=== PATIENT | male | born 2000 | race Caucasian/White ===

== ENCOUNTER 2020-11-15 17:24 | Emergency (ER) | payer MEDICAID, SELFPAY ==
[2020-11-15 17:55] VITALS: BP 135/70; PULSE 86; RESP 19; TEMP 37.3; O2SAT 97; BMI 34.2
--- NOTE | 2020-11-15 18:00 | ED.ALLEREA ---
HPI - Allergic Reaction General Chief complaint: Allergic Reaction Stated complaint: ?Allergic reaction to new RX Time Seen by Provider: 11/15/20 17:54 Source: patient and family Mode of arrival: ambulatory Limitations: other History of Present Illness HPI narrative: Mother presents with her son, 20-year-old male with past medical history of autism, Tourette's, GERD, and fundal plication presents with 1 day of sore throat, swelling, and difficulty swallowing. Patient feels that he may be having an allergic reaction to the medication that he recently started. Does not report any other symptoms, is able to manage his secretions, denies fevers, chills, nausea, vomiting, diarrhea, constipation, abdominal pain, abdominal distention, dysuria, hematuria, chest pain and pressure, and palpitations. MD complaint: allergic reaction Onset (ago): day(s) (1) Exposure: medication Symptoms: difficulty swallowing Severity: moderate Treatment prior to arrival: none Previous Allergic Reaction History: other (Rash) Related Data Previous Rx's Medication Instructions Recorded azithromycin 500 mg PO DAILY 4 Days #4 tab 11/15/20 Allergies Allergy/AdvReac Type Severity Reaction Status Date / Time Sulfa (Sulfonamide Allergy Intermediate RASH Unverified 07/02/20 17:16 Antibiotics) [SULFA(SULFONAMIDE ANTIBIOTICS)] amoxicillin [From AUGMENTIN] AdvReac Mild YEAST Unverified 07/02/20 17:16 INFECTION clavulanic acid AdvReac Mild YEAST Unverified 07/02/20 17:16 [From AUGMENTIN] INFECTION Sulfa Meds Allergy Unknown Uncoded 11/12/18 00:00 Review of Systems Review of Systems: Constitutional: No Weight loss, No Fever, No Chills, No Night Sweats, No Fatigue, No Malaise ENT/Mouth: No Hearing loss, No Ear Pain, No Nasal Congestion, No Sinus Pain, No Hoarseness, positive sore throat, No Rhinorrhea, positive Swallowing Difficulty Eyes: No Eye Pain, No Swelling, No Redness, No Foreign Body, No Discharge, No Vision Changes Cardiovascular: No Chest Pain, No SOB, No Dyspnea on Exertion, No Orthopnea, No Edema, No Palpitations Respiratory: No Cough, No Sputum, No Wheezing, No Smoke Exposure, No Dyspnea Gastrointestinal: No Nausea, No Vomiting, No Diarrhea, No Constipation, No abdominal Pain, No Hematochezia, No Melena Genitourinary: no irregular bleeding, No Dysuria, No Urinary Frequency, No Hematuria, No Urinary Incontinence, No Urgency, No Flank Pain, No Urinary Flow Changes, No Hesitancy Musculoskeletal: No joint pain, No Myalgias, No Joint Swelling Skin: No Skin Lesions, No rash Neuro: No Weakness, No Numbness, No Paresthesias, No Loss of Consciousness, No Dizziness, No Headache Psych: No Anxiety/Panic, No Depression, No SI/HI/AH/VH, No Social Issues Heme/Lymph: No Bruising, No Bleeding,No Lymphadenopathy Endocrine: No Polyuria, No Polydipsia, No Temperature Intolerance Yes all other systems are reviewed and are negative [facility] Past Medical History Attestation statement: The following information was validated with the patient. Source: old records reviewed Medical History (Updated 11/15/20 @ 18:30 by Judy Wilson NP) Autism GERD (gastroesophageal reflux disease) Tourette's Surgical History (Updated 11/15/20 @ 18:30 by Judy Wilson NP) History of fundoplication Social History Social History Alcohol intake: never Smoked in Last 30 Days: No Use of substances other than those prescribed or required for medical reasons: No Advance Directives: No Advance Directives Information Provided: Yes Physical Exam Vital Signs: Vital Signs: Last Vital Signs Temp 99.1 F 11/15/20 18:04 Pulse 86 11/15/20 18:04 Resp 19 11/15/20 18:04 BP 135/70 11/15/20 18:04 Pulse Ox 97 11/15/20 18:04 Body Mass Index 34.2 Appearance: Alert. Oriented X3. No acute distress. Eyes: Pupils equal, round and reactive to light. ENT: Pharyngeal erythema, left-sided tonsillar exudate without swelling Neck: Normal inspection. Neck supple. No lymphadenopathy noted nontender to palpation CVS: Normal heart rate and rhythm. Pulses normal. Respiratory: No respiratory distress. Breath sounds normal. Abdomen: Soft and nontender. Skin: Skin warm and dry. Normal skin color. Normal skin turgor. Extremities: No lower extremity edema. Neuro: No motor deficit. No sensory deficit. Course Course Course Narrative: 20-year-old male with autism, Tourette's, GERD, history of fundoplication presents with his mother for evaluation for suspected allergic reaction. While patient believes that this may be allergic reaction, physical exam shows pharyngitis, lung sounds are clear in all lobes, able to manage secretions, no tracheal stridor noted. Highly unlikely this is an allergic reaction, most likely to be strep, pharyngitis, URI. Will order rapid strep and treat empirically with azithromycin. Patient and patient's mother verbalized understanding of and agrees to plan of care discharge home. MDM - Allergic Reaction MDM Narrative Medical decision making narrative: URI, pharyngitis, strep Differential Diagnosis Differential diagnosis: Likely allergic reaction Medical Records Attestation: I reviewed the patient's medical records. Lab Data Attestation: I reviewed the patient's lab results. Discharge Plan Discharge Clinical Impression: Pharyngitis Qualifiers: Pharyngitis/tonsillitis etiology: unspecified etiology Qualified Code(s): J02.9 - Acute pharyngitis, unspecified Patient Disposition: Home, Self-Care Instructions: Pharyngitis (ED) Additional Instructions: You were evaluated for throat pain. This is not an allergic reaction to a medication, this is pharyngitis. Pharyngitis is an inflammation in the throat. Please take azithromycin as directed. This medication is an antibiotic. Thank you for choosing this emergency department for evaluation. Please follow-up with primary care physician as needed. Return to the emergency department for any new, concerning, or worsening symptoms. Prescriptions: New azithromycin 500 mg tablet 500 mg PO DAILY 4 Days Qty: 4 RF: 0 Interventions: ED Discharge Assessment Last Done: 11/15/20 18:41 Discharge Date/Time: 11/15/20 18:42
[2020-11-15 18:04] VITALS: BP 135/70; PULSE 86; RESP 19; TEMP 37.3; O2SAT 97
[2020-11-15] MEDS: Azithromycin 500 MG TABLET PO (18:26)
== END 2020-11-15 18:42 | disposition home or self-care (01) ==
PROVIDERS: Emergency Provider Internal Medicine; PCP Pediatrics Adolescent Medicine
DX: J02.9 Acute pharyngitis, unspecified (principal); F84.0 Autistic disorder; F95.2 Tourette's disorder; Z79.899 Other long term (current) drug therapy
CPT/HCPCS: 87071; 87880; 99283; 99284

== ENCOUNTER 2020-11-24 07:59 | Emergency (ER) | payer MEDICAID, SELFPAY ==
[2020-11-24 08:57] VITALS: BP 137/61; PULSE 72; RESP 14; TEMP 36.5; O2SAT 97; BMI 35.2
--- NOTE | 2020-11-24 09:05 | ED.EYEPROB ---
HPI - Eye Problem General Chief complaint: Eye Problems Stated complaint: eye problem Time Seen by Provider: 11/24/20 09:04 Source: patient Mode of arrival: ambulatory Limitations: no limitations History of Present Illness HPI Narrative: 20 yo male presenting with left eye pain after he was grinding metal last night and thinks a piece of metal got stuck in his eye. He was grinding metal for his snowblower without eye protection when he felt metal shoot into his eye. He reports pain, redness, watering, and foreign body sensation. He took Tylenol last night with slight improvement and was able to get some sleep. Pain persisted this morning prompting ER evaluation. MD chief complaint: eye pain, eye redness, eye injury and foreign body Onset (ago): day(s) Onset description: sudden Duration: constant Location: left eye Eye Symptoms: burning, redness, pain, foreign body sensation and photophobia Place: home Mechanism: direct trauma and occurred while hammering/grinding Severity: severe Severity scale (1-10): 10 If Pain, Quality: sharp Associated symptoms: none Treatments Prior to Arrival: none Related Data Patient tetanus UTD: Yes Previous Rx's Medication Instructions Recorded azithromycin 500 mg PO DAILY 4 Days #4 tab 11/15/20 Allergies Allergy/AdvReac Type Severity Reaction Status Date / Time Sulfa (Sulfonamide Allergy Intermediate RASH Unverified 07/02/20 17:16 Antibiotics) [SULFA(SULFONAMIDE ANTIBIOTICS)] amoxicillin [From AUGMENTIN] AdvReac Mild YEAST Unverified 07/02/20 17:16 INFECTION clavulanic acid AdvReac Mild YEAST Unverified 07/02/20 17:16 [From AUGMENTIN] INFECTION Sulfa Meds Allergy Unknown Uncoded 11/12/18 00:00 Review of Systems Review of Systems: Constitutional: No Fever, No Chills ENT/Mouth: No sore throat Eyes: + Eye Pain, No Swelling, + Redness Cardiovascular: No Chest Pain, No SOB Respiratory: No Cough, No Sputum Gastrointestinal: No Nausea, No Vomiting Skin: No Skin Lesions Neuro: No Headache Psych: + Anxiety/Panic PMFSH Past Medical History Medical History Autism GERD (gastroesophageal reflux disease) Tourette's Surgical History History of fundoplication Social History Social History Alcohol intake: never Smoked in Last 30 Days: No Use of substances other than those prescribed or required for medical reasons: No Advance Directives: No Advance Directives Information Provided: No Physical Exam Vital Signs: Vital Signs: Last Vital Signs Temp 97.7 F 11/24/20 08:57 Pulse 72 11/24/20 08:57 Resp 14 11/24/20 08:57 BP 137/61 11/24/20 08:57 Pulse Ox 97 11/24/20 08:57 Body Mass Index 35.2 Appearance: Alert. Oriented X3. Appears uncomfortable. Eyes: Pupils equal, round and reactive to light. EOMI, VA noted. With fluroscene staining a punctate metal object seen at 12 o'clock in the left eye. Patient uncooperative with examination due to pain/discomfort. ENT: Normal inspection Neck: Normal inspection. Neck supple. Respiratory: No respiratory distress. Skin: Skin warm and dry. Normal skin color. Normal skin turgor. No rashes. Neuro: Oriented X 3. No motor deficit. No sensory deficit. Course Course Course Narrative: 20 y/o male presenting with metal in left eye since yesterday. Slit lamp in the ED is not functioning. Kumar lamp examination reveals punctate lesion at 12 o'clock, a small piece was able to be removed with sterile Q-tip but concern that residual metal remains. Dr. No's office has been contacted and they will see him now. Given ibuprofen now and stable for d/c to optho. Procedures FB Removal Eye Time Out performed: No Location: eye (L) Topical anesthetic used: tetracaine Foreign body: metal Evidence of corneal penetration: No Technique: irrigation and cotton tip swab Procedure performed under: direct visualization with magnification Patient tolerated procedure: other (difficult cooperation and examination due to discomfort. ) Complications: incomplete foreign body removal and residual rust ring Discharge Plan Discharge Clinical Impression: Foreign body in eye Qualifiers: Encounter type: initial encounter Laterality: left Qualified Code(s): T15.92XA - Foreign body on external eye, part unspecified, left eye, initial encounter Patient Disposition: Home, Self-Care Instructions: Eye Foreign Body (ED) Additional Instructions: Present to Dr. No's Office upon discharge for further evaluation and removal of the metal in your eye. Prescriptions: No Action azithromycin 500 mg tablet 500 mg PO DAILY 4 Days Qty: 4 RF: 0 Referrals: Ian No [Physician] - 1 day (metal in eye)
[2020-11-24] MEDS: Fluorescein Sodium STRIP 1 STRIP EYE-LEFT (09:11)
[2020-11-24] MEDS: Tetracaine HCl/PF 0.5% Oph Sol 4 ML DROPS 3 DROP EYE-LEFT (09:11)
--- NOTE | 2020-11-24 09:12 | PC.NURSE ---
mayco aviles at bedside for exam, lights lowered
[2020-11-24] MEDS: Ibuprofen 800 MG TABLET PO (09:55)
--- NOTE | 2020-11-24 09:57 | PC.NURSE ---
mayco aviles/dr linder unable to remove fb, call placed to dr salvador, pt medicated with ibuprofen and discharged,
== END 2020-11-24 09:58 | disposition home or self-care (01) ==
PROVIDERS: Emergency Provider Emergency Medicine Emergency Medical Services; PCP Pediatrics Adolescent Medicine
DX: H57.12 Ocular pain, left eye (principal); T15.02XA Foreign body in cornea, left eye, initial encounter; Y28.9XXA Contact with unspecified sharp object, undetermined intent, initial encounter; Y93.29 Activity, other involving ice and snow; Y92.009 Unspecified place in unspecified non-institutional (private) residence as the place of occurrence of the external cause; Y99.9 Unspecified external cause status; Z79.899 Other long term (current) drug therapy
CPT/HCPCS: 65222; 99283

== ENCOUNTER 2021-05-16 19:32 | Emergency (ER) | payer MEDICAID, SELFPAY ==
--- NOTE | ~2021-05-16 | XR_ITS ---
EXAMINATION: XR HAND, LEFT CLINICAL INFORMATION: Left hand pain. Limited range of motion. COMPARISON: None TECHNIQUE: PA, lateral, and oblique views of the left hand. FINDINGS: The bones and soft tissues are normal. No fracture. Alignment is anatomic. Joint spaces are maintained. No erosions or soft tissue calcifications. XR/XR hand LT min 3V IMPRESSION: Normal left hand radiographs
[2021-05-16 19:36] VITALS: BP 153/83; PULSE 99; RESP 18; TEMP 36.6; O2SAT 97; BMI 34.4
--- NOTE | 2021-05-16 21:01 | ED_ITS ---
HPI - Extremity Problem General Chief complaint: Extremity Injury, Upper Stated complaint: lac Source: patient and family Mode of arrival: ambulatory Limitations: other (Autism) History of Present Illness HPI Narrative: 20-year-old autistic male presents with several lacerations to his 4th and 5th fingers to his left hand. He presents with his mother who is a good support system. He was repairing a lawnmower when the blade slipped and cut his fingers. His last Tdap was approximately a year ago. Patient has full range of motion and bleeding is controlled at this time. He does not report any other concerns at this time. MD Complaint: extremity pain Onset (ago): hour(s) (Within the hour of arrival) Pain Consistency: constant Location: left Severity scale (1-10): 4 Quality: burning Radiation: none Relieving factors: nothing Exacerbating factors: range of motion and palpation Associated symptoms: denies other symptoms Related Data Previous Rx's Medication Instructions Recorded azithromycin 500 mg tablet 500 mg PO DAILY 4 Days #4 tab 11/15/20 amoxicillin 875 mg-potassium 1 tab PO Q12H 10 Days #20 tab 05/16/21 clavulanate 125 mg tablet (Augmentin) Allergies Allergy/AdvReac Type Severity Reaction Status Date / Time Sulfa (Sulfonamide Allergy Intermediate RASH Unverified 07/02/20 17:16 Antibiotics) [SULFA(SULFONAMIDE ANTIBIOTICS)] amoxicillin [From AUGMENTIN] AdvReac Mild YEAST Unverified 07/02/20 17:16 INFECTION clavulanic acid AdvReac Mild YEAST Unverified 07/02/20 17:16 [From AUGMENTIN] INFECTION Sulfa Meds Allergy Unknown Uncoded 11/12/18 00:00 Review of Systems Review of Systems: Constitutional: No Fever, No Chills ENT/Mouth: No Ear Pain, No Hoarseness, No sore throat Eyes: No Eye Pain, No Swelling, No Redness, No Foreign Body Cardiovascular: No Chest Pain, No SOB Respiratory: No Cough, No Dyspnea Gastrointestinal: No Nausea, No Vomiting, No Diarrhea, No abdominal Pain Genitourinary: No Dysuria, No Hematuria Musculoskeletal: positive left 4th and 5th finger pain, No Myalgias, No Joint Swelling Skin: 2 lacerations to 5th finger, 1 laceration to 4th finger on left side, No rash Neuro: No Weakness, No Numbness, No Paresthesias, No Loss of Consciousness, No Dizziness, No Headache Psych: No Anxiety/Panic, No Depression Heme/Lymph: no easy bruising, no Lymphadenopathy Endocrine: No Polyuria, No Polydipsia Yes all other systems are reviewed and are negative [facility] Past Medical History Attestation statement: The following information was validated with the patient. Source: old records reviewed Medical History Autism GERD (gastroesophageal reflux disease) Tourette's Surgical History History of fundoplication Social History Social History Alcohol intake: never Advance Directives: No Advance Directives Information Provided: No Physical Exam Vital Signs: Vital Signs: Last Vital Signs Temp 98 F 05/16/21 19:36 Pulse 99 05/16/21 19:36 Resp 18 05/16/21 19:36 BP 153/83 H 05/16/21 19:36 Pulse Ox 97 05/16/21 19:36 Body Mass Index 34.4 Appearance: Alert. Oriented X3. No acute distress. Eyes: Pupils equal, round and reactive to light. ENT: Pharynx normal. Neck: Normal inspection. Neck supple. CVS: Normal heart rate and rhythm. Pulses normal. Respiratory: No respiratory distress. Breath sounds normal. Abdomen: Soft and nontender. Skin: 2 cm laceration to the dorsal aspect of the 4th finger, 2 cm laceration to the dorsal aspect of the 5th finger, 1 cm laceration to the dorsal aspect of the 5th finger tip which does not involve the nail. Skin warm and dry. Normal skin color. Normal skin turgor. Extremities: Full range of motion to all digits, strength 5/5, no indication of tendon injury. Neuro: No motor deficit. No sensory deficit. Course Course Course Narrative: 20-year-old autistic male presents for several lacerations to his 4th and 5th fingers of the left hand after a lawnmower blade accident. There is no bone involvement on x-ray, and bleeding is well controlled. The patient is up-to-date on Tdap vaccine. Detailed description about digital blocking with mother and patient, and both agree to the plan. Patient has full range of motion, no indication of tendon injury. Brisk capillary refill and equal pulses. Neurovascularly intact. Prepped and draped in sterile fashion. Irrigated with copious amounts of normal saline and cleaned with Betadine cleanse. Please refer to procedure note for full details. Patient tolerated procedure well. No blood loss. Approximately 30 minutes after laceration repairs, patient continues with full range of motion, no indication of tendon injury. Brisk capillary refill and equal pulses. Patient discharged home, mother verbalized understanding of and agrees to plan. MDM - Extremity (Nontraumatic) MDM Narrative Medical decision making narrative: Laceration, fracture, tendon injury Medical Records Attestation: I reviewed the patient's medical records. Imaging Data Hand x-ray: Attestation: I personally reviewed and interpreted this imaging study as follows: Radiologist's impression: EXAMINATION: XR HAND, LEFT CLINICAL INFORMATION: Left hand pain. Limited range of motion.? COMPARISON: None? TECHNIQUE: PA, lateral, and oblique views of the left hand. FINDINGS: The bones and soft tissues are normal. No fracture. Alignment is anatomic. Joint spaces are maintained. No erosions or soft tissue calcifications.? XR/XR hand LT min 3V IMPRESSION: Normal left hand radiographs Procedures Laceration Laceration 1: Site: hand Side (If applicable): left (Fourth finger) Size (cm): 2 Description: linear Depth: simple, single layer Local Anesthetic: lidocaine 2% Amount of anesthesia used (mL): 4 Pre-repair: wound explored, irrigated extensively, deep structures intact and extensive debridement Skin layer closed with: nylon Size (cm): 4-0 Number of sutures: 3 Technique: simple, interrupted Laceration 2: Site: hand Side (If applicable): left (Fifth finger) Size (cm): 2 Description: linear Depth: simple, single layer Local Anesthetic: lidocaine 2% Amount of anesthesia used (mL): 4 Pre-repair: wound explored, irrigated extensively, deep structures intact and extensive debridement Skin layer closed with: nylon Size (cm): 4-0 Number of sutures: 3 Technique: simple, interrupted Laceration 3: Site: hand Side (If applicable): left (Fifth finger) Size (cm): 1 Description: linear Depth: simple, single layer Local Anesthetic: lidocaine 2% Amount of anesthesia used (mL): 4 Pre-repair: wound explored, irrigated extensively, deep structures intact and extensive debridement Skin layer closed with: nylon Size (cm): 4-0 Number of sutures: 2 Technique: simple, interrupted Discharge Plan Discharge Clinical Impression: Laceration of finger, Laceration of finger of left hand Patient Disposition: Home, Self-Care Instructions: Care For Your Stitches (ED), Finger Laceration (ED) Additional Instructions: You were evaluated for laceration sustained from a lawnmower injury. We sutured 3 lacerations. Please take Augmentin twice a day as directed. Take Tylenol and Motrin as needed for pain management. Please return in 10 days to have sutures removed. If you notice signs and symptoms of infection please seek medical attention sooner. Thank you for choosing this emergency department for evaluation. Please follow-up with primary care physician as needed. Return to the emergency department for any new, concerning, or worsening symptoms. Prescriptions: New amoxicillin-pot clavulanate [Augmentin] 875-125 mg tablet 1 tab PO Q12H 10 Days Qty: 20 RF: 0 No Action azithromycin 500 mg tablet 500 mg PO DAILY 4 Days Qty: 4 RF: 0 Interventions: ED Discharge Assessment Last Done: 05/16/21 22:56 Discharge Date/Time: 05/16/21 23:05
[2021-05-16] MEDS: Amoxicillin/Potassium Clav 875 MG TABLET PO (22:46)
[2021-05-16] MEDS: Acetaminophen 325 MG TABLET 650 MG PO (22:46)
[2021-05-16] MEDS: Lidocaine HCl 2 % MPF 5 ML VIAL 15 ML SUBCUT (22:47)
--- NOTE | 2021-05-16 22:55 | PC.NURSE ---
PT LAC TO LEFT HAND CLEANED AND SCRUBBED OUT AND THEN SUTURED BY BILL ARANA. DSD APPLIED TO LEFT FINGERS.
== END 2021-05-16 23:05 | disposition home or self-care (01) ==
PROVIDERS: Emergency Provider Internal Medicine
DX: S61.215A Laceration without foreign body of left ring finger without damage to nail, initial encounter (principal); S61.217A Laceration without foreign body of left little finger without damage to nail, initial encounter; M79.642 Pain in left hand; W26.9XXA Contact with unspecified sharp object(s), initial encounter; Y93.9 Activity, unspecified; Y92.009 Unspecified place in unspecified non-institutional (private) residence as the place of occurrence of the external cause; Y99.9 Unspecified external cause status; Z79.899 Other long term (current) drug therapy
CPT/HCPCS: 12042; 73130; 99284

== ENCOUNTER 2021-05-27 14:53 | Emergency (ER) | payer MEDICAID, SELFPAY ==
[2021-05-27 15:11] VITALS: BP 139/97; PULSE 100; RESP 16; TEMP 36.2; O2SAT 98; BMI 34.4
--- NOTE | 2021-05-27 17:36 | ED_ITS ---
HPI - Wound/Laceration General Chief Complaint: Wound/Laceration Stated Complaint: suture removal Time Seen by Provider: 05/27/21 17:00 Source: patient Mode of arrival: ambulatory History of Present Illness HPI narrative: 20-year-old male with a past medical history of autism presenting to the ED for suture removal to left hand from lacerations s/p hand being caught in utility worker roller shop on 05/16/2021. Reports minimal drainage to distal pinky w ound/nail bed, however injuries overall improved. Denies fever, chills, numbness, tingling, weakness. Has been compliant with Augmentin Onset (ago): day(s) Related Data Previous Rx's Medication Instructions Recorded azithromycin 500 mg tablet 500 mg PO DAILY 4 Days #4 tab 11/15/20 amoxicillin 875 mg-potassium 1 tab PO Q12H 10 Days #20 tab 05/16/21 clavulanate 125 mg tablet (Augmentin) Allergies Allergy/AdvReac Type Severity Reaction Status Date / Time Sulfa (Sulfonamide Allergy Intermediate RASH Unverified 07/02/20 17:16 Antibiotics) [SULFA(SULFONAMIDE ANTIBIOTICS)] amoxicillin [From AUGMENTIN] AdvReac Mild YEAST Unverified 07/02/20 17:16 INFECTION clavulanic acid AdvReac Mild YEAST Unverified 07/02/20 17:16 [From AUGMENTIN] INFECTION Sulfa Meds Allergy Unknown Uncoded 11/12/18 00:00 Review of Systems Review of Systems: Constitutional: No Fever, No Chills Musculoskeletal: No joint pain, No Myalgias, No Joint Swelling Skin: + Skin Lesions, No rash Neuro: No Weakness, No Numbness, No Paresthesias Yes all other systems are reviewed and are negative Neurologic: Denies Sensory deficit (Neuro) [facility] Past Medical History Attestation statement: The following information was validated with the patient. Medical History Autism GERD (gastroesophageal reflux disease) Tourette's Surgical History History of fundoplication Social History Social History Alcohol intake: never Advance Directives: No Advance Directives Information Provided: No Physical Exam Vital Signs: Vital Signs: Last Vital Signs Temp 97.1 F 05/27/21 15:11 Pulse 100 05/27/21 15:11 Resp 16 05/27/21 15:11 BP 139/97 H 05/27/21 15:11 Pulse Ox 98 05/27/21 15:11 Body Mass Index 34.4 Const: General: cooperative, healthy appearing and no acute distress Orientation/consciousness: patient oriented x3 Limitations: no limitations HENMT: Head: Yes normal to inspection Ears: hearing grossly normal bilaterally General nose exam: Normal external nose present Face and sin us: Yes normal facial exam Eyes: General: appearance normal, both eyes and all related structures EOM: EOMs intact bilaterally Neck: Neck: Yes normal visual inspection Resp: Effort & Inspection: normal respiratory effort and no respiratory distress Cardio: Rate: regular rate Peripheral pulses: radial pulses present Skin: Other: Healing lacerations noted to dorsal aspect left 4th & 5th digits with 3 sutures intact, and distal 5th digit/nail with 2 sutures intact. Distal 5th wound open with slight drainage, appropriate healing, no pus, no surrounding cellulitis Rashes: no rashes Neuro: General: patient oriented x3 Gait exam (Neuro): Normal gait present Sensory Exam: No Sensory deficit (Neuro) Extrem: General: Yes normal to inspection Course Course Course Narrative: 3 sutures removed from left 4th digit 3 sutures removed proximal from left 5th digit, in 2 sutures removed from distal 5th digit/nail MDM - Wound/Laceration MDM Narrative Medical decision making narrative: 20-year-old male with a past medical history of autism presenting to the ED for suture removal to left hand from lacerations s/p hand being caught in utility worker roller shop on 05/16/2021. On exam vital signs stable, NAD/well-appearing, physical exam as above. 8 sutures removed in total. Wounds appear appropriately healing. Discussed with patient he will likely lose nail on left 5th digit, to keep a close eye on that area, apply bacitracin or Neosporin and follow-up for wound check in 3-5 days Discharge Plan Discharge Clinical Impression: Visit for suture removal Patient Disposition: Home, Self-Care Instructions: Stitches Removal (ED) Additional Instructions: Your sutures removed were today in the emergency department Apply bacitracin and Neosporin at home to your wound Keep area dry and clean Avoid the nail, off her finger, keep intact as long as possible, your nail may, of your pinky finger Continue your previously prescribed antibiotics if you have not completed them Please be re-evaluated in 3-5 days to ensure your pinky finger does not look infected Prescriptions: No Action azithromycin 500 mg tablet 500 mg PO DAILY 4 Days Qty: 4 RF: 0 amoxicillin-pot clavulanate [Augmentin] 875-125 mg tablet 1 tab PO Q12H 10 Days Qty: 20 RF: 0 Referrals: Bhavna Guillen MD [Primary Care Provider] - 5 days (For wound check) Interventions: ED Discharge Assessment Last Done: 05/27/21 17:53
--- NOTE | 2021-05-27 17:52 | PC.NURSE ---
wound to left pinky finger cleaned and bacitracin applied w/ bandaid
== END 2021-05-27 17:53 | disposition home or self-care (01) ==
PROVIDERS: Emergency Provider Emergency Medicine Emergency Medical Services; PCP Pediatrics Adolescent Medicine
DX: Z48.02 Encounter for removal of sutures (principal); S61.412D Laceration without foreign body of left hand, subsequent encounter; W28.XXXD Contact with powered lawn mower, subsequent encounter
CPT/HCPCS: 99283

== ENCOUNTER 2021-08-16 21:20 | Emergency (ER) | payer MEDICAID, SELFPAY ==
[2021-08-16 21:29] VITALS: BP 133/61; PULSE 82; RESP 18; TEMP 37; O2SAT 98; BMI 33.5
--- NOTE | 2021-08-16 22:32 | ED.WOUNDLAC ---
HPI - Wound/Laceration General Chief Complaint: Wound/Laceration Stated Complaint: finger lac Time Seen by Provider: 08/16/21 22:02 Source: patient Mode of arrival: ambulatory Limitations: no limitations History of Present Illness HPI narrative: Patient with superficial laceration to right thumb while working on his lawn more fully tendons are intact no deeper injuries moving his hand normally Related Data Previous Rx's Medication Instructions Recorded azithromycin 500 mg tablet 500 mg PO DAILY 4 Days #4 tab 11/15/20 amoxicillin 875 mg-potassium 1 tab PO Q12H 10 Days #20 tab 05/16/21 clavulanate 125 mg tablet (Augmentin) Allergies Allergy/AdvReac Type Severity Reaction Status Date / Time Sulfa (Sulfonamide Allergy Intermediate RASH Verified 08/16/21 22:19 Antibiotics) [SULFA(SULFONAMIDE ANTIBIOTICS)] amoxicillin [From AUGMENTIN] AdvReac Mild YEAST Verified 08/16/21 22:19 INFECTION clavulanic acid AdvReac Mild YEAST Verified 08/16/21 22:19 [From AUGMENTIN] INFECTION Review of Systems Review of Systems: Yes all other systems are reviewed and are negative [facility] Past Medical History Medical History Autism GERD (gastroesophageal reflux disease) Tourette's Surgical History History of fundoplication Social History Social History Alcohol intake: never Advance Directives: No Physical Exam Vital Signs: Vital Signs: Last Vital Signs Temp 98.6 F 08/16/21 21:29 Pulse 82 08/16/21 21:29 Resp 18 08/16/21 21:29 BP 133/61 08/16/21 21:29 Pulse Ox 98 08/16/21 21:29 Body Mass Index 33.5 Const: General: cooperative and comfortable Extrem: Hand/finger images: 1. 3 cm long superficial laceration tenderness intact neurovascular intact Procedures Laceration Laceration 1: Site: upper extremity Side (If applicable): right Size (cm): 2 Description: linear Depth: simple, single layer Local Anesthetic: lidocaine 2% Amount of anesthesia used (mL): 2 Skin layer closed with: nylon Size (cm): 5-0 Number of sutures: 5 Technique: simple, interrupted Discharge Plan Discharge Clinical Impression: Laceration Patient Disposition: Home, Self-Care Instructions: Laceration (ED) Additional Instructions: Local care as advised Suture removal in 10 days Prescriptions: No Action azithromycin 500 mg tablet 500 mg PO DAILY 4 Days Qty: 4 RF: 0 amoxicillin-pot clavulanate [Augmentin] 875-125 mg tablet 1 tab PO Q12H 10 Days Qty: 20 RF: 0
[2021-08-16] MEDS: Lidocaine HCl 2 % MPF 5 ML VIAL INFILTRATI (23:13)
== END 2021-08-16 23:16 | disposition home or self-care (01) ==
PROVIDERS: Emergency Provider Internal Medicine; PCP Pediatrics Adolescent Medicine
DX: S61.011A Laceration without foreign body of right thumb without damage to nail, initial encounter (principal); X58.XXXA Exposure to other specified factors, initial encounter; Y93.H9 Activity, other involving exterior property and land maintenance, building and construction; Y92.007 Garden or yard of unspecified non-institutional (private) residence as the place of occurrence of the external cause; Y99.9 Unspecified external cause status
CPT/HCPCS: 12001; 99283; 99284

== ENCOUNTER 2021-09-22 07:57 | Emergency (ER) | payer MEDICAID, SELFPAY ==
--- NOTE | ~2021-09-22 | XR_ITS ---
EXAMINATION: XR RIBS, RIGHT CLINICAL INFORMATION: Fall COMPARISON: Previous chest x-ray July 2019 TECHNIQUE: 3 views of the right ribs and one view of the chest were obtained. FINDINGS: Lungs are clear. No consolidation, pneumothorax, or pleural effusion. The cardiomediastinal silhouette and pulmonary vasculature are normal. Osseous structures are unremarkable. Ribs are intact. No fractures are identified. XR/XR ribs RT min 3V w CXR1V IMPRESSION: Unremarkable examination.
[2021-09-22 08:27] VITALS: BP 145/76; PULSE 96; RESP 18; TEMP 36.6; O2SAT 97; BMI 35.9
--- NOTE | 2021-09-22 08:40 | ED.GENADULT ---
HPI - General Adult General Chief complaint: General Medical Stated complaint: Fall/rib pain Time Seen by Provider: 09/22/21 08:35 Related Data Previous Rx's Medication Instructions Recorded azithromycin 500 mg tablet 500 mg PO DAILY 4 Days #4 tab 11/15/20 amoxicillin 875 mg-potassium 1 tab PO Q12H 10 Days #20 tab 05/16/21 clavulanate 125 mg tablet (Augmentin) Allergies Allergy/AdvReac Type Severity Reaction Status Date / Time Sulfa (Sulfonamide Allergy Intermediate RASH Verified 08/16/21 22:19 Antibiotics) [SULFA(SULFONAMIDE ANTIBIOTICS)] amoxicillin [From AUGMENTIN] AdvReac Mild YEAST Verified 08/16/21 22:19 INFECTION clavulanic acid AdvReac Mild YEAST Verified 08/16/21 22:19 [From AUGMENTIN] INFECTION PMFSH Past Medical History Medical History Autism GERD (gastroesophageal reflux disease) Tourette's Surgical History History of fundoplication Social History Social History Alcohol intake: never Advance Directives: No Advance Directives Information Provided: No Physical Exam Vital Signs: Vital Signs: Last Vital Signs Temp 97.9 F 09/22/21 08:27 Pulse 96 09/22/21 08:27 Resp 18 09/22/21 08:27 BP 145/76 H 09/22/21 08:27 Pulse Ox 97 09/22/21 08:27 BMI result Body Mass Index 35.9 Discharge Plan Discharge Prescriptions: No Action azithromycin 500 mg tablet 500 mg PO DAILY 4 Days Qty: 4 RF: 0 amoxicillin-pot clavulanate [Augmentin] 875-125 mg tablet 1 tab PO Q12H 10 Days Qty: 20 RF: 0
--- NOTE | 2021-09-22 09:37 | ED.GENADULT ---
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 Denies symptoms prior to fall. Denies head injury, LOC, lightheadedness/dizziness prior to fall. Reports pain with movement/breathing Onset (ago): day(s) Severity: moderate Related Data Previous Rx's Medication Instructions Recorded azithromycin 500 mg tablet 500 mg PO DAILY 4 Days #4 tab 11/15/20 amoxicillin 875 mg-potassium 1 tab PO Q12H 10 Days #20 tab 05/16/21 clavulanate 125 mg tablet (Augmentin) Allergies Allergy/AdvReac Type Severity Reaction Status Date / Time Sulfa (Sulfonamide Allergy Intermediate RASH Verified 08/16/21 22:19 Antibiotics) [SULFA(SULFONAMIDE ANTIBIOTICS)] amoxicillin [From AUGMENTIN] AdvReac Mild YEAST Verified 08/16/21 22:19 INFECTION clavulanic acid AdvReac Mild YEAST Verified 08/16/21 22:19 [From AUGMENTIN] INFECTION Review of Systems Review of Systems: Constitutional: No Fever, No Chills ENT/Mouth: No Ear Pain, No Nasal Congestion, No sore throat, No Rhinorrhea Cardiovascular: + Chest wall Pain, No SOB Respiratory: No Cough, No Sputum, No Wheezing Gastrointestinal: No Nausea, No Vomiting, No Abdominal pain Genitourinary:, No Dysuria, No Urinary Incontinence, No Urgency, No Flank Pain Musculoskeletal: No joint pain, No Myalgias, No Joint Swelling Skin: No Skin Lesions, No rash Neuro: No Weakness, No Numbness, No Paresthesias, no head injury, no LOC Yes all other systems are reviewed and are negative PMFSH Past Medical History Attestation statement: The following information was validated with the patient. Medical History Autism GERD (gastroesophageal reflux disease) Tourette's Surgical History History of fundoplication Social History Social History Alcohol intake: never Advance Directives: No Advance Directives Information Provided: No Physical Exam Vital Signs: Vital Signs: Last Vital Signs Temp 97.9 F 09/22/21 08:27 Pulse 96 09/22/21 08:27 Resp 18 09/22/21 08:27 BP 145/76 H 09/22/21 08:27 Pulse Ox 97 09/22/21 08:27 BMI result Body Mass Index 35.9 Const: General: cooperative, healthy appearing and no acute distress Orientation/consciousness: patient oriented x3 Limitations: no limitations HENMT: Head: Yes normal to inspection Ears: hearing grossly normal bilaterally General nose exam: Normal external nose present Face and sinus: Yes normal facial exam Eyes: General: appearance normal, both eyes and all related structures EOM: EOMs intact bilaterally Neck: Neck: Yes normal visual inspection and Yes no meningeal signs Chest: Other: + small ecchymosis noted to right anterior ribs with tenderness to palpation. No crepitus, no erythema. Chest palpation & inspection: no crepitus Resp: Effort & Inspection: normal respiratory effort and not tachypneic Auscultation: clear to auscultation bilaterally, no rales, no rhonchi and no wheezes Cardio: Rate: regular rate Heart sounds: S1 normal heart sound present and S2 normal heart sound present GI: Inspection: Yes normal to inspection Palpation (GI): Soft to palpation, nontender, no guarding and not rigid Skin: Rashes: no rashes Wounds: no wounds Neuro: General: patient oriented x3 and no meningeal signs Gait exam (Neuro): Normal gait present Extrem: General: Yes normal to inspection Course Course Course Narrative: XR ribs RT min 3V w CXR1V IMPRESSION: Unremarkable examination. Medical Decision Making MDM Narrative Medical decision making narrative: On exam vital signs stable, NAD/well-appearing, physical exam as above. Concern for rib fracture versus contusion. Low concern for pneumothorax. Will obtain x-rays Medical Records Medical records reviewed: Yes I reviewed the patient's medical records. Lab Data Lab results reviewed: Yes I reviewed the patient's lab results. Discharge Plan Discharge Clinical Impression: Contusion of rib on right side Qualifiers: Encounter type: initial encounter Qualified Code(s): S20.211A - Contusion of right front wall of thorax, initial encounter Patient Disposition: Home, Self-Care Instructions: Rib Contusion (ED) Additional Instructions: Your x-ray is unremarkable. You bruised her ribs Take Tylenol and Motrin at home as needed for pain Ice area Rest Please follow-up with your doctor If you develop fever, chills, unbearable pain please return to the ED Prescriptions: No Action azithromycin 500 mg tablet 500 mg PO DAILY 4 Days Qty: 4 RF: 0 amoxicillin-pot clavulanate [Augmentin] 875-125 mg tablet 1 tab PO Q12H 10 Days Qty: 20 RF: 0 Referrals: Bhavna Guillen MD [Primary Care Provider] - 3 days
== END 2021-09-22 09:51 | disposition home or self-care (01) ==
PROVIDERS: Emergency Provider Emergency Medicine; PCP Pediatrics Adolescent Medicine
DX: S20.211A Contusion of right front wall of thorax, initial encounter (principal); W01.198A Fall on same level from slipping, tripping and stumbling with subsequent striking against other object, initial encounter; Y93.9 Activity, unspecified; Y92.9 Unspecified place or not applicable; Y99.9 Unspecified external cause status
CPT/HCPCS: 71101; 99283

== ENCOUNTER 2021-10-18 18:53 | Emergency (ER) | payer MEDICAID, SELFPAY ==
--- NOTE | ~2021-10-18 | XR_ITS ---
EXAMINATION: XR CHEST CLINICAL INFORMATION: Chest pain. COMPARISON: Chest radiograph dated from 09/22/2021. TECHNIQUE: 2 views of the chest were obtained. FINDINGS: Normal appearance of the cardiomediastinal silhouette. Low lung volumes with mild bibasilar subsegmental atelectasis. No focal airspace opacities, pleural effusions or pneumothorax. No acute osseous abnormalities. Visualized upper abdomen is within normal limits. XR/XR chest 2V IMPRESSION: No acute cardiopulmonary findings. Of note, radiographic examinations have decreased sensitivity for the detection of groundglass opacities.
[2021-10-18 19:54] VITALS: BP 138/71; PULSE 93; RESP 20; TEMP 36.7; O2SAT 97; BMI 33.5
[2021-10-18 20:25] LABS: COVID-19 Test Negative (Negative)
[2021-10-18 23:27] VITALS: BP 103/52; PULSE 73; RESP 16; TEMP 36.7; O2SAT 96
--- NOTE | 2021-10-18 23:36 | ED.CHESTPAIN ---
HPI - Chest Pain General Chief Complaint: Chest Pain Stated Complaint: ? pneumonia Time Seen by Provider: 10/18/21 22:46 Source: patient Mode of arrival: ambulatory Limitations: no limitations History of Present Illness HPI narrative: Patient 21 years old with no significant past medical history been complaining of pain in the right 2nd inter costal space for last 2 weeks increases on palpation taking a deep breath also patient been wheezing in the nighttime had a history of exertional asthma but not using any inhaler lately patient already been vaccinated against COVID already received a booster dose also Related Data Previous Rx's Medication Instructions Recorded azithromycin 500 mg tablet 500 mg PO DAILY 4 Days #4 tab 11/15/20 amoxicillin 875 mg-potassium 1 tab PO Q12H 10 Days #20 tab 05/16/21 clavulanate 125 mg tablet (Augmentin) albuterol sulfate 90 mcg/actuation 2 puff INHALATION Q4-6H PRN #8.5 g 10/19/21 aerosol inhaler (ProAir HFA) ibuprofen 600 mg tablet 600 mg PO Q6H PRN #20 tab 10/19/21 Allergies Allergy/AdvReac Type Severity Reaction Status Date / Time Sulfa (Sulfonamide Allergy Intermediate RASH Verified 08/16/21 22:19 Antibiotics) [SULFA(SULFONAMIDE ANTIBIOTICS)] amoxicillin [From AUGMENTIN] AdvReac Mild YEAST Verified 08/16/21 22:19 INFECTION clavulanic acid AdvReac Mild YEAST Verified 08/16/21 22:19 [From AUGMENTIN] INFECTION Review of Systems Review of Systems: Yes all other systems are reviewed and are negative PMFSH Past Medical History Medical History Autism GERD (gastroesophageal reflux disease) Tourette's Surgical History History of fundoplication Social History Social History Alcohol intake: never Advance Directives: No Physical Exam Vital Signs: Vital Signs: Last Vital Signs Temp 98.1 F 10/18/21 23:27 Pulse 73 10/18/21 23:27 Resp 16 10/18/21 23:27 BP 103/52 L 10/18/21 23:27 Pulse Ox 96 10/18/21 23:27 BMI result Body Mass Index 33.5 Appearance: Alert. Oriented X3. No acute distress. ENT: Pharynx normal. Oral Mucosa moist Neck: Normal inspection. Neck supple. CVS: Normal heart rate and rhythm. Pulses normal. Respiratory: No respiratory distress. Equal air entry bilateral, no wheezing/rales/rhonchi right 2nd intercostal tenderness+ Abdomen: Soft and nontender. Skin: Skin warm and dry. Normal skin color. Normal skin turgor. Extremities: No lower extremity edema. No calf tenderness Neuro: Oriented X 3. MDM - Chest Pain MDM Narrative Medical decision making narrative: Patient's atypical chest pain clinically costochondritis will discharge patient home on ibuprofen EKG normal COVID negative chest x-ray negative Lab Data Labs: Lab Results 10/18/21 Range/Units 20:01 COVID-19 ([place]) Negative (Negative) COVID-19 Clin Com See Note ECG Data ECG #1: Attestation: I personally reviewed and interpreted this ECG as follows: Interpretation: Normal sinus rhythm heart rate 63 beats per minute normal intervals normal axis no acute changes Discharge Plan Discharge Clinical Impression: Acute costochondritis Asthma Qualifiers: Asthma severity: mild Asthma persistence: intermittent Asthma complication type: uncomplicated Qualified Code(s): J45.20 - Mild intermittent asthma, uncomplicated Patient Disposition: Home, Self-Care Instructions: Asthma (ED), Costochondritis (ED) Additional Instructions: Take ibuprofen as advised Inhaler as advised in the nighttime/when wheezing Follow with PCP if not better Prescriptions: New ibuprofen 600 mg tablet 600 mg PO Q6H PRN (Reason: pain) Qty: 20 RF: 0 albuterol sulfate [ProAir HFA] 90 mcg/actuation HFA aerosol inhaler 2 puff inhalation Q4-6H PRN (Reason: Wheezing) Qty: 8.5 RF: 0 No Action azithromycin 500 mg tablet 500 mg PO DAILY 4 Days Qty: 4 RF: 0 amoxicillin-pot clavulanate [Augmentin] 875-125 mg tablet 1 tab PO Q12H 10 Days Qty: 20 RF: 0 Interventions: ED Discharge Assessment Last Done: 10/19/21 01:27 Discharge Date/Time: 10/19/21 01:28
--- NOTE | 2021-10-18 23:42 | ECG_ITS ---
Test Reason : CHEST PAIN Blood Pressure : / mmHG Vent. Rate : 063 BPM Atrial Rate : 063 BPM P-R Int : 138 ms QRS Dur : 102 ms QT Int : 400 ms P-R-T Axes : 036 034 020 degrees QTc Int : 409 ms Normal sinus rhythm Normal ECG When compared with ECG of 02-AUG-2019 10:38, No significant change was found Referred By: William Wilks Electronically Signed By:GEORGE MYERS MD
[2021-10-19] MEDS: Ibuprofen 800 MG TABLET PO (01:26)
== END 2021-10-19 01:28 | disposition home or self-care (01) ==
PROVIDERS: Emergency Provider Internal Medicine; PCP Pediatrics Adolescent Medicine
DX: M94.0 Chondrocostal junction syndrome [Tietze] (principal); J45.20 Mild intermittent asthma, uncomplicated; Z20.822 Contact with and (suspected) exposure to COVID-19; F95.2 Tourette's disorder
CPT/HCPCS: 36415; 71046; 87635; 93005; 99283; 99284

== ENCOUNTER 2022-02-05 18:56 | Emergency (ER) | payer MEDICAID, SELFPAY ==
--- NOTE | ~2022-02-05 | CT_ITS ---
EXAMINATION: CT ABDOMEN AND PELVIS WITH CONTRAST CLINICAL INFORMATION: Right-sided abdominal pain. COMPARISON: None. TECHNIQUE: Multidetector volumetric images were obtained from the superior aspect of the liver through the pubic symphysis following administration 85 mL of Omnipaque 350 intravenous contrast. Sagittal and coronal reformatted images were obtained on the technologist's workstation. Oral contrast: No This CT examination was performed using dose optimization techniques as appropriate, variously including the following: *Automated exposure control *Adjustment of mA and/or kV according to patient size (this includes techniques or standardized protocols for targeted exams where dose is matched to indication/reason for exam; i.e. extremities or head) *Use of iterative reconstruction technique DLP: 886 mGy-cm FINDINGS: LUNG BASES: The visualized lung bases are unremarkable. LIVER, GALLBLADDER, AND BILIARY TREE: The liver is normal in size, shape, and attenuation. No focal hepatic lesion or biliary ductal dilatation is present. The gallbladder is unremarkable with no evidence of radiopaque gallstones, gallbladder wall thickening, or obvious pericholecystic inflammatory changes. PANCREAS: Unremarkable. SPLEEN: Unremarkable. ADRENAL GLANDS: Unremarkable. KIDNEYS AND URETERS: The kidneys are normal in size, shape, and attenuation. No hydronephrosis, hydroureter, or calculi seen. No perinephric stranding. BLADDER: Unremarkable. GASTROINTESTINAL TRACT: The small and large bowel are unremarkable. The appendix is unremarkable. ABDOMINAL WALL: No significant hernia is appreciated. LYMPH NODES: Normal. VASCULAR: Unremarkable. PELVIC VISCERA: Unremarkable. OSSEOUS STRUCTURES: Unremarkable. CT/CT abdomen pelvis w con IMPRESSION: No significant abnormality.
[2022-02-05 19:02] VITALS: BP 139/60; PULSE 78; RESP 18; TEMP 36.4; O2SAT 100; BMI 35.9
[2022-02-05 19:17] LABS: MANUAL DIFF FLAG NO
[2022-02-05 19:25] LABS: Basophils Percent Auto 0.4 % (0-2); Eosinophils Absolute Auto 0.2 X10*3/uL (0.0-0.4); Eosinophils Percent Auto 2.6 % (0-4); Hematocrit 45.1 % (42.0-52.0); Hemoglobin 15.4 g/dl (14.0-18.0); Imm Gran Abs Auto 0.03 X10*3/uL (0.00-0.03); Imm Gran Pct Auto 0.4 % (0.0-0.4); Lymphocytes Absolute Auto 2.5 X10*3/uL (1.2-4.9); Lymphocytes Percent Auto 30.8 % (20-40); Mean Corpuscular HGB Conc 34.1 g/dl (31.0-36.0); Mean Corpuscular Hemoglobin 27.4 pg (27.0-33.0); Mean Corpuscular Volume 80.1 fL (80.0-98.0); Mean Platelet Volume 10.6 fL (9.4-12.4); Monocytes Absolute Auto 0.6 X10*3/uL (0.1-1.2); Neutrophils Absolute Auto 4.8 x10*3/uL (2.0-8.3); Neutrophils Percent Auto 58.8 % (45-73); Platelet Count 211 X10*3/uL (160-400); Red Blood Count 5.63 X10*6/uL (4.60-5.80); Red Cell Distribution Width 12.4 % (11.0-16.0); White Blood Count 8.2 X10*3/uL (4.8-10.8)
[2022-02-05 19:36] LABS: Alanine Aminotransferase 34 U/L (0-40); Albumin Level 4.3 g/dL (3.5-5.0); Alkaline Phosphatase 75 U/L (39-117); Anion Gap 10 (12-20); Aspartate Amino Transferase 23 U/L (5-37); Bilirubin Total 0.7 mg/dL (0.0-1.0); Blood Urea Nitrogen 21 mg/dL (9-16); Carbon Dioxide 31 mmol/L (22-29); Chloride 103 mmol/L (96-108); Creatinine Clr Calc Pharmacy 162.3; Estimated Glomerular Filt Rate > 60; Glucose Random 93 mg/dL (60-115); Lipase 17 U/L (8-78); Potassium 4.1 mmol/L (3.3-5.1); Sodium 140 mmol/L (135-145); Total Protein 6.7 g/dL (6.5-8.0)
[2022-02-05 20:45] VITALS: BP 117/55; PULSE 77; RESP 16; TEMP 36.6; O2SAT 98
--- NOTE | 2022-02-05 22:01 | ED.ABDPAIN ---
HPI - Abdominal Pain General Chief Complaint: Abdominal Pain Stated Complaint: Abdominal pain Time Seen by Provider: 02/05/22 20:56 History of Present Illness HPI narrative: Patient is a 21 year male presents today with abdominal pain on the right side it has been ongoing for about a week. No fever no chills. No vomiting. Patient is hungry. Has a chronic history of back pain. It radiates to the periumbilical area on the right side. No diaphoresis. No change in bowel movements. No diarrhea. No travel history. No history of appendicitis. No history of gallbladder problem. History of fundoplication done at the age of 4 or reflux. History of autism. Related Data Previous Rx's Medication Instructions Recorded azithromycin 500 mg tablet 500 mg PO DAILY 4 Days #4 tab 11/15/20 amoxicillin 875 mg-potassium 1 tab PO Q12H 10 Days #20 tab 05/16/21 clavulanate 125 mg tablet (Augmentin) albuterol sulfate 90 mcg/actuation 2 puff INHALATION Q4-6H PRN #8.5 g 10/19/21 aerosol inhaler (ProAir HFA) ibuprofen 600 mg tablet 600 mg PO Q6H PRN #20 tab 10/19/21 Allergies Allergy/AdvReac Type Severity Reaction Status Date / Time Sulfa (Sulfonamide Allergy Intermediate RASH Verified 08/16/21 22:19 Antibiotics) [SULFA(SULFONAMIDE ANTIBIOTICS)] amoxicillin [From AUGMENTIN] AdvReac Mild YEAST Verified 08/16/21 22:19 INFECTION clavulanic acid AdvReac Mild YEAST Verified 08/16/21 22:19 [From AUGMENTIN] INFECTION Review of Systems Review of Systems No fever no chills no nausea no vomiting no coughing positive abdominal pain on the right side Yes all other systems are reviewed and are negative [facility] Past Medical History Attestation statement: The following information was validated with the patient. Medical History Autism GERD (gastroesophageal reflux disease) Tourette's Surgical History History of fundoplication Social History Social History Alcohol intake: never Advance Directives: No Advance Directives Information Provided: No Physical Exam ED Vital Signs: Vital Signs - 24 hr 02/05/22 19:02 02/05/22 20:45 Temperature 97.5 F 97.9 F Pulse Rate 78 77 Respiratory Rate 18 16 Blood Pressure 139/60 117/55 L Pulse Oximetry 100 98 BMI result Body Mass Index 35.9 Appearance: Alert. Oriented X3. No acute distress. Eyes: Pupils equal, round and reactive to light. ENT: Pharynx normal. Neck: Normal inspection. Neck supple. No lymph nodes noted. No crepitus CVS: Normal heart rate and rhythm. Pulses normal. Normal S1 and S2 Respiratory: No respiratory distress. Breath sounds normal. No Wheezing. No rales Abdomen: Soft and nontender. No rigidity. No distention. good BS x4 Skin: Skin warm and dry. Normal skin color. Normal skin turgor. Extremities: No lower extremity edema. Neurovascular intact to all extremities. No Lacerations. No Rash Neuro: Oriented X 3. No motor deficit. No sensory deficit. Moving all extermities. No slurred speech MDM - Abdominal Pain MDM Narrative Medical decision making narrative: CT of the abdomen pelvis with grossly negative. No acute evidence of kidney stone no acute evidence of appendicitis electrolytes unremarkable white count is normal. No obstruction. Will discharge patient home. In stable condition. Medical Records Attestation: I reviewed the patient's medical records. Lab Data Attestation: I reviewed the patient's lab results. Result diagrams: 02/05/22 19:13 02/05/22 19:13 Labs: Lab Results 02/05/22 02/05/22 02/05/22 Range/Units 19:13 19:13 22:20 WBC 8.2 (4.8-10.8) X10*3/uL RBC 5.63 (4.60-5.80) X10*6/uL Hgb 15.4 (14.0-18.0) g/dl Hct 45.1 (42.0-52.0) % MCV 80.1 (80.0-98.0) fL MCH 27.4 (27.0-33.0) pg MCHC 34.1 (31.0-36.0) g/dl RDW 12.4 (11.0-16.0) % Plt Count 211 (160-400) X10*3/uL MPV 10.6 (9.4-12.4) fL Immature Gran % (Auto) 0.4 (0.0-0.4) % Neut % (Auto) 58.8 (45-73) % Lymph % (Auto) 30.8 (20-40) % [place] % (Auto) 7.0 (2-11) % Eos % (Auto) 2.6 (0-4) % Baso % (Auto) 0.4 (0-2) % Lymph # (Auto) 2.5 (1.2-4.9) X10*3/uL [place] # (Auto) 0.6 (0.1-1.2) X10*3/uL Eos # (Auto) 0.2 (0.0-0.4) X10*3/uL Baso # (Auto) 0.0 (0.0-0.2) X10*3/uL Abs Immat Gran (auto) 0.03 (0.00-0.03) X10*3/uL Absolute Neuts (auto) 4.8 (2.0-8.3) x10*3/uL Absolute Nucleated RBC 0.000 (0.0-0.012) X10*3/uL Nucleated RBC % (auto) 0.0 (0.0-0.2) /100WBC Sodium 140 (135-145) mmol/L Potassium 4.1 (3.3-5.1) mmol/L Chloride 103 (96-108) mmol/L Carbon Dioxide 31 H (22-29) mmol/L Anion Gap 10 L (12-20) BUN 21 H (9-16) mg/dL Creatinine 0.90 (0.5-1.4) mg/dL Estim Creat Clear Calc 162.3 Estimated GFR > 60 Random Glucose 93 (60-115) mg/dL Calcium 10.0 (8.4-10.2) mg/dL Total Bilirubin 0.7 (0.0-1.0) mg/dL AST 23 (5-37) U/L ALT 34 (0-40) U/L Alkaline Phosphatase 75 (39-117) U/L Total Protein 6.7 (6.5-8.0) g/dL Albumin 4.3 (3.5-5.0) g/dL Lipase 17 (8-78) U/L Urine Color YELLOW Urine Appearance CLEAR Urine pH 6.0 (5.0-8.0) Ur Specific [place] 1.025 (1.005-1.025) Urine Protein NEG (NEG-TRACE) MG/DL Urine Glucose (UA) NEG (NEG) MG/DL Urine Ketones NEG (NEG) MG/DL Urine Blood NEG (NEG) Urine Nitrite NEG (NEG) Ur Leukocyte Esterase NEG (NEG) Urine RBC 0-2 (0) /HPF Urine WBC 0 (0-4) /HPF Ur Squamous Epith Cells TRACE /LPF Urine Bacteria NONE /LPF Discharge Plan Discharge Clinical Impression: Abdominal pain Patient Disposition: Home, Self-Care Instructions: Abdominal Pain (ED) Prescriptions: No Action azithromycin 500 mg tablet 500 mg PO DAILY 4 Days Qty: 4 0RF amoxicillin-pot clavulanate [Augmentin] 875-125 mg tablet 1 tab PO Q12H 10 Days Qty: 20 0RF Rx Instructions: Patient tolerated medication previously. ibuprofen 600 mg tablet 600 mg PO Q6H PRN (Reason: pain) Qty: 20 0RF albuterol sulfate [ProAir HFA] 90 mcg/actuation HFA aerosol inhaler 2 puff inhalation Q4-6H PRN (Reason: Wheezing) Qty: 8.5 0RF Referrals: Bhavna Guillen MD [Primary Care Provider] -
[2022-02-05 22:33] LABS: Appearance Urine CLEAR; Color Urine YELLOW; Glucose Urine UA NEG (NEG); Leukocyte Esterase Urine NEG (NEG); Nitrite Urine NEG (NEG); Specific Gravity - Urine 1.025 (1.005-1.025); Urine Blood NEG (NEG); Urine Ketones NEG (NEG); Urine Protein NEG (NEG-TRACE)
[2022-02-05 23:06] LABS: RBC Urine 0-2 /HPF (0); Squamous Epithelial Cell Urine TRACE /LPF; WBC Urine 0 /HPF (0-4)
[2022-02-05] MEDS: iohexoL 350 MG/ML 100 ML INFUS..BTL 85 ML IV (23:29)
== END 2022-02-06 00:07 | disposition home or self-care (01) ==
PROVIDERS: Emergency Provider Emergency Medicine Emergency Medical Services; PCP Pediatrics Adolescent Medicine
DX: R10.31 Right lower quadrant pain (principal); Z79.899 Other long term (current) drug therapy
CPT/HCPCS: 36415; 74177; 80053; 81001; 83690; 85025; 99284; Q9967

== ENCOUNTER 2022-06-18 20:30 | Emergency (ER) | payer MEDICAID, SELFPAY | END 2022-06-18 22:25 | disposition left against medical advice (07) | PROVIDERS: Emergency Provider Emergency Medicine | DX: S81.811A Laceration without foreign body, right lower leg, initial encounter (principal); W29.3XXA Contact with powered garden and outdoor hand tools and machinery, initial encounter; Y93.9 Activity, unspecified; Y92.9 Unspecified place or not applicable; Y99.9 Unspecified external cause status ==

== ENCOUNTER 2022-06-18 23:31 | Emergency (ER) | payer MEDICAID, SELFPAY ==
[2022-06-18 23:38] VITALS: BP 127/59; PULSE 79; RESP 18; TEMP 37; O2SAT 97; BMI 35.9
--- NOTE | 2022-06-19 02:31 | PC.NURSE ---
Pt states he was cutting branches at his mother's house with a chainsaw . While cutting a branch the chainsaw cut through it and cut his leg.
--- NOTE | 2022-06-19 03:57 | PC.NURSE ---
pt has h/o autism
[2022-06-19 04:00] VITALS: BP 126/71; PULSE 62; RESP 16; TEMP 37.2; O2SAT 98
--- NOTE | 2022-06-19 07:30 | ED.WOUNDLAC ---
HPI - Wound/Laceration General Chief Complaint: Wound/Laceration Stated Complaint: pt lwt'd, left leg inj Time Seen by Provider: 06/19/22 07:30 Source: patient and family Mode of arrival: ambulatory Limitations: no limitations History of Present Illness HPI narrative: laceration to left lower leg with chainsaw Onset (ago): hour(s) (12+) Extremity Location: left: lower leg Place: home Patient tetanus UTD: No Context: accidental Associated symptoms: none Treatments prior to arrival: bandage Related Data Previous Rx's Medication Instructions Recorded azithromycin 500 mg tablet 500 mg PO DAILY 4 days #4 tabs 11/15/20 amoxicillin 875 mg-potassium 1 tab PO Q12H 10 days #20 tabs 05/16/21 clavulanate 125 mg tablet (Augmentin) albuterol sulfate 90 mcg/actuation 2 puff inhalation Q4-6H PRN 10/19/21 aerosol inhaler (ProAir HFA) Wheezing #8.5 grams ibuprofen 600 mg tablet 600 mg PO Q6H PRN pain #20 tabs 10/19/21 cephalexin 500 mg capsule 500 mg PO TID 7 days #21 caps 06/19/22 Allergies Allergy/AdvReac Type Severity Reaction Status Date / Time Sulfa (Sulfonamide Allergy Intermediate RASH Verified 06/18/22 23:41 Antibiotics) [SULFA(SULFONAMIDE ANTIBIOTICS)] amoxicillin [From AUGMENTIN] AdvReac Mild YEAST Verified 06/18/22 23:41 INFECTION clavulanic acid AdvReac Mild YEAST Verified 06/18/22 23:41 [From AUGMENTIN] INFECTION Review of Systems Review of Systems: Constitutional : No Fever, No Chills, Cardiovascular : No Chest Pain, No SOB Respiratory : No Dyspnea Gastrointestinal : No abdominal pain Musculoskeletal : No Joint Swelling Skin : No rash, positive skin laceration Neuro : No Weakness, No Numbness Psych : No SI/HI PMFSH Past Medical History Medical History Autism GERD (gastroesophageal reflux disease) Tourette's Surgical History History of fundoplication Social History Social History Alcohol intake: never Patient Tobacco Use Status: Never used Tobacco Use of substances other than those prescribed or required for medical reasons: No Advance Directives: No Advance Directives Information Provided: No Physical Exam Vital Signs: Vital Signs: Last Vital Signs Temp 98.9 F 06/19/22 04:00 Pulse 62 06/19/22 04:00 Resp 16 06/19/22 04:00 BP 126/71 06/19/22 04:00 Pulse Ox 98 06/19/22 04:00 O2 Del Method 06/19/22 04:00 BMI result Body Mass Index 35.9 Appearance: Alert. Oriented X3. No acute distress. Eyes: Pupils equal, round and reactive to light. ENT: Pharynx normal. Neck: Normal inspection. Neck supple. CVS: Normal heart rate and rhythm. Pulses normal. Respiratory: No respiratory distress. Breath sounds normal. Abdomen: Soft and nontender. Skin: Skin warm and dry. Normal skin color. Normal skin turgor. Extremities: No lower extremity edema. L left lower anterior / lateral lopez approx 5 cm gauge/laceration superficial old appearing retracted skin approx by 2.5cm no bleeding noted cannot approximate wound edges together without creating tense areas on the leg it will likely rip. Area of gouge is shallow 0.5cm fully plantar and dorsiflex the foot without issue good ROM Neuro: Oriented X 3. No motor deficit. No sensory deficit. MDM - Wound/Laceration MDM Narrative Medical decision making narrative: 21 yo male with hx of autism here with L lower leg gouge/laceration s/p chainsaw - this is over 12 hours old - I cannot approximate wound edges without significantly pulling the skin or causing it to become tense. At this time it is not bleeding it will need to heal by secondary intention. sterile dressing applied and cephalexin/tdap with wound care precautions on discharge Discharge Plan Discharge Clinical Impression: Laceration Patient Disposition: Home, Self-Care Instructions: Laceration (ED) Additional Instructions: return to ED for any worsening symptoms or concerns monitor for redness, fevers, yellow drainage okay to shower in 24 hours, change dressing daily this will take about 2 weeks to heal do not soak or get wet other than to shower keep clean covered and dry Prescriptions: New cephalexin 500 mg capsule 500 mg PO TID 7 Days Qty: 21 0RF No Action azithromycin 500 mg tablet 500 mg PO DAILY 4 Days Qty: 4 0RF amoxicillin-pot clavulanate [Augmentin] 875-125 mg tablet 1 tab PO Q12H 10 Days Qty: 20 0RF Rx Instructions: Patient tolerated medication previously. ibuprofen 600 mg tablet 600 mg PO Q6H PRN (Reason: pain) Qty: 20 0RF albuterol sulfate [ProAir HFA] 90 mcg/actuation HFA aerosol inhaler 2 puff inhalation Q4-6H PRN (Reason: Wheezing) Qty: 8.5 0RF Stand Alone Forms: Work/School Release
[2022-06-19] MEDS: Diphth,Pertus(ACell),Tet Adult 0.5 ML SYRINGE IM (07:45)
[2022-06-19] MEDS: cephALEXin 500 MG CAPSULE PO (07:45)
== END 2022-06-19 08:51 | disposition home or self-care (01) ==
PROVIDERS: Emergency Provider Emergency Medicine
DX: S81.812A Laceration without foreign body, left lower leg, initial encounter (principal); W29.3XXA Contact with powered garden and outdoor hand tools and machinery, initial encounter; Y93.9 Activity, unspecified; Y92.9 Unspecified place or not applicable; Y99.9 Unspecified external cause status; Z79.899 Other long term (current) drug therapy
CPT/HCPCS: 90471; 90715; 99284

== ENCOUNTER 2022-09-14 09:47 | Emergency (ER) | payer MEDICAID, SELFPAY ==
--- NOTE | ~2022-09-14 | XR_ITS ---
EXAMINATION: XR CHEST CLINICAL INFORMATION: Chest pain COMPARISON: None TECHNIQUE: Frontal view of the chest was obtained. FINDINGS: No significant abnormality is noted involving the heart, lungs, mediastinum, bony thorax or soft tissues. XR/XR chest 1V IMPRESSION: Unremarkable chest examination.
--- NOTE | ~2022-09-14 | CT_ITS ---
EXAMINATION: CT ANGIOGRAM OF THE CHEST WITH AND WITHOUT CONTRAST (CT PULMONARY ANGIOGRAM FOR PE) CLINICAL INFORMATION: Reason for Exam right chest pain, elevated dimer COMPARISON: None TECHNIQUE: Prior to contrast administration, noncontrast localization images were obtained. Subsequently, multidetector volumetric imaging was performed from the thoracic inlet to below the diaphragms following the administration of 65 mL Omnipaque 350 intravenous contrast. No contrast reaction reported Sagittal, coronal, and MIP oblique sagittal reformatted images were obtained on the CT workstation, uploaded to PACS, and reviewed. This CT examination was performed using dose optimization techniques as appropriate, variously including the following: *Automated exposure control *Adjustment of mA and/or kV according to patient size (this includes techniques or standardized protocols for targeted exams where dose is matched to indication/reason for exam; i.e. extremities or head) *Use of iterative reconstruction technique Total exam dose-length product 448 mGy-cm FINDINGS: QUALITY OF STUDY/CONTRAST BOLUS: Satisfactory. PULMONARY ARTERIES: No central or segmental pulmonary emboli. THORACIC AORTA: No aneurysm or dissection. LUNG: Small triangular shaped perifissural nodule in the right middle lobe consistent with intrapulmonary lymph node measuring 2-3 mm in size. Small triangular shaped pleural-based right lower lobe pulmonary nodule laterally consistent with small pulmonary lymph node. Small linear/sessile subpleural nodule in the left lower lobe measuring 4-5 mm in mean diameter on image 26/569, also likely intrapulmonary lymph node. No other pulmonary nodules. No airspace consolidation. Central airways are clear PLEURA: No pleural effusion. No pneumothorax. MEDIASTINUM: Normal heart size. No pericardial effusion. No hilar or mediastinal lymphadenopathy. Soft tissue density in the anterior mediastinum consistent with normal thymic tissue. No evidence of septal bowing or right heart strain. CHEST WALL/AXILLA: No axillary or internal mammary lymphadenopathy. OSSEOUS STRUCTURES: No acute or suspicious osseous abnormality. UPPER ABDOMEN: Diffuse hepatic hypoattenuation consistent with steatosis. Visualized upper abdominal viscera otherwise unremarkable. No reflux of contrast into the hepatic veins to suggest elevated right heart pressures. CT/CT angio chest PE protocol IMPRESSION: 1. No evidence of pulmonary embolus. 2. No airspace consolidation or effusions. 3. Hepatic steatosis VTE: negative
--- NOTE | 2022-09-14 09:56 | ECG_ITS ---
Test Reason : Chest Pain Blood Pressure : / mmHG Vent. Rate : 092 BPM Atrial Rate : 092 BPM P-R Int : 128 ms QRS Dur : 094 ms QT Int : 346 ms P-R-T Axes : 044 041 018 degrees QTc Int : 427 ms Normal sinus rhythm RSR' or QR pattern in V1 suggests right ventricular conduction delay Otherwise normal ECG When compared with ECG of 19-OCT-2021 00:37, Heart rate has increased Referred By: Generic ED Physician Electronically Signed By:ELENITA FIGUEROA MD
[2022-09-14 09:58] VITALS: BP 138/70; PULSE 99; RESP 18; TEMP 36.3; O2SAT 96; BMI 35.9
[2022-09-14 10:23] LABS: MANUAL DIFF FLAG NO
[2022-09-14 10:24] LABS: Basophils Percent Auto 0.5 % (0-2); Eosinophils Absolute Auto 0.2 X10*3/uL (0.0-0.4); Eosinophils Percent Auto 2.7 % (0-4); Hematocrit 46.6 % (42.0-52.0); Hemoglobin 15.9 g/dl (14.0-18.0); Imm Gran Abs Auto 0.02 X10*3/uL (0.00-0.03); Imm Gran Pct Auto 0.3 % (0.0-0.4); Lymphocytes Absolute Auto 1.5 X10*3/uL (1.2-4.9); Lymphocytes Percent Auto 25.3 % (20-40); Mean Corpuscular HGB Conc 34.1 g/dl (31.0-36.0); Mean Corpuscular Hemoglobin 27.2 pg (27.0-33.0); Mean Corpuscular Volume 79.8 fL (80.0-98.0); Mean Platelet Volume 10.6 fL (9.4-12.4); Monocytes Absolute Auto 0.5 X10*3/uL (0.1-1.2); Monocytes Percent Auto 7.5 % (2-11); Neutrophils Absolute Auto 3.8 x10*3/uL (2.0-8.3); Neutrophils Percent Auto 63.7 % (45-73); Platelet Count 201 X10*3/uL (160-400); Red Blood Count 5.84 X10*6/uL (4.60-5.80); Red Cell Distribution Width 12.5 % (11.0-16.0)
[2022-09-14 10:43] LABS: Anion Gap 13 (12-20); Blood Urea Nitrogen 14 mg/dL (9-16); Calcium 9.6 mg/dL (8.4-10.2); Carbon Dioxide 24 mmol/L (22-29); Chloride 106 mmol/L (96-108); Creatinine Clr Calc Pharmacy 181.1; Estimated Glomerular Filt Rate > 60; Glucose Random 112 mg/dL (60-115); Potassium 4.4 mmol/L (3.3-5.1); Sodium 139 mmol/L (135-145)
[2022-09-14 10:51] LABS: Troponin-I High Sensitivity < 3.5 ng/L (<3.5-35.0)
[2022-09-14 12:46] LABS: D Dimer High Sensitivity 859 NG/ML
--- NOTE | 2022-09-14 13:17 | ED_ITS ---
HPI - Chest Pain General Chief Complaint: Chest Pain Stated Complaint: CP pt has autism. Time Seen by Provider: 09/14/22 11:54 Source: patient and family Mode of arrival: ambulatory Limitations: other (autistic. HPI given by grandmother) History of Present Illness HPI narrative: 22-year-old male patient with past medical history of autism, threats asthma, and GERD status post fundoplication presents to the emergency department, with his grandmother, for complaints of right sided chest pain and pain on inspirati on. He states pain began early this morning while he was resting, unable to quantify pain scale, however states it hurts a lot when he breathes. He denies any known trauma, or injury to the chest wall. 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 Grandmother denies any known illness, sick contacts, fever, chills, diarrhea, constipation, or abdominal pain. MD complaint: chest pain Onset (ago): hour(s) (6+) Prior episodes: No Onset: during rest Pain location: right chest Pain radiation: none Severity: moderate Quality: other (Unable to describe the quality of pain, states it hurts) Relieving factors: nothing Exacerbating factors: nothing Treatment prior to arrival: none Related Data Previous Rx's Medication Instructions Recorded azithromycin 500 mg tablet 500 mg PO DAILY 4 days #4 tabs 11/15/20 amoxicillin 875 mg-potassium 1 tab PO Q12H 10 days #20 tabs 05/16/21 clavulanate 125 mg tablet (Augmentin) albuterol sulfate 90 mcg/actuation 2 puff inhalation Q4-6H PRN 10/19/21 aerosol inhaler (ProAir HFA) Wheezing #8.5 grams ibuprofen 600 mg tablet 600 mg PO Q6H PRN pain #20 tabs 10/19/21 cephalexin 500 mg capsule 500 mg PO TID 7 days #21 caps 06/19/22 Allergies Allergy/AdvReac Type Severity Reaction Status Date / Time Sulfa (Sulfonamide Allergy Intermediate RASH Verified 06/18/22 23:41 Antibiotics) [SULFA(SULFONAMIDE ANTIBIOTICS)] amoxicillin [From AUGMENTIN] AdvReac Mild YEAST Verified 06/18/22 23:41 INFECTION clavulanic acid AdvReac Mild YEAST Verified 06/18/22 23:41 [From AUGMENTIN] INFECTION Review of Systems Review of Systems: Yes all other systems are reviewed and are negative Constitutional: Constitutional: Reports no additional constitutional complaints, Denies chills, Denies fever(s) and Denies headache(s) Eyes: Eyes: Reports no additional eye complaints and Denies change in vision ENT: Reports system reviewed and no additional complaints, except as documented, Reports Normal hearing present, Denies headache(s), Denies nasal congestion and Denies nasal discharge Cardiovascular: Cardiovascular: Reports no additional cardiovascular complaints, Reports chest pain and Reports dyspnea Respiratory: Respiratory: Reports no additional respiratory complaints, Denies cough, Reports pain on inspiration, Reports dyspnea and Denies wheezing Gastrointestinal: Gastrointestinal: Reports no additional gastrointestinal complaints, Denies abdominal pain, Denies change in bowel habits, Denies constipation, Denies diarrhea, Denies nausea and Denies vomiting Genitourinary: Genitourinary: Reports no additional male genitourinary complaints Musculoskeletal: Musculoskeletal: Reports no additional musculoskeletal complaints, Denies abnormal gait, Denies numbness and Denies tingling Integumentary/Breasts: Skin/Breast: Reports system reviewed and no additional complaints, except as docu, Denies lesions, Denies rash and Denies sores Neurologic: Reports system reviewed and no additional complaints, except as documented, Reports Normal hearing present, Denies abnormal gait, Denies headache(s), Denies numbness and Denies tingling Psychiatric: Psychiatric: Reports no additional psychiatric complaints Allergic/Immunologic: Allergic/Immunologic: Denies wheezing PMFSH Past Medical History Attestation statement: The following information was validated with the patient. Source: old records reviewed and obtained from family Medical History Autism GERD (gastroesophageal reflux disease) Tourette's Surgical History History of fundoplication Social History Social History Alcohol intake: never Patient Tobacco Use Status: Never used Tobacco Advance Directives: No Advance Directives Information Provided: No Physical Exam Vital Signs: Vital Signs: Last Vital Signs Temp 97.3 F 09/14/22 09:58 Pulse 99 09/14/22 09:58 Resp 18 09/14/22 09:58 BP 138/70 09/14/22 09:58 Pulse Ox 96 09/14/22 09:58 O2 Del Method 09/14/22 09:58 BMI result Body Mass Index 35.9 Const: General: cooperative, comfortable, alert and awake Nutritional Appearance: well nourished Orientation/consciousness: patient oriented x3 Limitations: other limitations (autism) HEENT: Head: Yes normal to inspection and Yes atraumatic Ears: hearing grossly normal bilaterally and external ears normal General nose exam: Normal external nose present and Normal nares present Face and sinus: Yes normal facial exam Mouth: Normal oral and palatal mucosa present Eyes: General: appearance normal, both eyes and all related structures Visual Tsai: normal visual tsai by confrontation Alignment and Position: alignment normal Periorbital: periorbital findings normal Eyelids: Yes eyelids normal Conjunctivae: conjunctivae normal Sclerae: sclerae normal Corneas: corneas normal Pupils: Equal, round and reactive pupils present EOM: EOMs intact bilaterally Neck: Neck: Yes normal visual inspection, Yes full ROM and Yes no lymphadeno nereyda Chest: Chest palpation & inspection: normal inspection of the chest, normal palpation of entire chest wall and tenderness other (right chest) Resp: Effort & Inspection: normal respiratory effort, able to speak in complete sentences, no cough and not labored Auscultation: clear to auscultation bilaterally (difficulty auscultating due to pt talking/moving), no crackles, no rhonchi and no wheezes Cardio: Rate: regular rate Rhythm: regular rhythm GI: Inspection: Yes normal to inspection Auscultation: normal bowel sounds Back/Spine/Pelvis: Cervical Spine: cervical ROM normal Thoracic/Lumbar Spine: thoraco-lumbar ROM normal Skin: General skin exam: no rashes or lesions noted Neuro: General: patient oriented x3 and moves all extremities Cranial nerves: Yes Equal, round and reactive pupils present and Yes Normal hearing present Gait exam (Neuro): Normal gait present Motor exam (neuro): 5/5 motor strength present throughout Extrem: General: Yes normal to inspection, Yes full ROM and Yes capillary refill normal Psych: Appearance: grossly normal Speech and movement: Normal speech and mo vement present Affect: normal affect Attitude: cooperative Course Course Course Narrative: 1300: d-dimer elevated at > 800. CTA chest ordered to rule out PE Medications Administered Discontinued Medications Generic Name Dose Route Start Last Admin Trade Name Hasmukh PRN Reason Stop Dose Admin Iohexol 65 ml 09/14/22 14:12 09/14/22 14:14 Iohexol 350 Mg/Ml 100 Ml Infus..Btl IV 09/14/22 14:13 65 ml ONCE ONE Administration MDM - Chest Pain MDM Narrative Medical decision making narrative: 22-year-old male patient with past medical history of autism, threats asthma, and GERD status post fundoplication presents to the emergency department, with his grandmother, for complaints of right sided chest pain and pain on inspiration. Hematology and chemistry unremarkable. Troponin negative. D- dimer 859, CT angio chest ordered to rule out PE and no acute pathology noted on scan. On re-evaluation, patient appears comfortable. Chest pain reproducible on palpation and consistent with muscle strain. Low suspicion for cardiac pathology or PE based on exam and diagnostics. History, physical, diagnostic results discussed with patient and grandmother with no unanswered questions. Plan to manage pain with [id number] Tylenol and Motrin. Educated to return to the emergency department if pain does not less than or subside in 3-5 days or if pain intensifies. Recommended follow-up with the primary care provider for further recommendations and management. Lab Data Attestation: I reviewed the patient's lab results. Result diagrams: 09/14/22 10:18 09/14/22 10:18 Labs: Lab Results 09/14/22 09/14/22 09/14/22 Range/Units 10:18 10:18 10:18 WBC 6.0 (4.8-10.8) X10*3/uL RBC 5.84 H (4.60-5.80) X10*6/uL Hgb 15.9 (14.0-18.0) g/dl Hct 46.6 (42.0-52.0) % MCV 79.8 L (80.0-98.0) fL MCH 27.2 (27.0-33.0) pg MCHC 34.1 (31.0-36.0) g/dl RDW 12.5 (11.0-16.0) % Plt Count 201 (160-400) X10*3/uL MPV 10.6 (9.4-12.4) fL Immature Gran % (Auto) 0.3 (0.0-0.4) % Neut % (Auto) 63.7 (45-73) % Lymph % (Auto) 25.3 (20-40) % Perry % (Auto) 7.5 (2-11) % Eos % (Auto) 2.7 (0-4) % Baso % (Auto) 0.5 (0-2) % Lymph # (Auto) 1.5 (1.2-4.9) X10*3/uL Perry # (Auto) 0.5 (0.1-1.2) X10*3/uL Eos # (Auto) 0.2 (0.0-0.4) X10*3/uL Baso # (Auto) 0.0 (0.0-0.2) X10*3/uL Abs Immat Gran (auto) 0.02 (0.00-0.03) X10*3/uL Absolute Neuts (auto) 3.8 (2.0-8.3) x10*3/uL Absolute Nucleated RBC 0.000 (0.0-0.012) X10*3/uL Nucleated RBC % (auto) 0.0 (0.0-0.2) /100WBC D-Dimer High Sensitivty NG/ML Sodium 139 (135-145) mmol/L Potassium 4.4 (3.3-5.1) mmol/L Chloride 106 (96-108) mmol/L Carbon Dioxide 24 (22-29) mmol/L Anion Gap 13 (12-20) BUN 14 (9-16) mg/dL Creatinine 0.80 (0.5-1.4) mg/dL Estim Creat Clear Calc 181.1 Estimated GFR > 60 Random Glucose 112 (60-115) mg/dL Calcium 9.6 (8.4-10.2) mg/dL Troponin I High Sens < 3.5 (<3.5-35.0) ng/L 09/14/22 Range/Units 12:25 WBC (4.8-10.8) X10*3/uL RBC (4.60-5.80) X10*6/uL Hgb (14.0-18.0) g/dl Hct (42.0-52.0) % MCV (80.0-98.0) fL MCH (27.0-33.0) pg MCHC (31.0-36.0) g/dl RDW (11.0-16.0) % Plt Count (160-400) X10*3/uL MPV (9.4-12.4) fL Immature Gran % (Auto) (0.0-0.4) % Neut % (Auto) (45-73) % Lymph % (Auto) (20-40) % Perry % (Auto) (2-11) % Eos % (Auto) (0-4) % Baso % (Auto) (0-2) % Lymph # (Auto) (1.2-4.9) X10*3/uL Perry # (Auto) (0.1-1.2) X10*3/uL Eos # (Auto) (0.0-0.4) X10*3/uL Baso # (Auto) (0.0-0.2) X10*3/uL Abs Immat Gran (auto) (0.00-0.03) X10*3/uL Absolute Neuts (auto) (2.0-8.3) x10*3/uL Absolute Nucleated RBC (0.0-0.012) X10*3/uL Nucleated RBC % (auto) (0.0-0.2) /100WBC D-Dimer High Sensitivty 859 NG/ML Sodium (135-145) mmol/L Potassium (3.3-5.1) mmol/L Chloride (96-108) mmol/L Carbon Dioxide (22-29) mmol/L Anion Gap (12-20) BUN (9-16) mg/dL Creatinine (0.5-1.4) mg/dL Estim Creat Clear Calc Estimated GFR Random Glucose (60-115) mg/dL Calcium (8.4-10.2) mg/dL Troponin I High Sens (<3.5-35.0) ng/L Imaging Data CT scan - chest: Attestation: I personally reviewed and interpreted this imaging study as follows: My impression: CTA negative for pulmonary embolism or other acute pathology. Radiologist's impression: EXAMINATION: CT ANGIOGRAM OF THE CHEST WITH AND WITHOUT CONTRAST (CT PULMONARY ANGIOGRAM FOR PE) CLINICAL INFORMATION: Reason for Exam right chest pain, elevated dimer COMPARISON: None? TECHNIQUE: Prior to contrast administration, noncontrast localization images were obtained. ? Subsequently, multidetector volumetric imaging was performed from the thoracic inlet to below the diaphragms following the administration of 65 mL Omnipaque 350 intravenous contrast. No contrast reaction reported Sagittal, coronal, and MIP oblique sagittal reformatted images were obtained on the CT workstation, uploaded to PACS, and reviewed. This CT examination was performed using dose optimization techniques as appropriate, variously including the following: *Automated exposure control *Adjustment of mA and/or kV according to patient size (this includes techniques or standardized protocols for targeted exams where dose is matched to indication/reason for exam; i.e. extremities or head) *Use of iterative reconstruction technique Total exam dose-length product 448 mGy-cm FINDINGS: QUALITY OF STUDY/CONTRAST BOLUS: Satisfactory. PULMONARY ARTERIES: No central or segmental pulmonary emboli.? THORACIC AORTA: No aneurysm or dissection. LUNG: Small triangular shaped perifissural nodule in the right middle lobe consistent with intrapulmonary lymph node measuring 2-3 mm in size. Small triangular shaped pleural-based right lower lobe pulmonary nodule laterally consistent with small pulmonary lymph node. Small linear/sessile subpleural nodule in the left lower lobe measuring 4-5 mm in mean diameter on image 26/569, also likely intrapulmonary lymph node. No other pulmonary nodules. No airspace consolidation. Central airways are clear PLEURA: No pleural effusion. No pneumothorax. MEDIASTINUM: Normal heart size.? No pericardial effusion.? No hilar or mediastinal lymphadenopathy. Soft tissue density in the anterior mediastinum consistent with normal thymic tissue. No evidence of septal bowing or right heart strain. CHEST WALL/AXILLA: No axillary or internal mammary lymphadenopathy. OSSEOUS STRUCTURES: No acute or suspicious osseous abnormality.? UPPER ABDOMEN: Diffuse hepatic hypoattenuation consistent with steatosis. Visualized upper abdominal viscera otherwise unremarkable. No reflux of contrast into the hepatic veins to suggest elevated right heart pressures. CT/CT angio chest PE protocol IMPRESSION: 1.? No evidence of pulmonary embolus. 2.? No airspace consolidation or effusions. 3.? Hepatic steatosis VTE: negative Dictated By: Wing Pacheco Signed By: <Electronically signed by Olya Pacheco in [place] 09/14/22 1540 DD/ 1438 TD/TT:? Firmware Software Verification Engineer: Chest x-ray: Radiologist's impression: EXAMINATION: XR CHEST CLINICAL INFORMATION: Chest pain COMPARISON: None TECHNIQUE: Frontal view of the chest was obtained. FINDINGS: No significant abnormality is noted involving the heart, lungs, mediastinum, bony thorax or soft tissues. XR/XR chest 1V IMPRESSION: Unremarkable chest examination. ?Dictated By: Cesar Gant MD Signed By: <Electronically signed by Cesar Gant MD in [place]> 09/14/22 1042 DD/ 1025 TD/TT:? Firmware Software Verification Engineer: [facility] [place] Plan Discharge Clinical Impression: Muscle strain of chest wall Patient Disposition: Home, Self-Care Instructions: Muscle Strain (ED), Chest Wall Pain (ED) Additional Instructions: May use [id number] Tylenol and Motrin for muscle pain as directed on packaging. May use hot compress on right chest for 20 minutes on the chest, and 20 minutes off the chest. This helps avoid a skin burn. Please return to the emergency department with shortness of breath, chest pain, fever despite taking Tylenol or Motrin, vomiting that does not go way, diarrhea lasting more than 2 days, or any other emergent concerns you may have. Recommended to follow-up with your primary care provider. Prescriptions: No Action azithromycin 500 mg tablet 500 mg PO DAILY 4 Days Qty: 4 0RF amoxicillin-pot clavulanate [Augmentin] 875-125 mg tablet 1 tab PO Q12H 10 Days Qty: 20 0RF Rx Instructions: Patient tolerated medication previously. ibuprofen 600 mg tablet 600 mg PO Q6H PRN (Reason: pain) Qty: 20 0RF albuterol sulfate [ProAir HFA] 90 mcg/actuation HFA aerosol inhaler 2 puff inhalation Q4-6H PRN (Reason: Wheezing) Qty: 8.5 0RF cephalexin 500 mg capsule 500 mg PO TID 7 Days Qty: 21 0RF Referrals: [facility] [place] Family Medicine [Provider Group] [facility] [place] [facility] [Provider Group] [facility] [place] [facility] [Provider Group] Stand Alone Forms: Work/School Release Interventions: ED Discharge Assessment Last Done: 09/14/22 15:56 Discharge Date/Time: 09/14/22 15:56 Print Language: [place]ican
[2022-09-14] MEDS: iohexoL 350 MG/ML 100 ML INFUS..BTL 65 ML IV (14:14)
== END 2022-09-14 15:56 | disposition home or self-care (01) ==
PROVIDERS: Nurse Practitioner Family; Emergency Provider Student in an Organized Health Care Education/Training Program
DX: S29.011A Strain of muscle and tendon of front wall of thorax, initial encounter (principal); X58.XXXA Exposure to other specified factors, initial encounter; Y93.9 Activity, unspecified; Y92.9 Unspecified place or not applicable; Y99.9 Unspecified external cause status
CPT/HCPCS: 36415; 71045; 71275; 80048; 84484; 85025; 85379; 93005; 99283; 99284; Q9967

== ENCOUNTER 2023-02-22 10:30 | Outpatient (REF) | payer OTHER, SELFPAY | END 2023-02-22 10:31 | disposition home or self-care (01) | LOC: HO.LAB 10:30 | PROVIDERS: Visit Provider Family Medicine | DX: Z13.89 Encounter for screening for other disorder (principal) ==

== ENCOUNTER 2023-02-25 13:24 | Outpatient (REF) | payer OTHER, SELFPAY ==
--- NOTE | ~2023-02-25 | XR_ITS ---
EXAMINATION: XR CHEST CLINICAL INFORMATION: Cough COMPARISON: Previous chest x-ray most recent August 2022 TECHNIQUE: 2 views of the chest were obtained. FINDINGS: No significant abnormality is noted involving the heart, lungs, mediastinum, bony thorax or soft tissues. XR/XR chest 2V IMPRESSION: Unremarkable examination.
[2023-02-25 14:08] LABS: Binax Internal Control QC Valid; Binax Now Covid-19 Ag Negative (Negative); Binax Performed by: PAULP
== END 2023-02-25 13:25 | disposition home or self-care (01) ==
LOC: HO.HMGCX 13:24
PROVIDERS: PCP Family Medicine; Visit Provider Physician Assistant Medical
DX: Z20.822 Contact with and (suspected) exposure to COVID-19 (principal); R05.9 Cough, unspecified
CPT/HCPCS: 71046; 87811; C9803

== ENCOUNTER 2023-02-25 13:40 | Outpatient (REF) | payer OTHER, SELFPAY ==
[2023-02-25 16:52] LABS: Influenza A PCR NEGATIVE (Negative); Influenza B PCR NEGATIVE (Negative); Resp Syncy Virus RNA Qual PCR NEGATIVE (Negative); SARS COV2 PCR INHOUSE NEGATIVE (Negative)
== END 2023-02-25 13:41 | disposition home or self-care (01) ==
LOC: HO.LAB 13:40
PROVIDERS: Visit Provider Physician Assistant Medical
DX: Z20.822 Contact with and (suspected) exposure to COVID-19 (principal); R05.9 Cough, unspecified
CPT/HCPCS: 0241U

== ENCOUNTER 2023-03-02 22:31 | Emergency (ER) | payer OTHER, SELFPAY ==
--- NOTE | 2023-03-02 | ECG_ITS ---
Test Reason : chest pain Blood Pressure : / mmHG Vent. Rate : 079 BPM Atrial Rate : 079 BPM P-R Int : 138 ms QRS Dur : 100 ms QT Int : 382 ms P-R-T Axes : 032 044 005 degrees QTc Int : 438 ms Normal sinus rhythm Normal ECG When compared with ECG of 14-SEP-2022 10:07, No significant change was found Referred By: Generic ED Physician Electronically Signed By:Andi Acuna
--- NOTE | ~2023-03-02 | XR_ITS ---
EXAMINATION: XR CHEST CLINICAL INFORMATION: Chest pain COMPARISON: None available. TECHNIQUE: 2 views of the chest were obtained. FINDINGS: No significant abnormality is noted involving the heart, lungs, mediastinum, bony thorax or soft tissues. XR/XR chest 2V IMPRESSION: Unremarkable examination.
[2023-03-02 22:37] VITALS: BP 149/72; PULSE 81; RESP 20; TEMP 36.4; O2SAT 98; BMI 37.3
[2023-03-02 23:11] LABS: MANUAL DIFF FLAG NO
[2023-03-02 23:12] LABS: Basophils Percent Auto 0.3 % (0-2); Eosinophils Absolute Auto 0.1 X10*3/uL (0.0-0.4); Eosinophils Percent Auto 1.6 % (0-4); Hematocrit 42.7 % (42.0-52.0); Hemoglobin 14.8 g/dl (14.0-18.0); Imm Gran Abs Auto 0.02 X10*3/uL (0.00-0.03); Imm Gran Pct Auto 0.3 % (0.0-0.4); Lymphocytes Absolute Auto 2.4 X10*3/uL (1.2-4.9); Lymphocytes Percent Auto 32.2 % (20-40); Mean Corpuscular HGB Conc 34.7 g/dl (31.0-36.0); Mean Corpuscular Hemoglobin 27.3 pg (27.0-33.0); Mean Corpuscular Volume 78.8 fL (80.0-98.0); Monocytes Absolute Auto 0.6 X10*3/uL (0.1-1.2); Monocytes Percent Auto 8.7 % (2-11); Neutrophils Absolute Auto 4.2 x10*3/uL (2.0-8.3); Neutrophils Percent Auto 56.9 % (45-73); Platelet Count 207 X10*3/uL (160-400); Red Blood Count 5.42 X10*6/uL (4.60-5.80); Red Cell Distribution Width 12.3 % (11.0-16.0); White Blood Count 7.4 X10*3/uL (4.8-10.8)
--- NOTE | 2023-03-02 23:15 | ED_ITS ---
HPI - Chest Pain General Chief Complaint: Chest Pain Stated Complaint: Chest Pain/body aches/bodysweats Time Seen by Provider: 03/02/23 23:08 Source: patient, family (Mother), RN notes reviewed and old records reviewed Mode of arrival: ambulatory Limitations: no limitations History of Present Illness HPI narrative: 22-year-old male past medical history significant for asthma, autism, Tourette's presents for evaluation of chest pain. Patient reports that he has a constant, left-sided chest pain that is sharp in nature. He 1st noticed the pain yesterday. The patient does state that he is seen at [place] last Monday and was diagnosed with ?pneumonia. ? He is currently taking doxycycline He endorses a dry cough as well as body aches Related Data Home Medications Medication Instructions Recorded Confirmed atomoxetine 60 mg capsule 60 mg PO QAM 02/25/23 (Strattera) cariprazine 3 mg capsule (Vraylar) 3 mg PO DAILY 02/25/23 cetirizine 10 mg disintegrating 10 mg PO DAILY 02/25/23 tablet tetrabenazine 12.5 mg tablet 12.5 mg PO DAILY 02/25/23 (Xenazine) Previous Rx's Medication Instructions Recorded ibuprofen 600 mg tablet 600 mg PO Q6H PRN pain #20 tabs 10/19/21 albuterol sulfate 90 mcg/actuation 2 puff inhalation Q4-6H PRN 02/02/23 aerosol inhaler (ProAir HFA) Wheezing #8.5 grams doxycycline hyclate 100 mg capsule 100 mg PO BID 10 days #20 caps 02/25/23 Allergies Allergy/AdvReac Type Severity Reaction Status Date / Time Sulfa (Sulfonamide Allergy Intermediate RASH Verified 03/02/23 22:37 Antibiotics) [SULFA(SULFONAMIDE ANTIBIOTICS)] amoxicillin [From AUGMENTIN] AdvReac Mild YEAST Verified 03/02/23 22:37 INFECTION clavulanic acid AdvReac Mild YEAST Verified 03/02/23 22:37 [From AUGMENTIN] INFECTION Review of Systems Constitutional: Constitutional: Reports as per HPI, Reports body ache(s), Denies fatigue, Denies fever(s) and Denies headache(s) ENT: Denies headache(s) Cardiovascular: Cardiovascular: Reports chest pain and Denies dyspnea Respiratory: Respiratory: Reports cough, Reports pain on inspiration and Denies dyspnea Gastrointestinal: Gastrointestinal: Denies abdominal pain, Denies constipation and Denies vomiting Genitourinary: Genitourinary: Denies difficulty urinating and Denies dysuria Neurologic: Denies headache(s) and Denies focal weakness Endocrine: Endocrine: Denies fatigue PMFSH Past Medical History Medical History (Updated 03/03/23 @ 00:57 by Rosalino Parks) Autism GERD (gastroesophageal reflux disease) Tourette's Surgical History History of fundoplication Family History Family History Sister Brain cancer Social History Social History Housing: House Alcohol intake: never Patient Tobacco Use Status: Never used Tobacco e-Cigarette/Vaping Use: Never Used Advance Directives: No Advance Directives Information Provided: Yes Current occupational status: unemployed Physical Exam Vital Signs: Vital Signs: Last Vital Signs Temp 97.5 F 03/02/23 22:37 Pulse 65 03/03/23 00:38 Resp 16 03/03/23 00:38 BP 104/47 L 03/03/23 00:38 Pulse Ox 99 03/03/23 00:38 O2 Del Method Room Air 03/03/23 00:38 BMI result Body Mass Index 37.3 Const: General: healthy appearing, comfortable, no acute distress, alert and awake Nutritional Appearance: well nourished Orientation/consciousness: patient oriented x3 HEENT: Head: Yes normocephalic and Yes atraumatic Eyes: Eyelids: Yes eyelids normal Conjunctivae: conjunctivae normal Sclerae: sclerae normal Corneas: corneas normal Pupils: Equal, round and reactive pupils present EOM: EOMs intact bilaterally Neck: Neck: Yes full ROM Chest: Other: Tenderness to left anterior chest wall without crepitus or deformity. Resp: Effort & Inspection: normal respiratory effort, able to speak in complete sentences, no audible wheezes and not labored Auscultation: clear to auscultation bilaterally Cardio: Rate: regular rate Rhythm: regular rhythm GI: Inspection: No distended Palpation (GI): Soft to palpation, not firm, nontender, no guarding and not rigid Auscultation: normoactive bowel sounds Skin: General skin exam: no rashes or lesions noted and elasticity normal Neuro: General: patient oriented x3 Cranial nerves: Yes Equal, round and reactive pupils present and Yes Bilaterally intact EOM present Cognition (Neuro): normal cognition Course Reevaluation(s) Reevaluation #1: Patient's workup negative, chest x-ray is clear, EKG is nonischemic, labs including troponin unremarkable. Patient is stable for discharge at this time. Time: 00:56 Medical Decision Making Medical Decision Making [facility] Narrative: [age] of male presents for evaluation of chest pain. EKG was done, nonischemic. Plan for labs, chest x-ray. The patient chest pain is reproducible on exam which is reassuring. He was diagnosed with pneumonia 6 days ago which could be contributing to his chest pain. Vitals are currently stable. Disposition as per lab results and x-ray Differential Diagnosis Chest pain Chest wall pain Upper respiratory infection Pneumonia Bronchitis ACS less likely Chest wall strain Costochondritis GERD Anxiety Lab Data [facility] Lab Attestation statement: I reviewed the patient's lab results. 03/02/23 23:00 03/02/23 23:00 Labs: Lab Results 03/02/23 03/02/23 03/02/23 Range/Units 23:00 23:00 23:25 WBC 7.4 (4.8-10.8) X10*3/uL RBC 5.42 (4.60-5.80) X10*6/uL Hgb 14.8 (14.0-18.0) g/dl Hct 42.7 (42.0-52.0) % MCV 78.8 L (80.0-98.0) fL MCH 27.3 (27.0-33.0) pg MCHC 34.7 (31.0-36.0) g/dl RDW 12.3 (11.0-16.0) % Plt Count 207 (160-400) X10*3/uL MPV 10.0 (9.4-12.4) fL Immature Gran % (Auto) 0.3 (0.0-0.4) % Neut % (Auto) 56.9 (45-73) % Lymph % (Auto) 32.2 (20-40) % Blount % (Auto) 8.7 (2-11) % Eos % (Auto) 1.6 (0-4) % Baso % (Auto) 0.3 (0-2) % Lymph # (Auto) 2.4 (1.2-4.9) X10*3/uL Blount # (Auto) 0.6 (0.1-1.2) X10*3/uL Eos # (Auto) 0.1 (0.0-0.4) X10*3/uL Baso # (Auto) 0.0 (0.0-0.2) X10*3/uL Abs Immat Gran (auto) 0.02 (0.00-0.03) X10*3/uL Absolute Neuts (auto) 4.2 (2.0-8.3) x10*3/uL Absolute Nucleated RBC 0.000 (0.0-0.012) X10*3/uL Nucleated RBC % (auto) 0.0 (0.0-0.2) /100WBC Sodium 139 (135-145) mmol/L Potassium 3.9 (3.3-5.1) mmol/L Chloride 106 (96-108) mmol/L Carbon Dioxide 25 (22-29) mmol/L Anion Gap 12 (12-20) BUN 19 H (9-16) mg/dL Creatinine 0.93 (0.5-1.4) mg/dL Estim Creat Clear Calc 158.9 Estimated GFR > 60 Random Glucose 121 H (60-115) mg/dL Calcium 9.5 (8.4-10.2) mg/dL Troponin I High Sens < 2.7 (<3.5-35.0) ng/L COVID-19 ([place]) (Negative) COVID-19 Clin Com Influenza Type A ([place]) (Negative) Influenza Type B ([place]) (Negative) Influenza A & B Note 03/02/23 03/02/23 Range/Units 23:25 23:25 WBC (4.8-10.8) X10*3/uL RBC (4.60-5.80) X10*6/uL Hgb (14.0-18.0) g/dl Hct (42.0-52.0) % MCV (80.0-98.0) fL MCH (27.0-33.0) pg MCHC (31.0-36.0) g/dl RDW (11.0-16.0) % Plt Count (160-400) X10*3/uL MPV (9.4-12.4) fL Immature Gran % (Auto) (0.0-0.4) % Neut % (Auto) (45-73) % Lymph % (Auto) (20-40) % Blount % (Auto) (2-11) % Eos % (Auto) (0-4) % Baso % (Auto) (0-2) % Lymph # (Auto) (1.2-4.9) X10*3/uL Blount # (Auto) (0.1-1.2) X10*3/uL Eos # (Auto) (0.0-0.4) X10*3/uL Baso # (Auto) (0.0-0.2) X10*3/uL Abs Immat Gran (auto) (0.00-0.03) X10*3/uL Absolute Neuts (auto) (2.0-8.3) x10*3/uL Absolute Nucleated RBC (0.0-0.012) X10*3/uL Nucleated RBC % (auto) (0.0-0.2) /100WBC Sodium (135-145) mmol/L Potassium (3.3-5.1) mmol/L Chloride (96-108) mmol/L Carbon Dioxide (22-29) mmol/L Anion Gap (12-20) BUN (9-16) mg/dL Creatinine (0.5-1.4) mg/dL Estim Creat Clear Calc Estimated GFR Random Glucose (60-115) mg/dL Calcium (8.4-10.2) mg/dL Troponin I High Sens (<3.5-35.0) ng/L COVID-19 ([place]) Negative (Negative) COVID-19 Clin Com See Note Influenza Type A ([place]) Negative (Negative) Influenza Type B ([place]) Negative (Negative) Influenza A & B Note See Note Independent Interpretation I performed an independent interpretation of an: EKG (Sinus rhythm with a rate of 79 beats per minute. No ST segment elevations or depressions, no ectopy.) Discharge Plan Discharge Clinical Impression: Chest pain, non-cardiac Patient Disposition: Home, Self-Care Instructions: Chest Pain (ED) Additional Instructions: Your workup today in the emergency department was reassuring. This includes your blood work, chest x-ray, EKG and viral swabs You may still finish your doxycycline Rest for the next couple of days Follow-up with your primary doctor Prescriptions: No Action ibuprofen 600 mg tablet 600 mg PO Q6H PRN (Reason: pain) Qty: 20 0RF atomoxetine [Strattera] 60 mg capsule 60 mg PO QAM Vraylar 3 mg capsule 3 mg PO DAILY cetirizine 10 mg tablet,disintegrating 10 mg PO DAILY tetrabenazine [Xenazine] 12.5 mg tablet 12.5 mg PO DAILY doxycycline hyclate 100 mg capsule 100 mg PO BID 10 Days Qty: 20 0RF albuterol sulfate [ProAir HFA] 90 mcg/actuation HFA aerosol inhaler 2 puff inhalation Q4-6H PRN (Reason: Wheezing) Qty: 8.5 0RF Stand Alone Forms: Work/School Release
[2023-03-02 23:29] LABS: Anion Gap 12 (12-20); Blood Urea Nitrogen 19 mg/dL (9-16); Calcium 9.5 mg/dL (8.4-10.2); Carbon Dioxide 25 mmol/L (22-29); Chloride 106 mmol/L (96-108); Creatinine Clr Calc Pharmacy 158.9; Estimated Glomerular Filt Rate > 60; Glucose Random 121 mg/dL (60-115); Potassium 3.9 mmol/L (3.3-5.1); Sodium 139 mmol/L (135-145)
[2023-03-02 23:54] LABS: COVID-19 Test Negative (Negative); IDNOW Serial# 08D9AD1C; IDNOW Serial# BCCEAD1C; Influenza A Negative (Negative); Influenza B2 Negative (Negative)
[2023-03-03] VITALS: PULSE 70
[2023-03-03 00:07] LABS: Troponin-I High Sensitivity < 2.7 ng/L (<3.5-35.0)
[2023-03-03 00:38] VITALS: BP 104/47; PULSE 65; RESP 16; O2SAT 99
== END 2023-03-03 01:12 | disposition home or self-care (01) ==
PROVIDERS: Physician Assistant; Emergency Provider Internal Medicine
DX: R07.9 Chest pain, unspecified (principal); Z20.822 Contact with and (suspected) exposure to COVID-19; Z79.899 Other long term (current) drug therapy
CPT/HCPCS: 36415; 71046; 80048; 84484; 85025; 87502; 87635; 93005; 99283; 99284

== ENCOUNTER 2023-05-01 08:29 | Outpatient (AMB) | payer OTHER, SELFPAY ==
--- NOTE | 2023-05-01 09:14 | MHC.OFFWIV ---
Intake Vital Signs 05/01/23 09:19 BP 130/80 Blood Pressure Location Rt brachial Position Sitting Pulse 84 Pulse Source Pulse Oximeter Pulse Oximetry (%) 98 Oxygen Delivery Method Room Air Intake Visit Reasons: EP feet pain, lt leg pain (lobby) Intake Note: Patient here for pain in the back of left leg for about a couple days. Dr. Barron has ordered labs which were done this morning. Patient Tobacco Use Status: Never used Tobacco Allergies Sulfa (Sulfonamide Antibiotics) [SULFA(SULFONAMIDE ANTIBIOTICS)] Allergy (Intermediate, Verified 05/01/23 09:45) RASH amoxicillin [From AUGMENTIN] Adverse Reaction (Mild, Verified 05/01/23 09:45) YEAST INFECTION clavulanic acid [From AUGMENTIN] Adverse Reaction (Mild, Verified 05/01/23 09:45) YEAST INFECTION Medication List - Last Reconciled 05/01/23 by Sanchez Young MD albuterol sulfate 90 mcg/actuation (ProAir HFA) 2 puffs inhalation Q4-6H PRN atomoxetine (Strattera) 60 mg PO QAM cariprazine (Vraylar) 3 mg PO DAILY cetirizine 10 mg PO DAILY doxycycline hyclate 100 mg PO BID 10 days ibuprofen 600 mg PO Q6H PRN tetrabenazine (Xenazine) 12.5 mg PO DAILY Do you need a note to return to daycare/school/sports/work: No HPI EP feet pain, lt leg pain (lobby) HPI Details 22-year-old male presents to the office for a sick visit. Patient has history of autism. He is verbal. He is accompanied by his mother. Patient is experiencing pain in the left cough for the past few days. 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 Symptoms started after. [facility] Medical History (Updated 05/01/23 @ 09:47 by Sanchez Young MD) Autism GERD (gastroesophageal reflux disease) Tourette's Surgical History History of fundoplication Family History Sister Brain cancer Social History Housing: House Alcohol intake: never Patient Tobacco Use Status: Never used Tobacco e-Cigarette/Vaping Use: Never Used Current occupational status: unemployed Physical Exam Vital Signs: Last Vital Signs Pulse 84 05/01/23 09:19 BP 130/80 05/01/23 09:19 Pulse Ox 98 05/01/23 09:19 Oxygen Delivery Method Room Air 05/01/23 09:19 Extrem Other: Left cough: No visible bruising or swelling. Pain on palpation. Able to dorsiflex, extend invert and allan the foot. Assessment & Plan Assessment & Plan (1) Sprain of lower leg: Code(s): S83.90XA - Sprain of unspecified site of unspecified knee, initial encounter Plan: Keep the foot elevated. Anti-inflammatories called in. If symptoms do not improve to follow-up here. Coding Level of Care Code Est Pt Level 3 (86941) Diagnoses Sprain of lower leg S83.90XA
[2023-05-01 09:19] VITALS: BP 130/80; PULSE 84; O2SAT 98
== END 2023-05-01 09:46 | disposition home or self-care (01) ==
PROVIDERS: Visit Provider Internal Medicine
DX: S83.90XA Sprain of unspecified site of unspecified knee, initial encounter (principal)
CPT/HCPCS: 99213

== ENCOUNTER 2023-05-01 08:30 | Outpatient (REF) | payer OTHER, SELFPAY ==
[2023-05-01 11:26] LABS: MANUAL DIFF FLAG NO
[2023-05-01 12:11] LABS: Basophils Percent Auto 0.5 % (0-2); Eosinophils Absolute Auto 0.2 X10*3/uL (0.0-0.4); Hematocrit 49.2 % (42.0-52.0); Hemoglobin 16.6 g/dl (14.0-18.0); Imm Gran Abs Auto 0.04 X10*3/uL (0.00-0.03); Imm Gran Pct Auto 0.6 % (0.0-0.4); Lymphocytes Absolute Auto 1.9 X10*3/uL (1.2-4.9); Lymphocytes Percent Auto 29.2 % (20-40); Mean Corpuscular HGB Conc 33.7 g/dl (31.0-36.0); Mean Corpuscular Hemoglobin 27.3 pg (27.0-33.0); Mean Corpuscular Volume 80.9 fL (80.0-98.0); Mean Platelet Volume 11.2 fL (9.4-12.4); Monocytes Absolute Auto 0.4 X10*3/uL (0.1-1.2); Monocytes Percent Auto 5.5 % (2-11); Neutrophils Absolute Auto 3.9 x10*3/uL (2.0-8.3); Neutrophils Percent Auto 61.2 % (45-73); Platelet Count 237 X10*3/uL (160-400); Red Blood Count 6.08 X10*6/uL (4.60-5.80); Red Cell Distribution Width 12.3 % (11.0-16.0); White Blood Count 6.4 X10*3/uL (4.8-10.8)
[2023-05-01 12:22] LABS: D Dimer High Sensitivity 670 NG/ML
[2023-05-01 12:29] LABS: Appearance Urine Clear; Color Urine Yellow; Glucose Urine UA Negative (Negative); Leukocyte Esterase Urine Negative (Negative); Nitrite Urine Negative (Negative); UMIC TRIGGER UA YES; Urine Blood Negative (Negative); Urine Ketones Negative (Negative); Urine Protein 30 (1+) mg/dL (Neg-Trace)
[2023-05-01 12:33] LABS: Bacteria Urine None Seen (None Seen); RBC Urine 0-2 /HPF (0-2); Squamous Epithelial Cell Urine 0-2 /HPF (0-2); WBC Urine 0-5 /HPF (0-5)
[2023-05-01 12:42] LABS: Alanine Aminotransferase 109 U/L (0-40); Albumin Level 4.2 g/dL (3.5-5.0); Alkaline Phosphatase 78 U/L (39-117); Anion Gap 13 (12-20); Aspartate Amino Transferase 41 U/L (5-37); Bilirubin Total 0.7 mg/dL (0.0-1.0); Blood Urea Nitrogen 14 mg/dL (9-16); Calcium 9.9 mg/dL (8.4-10.2); Carbon Dioxide 24 mmol/L (22-29); Chloride 108 mmol/L (96-108); Cholesterol 186 mg/dL; Estimated Glomerular Filt Rate > 60; Glucose Fasting 97 mg/dL (60-99); HDL Cholesterol 39 mg/dL; LDL Cholesterol Calculated 118 mg/dl; Potassium 4.5 mmol/L (3.3-5.1); Sodium 140 mmol/L (135-145); Total Protein 6.6 g/dL (6.5-8.0); Triglycerides 145 mg/dL
[2023-05-01 12:43] LABS: Syphilis Screen Nonreactive (Nonreactive)
[2023-05-01 13:03] LABS: TSH reflex Free T4 0.82 uIU/mL (0.32-4.0); Vitamin D 25-OH Total 36.5 ng/mL (>30)
[2023-05-01 13:07] LABS: HBc Num1 0.99 S/CO (0.00-0.79); HBsAGNum1 0.42 S/CO (0.00-0.99); Hepatitis B Surface Antigen Negative (Negative); ~HepC Num1 0.11 S/CO (0.00-0.79); ~Hepatitis B Surface Antibody NONREACTIVE (Nonreactive); ~Hepatitis C Antibody Nonreactive (Nonreactive)
[2023-05-01 13:20] LABS: Folate 11.2 ng/mL (> or = 4.0); Vitamin B12 588 pg/mL (200-900)
[2023-05-01 13:38] LABS: Microalbum/Creatinine Ratio Ur 8.7 ug/mg cr
[2023-05-01 13:57] LABS: CT PCR NOT DETECTED (Not Detect.); NG PCR NOT DETECTED (Not Detect.)
[2023-05-01 14:51] LABS: HBc Num2 0.12 S/CO; HBc Num3 0.12 S/CO; Hepatitis B Core Antibody Nonreactive (Nonreactive)
== END 2023-05-01 08:31 | disposition home or self-care (01) ==
LOC: HO.HMGCLDS 08:30
PROVIDERS: PCP Family Medicine; Visit Provider Family Medicine
DX: Z00.00 Encounter for general adult medical examination without abnormal findings (principal); Z11.3 Encounter for screening for infections with a predominantly sexual mode of transmission; E53.8 Deficiency of other specified B group vitamins; I10 Essential (primary) hypertension; E55.9 Vitamin D deficiency, unspecified; R79.89 Other specified abnormal findings of blood chemistry
CPT/HCPCS: 0353U; 80053; 80061; 81001; 82043; 82306; 82607; 82746; 84443; 85025; 85379; 86704; 86706; 86780; 86803; 87340

== ENCOUNTER 2023-05-01 13:04 | Outpatient (REF) | payer OTHER, SELFPAY ==
--- NOTE | ~2023-05-01 | US_ITS ---
EXAMINATION: US VENOUS ULTRASOUND WITH DOPPLER LOWER EXTREMITY, LEFT CLINICAL INFORMATION: Left lower leg pain. COMPARISON: None available. TECHNIQUE: Ultrasound of the deep veins is performed from the hip to the calf with compression sonography and color and pulse Doppler assessment. Spectral analysis with color-flow imaging is performed. FINDINGS: There is normal venous compression and respiratory variation and augmented flow. The visualized common femoral vein, superficial femoral vein, profunda femoral vein, popliteal vein, and the trifurcation region shows no evidence of deep venous thrombosis. If the patient's symptoms persist, followup ultrasound in 5 days 7 days might be of value to exclude proximal propagation from a non-visualized calf vein. US/US venous duplex LE IMPRESSION: No DVT demonstrated in the left lower extremity.
== END 2023-05-01 13:05 | disposition home or self-care (01) ==
LOC: HO.US 13:04
PROVIDERS: PCP Family Medicine; Visit Provider Family Medicine
DX: M79.662 Pain in left lower leg (principal); R60.0 Localized edema
CPT/HCPCS: 93971

== ENCOUNTER 2023-06-21 00:51 | Emergency (ER) | payer OTHER, SELFPAY ==
--- NOTE | ~2023-06-21 | CT_ITS ---
EXAMINATION: CT ABDOMEN AND PELVIS WITH CONTRAST CLINICAL INFORMATION: Leukocytosis perineal pain evaluate for necrotizing COMPARISON: CT angiography chest from 08/18/2022, CT abdomen from 02/05/2022 TECHNIQUE: Multidetector volumetric images were obtained from the superior aspect of the liver through the pubic symphysis following administration 85 mL of Omnipaque 350 intravenous contrast. Sagittal and coronal reformatted images were obtained on the technologist's workstation. Oral contrast: No This CT examination was performed using dose optimization techniques as appropriate, variously including the following: *Automated exposure control *Adjustment of mA and/or kV according to patient size (this includes techniques or standardized protocols for targeted exams where dose is matched to indication/reason for exam; i.e. extremities or head) *Use of iterative reconstruction technique DLP: 966 mGy-cm FINDINGS: LUNG BASES: The visualized lung bases are unremarkable. LIVER, GALLBLADDER, AND BILIARY TREE: The liver is normal in size and shape. Decreased hepatic attenuation regions of focal sparing adjacent to gallbladder fossa. No focal hepatic lesion or biliary ductal dilatation is present. The gallbladder is unremarkable with no evidence of radiopaque gallstones, gallbladder wall thickening, or obvious pericholecystic inflammatory changes. PANCREAS: Unremarkable. SPLEEN: Spleen is enlarged measuring 13.9 cm. ADRENAL GLANDS: Unremarkable. KIDNEYS AND URETERS: The kidneys are normal in size, shape, and attenuation. No hydronephrosis, hydroureter, or calculi seen. No perinephric stranding. BLADDER: Unremarkable. GASTROINTESTINAL TRACT: The small and large bowel are unremarkable. The appendix is unremarkable. ABDOMINAL WALL: Small fat filled umbilical hernia. LYMPH NODES: A few mildly prominent bilateral inguinal nodes are noted the largest on the right side measuring approximately 0.2 cm in short axis. VASCULAR: Unremarkable. PELVIC VISCERA: Unremarkable. OSSEOUS STRUCTURES: Bilateral L5 pars defects. CT/CT abdomen pelvis w IV con IMPRESSION: 1. No acute process of the abdomen or pelvis visualized. 2. Hepatic steatosis with regions of focal sparing adjacent to the gallbladder fossa. 3. Splenomegaly measuring up to 13.9 cm. 4. A few mildly prominent bilateral inguinal nodes are noted the largest on the right side measuring approximately 0.2 cm in short axis.
--- NOTE | ~2023-06-21 | XR_ITS ---
EXAMINATION: XR FOOT, LEFT CLINICAL INFORMATION: Evaluate for osteomyelitis of great toe COMPARISON: None available. TECHNIQUE: 3 views of the left foot. XR/XR foot LT 2V FINDINGS AND IMPRESSION: The bones of the left foot have normal density and alignment. Joint spaces are maintained. No fracture, erosion or periostitis. No radiopaque foreign body or soft tissue gas. No evidence of osteomyelitis within the great toe.
[2023-06-21 01:01] VITALS: BP 118/43; PULSE 97; RESP 20; TEMP 37.2; O2SAT 100; BMI 35.9
[2023-06-21 01:23] LABS: Hematocrit 44.5 % (42.0-52.0); Hemoglobin 15.6 g/dl (14.0-18.0); Mean Corpuscular HGB Conc 35.1 g/dl (31.0-36.0); Mean Corpuscular Hemoglobin 27.5 pg (27.0-33.0); Mean Corpuscular Volume 78.3 fL (80.0-98.0); Platelet Count 225 X10*3/uL (160-400); Red Blood Count 5.68 X10*6/uL (4.60-5.80); Red Cell Distribution Width 12.6 % (11.0-16.0)
[2023-06-21 01:38] LABS: Alanine Aminotransferase 142 U/L (0-40); Albumin Level 4.4 g/dL (3.5-5.0); Alkaline Phosphatase 72 U/L (39-117); Anion Gap 11 (12-20); Aspartate Amino Transferase 51 U/L (5-37); Bilirubin Total 0.7 mg/dL (0.0-1.0); Blood Urea Nitrogen 16 mg/dL (9-16); Calcium 9.8 mg/dL (8.4-10.2); Carbon Dioxide 23 mmol/L (22-29); Chloride 107 mmol/L (96-108); Creatinine Clr Calc Pharmacy 152.5; Estimated Glomerular Filt Rate > 60; Glucose Random 96 mg/dL (60-115); Potassium 4.1 mmol/L (3.3-5.1); Sodium 137 mmol/L (135-145); Total Protein 6.7 g/dL (6.5-8.0)
[2023-06-21 04:11] VITALS: BP 102/51; PULSE 85; RESP 17; TEMP 36.8; O2SAT 97
[2023-06-21 05:25] LABS: Influenza A PCR NEGATIVE (Negative); Influenza B PCR NEGATIVE (Negative); Resp Syncy Virus RNA Qual PCR NEGATIVE (Negative); SARS COV2 PCR INHOUSE NEGATIVE (Negative)
[2023-06-21 05:58] VITALS: BP 100/63; PULSE 75; RESP 16; TEMP 36.8; O2SAT 100
--- NOTE | 2023-06-21 06:22 | ED_ITS ---
HPI - General Adult General Chief complaint: General Medical Stated complaint: foot inj, multiple complaints Time Seen by Provider: 06/21/23 04:09 Source: patient and family Mode of arrival: ambulatory Limitations: no limitations History of Present Illness HPI narrative: 22-year-old male came in with multiple complaints. Generalized body ache, sore throat, runny nose, congestion, groin pain, patient had 1st toenail removed for infection patient finished 2 courses of antibiotic patient still have to pain. No discharge, no fever, no chills. No nausea, vomiting, diarrhea, normal appetite. Related Data Home Medications Medication Instructions Recorded Confirmed atomoxetine 60 mg capsule 60 mg PO QAM 02/25/23 (Strattera) cariprazine 3 mg capsule (Vraylar) 3 mg PO DAILY 02/25/23 cetirizine 10 mg disintegrating 10 mg PO DAILY 02/25/23 tablet tetrabenazine 12.5 mg tablet 12.5 mg PO DAILY 02/25/23 (Xenazine) Previous Rx's Medication Instructions Recorded ibuprofen 600 mg tablet 600 mg PO Q6H PRN pain #20 tabs 10/19/21 albuterol sulfate 90 mcg/actuation 2 puff inhalation Q4-6H PRN 02/02/23 aerosol inhaler (ProAir HFA) Wheezing #8.5 grams doxycycline hyclate 100 mg capsule 100 mg PO BID 10 days #20 caps 02/25/23 meloxicam 15 mg tablet 15 mg PO DAILY #14 tabs 05/01/23 mupirocin 2 % topical ointment 1 appl topical TID #22 grams 06/21/23 Allergies Allergy/AdvReac Type Severity Reaction Status Date / Time Sulfa (Sulfonamide Allergy Intermediate RASH Verified 05/01/23 09:45 Antibiotics) [SULFA(SULFONAMIDE ANTIBIOTICS)] amoxicillin [From AUGMENTIN] AdvReac Mild YEAST Verified 05/01/23 09:45 INFECTION clavulanic acid AdvReac Mild YEAST Verified 05/01/23 09:45 [From AUGMENTIN] INFECTION Review of Systems Review of Systems: Yes all other systems are reviewed and are negative [facility] Past Medical History Medical History Autism GERD (gastroesophageal reflux disease) Tourette's Surgical History History of fundoplication Family History Family History Sister Brain cancer Social History Social History Housing: House Alcohol intake: never Patient Tobacco Use Status: Never used Tobacco e-Cigarette/Vaping Use: Never Used Advance Directives: No Advance Directives Information Provided: No Current occupational status: unemployed Physical Exam ED Vital Signs: Vital Signs - 24 hr 06/21/23 01:01 06/21/23 04:11 06/21/23 05:58 Temperature 98.9 F 98.3 F 98.2 F Pulse Rate 97 85 75 Respiratory Rate 20 17 16 Blood Pressure 118/43 L 102/51 L 100/63 Pulse Oximetry 100 97 100 Oxygen Delivery Method Room Air Room Air Room Air BMI result Body Mass Index 35.9 Vital signs have been reviewed as appeared to be correct. Blood pressure norm al. Heart rate normal. Respiration rate normal. Temperature normal. Oxygen saturation normal. Appearance: Alert. Oriented X3. No acute distress. Head: Normal external exam. Normocephalic. Atraumatic. No Berger signs noted. No raccoon eyes noted Eyes: PERRLA. EOMI. Conjunctiva and sclera normal. Eyelids normal. ENT: TM's Normal. Pharynx normal. Uvula midline. Moist mucous membranes. No trismus noted. No drooling noted. No muffled voice noted. Neck: Normal inspection. Neck supple. FROM. No adenopathy. Thyroid Normal. No meningeal signs. No neck mass noted. CVS: Normal heart rate and rhythm. Heart sound normal. No murmurs noted. Pulses normal throughout. Respiratory: No respiratory distress. Painless inspiration. Breath sounds normal. No wheezes/rales/rhonchi noted. Chest nontender. No accessory muscle usage noted or decreased air movement noted. Abdomen: Soft and nontender. Bowel sounds normal in all 4 quadrants. No distention noted. No organomegaly noted. No visible injury noted. Back: No CVA tenderness. Full range of motion noted. Skin: Skin warm and dry. Normal skin color. Normal skin turgor. No rashes/lesions/lacerations noted. Extremities: Left great toe, slightly red, no swelling, slightly tender, no discharge or fluctuation. Neuro: Oriented X 3. Cranial nerve exam: II-XII are grossly intact No motor deficit. No sensory deficit. Reflexes normal. Course Course Course Narrative: 22-year-old pleasant male with history of autism, s/p nail removal of the left great toe. Leukocytosis due to left great toe paronychia. Patient is complaining of generalized weakness and flu-like symptoms patient is negative for COVID/flu/RSV. Left great toe pain will start on mupirocin ointment Medical Decision Making Differential Diagnosis Differential Diagnoses: The differential diagnosis associated with the presentation includes (Viral infection, left great toe cellulitis, osteomyelitis, resolved abdominal pain) Lab Data MDM Lab Attestation statement: I reviewed the patient's lab results. 06/21/23 01:12 06/21/23 01:12 Labs: Lab Results 06/21/23 06/21/23 06/21/23 Range/Units 01:12 01:12 04:43 WBC 13.0 H (4.8-10.8) X10*3/uL RBC 5.68 (4.60-5.80) X10*6/uL Hgb 15.6 (14.0-18.0) g/dl Hct 44.5 (42.0-52.0) % MCV 78.3 L (80.0-98.0) fL MCH 27.5 (27.0-33.0) pg MCHC 35.1 (31.0-36.0) g/dl RDW 12.6 (11.0-16.0) % Plt Count 225 (160-400) X10*3/uL MPV 10.0 (9.4-12.4) fL Absolute Nucleated RBC 0.000 (0.0-0.012) X10*3/uL Nucleated RBC % (auto) 0.0 (0.0-0.2) /100WBC Sodium 137 (135-145) mmol/L Potassium 4.1 (3.3-5.1) mmol/L Chloride 107 (96-108) mmol/L Carbon Dioxide 23 (22-29) mmol/L Anion Gap 11 L (12-20) BUN 16 (9-16) mg/dL Creatinine 0.95 (0.5-1.4) mg/dL Estim Creat Clear Calc 152.5 Estimated GFR > 60 Random Glucose 96 (60-115) mg/dL Calcium 9.8 (8.4-10.2) mg/dL Total Bilirubin 0.7 (0.0-1.0) mg/dL AST 51 H (5-37) U/L ALT 142 H (0-40) U/L Alkaline Phosphatase 72 (39-117) U/L Total Protein 6.7 (6.5-8.0) g/dL Albumin 4.4 (3.5-5.0) g/dL Influenza Type A (PCR) NEGATIVE (Negative) Influenza Type B (PCR) NEGATIVE (Negative) RSV RNA Qual (PCR) NEGATIVE (Negative) SARS-CoV-2 RNA (RT-PCR) NEGATIVE (Negative) Independent Interpretation I performed an independent interpretation of an: Plain X-Ray (Left great toe: No osteomyelitis) Radiology Impression Discussion of test interpretation with radiology: I have reviewed the radiologist's reading. Discharge Plan Discharge Clinical Impression: Paronychia of great toe, left Patient Disposition: Home, Self-Care Instructions: Paronychia (ED) Prescriptions: New mupirocin 2 % ointment 1 appl topical TID Qty: 22 0RF No Action ibuprofen 600 mg tablet 600 mg PO Q6H PRN (Reason: pain) Qty: 20 0RF atomoxetine [Strattera] 60 mg capsule 60 mg PO QAM Vraylar 3 mg capsule 3 mg PO DAILY cetirizine 10 mg tablet,disintegrating 10 mg PO DAILY tetrabenazine [Xenazine] 12.5 mg tablet 12.5 mg PO DAILY doxycycline hyclate 100 mg capsule 100 mg PO BID 10 Days Qty: 20 0RF meloxicam 15 mg tablet 15 mg PO DAILY Qty: 14 0RF albuterol sulfate [ProAir HFA] 90 mcg/actuation HFA aerosol inhaler 2 puff inhalation Q4-6H PRN (Reason: Wheezing) Qty: 8.5 0RF
--- NOTE | 2023-06-21 08:50 | PC.NURSE ---
per request of triage nurse, this nurse placed IV in pts left ac for a CT scan to be performed, CT was notified that patient now has access.
[2023-06-21] MEDS: iohexoL 350 MG/ML 100 ML INFUS..BTL 85 ML IV (09:11)
[2023-06-21 09:14] VITALS: BP 123/45; PULSE 75; RESP 16; O2SAT 97
[2023-06-21] MEDS: 0.9 % Sodium Chloride 1,000 ML 999 ML IV (09:21)
[2023-06-21 09:28] VITALS: TEMP 36.9
[2023-06-23 02:38] LABS: Lyme Abs Screen <0.90 index
== END 2023-06-21 10:28 | disposition home or self-care (01) ==
PROVIDERS: Emergency Medicine; Emergency Provider Emergency Medicine
DX: B35.6 Tinea cruris (principal); L03.032 Cellulitis of left toe; R10.2 Pelvic and perineal pain; Z20.822 Contact with and (suspected) exposure to COVID-19; Z20.828 Contact with and (suspected) exposure to other viral communicable diseases
CPT/HCPCS: 0241U; 36415; 73620; 74177; 80053; 85027; 86617; 86618; 96360; 99284; Q9967

== ENCOUNTER 2024-02-12 08:44 | Outpatient (REF) | payer OTHER, SELFPAY ==
[2024-02-12 10:20] LABS: MANUAL DIFF FLAG NO
[2024-02-12 10:36] LABS: Basophils Percent Auto 0.5 % (0-2); Eosinophils Absolute Auto 0.3 X10*3/uL (0.0-0.4); Eosinophils Percent Auto 4.7 % (0-4); Hematocrit 45.8 % (42.0-52.0); Hemoglobin 15.4 g/dl (14.0-18.0); Imm Gran Abs Auto 0.02 X10*3/uL (0.00-0.03); Imm Gran Pct Auto 0.3 % (0.0-0.4); Lymphocytes Absolute Auto 2.3 X10*3/uL (1.2-4.9); Lymphocytes Percent Auto 35.8 % (20-40); Mean Corpuscular HGB Conc 33.6 g/dl (31.0-36.0); Mean Corpuscular Hemoglobin 27.1 pg (27.0-33.0); Mean Corpuscular Volume 80.6 fL (80.0-98.0); Mean Platelet Volume 10.8 fL (9.4-12.4); Monocytes Absolute Auto 0.5 X10*3/uL (0.1-1.2); Monocytes Percent Auto 7.2 % (2-11); Neutrophils Absolute Auto 3.3 x10*3/uL (2.0-8.3); Neutrophils Percent Auto 51.5 % (45-73); Platelet Count 213 X10*3/uL (160-400); Red Blood Count 5.68 X10*6/uL (4.60-5.80); Red Cell Distribution Width 12.8 % (11.0-16.0); White Blood Count 6.4 X10*3/uL (4.8-10.8)
[2024-02-12 10:48] LABS: Appearance Urine Clear; Color Urine Yellow; Glucose Urine UA Negative (Negative); Leukocyte Esterase Urine Negative (Negative); Nitrite Urine Negative (Negative); PH 5.5 (5.0-9.0); Specific Gravity - Urine >= 1.030 (1.005-1.025); Urine Blood Negative (Negative); Urine Ketones Negative (Negative); Urine Protein Negative (Neg-Trace)
[2024-02-12 11:14] LABS: Microalbum/Creatinine Ratio Ur 3.6 ug/mg cr (<30)
[2024-02-12 11:49] LABS: Alanine Aminotransferase 105 U/L (0-40); Albumin Level 4.1 g/dL (3.5-5.0); Alkaline Phosphatase 72 U/L (39-117); Anion Gap 10 (12-20); Aspartate Amino Transferase 44 U/L (5-37); Bilirubin Total 0.8 mg/dL (0.0-1.0); Blood Urea Nitrogen 25 mg/dL (9-16); Calcium 9.5 mg/dL (8.4-10.2); Carbon Dioxide 25 mmol/L (22-29); Chloride 108 mmol/L (96-108); Cholesterol 176 mg/dL (<200); Estimated Glomerular Filt Rate > 60; Glucose Fasting 93 mg/dL (60-99); HDL Cholesterol 36 mg/dL (>40); LDL Cholesterol Calculated 114 mg/dL (<100); Potassium 3.9 mmol/L (3.3-5.1); Sodium 139 mmol/L (135-145); Total Protein 6.6 g/dL (6.5-8.0); Triglycerides 132 mg/dL (<150)
[2024-02-12 17:11] LABS: Anion Gap 13 (12-20); Blood Urea Nitrogen 23 mg/dL (9-16); Calcium 9.4 mg/dL (8.4-10.2); Carbon Dioxide 23 mmol/L (22-29); Chloride 109 mmol/L (96-108); Estimated Glomerular Filt Rate > 60; Glucose Random 101 mg/dL (60-115); Potassium 3.9 mmol/L (3.3-5.1); Sodium 141 mmol/L (135-145)
[2024-02-12 17:17] LABS: Troponin-I High Sensitivity < 2.7 ng/L (<3.5-35.0)
== END 2024-02-12 08:45 | disposition home or self-care (01) ==
LOC: HO.HMGCLDS 08:44
PROVIDERS: PCP Family Medicine; Referring Provider Internal Medicine; Visit Provider Family Medicine
DX: Z00.00 Encounter for general adult medical examination without abnormal findings (principal); I10 Essential (primary) hypertension; R00.2 Palpitations
CPT/HCPCS: 36415; 80048; 80053; 80061; 81003; 82043; 82570; 84443; 84484; 85025

== ENCOUNTER 2024-02-12 11:42 | Outpatient (AMB) | payer OTHER, SELFPAY ==
[2024-02-12 12:59] VITALS: BP 140/80; PULSE 90; TEMP 37; O2SAT 97; BMI 40.0
--- NOTE | 2024-02-12 12:59 | AM.OFFWIN_ITS ---
Intake Vital Signs 02/12/24 12:59 Height 5 ft 10 in Weight 278 lb 8 oz BMI 40.0 BP 140/80 H Blood Pressure Location Lt brachial Position Sitting Pulse 90 Pulse Source Pulse Oximeter Temp 98.6 F Temp Source Temporal Artery Scan Pulse Oximetry (%) 97 Oxygen Delivery Method Room Air Intake Visit Reasons: EP Elevated heart rate Intake Note: Pt presents to the office today for c/o elevated heart rate that started last night. Pts mom states his HR was 104. Pt states he does feel like he has a li ttle anxiety.He also states he has been having sinus pressure and yellow phlegm. He states he has been having this sinus pressure for a few weeks. Patient Tobacco Use Status: Never used Tobacco Allergies Sulfa (Sulfonamide Antibiotics) [SULFA(SULFONAMIDE ANTIBIOTICS)] Allergy (Intermediate, Verified 02/12/24 13:20) RASH amoxicillin [From AUGMENTIN] Adverse Reaction (Mild, Verified 02/12/24 13:20) YEAST INFECTION clavulanic acid [From AUGMENTIN] Adverse Reaction (Mild, Verified 02/12/24 13:20) YEAST INFECTION Medication List - Last Reconciled 02/12/24 by Sanchez Young MD albuterol sulfate 90 mcg/actuation (ProAir HFA) 2 puffs inhalation Q4-6H PRN atomoxetine (Strattera) 60 mg PO QAM cariprazine (Vraylar) 3 mg PO DAILY cetirizine (All Day Allergy (cetirizine)) 10 mg PO DAILY PRN 90 days clotrimazole 1% 1 appl topical BID 2 weeks ibuprofen 600 mg PO Q6H PRN mupirocin 2% 1 appl topical TID tetrabenazine (Xenazine) 12.5 mg PO DAILY HPI EP Elevated heart rate HPI Details 23 yr old male presents to the office fo r a sick visit. Patient has autism. He comes with his mother. He reports his smart phone has been indicating an elevated heart rate and possible Afib. He does not recall feeling the elevated heart rate. Patient speaks less and therefore history is limited. Mother reports no diaphoresis, shortness of breath, nausea or vomiting. He denies using any drugs or energy drinks. [facility] Medical History GERD (gastroesophageal reflux disease) Autism Tourette's Surgical History History of fundoplication Family History Sister Brain cancer Social History Housing: House Alcohol intake: never Patient Tobacco Use Status: Never used Tobacco e-Cigarette/Vaping Use: Never Used Current occupational status: unemployed Physical Exam Vital Signs: Last Vital Signs Temp 98.6 F 02/12/24 12:59 Pulse 90 02/12/24 12:59 BP 140/80 H 02/12/24 12:59 Pulse Ox 97 02/12/24 12:59 Oxygen Delivery Method Room Air 02/12/24 12:59 BMI result Body Mass Index 40.0 Const General: cooperative and healthy appearing Nutritional Appearance: well nourished Orientation/consciousness: patient oriented x3 Limitations: no limitations HEENT Head: Yes normal to inspection Eyes General: appearance normal, both eyes and all related structures Neck Neck: Yes normal visual inspection Chest Chest palpation & inspection: normal palpation of entire chest wall Resp Effort & Inspection: normal respiratory effort Neuro General: patient oriented x3 Office Procedures EKG Details: T-wave inversions in lead 3 and AVF. New changes compared to the previous. [id number], Complete Assessment & Plan Assessment & Plan (1) Palpitations: Code(s): R00.2 - Palpitations Plan: Patient and mother were reassured, he was not in Afib. Pt not having any sx of chest pain or diaphoresis. EKG shows T wave inversion in lead 3 and avf. Cardiology appt made. Care discussed with Dr Acuna. He suggested out patient workup and to get a set of troponins. Orders: Orders AMB EKG-In Office Today R00.2 - Palpitations Basic Metabolic Panel Today R00.2 - Palpitations Troponin-I High Sensitivity Today R00.2 - Palpitations Referrals Cardiology Referral R00.2 - Palpitations Coding Level of Care Code Est Pt Level 4 (74762) Diagnoses Palpitations R00.2 CPT Codes EKG - CPT: 12300-[id number], Complete ([id number])
== END 2024-02-12 13:50 | disposition home or self-care (01) ==
PROVIDERS: PCP Family Medicine; Visit Provider Internal Medicine
DX: R00.2 Palpitations (principal)
CPT/HCPCS: 93000; 99214

== ENCOUNTER 2024-02-13 17:57 | Emergency (ER) | payer OTHER, SELFPAY ==
--- NOTE | 2024-02-13 18:07 | ECG_ITS ---
Test Reason : cp Blood Pressure : / mmHG Vent. Rate : 077 BPM Atrial Rate : 077 BPM P-R Int : 138 ms QRS Dur : 098 ms QT Int : 388 ms P-R-T Axes : 042 016 016 degrees QTc Int : 439 ms Normal sinus rhythm Normal ECG When compared with ECG of 02-MAR-2023 22:50, No significant change was found Referred By: Generic ED Physician Electronically Signed By:JARAD ROSAS
--- NOTE | 2024-02-13 18:22 | ED_ITS ---
HPI - Chest Pain General Chief Complaint: Chest Pain Stated Complaint: chest pain/ekg done yesterday @[facility] Time Seen by Provider: 02/13/24 18:41 Source: patient and family Mode of arrival: ambulatory Limitations: no limitations History of Present Illness HPI narrative: 23-year-old male with a medical history of autism presents to the emergency department his mother, for concerns for reproducible chest wall pain. Patient reports he was evaluated yesterday in urgent care setting and patient was recommended to follow-up with cardiology as it was a ?change to his previous EKG ?. Patient reports chest pain is worse with palpation mother states that he completed roughly 3+ hours of rototilling and heavy yard work on Monday. He denies any shortness of breath, headache, vision changes, nausea, vomiting, abdominal pain, paresthesias, weakness Pertinent positives and negatives discussed in HPI Related Data Home Medications ?Medication ?Instructions ?Recorded ?Confirmed atomoxetine 60 mg capsule 60 mg PO QAM 02/25/23 02/12/24 (Strattera) cariprazine 3 mg capsule (Vraylar) 3 mg PO DAILY 02/25/23 02/12/24 tetrabenazine 12.5 mg tablet 12.5 mg PO DAILY 02/25/23 02/12/24 (Xenazine) Previous Rx's ?Medication ?Instructions ?Recorded ibuprofen 600 mg tablet 600 mg PO Q6H PRN pain #20 tabs 10/19/21 albuterol sulfate 90 mcg/actuation 2 puff inhalation Q4-6H PRN 02/02/23 aerosol inhaler (ProAir HFA) Wheezing #8.5 grams clotrimazole 1 % topical cream 1 appl topical BID 2 weeks #30 06/21/23 grams mupirocin 2 % topical ointment 1 appl topical TID #22 grams 06/21/23 cetirizine 10 mg tablet (All Day 10 mg PO DAILY PRN allergy 11/29/23 Allergy (cetirizine)) symptoms 90 days #90 tabs Allergies Allergy/AdvReac Type Severity Reaction Status Date / Time Sulfa (Sulfonamide Allergy Intermediate RASH Verified 02/13/24 18:29 Antibiotics) [SULFA(SULFONAMIDE ANTIBIOTICS)] amoxicillin [From AUGMENTIN] AdvReac Mild YEAST Verified 02/13/24 18:29 INFECTION clavulanic acid AdvReac Mild YEAST Verified 02/13/24 18:29 [From AUGMENTIN] INFECTION Review of Systems Review of Systems: Yes all other systems are reviewed and are negative [facility] Past Medical History Medical History GERD (gastroesophageal reflux disease) Autism Tourette's Surgical History History of fundoplication Family History Family History Sister Brain cancer Social History Social History Housing: House Alcohol intake: never Patient Tobacco Use Status: Never used Tobacco e-Cigarette/Vaping Use: Never Used Advance Directives: No Advance Directives Information Provided: No Do you have a plan to hurt others: No Plan Current occupational status: unemployed Physical Exam Vital Signs: Vital Signs: Last Vital Signs Temp 97.4 F 02/13/24 18:23 Pulse 77 02/13/24 18:23 Resp 18 02/13/24 18:23 BP 117/62 02/13/24 18:23 Pulse Ox 97 02/13/24 18:23 O2 Del Method Room Air 02/13/24 18:23 BMI result Body Mass Index 43.5 Nursing notes and vital signs reviewed. GENERAL APPEARANCE: A&0 x 4, generally well appearing, no acute distress HENMT: Normal to inspection, atraumatic, face symmetrical. Normal external ears, nose, and oropharynx clear. EYE: PERRLA, EOM intact, structures appear normal NECK: Supple. No stiffness or restricted ROM. CHEST: Normal to inspection, tenderness to palpation bilateral chest HEART: Normal rate and regular rhythm, normal S1/S2, no M/R/G LUNGS: LS CTA, moving air well. Able to speak in complete sentences. No crackles, wheezes, or rhonchi auscultated ABDOMEN: Soft, nontender BACK: No CVAT, no obvious deformity EXTREMITIES: Moving all extremities without difficulty. No cyanosis, clubbing, or edema. Normal capillary refill. NEUROLOGICAL: Alert and oriented, moving all 4 extremities with equal strength. CN not formally tested but appearing grossly intact. Observed to ambulate with normal gait. Cognition normal SKIN: Warm and dry without any lesions, rash, or visible sores PSYCH: Cooperative, normal affect, normal thought process Course Course Course Narrative: This is a rapid medical exam completed by Toyin HEBERT: Additional HPI, ROS, PE not included below will be deferred to primary provider. Concerns of chest pain and high heart rate. Seen at urgent care yesterday. Ordered a holter monitor but MD wants him to follow with cardiology. Medical Decision Making Medical Decision Making MDM Narrative: Old records reviewed for previous imaging, lab studies, ECGs, and notes. Patient was assessed the emergency department with no acute distress or toxicity noted and additional HPI obtained from pt's mother. Blood work reviewed from yesterday showing no evidence infection, anemia, or cardiac muscle breakdown. Patient's EKG today was normal sinus rhythm no signs of acute ischemia or ectopy when compared to previous EKG done roughly 1 year ago, there were no significant changes, per my interpretation. Urinalysis showing no evidence of acute urinary tract infection. Heart score 0, indicating low risk for ACS. Based on the fact that patient's chest pain is reproducible and a recently completed several hours worth of strenuous activity, symptoms are consistent with acute chest wall pain. Patient and patient's mother educated follow-up with his primary care provider in addition to Cardiology. Patient educated to avoid strenuous activity and to rest and use [id number] pain medications for management of discomfort. Patient is safe for discharge at this time with plan for [id number] Tylenol and/or NSAID such as ibuprofen or naproxen for fever/discomfort with dosing as per packaging. HPI, PE, diagnostics, and plan discussed with patient and family with no unanswered questions at this time. Strict return precautions given to return to the emergency department with new, worsening, or concerning emergent symptoms. Recommended to follow-up with there primary care provider in 24-48 hours for further treatment and management. Differential Diagnosis Differential Diagnoses: The differential diagnosis associated with the presentation includes But not limited to ACS, PE, pneumonia, costochondritis, musculoskeletal pain, sepsis, malignancy Lab Data [facility] Lab Attestation statement: I reviewed the patient's lab results. Labs from 02/12/2024 reviewed Independent Interpretation I performed an independent interpretation of an: EKG Interpretation: Normal sinus rhythm with no signs of acute ischemia or ectopy Independent Historian Clinical information obtained from an independent historian. History obtained from or confirmed by: Parent External Record Review External record reviewed: Outpatient record, Prior outpatient labs and Prior outpatient radiology Discharge Plan Discharge Clinical Impression: Acute chest wall pain Patient Disposition: Home, Self-Care Instructions: Chest Wall Pain (ED) Prescriptions: No Action ibuprofen 600 mg tablet 600 mg PO Q6H PRN (Reason: pain) Qty: 20 0RF mupirocin 2 % ointment 1 appl topical TID Qty: 22 0RF clotrimazole 1 % cream 1 appl topical BID 14 Days Qty: 30 0RF atomoxetine [Strattera] 60 mg capsule 60 mg PO QAM Vraylar 3 mg capsule 3 mg PO DAILY tetrabenazine [Xenazine] 12.5 mg tablet 12.5 mg PO DAILY albuterol sulfate [ProAir HFA] 90 mcg/actuation HFA aerosol inhaler 2 puff inhalation Q4-6H PRN (Reason: Wheezing) Qty: 8.5 0RF cetirizine [All Day Allergy (cetirizine)] 10 mg tablet 10 mg PO DAILY PRN (Reason: allergy symptoms) 90 Days Qty: 90 3RF Referrals: Juan Barron MD [Primary Care Provider] - Stand Alone Forms: Work/School Release Discharge Date/Time: 02/13/24 18:55 Print Language: Turkish
[2024-02-13 18:23] VITALS: BP 117/62; PULSE 77; RESP 18; TEMP 36.3; O2SAT 97; BMI 43.5
== END 2024-02-13 18:55 | disposition home or self-care (01) ==
LOC: HO.ED 18:42
PROVIDERS: Emergency Provider Student in an Organized Health Care Education/Training Program; PCP Family Medicine
DX: R07.89 Other chest pain (principal)
CPT/HCPCS: 93005; 99283

== ENCOUNTER → 2024-02-13 18:07 | Outpatient (BNV) | payer OTHER, SELFPAY | PROVIDERS: Emergency Provider Student in an Organized Health Care Education/Training Program; PCP Family Medicine; Visit Provider Internal Medicine | DX: R07.9 Chest pain, unspecified (principal) | CPT/HCPCS: 93010 ==

== ENCOUNTER 2024-02-21 14:06 | Outpatient (AMB) | payer OTHER, SELFPAY ==
[2024-02-21 14:35] VITALS: BP 120/68; PULSE 94; O2SAT 97; BMI 27.9
--- NOTE | 2024-02-21 14:35 | A.OFFVIS_ITS ---
Vital Signs 02/21/24 14:35 Height 5 ft 7 in Weight 178 lb BMI 27.9 BP 120/68 Blood Pressure Location Lt brachial Position Sitting Pulse 94 Pulse Source Monitor Pulse Oximetry (%) 97 Oxygen Delivery Method Room Air Intake Visit Reasons: [facility] [place] ED fu/ CP/ Dr Lozoya refer abn ekg-(HS) Allergies Sulfa (Sulfonamide Antibiotics) [SULFA(SULFONAMIDE ANTIBIOTICS)] Allergy (Intermediate, Verified 02/13/24 18:29) RASH amoxicillin [From AUGMENTIN] Adverse Reaction (Mild, Verified 02/13/24 18:29) YEAST INFECTION clavulanic acid [From AUGMENTIN] Adverse Reaction (Mild, Verified 02/13/24 18:29) YEAST INFECTION HPI Comments Details: 23-year-old male presents today with his mother for a new patient visit. He has a history of autism, anxiety, and tourettes and recently he has been having an increase in chest pain on exertion and tachycardia. His mother reports his chest pains having been happening on lower impact activities like bike riding. Hes heart rates 90s-150s. He has recently had his Vraylor and gained about 35 lbs since they. Reports there is a family history of strokes, [place], and atrial fibrillation. He does not drink, smoke, or do illicit drugs. [facility] Medical History Abnormal EKG Chest pain Palpitations GERD (gastroesophageal reflux disease) Autism Tourette's Surgical History History of fundoplication Family History Sister Brain cancer Social History Housing: House Alcohol intake: never Patient Tobacco Use Status: Never used Tobacco e-Cigarette/Vaping Use: Never Used Current occupational status: unemployed Review of Systems Const Denies weakness ENT Denies dizziness Card Denies chest pain, Denies chest pain with activity, Denies syncope, Denies rapid heart rate, Denies pedal edema, Denies edema, Denies leg edema, Denies lightheadedness, Denies palpitations, Denies dyspnea, Denies dyspnea on exertion and Denies orthopnea Resp Denies cough, Denies dyspnea and Denies dyspnea on exertion GI Denies hematochezia and Denies change in stool character Musc Denies abnormal gait, Denies muscle cramps, Denies muscle weakness, Denies numbness, Denies radiating pain into limb and Denies tingling Neuro Denies abnormal gait, Denies dizziness, Denies syncope, Denies numbness, Denies tingling and Denies weakness Endo Denies palpitations Physical Exam Vital Signs: Last Vital Signs Pulse 94 02/21/24 14:35 BP 120/68 02/21/24 14:35 Pulse Ox 97 02/21/24 14:35 Oxygen Delivery Method Room Air 02/21/24 14:35 BMI result Body Mass Index 27.9 Const General: healthy appearing and no acute distress Orientation/consciousness: patient oriented x3 HEENT Head: Yes normal to inspection Eyes General: appearance normal, both eyes and all related structures Neck Neck: Yes normal visual inspection Chest Chest palpation & inspection: normal inspection of the chest Resp Effort & Inspection: normal respiratory effort Auscultation: clear to auscultation bilaterally Cardio Jugular venous distension: no JVD Palpation: normal PMI Rate: regular rate Rhythm: regular rhythm Heart sounds: S1 normal heart sound present, S2 normal heart sound present, no click, no gallops, no murmurs and no rubs GI Inspection: Yes normal to inspection Palpation (GI): Soft to palpation Skin General skin exam: no rashes or lesions noted Neuro General: patient oriented x3 Extrem General: Yes normal to inspection Psych Appearance: grossly normal Office Procedures EKG Details: EKG today. Normal Sinus Rhythm. Rightward axis. Inferior infarct, age undetermined. Rate 94 bpm. IA 134ms. QRS 92ms. QTc 442ms,. [id number], Complete Assessment & Plan Assessment & Plan (1) Palpitations: Code(s): R00.2 - Palpitations Category: Medical (2) Chest pain: Code(s): R07.9 - Chest pain, unspecified Category: Medical (3) Abnormal EKG: Code(s): R94.31 - Abnormal electrocardiogram [ECG] [EKG] Category: Medical Plan Downsloping in V5-V6 new since 02/13/24 EKG. Will get Stress test to assess for ischemia. Will get echocardiogram to assess structure of heart for changes related to chest pains or fast heart rates. Holter to assess rate and rhythm. Patient and mom agree to plan of care. Orders: Orders ECG holter monitor 48 hour 02/21/24 R00.2 - Palpitations CA echo transthoracic complete 02/21/24 R07.9 - Chest pain, unspecified, R94.31 - Abnormal electrocardiogram [ECG] [EKG] CA stress test 02/21/24 R07.9 - Chest pain, unspecified, R94.31 - Abnormal electrocardiogram [ECG] [EKG] Coding Level of Care Code Est Pt Level 3 (85180) Diagnoses Palpitations R00.2 Chest pain R07.9 Abnormal EKG R94.31 CPT Codes EKG - CPT: 88245-[id number], Complete ([id number])
== END 2024-02-21 15:50 | disposition home or self-care (01) ==
PROVIDERS: PCP Family Medicine; Visit Provider Nurse Practitioner
DX: I45.19 Other right bundle-branch block (principal)
CPT/HCPCS: 93010; 99213

== ENCOUNTER → 2024-02-21 14:06 | Outpatient (BNVA) | payer OTHER, SELFPAY | PROVIDERS: PCP Family Medicine; Visit Provider Nurse Practitioner | DX: R07.9 Chest pain, unspecified (principal); R94.31 Abnormal electrocardiogram [ECG] [EKG]; R00.2 Palpitations | CPT/HCPCS: 93005; 99212 ==

== ENCOUNTER 2024-02-28 17:03 | Emergency (ER) | payer OTHER, SELFPAY ==
--- NOTE | ~2024-02-28 | XR_ITS ---
EXAMINATION: XR CHEST CLINICAL INFORMATION: Chest pain COMPARISON: 03/02/2023 TECHNIQUE: 2 views of the chest were obtained. FINDINGS: No significant abnormality is noted involving the heart, lungs, mediastinum, bony thorax or soft tissues. XR/XR chest 2V IMPRESSION: Unremarkable examination.
--- NOTE | 2024-02-28 17:07 | ECG_ITS ---
Test Reason : chest pain Blood Pressure : / mmHG Vent. Rate : 087 BPM Atrial Rate : 087 BPM P-R Int : 136 ms QRS Dur : 098 ms QT Int : 364 ms P-R-T Axes : 037 046 024 degrees QTc Int : 438 ms Normal sinus rhythm Normal ECG When compared with ECG of 13-FEB-2024 18:10, No significant change was found Referred By: Generic ED Physician Electronically Signed By:GEORGE MYERS MD
[2024-02-28 18:19] VITALS: BP 140/74; PULSE 92; RESP 18; TEMP 36.8; O2SAT 97; BMI 40.6
--- NOTE | 2024-02-28 18:21 | ED_ITS ---
HPI - General Adult General Chief complaint: Chest Pain Stated complaint: Chest pain Time Seen by Provider: 02/28/24 20:31 Source: patient Mode of arrival: ambulatory Limitations: no limitations History of Present Illness HPI narrative: Patient is a 23-year-old male with history of autism, Tourette's, GERD, costochondritis, abnormal EKG presenting to the ED with complaint of left anterior chest pain and palpitations. Mother reports patient has been seen here for same, followed up with cardiology and is scheduled to have Holter monitor at the end of the month. 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 She states he won't take OTC meds at home. Patient denies any shortness of breath. MD complaint: Chest pain Onset (ago): hour(s) Location: chest Radiation: non-radiation Quality: aching Exacerbating factors: movement Associated symptoms: denies other symptoms Treatments prior to arrival: none Related Data Home Medications ?Medication ?Instructions ?Recorded ?Confirmed atomoxetine 60 mg capsule 60 mg PO QAM 02/25/23 02/12/24 (Strattera) tetrabenazine 12.5 mg tablet 12.5 mg PO DAILY 02/25/23 02/12/24 (Xenazine) cariprazine 3 mg capsule (Vraylar) 4.5 mg PO DAILY 02/21/24 Previous Rx's ?Medication ?Instructions ?Recorded albuterol sulfate 90 mcg/actuation 2 puff inhalation Q4-6H PRN 02/02/23 aerosol inhaler (ProAir HFA) Wheezing #8.5 grams cetirizine 10 mg tablet (All Day 10 mg PO DAILY PRN allergy 11/29/23 Allergy (cetirizine)) symptoms 90 days #90 tabs Allergies Allergy/AdvReac Type Severity Reaction Status Date / Time Sulfa (Sulfonamide Allergy Intermediate RASH Verified 02/28/24 18:20 Antibiotics) [SULFA(SULFONAMIDE ANTIBIOTICS)] amoxicillin [From AUGMENTIN] AdvReac Mild YEAST Verified 02/28/24 18:20 INFECTION clavulanic acid AdvReac Mild YEAST Verified 02/28/24 18:20 [From AUGMENTIN] INFECTION Review of Systems 2 Review of Systems: As per HPI. Yes all other systems are reviewed and are negative Constitutional: Constitutional: Reports as per [facility] Past Medical History Medical History Abnormal EKG Chest pain Palpitations GERD (gastroesophageal reflux disease) Autism Tourette's Surgical History History of fundoplication Family History Family History Sister Brain cancer Social History Social History Housing: House Alcohol intake: never Patient Tobacco Use Status: Never used Tobacco e-Cigarette/Vaping Use: Never Used Advance Directives: No Advance Directives Information Provided: No Current occupational status: unemployed Physical Exam ED Vital Signs: Vital Signs - 24 hr 02/28/24 18:19 Temperature 98.2 F Pulse Rate 92 Respiratory Rate 18 Blood Pressure 140/74 H Pulse Oximetry 97 Oxygen Delivery Method Room Air BMI result Body Mass Index 40.6 Vital signs have been reviewed and appear to be correct. Blood pressure normal. Heart rate normal. Respiratory rate normal. Temperature normal. Oxygen saturation normal. Const General: cooperative, healthy appearing and no acute distress Orientation/consciousness: oriented to person, oriented to place, oriented to time and patient oriented x3 Limitations: no limitations HENAR Head: Yes normocephalic and Yes atraumatic Ears: external ears normal General nose exam: Normal external nose present Face and sinus: Yes face symmetric Mouth: oropharynx normal and moist mucous membranes Throat: Yes uvula midline Eyes Pupils: Equal, round and reactive pupils present Neck Neck: Yes normal visual inspection and Yes supple Resp Effort & Inspection: normal respiratory effort and able to speak in complete sentences Auscultation: clear to auscultation bilaterally Cardio Rate: regular rate Rhythm: regular rhythm Heart sounds: S1 normal heart sound present and S2 normal heart sound present GI Palpation (GI): Soft to palpation and nontender Auscultation: normoactive bowel sounds General: Yes no CVA tenderness Back/Spine/Pelvis Back: no CVA tenderness Skin General skin exam: elasticity normal and turgor normal Neuro General: oriented to person, oriented to place, oriented to time, patient oriented x3, moves all extremities, no focal motor deficits and CN's II-XI intact bilaterally Cranial nerves: Yes Equal, round and reactive pupils present Cognition (Neuro): normal cognition Extrem General: Yes full ROM, Yes no pedal edema and Yes no calf tenderness Psych Mental Status: mental status grossly normal Affect: normal affect Thought process: Normal thought process present Medical Decision Making Medical Decision Making [facility] Narrative: Patient is a 23-year-old male with history of autism, Tourette's, GERD, costochondritis, abnormal EKG presenting to the ED with complaint of left anterior chest pain and palpitations. On exam patient is awake, A+Ox3, BP mildly elevated, VS otherwise WNL, afebrile, normal neurological exam without focal deficits, physical exam findings as above. Given reported symptoms and physical exam findings, initial differential includes musculoskeletal pain, costochondritis. Unlikely ACS, pneumothorax, pneumonia. EKG shows normal sinus rhythm. Labs notable for no leukocytosis, no anemia, negative troponin, chronically elevated ALT. Chest x-ray notable for no evidence of cardiomegaly, pneumothorax, pneumonia. My interpretation is in agreement with the radiologist's interpretation. HEART score 0. Considering the context of strenuous activity today, feels symptoms are likely due to costochondritis. 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 Return precautions discussed with patient and mother. Patient verbalized understanding of and agreement with plan. Differential Diagnosis Differential Diagnoses: The differential diagnosis associated with the presentation includes As per [facility]. Admission/Observation Consideration of admission/observation: Escalation of care including admission/observation considered Patient would have been admitted to the hospital had their work up had any findings where hospital admission was appropriate and their clinical presentation warranted hospital admission. Lab Data [facility] Lab Attestation statement: I reviewed the patient's lab results. As per MDM. 02/28/24 19:54 02/28/24 19:54 Labs: Lab Results 02/28/24 Range/Units 19:54 WBC 8.3 (4.8-10.8) X10*3/uL RBC 5.67 (4.60-5.80) X10*6/uL Hgb 15.6 (14.0-18.0) g/dl Hct 44.2 (42.0-52.0) % MCV 78.0 L (80.0-98.0) fL MCH 27.5 (27.0-33.0) pg MCHC 35.3 (31.0-36.0) g/dl RDW 12.5 (11.0-16.0) % Plt Count 212 (160-400) X10*3/uL MPV 10.3 (9.4-12.4) fL Immature Gran % (Auto) 0.5 H (0.0-0.4) % Neut % (Auto) 50.4 (45-73) % Lymph % (Auto) 36.6 (20-40) % [place] % (Auto) 7.3 (2-11) % Eos % (Auto) 4.7 H (0-4) % Baso % (Auto) 0.5 (0-2) % Lymph # (Auto) 3.0 (1.2-4.9) X10*3/uL [place] # (Auto) 0.6 (0.1-1.2) X10*3/uL Eos # (Auto) 0.4 (0.0-0.4) X10*3/uL Baso # (Auto) 0.0 (0.0-0.2) X10*3/uL Abs Immat Gran (auto) 0.04 H (0.00-0.03) X10*3/uL Absolute Neuts (auto) 4.2 (2.0-8.3) x10*3/uL Absolute Nucleated RBC 0.000 (0.0-0.012) X10*3/uL Nucleated RBC % (auto) 0.0 (0.0-0.2) /100WBC Sodium 141 (135-145) mmol/L Potassium 4.0 (3.3-5.1) mmol/L Chloride 109 H (96-108) mmol/L Carbon Dioxide 23 (22-29) mmol/L Anion Gap 13 (12-20) BUN 17 H (9-16) mg/dL Creatinine 0.95 (0.5-1.4) mg/dL Estim Creat Clear Calc 161.4 Estimated GFR > 60 Random Glucose 96 (60-115) mg/dL Calcium 9.5 (8.4-10.2) mg/dL Total Bilirubin 0.4 (0.0-1.0) mg/dL AST 37 (5-37) U/L ALT 104 H (0-40) U/L Alkaline Phosphatase 80 (39-117) U/L Troponin I High Sens < 2.7 (<3.5-35.0) ng/L Total Protein 6.5 (6.5-8.0) g/dL Albumin 4.2 (3.5-5.0) g/dL Independent Interpretation I performed an independent interpretation of an: Plain X-Ray Interpretation: Chest x-ray notable for no evidence of cardiomegaly, pneumothorax, pneumonia. Radiology Impression Discussion of test interpretation with radiology: I have reviewed the radiologist's reading. Radiologist Impression: XR/XR chest 2V IMPRESSION: Unremarkable examination. External Record Review External record reviewed: Inpatient record, Office record and Outpatient record Scores Heart Score History: -0- slightly suspicious ECG: -0- normal Age: -0- < or = 45 Risk factory: -0- no risk factors known Troponin: -0- < or = normal limit Score: 0 Risk: 1.7% Discharge Plan Discharge Clinical Impression: Costochondritis Patient Disposition: Home, Self-Care Instructions: Costochondritis (ED) Additional Instructions: You were evaluated in the emergency department today for chest pain. Your evaluation has shown no signs of medical conditions requiring emergent intervention at this time, however we recommend that you follow-up with your primary care physician or your brand executive as soon as possible for further testing as an outpatient. Your symptoms are likely due to over exertion. We recommend that you take 650 mg Tylenol or 600 mg ibuprofen every 6 hours as needed for discomfort. Return to the emergency department if you experience worsening or uncontrolled chest pain, shortness of breath, lightheadedness, feeling faint, loss of consciousness, nausea, vomiting, or any other concerning symptoms. Prescriptions: No Action atomoxetine [Strattera] 60 mg capsule 60 mg PO QAM tetrabenazine [Xenazine] 12.5 mg tablet 12.5 mg PO DAILY Vraylar 3 mg capsule 4.5 mg PO DAILY albuterol sulfate [ProAir HFA] 90 mcg/actuation HFA aerosol inhaler 2 puff inhalation Q4-6H PRN (Reason: Wheezing) Qty: 8.5 0RF cetirizine [All Day Allergy (cetirizine)] 10 mg tablet 10 mg PO DAILY PRN (Reason: allergy symptoms) 90 Days Qty: 90 3RF Print Language: Bermudian
[2024-02-28 19:59] LABS: MANUAL DIFF FLAG NO
[2024-02-28 20:00] LABS: Basophils Percent Auto 0.5 % (0-2); Eosinophils Absolute Auto 0.4 X10*3/uL (0.0-0.4); Eosinophils Percent Auto 4.7 % (0-4); Hematocrit 44.2 % (42.0-52.0); Hemoglobin 15.6 g/dl (14.0-18.0); Imm Gran Abs Auto 0.04 X10*3/uL (0.00-0.03); Imm Gran Pct Auto 0.5 % (0.0-0.4); Lymphocytes Percent Auto 36.6 % (20-40); Mean Corpuscular HGB Conc 35.3 g/dl (31.0-36.0); Mean Corpuscular Hemoglobin 27.5 pg (27.0-33.0); Mean Platelet Volume 10.3 fL (9.4-12.4); Monocytes Absolute Auto 0.6 X10*3/uL (0.1-1.2); Monocytes Percent Auto 7.3 % (2-11); Neutrophils Absolute Auto 4.2 x10*3/uL (2.0-8.3); Neutrophils Percent Auto 50.4 % (45-73); Platelet Count 212 X10*3/uL (160-400); Red Blood Count 5.67 X10*6/uL (4.60-5.80); Red Cell Distribution Width 12.5 % (11.0-16.0); White Blood Count 8.3 X10*3/uL (4.8-10.8)
[2024-02-28 20:14] LABS: Alanine Aminotransferase 104 U/L (0-40); Albumin Level 4.2 g/dL (3.5-5.0); Alkaline Phosphatase 80 U/L (39-117); Anion Gap 13 (12-20); Aspartate Amino Transferase 37 U/L (5-37); Bilirubin Total 0.4 mg/dL (0.0-1.0); Blood Urea Nitrogen 17 mg/dL (9-16); Calcium 9.5 mg/dL (8.4-10.2); Carbon Dioxide 23 mmol/L (22-29); Chloride 109 mmol/L (96-108); Creatinine Clr Calc Pharmacy 161.4; Estimated Glomerular Filt Rate > 60; Glucose Random 96 mg/dL (60-115); Sodium 141 mmol/L (135-145); Total Protein 6.5 g/dL (6.5-8.0)
[2024-02-28 20:23] LABS: Troponin-I High Sensitivity < 2.7 ng/L (<3.5-35.0)
[2024-02-28 20:52] VITALS: BP 140/74; PULSE 92; RESP 18; TEMP 36.8; O2SAT 97
== END 2024-02-28 20:52 | disposition home or self-care (01) ==
PROVIDERS: Registered Nurse Emergency; Emergency Provider Internal Medicine; PCP Family Medicine
DX: M94.0 Chondrocostal junction syndrome [Tietze] (principal); R07.9 Chest pain, unspecified; R00.2 Palpitations; K21.9 Gastro-esophageal reflux disease without esophagitis; R94.31 Abnormal electrocardiogram [ECG] [EKG]
CPT/HCPCS: 36415; 71046; 80053; 84484; 85025; 93005; 99282; 99283

== ENCOUNTER → 2024-02-28 17:07 | Outpatient (BNV) | payer OTHER, SELFPAY | PROVIDERS: Emergency Provider Internal Medicine; PCP Family Medicine; Visit Provider Internal Medicine Cardiovascular Disease | DX: R07.9 Chest pain, unspecified (principal) | CPT/HCPCS: 93010 ==

== ENCOUNTER → 2024-03-07 08:16 | Outpatient (REF) | payer OTHER, SELFPAY ==
--- NOTE | 2024-03-07 08:20 | CA_ITS ---
Transthoracic Echocardiogram Patient (Last, First, Middle): Caleb Warren, Gender: Male Date of : 2000 Age: 23 Procedure Date: 03/07/2024 Procedure Type: Transthoracic Echocardiogram Location: OP Height: 177.8 cm Weight: 127.01 kg BSA: 2.41 m2 Heart Rate: 75 bpm BP: 142 / 80 mmHg Diesel Technician: DIANDRA Referring MD: Terrie Mondragon ALUMINUM POURER Mushroom Farmer: Elder Lucero MD Symptoms: R94.31 - Abnormal electrocardiogram [ECG] [EKG] Study Quality: Fair ECG Rhythm: Sinus Conclusions: - Normal study Findings Left Ventricle Normal left ventricular size, thickness, and systolic function. The visually estimated ejection fraction is between 55-60%. Regional wall motion abnormalities can not be excluded due to suboptimal endocardial definition. Spectral Doppler is indicative of a normal filling pattern. Right Ventricle Normal right ventricular cavity size. Atria The left atrium is normal in size. Interatrial shunt cannot be excluded. The right atrium was not well visualized. Aortic Valve Normal aortic valve structure and function. There is no aortic valve stenosis. There is no aortic valve regurgitation. Mitral Valve Likely normal mitral valve structure and function. There is trace mitral valve regurgitation. There is no mitral valve stenosis. Pulmonic Valve The pulmonic valve was not well visualized. Tricuspid Valve Likely normal tricuspid valve structure and function. Tricuspid regurgitation envelope is inadequate for calculation of right ventricular systolic pressure. Great Vessels The pulmonary artery was not well visualized. There is no evidence of plaque in the aorta. Venous The inferior vena cava is normal in size and collapses greater than 50% with inspiration. Pericardium/Pleural There is no evidence of pericardial effusion. Prior Study Comparison No prior study available for comparison. Measurements 2D Linear Measurements IVSd: 1.13 0.6-0.9/0.6-1.0 cm LVIDd: 4.74 3.9-5.3/4.2-5.9 cm LVIDd Index: 1.97 2.4-3.2/2.2-3.1 cm/m2 LVIDs: 2.92 2.0-3.6 cm LVPWd: 1.24 0.7-1.1 cm LA Diam: 3.70 2.7-3.8/3.0-4.0 cm LAIDs Index: 1.54 1.5-2.3 cm/m2 LV Mass: 263.05 67-162/88-224 g LV Mass Index: 109.15 43-95/49-115 g/m2 LVOT Diam: 2.30 3.0+(-)1.3 cm 2D Systolic Function EF 4C: 53.50 >55% EF 2C: 58.90 >55% EF BiP: 56.00 >55% Mitral Valve MV Pk E: 0.77 MV PK A: 0.47 MV Decel Time: 189.00 E/A: 1.60 E'Lateral: 14.30 E'Medial: 10.90 E/E' Med: 7.00 E/E' Lat: 5.40 PHT: 55.00 MVA PHT: 4.00 Decel Blaine: 4.06 Aortic Valve AoV Pk Slim: 1.40 AoV Mn Slim: 0.98 AoV VTI: 0.30 AoV Pk Grad: 8.00 Aov Mn Grad: 4.00 SIENA Cont.VTI: 2.86 LVOT LVOT Pk Slim: 1.05 LVOT Mn Slim: 0.72 LVOT VTI: 0.21 LVOT Pk Grad: 4.00 LVOT Mn Grad: 2.00 LVOT Diam: 2.30 LVOT Area: 4.15 Diastolic Function MV Pk E: 0.77 MV Pk A: 0.47 E/A: 1.60 E'Medial: 10.90 E/E' Med: 7.00 E' Laterial: 14.30 E/E' Lat: 5.40 Right Ventricle TAPSE (mm): 19.30 TVS' Slim: 10.60 Great Vessels Aorta Sinus of Valsalva: 3.10 2.0-3.5 cm Ao Asc: 2.60 2.1-3.4 cm Pulmonary Valve PV Pk Slim: 1.37 Peak PV Grad: 8.00 Updated in Other Vendor System with Status of Final Elder Lucero MD electronically signed on 03/07/2024 1:43:40 PM with status of Final
--- NOTE | 2024-03-07 08:20 | CA_ITS ---
Acquisition Time: 2024-03-07 08:46:30 Total Exercise Time: 00:08:01 Test Indications: CHEST PAIN Medications: SEE H Protocol: KOMAL Max HR: 171 BPM 87% of Pred: 196 BPM Max BP: 160/088 mmHG Max Work Load: 10.1 METS Exercise stress test exercise 8 min 1 sec of Komal protocol achieving 87% MPHR, with baseline 10/10 on right chest, mid chest pain 10/10 which all chest pain resolved with inhaler , with mild to moderate SOB, without arrhythmias, with normotensive response, without EKG changes. Test reviewed with Dr. Acuna. Referred By: Terrie Mondragon Overread By: Terrie Mondragon
--- NOTE | 2024-03-07 08:20 | HM_ITS ---
* Total monitoring time 2 days. * Underlying rhythm is sinus with an average rate of 91/Min. About 34% of the time, rate > 100/Min. * Very rare supraventricular and ventricular ectopy with minimal burden. * No significant pauses or AV blocks. * No patient markers or diary events. MTDD
== END ==
LOC: HO.CARD 08:16
PROVIDERS: PCP Family Medicine; Visit Provider Nurse Practitioner
DX: R07.9 Chest pain, unspecified (principal); R94.31 Abnormal electrocardiogram [ECG] [EKG]; R00.2 Palpitations
CPT/HCPCS: 93017; 93225; 93306

== ENCOUNTER → 2024-03-07 08:20 | Outpatient (BNV) | payer OTHER, SELFPAY | PROVIDERS: PCP Family Medicine; Visit Provider Internal Medicine Cardiovascular Disease | DX: I47.10 Supraventricular tachycardia, unspecified (principal) | CPT/HCPCS: 93016; 93018; 93227; 93320; 93325; 93350 ==

== ENCOUNTER 2024-04-09 15:56 | Outpatient (AMB) | payer OTHER, SELFPAY ==
--- NOTE | 2024-04-09 15:59 | MHC.OFFWIV ---
Intake Vital Signs 04/09/24 16:01 Height 5 ft 10 in BP 130/72 Blood Pressure Location Lt brachial Position Sitting Pulse 93 Pulse Source Pulse Oximeter Temp 97.9 F Temp Source Oral Pulse Oximetry (%) 97 Oxygen Delivery Method Room Air Intake Visit Reasons: EP poison [place] Intake Note: pt is here for poison [place] Patient Tobacco Use Status: Never used Tobacco Allergies Sulfa (Sulfonamide Antibiotics) [SULFA(SULFONAMIDE ANTIBIOTICS)] Allergy (Intermediate, Verified 04/09/24 16:00) RASH amoxicillin [From AUGMENTIN] Adverse Reaction (Mild, Verified 04/09/24 16:00) YEAST INFECTION clavulanic acid [From AUGMENTIN] Adverse Reaction (Mild, Verified 04/09/24 16:00) YEAST INFECTION Do you need a note to return to daycare/school/sports/work: Yes HPI HPI Comments History of Present Illness Details 23-year-old male presents today complaining of pruritic rash on his arms and legs. States he has been exposed to poison m[place] while at work. [facility] Medical History Abnormal EKG Chest pain Palpitations GERD (gastroesophageal reflux disease) Autism Tourette's Surgical History History of fundoplication Family History Sister Brain cancer Social History Housing: House Alcohol intake: never Patient Tobacco Use Status: Never used Tobacco e-Cigarette/Vaping Use: Never Used Current occupational status: unemployed Review of Systems Const All systems reviewed & are unremarkable except as noted in HPI and below Physical Exam Skin Rashes: rashes noted (Bilateral arms and legs maculopapular rash) Assessment & Plan Assessment & Plan (1) Contact dermatitis: Code(s): L25.9 - Unspecified contact dermatitis, unspecified cause Plan: The patient was put on a Medrol Dosepak and recommended he get some Benadryl gel to use topically. Follow up as needed Plan See plan Medications: New methylprednisolone (Medrol (Akil)) PO PER PKG DIR for 6 days 21 ea 0RF Coding Level of Care Code Est Pt Level 3 (28667) Diagnoses Contact dermatitis L25.9
[2024-04-09 16:01] VITALS: BP 130/72; PULSE 93; TEMP 36.6; O2SAT 97
--- OUTSIDE RECORDS SUMMARY | 2024-04-11 08:04 | XMS_ITS | Continuity of Care Document ---
Author Organization [facility] Address [address] [place] [address]- Care Team Providers Care Academy Director Name Role Phone Bhavna Guillen MD Primary Care Physician Encounter [facility] Date(s): 12/06/19 - 12/16/19 [facility] [address] [place] [address]- [facility] Attending Physician: David Medina Admitting Physician: Admtr, David Referring Physician: Admtr, [id number] Allergies, Adverse Reactions, Alerts Substance Reaction Severity Status sulfa drugs 1 Rash Active Augmentin Rash of groin rash Active 1petecheal rash with fever and malaise Immunizations Given and Recorded Vaccine Date Status Refusal Reason tetanus/diphtheria/pertussis, acel(Tdap) 09/30/19 Given tetanus/diphtheria/pertussis, acel(Tdap) 1 10/20/15 Given 1Admin Note: VIS given to Mom Medications lidocaine-prilocaine 2.5%-2.5% topical cream 1 application, Topically, Once, # 30 Gm, 0 Refills, Soft Stop, 10/29/18 15:56:34 EST, Cream, 1 application Topically Once Start Date: 10/29/18 Status: Ordered Buckner-3 oral capsule See Instructions, 2 capsules daily, # 60 each, 5 Refills, Maintenance, 08/08/18 14:19:47 EDT, 2 capsules daily Start Date: 08/08/18 Status: Ordered omeprazole 40 mg oral enteric coated capsule 1 capsule = 40 mg, By Mouth, Daily, # 30 capsule, 6 Refills, Maintenance, 12/04/19 12:00:00 EST, ECCapsule, [id number], 176.7, cm, 11/26/19 15:28:00 EST, Height, 106.4, kg, 12/04/19 10:01:00EST, Dry Weight Start Date: 12/04/19 Stop Date: 07/01/20 Status: Ordered Rexulti By Mouth, Daily, 0 Refills, Maintenance, 10/29/18 15:45:52 EST Start Date: 10/29/18 Status: Ordered Strattera 60 mg oral capsule 1 capsule = 60 mg, By Mouth, Daily in AM, # 30 capsule, 0 Refills, Maintenance, 10/08/15 8:21:44, Capsule, 1 capsule By Mouth Daily in AM Start Date: 10/08/15 Status: Ordered Xenazine By Mouth, 0 Refills, Maintenance, 10/29/18 15:44:54 EST Start Date: 10/29/18 Status: Ordered Problem List Condition Effective Dates Status Health Status Inform ant Abdominal pain(Confirmed) Active ADHD(Confirmed) Active Learning disorder(Confirmed) Active GERD - Gastro-esophageal ref lux disease(Confirmed) Active Tourettes syndrome(Confirmed) Active Mood disorder NOS(Confirmed) Active Morbid exogenous obesity(Confirmed) Active Autism spectrum disorder(Confirmed) Active Transient Alteration of Awareness(Confirmed) Active Social History Social History Type Response Smoking Status Never smoker entered on: 06/30/15 Sex
--- OUTSIDE RECORDS SUMMARY | 2024-04-11 08:04 | XMS_ITS | Continuity of Care Document ---
Author Organization [facility] ter Address [address] [place] [address]- Care Team Providers Care Bulk System Operator Name Role Phone Bhavna Guillen MD Primary Care Physician Encounter [facility] [place] Date(s): 10/23/19 - 10/30/[address] [address]- [facility] Attending Physician: Bhavna Guillne MD Allergies, Adverse Reactions, Alerts Substance Reaction Severity Status sulfa drugs 1 Rash Active Augmentin rash Resolved 1petecheal rash with fever and malaise Immunizations Given and Recorded Vaccine Date Status Refusal Reason tetanus/diphtheria/pertussis, acel(Tdap) 09/30/19 Given tetanus/diphtheria/pertussis, acel(Tdap) 1 10/20/15 Given 1Admin Note: VIS given to Mom Medications Augmentin 875 mg-125 mg oral tablet 1 tablet, By Mouth, Every 12 hours, for 10 days, # 20 tablet, 0 Refills, Acute 11/05/19 19:13:00 EST, 10/26/19 19:13:00 EST, Tablet Start Date: 10/26/19 Stop Date: 11/05/19 Status: Ordered lidocaine-prilocaine 2.5%-2.5% topical cream 1 application, Topically, Once, # 30 Gm, 0 Refills, Soft Stop, 10/29/18 15:56:34 EST, Cream, 1 application Topically Once Start Date: 10/29/18 Status: Ordered Bedford-3 oral capsule See Instructions, 2 capsules daily, # 60 each, 5 Refills, Maintenance, 08/08/18 14:19:47 EDT, 2 capsules daily Start Date: 08/08/18 Status: Ordered Rexulti By Mouth, Daily, 0 [...] disorder(Confirmed) Active Transient Alteration of Awareness(Confirmed) Active Results Microbiology Reports TEST:Group A Strep Culture STATUS:Auth (Verified) BODY SITE: SOURCE:THROAT COLLECTED DATE/TIME:10/23/19 4:54 PM Group A Strep Culture SPECIMEN DESCRIPTION : THROAT SWAB SPECIAL REQUESTS : NONE CULTURE : NO GROUP A BETA HEMOLYTIC STREPTOCOCCI ISOLATED REPORT STATUS : FINAL 10/25/2019 Social History Social History Type Response Smoking Status Never smoker entered on: 06/30/15 Sex
--- OUTSIDE RECORDS SUMMARY | 2024-04-11 08:04 | XMS_ITS | Continuity of Care Document ---
Author Organization [facility] Address [address] [place] [address]- Care Team Providers Care Tennis Camp Instructor Name Role Phone Bhavna Guillen MD Primary Care Physician [place] [facility] [place] 11/24/21 [facility] [address] [place], [place] [address] [[email or web address] Attending Physician: David Medina Admitting Physician: David Medina Referring Physician: AdmtrDavid Allergies, Adverse Reactions, Alerts Substance Reaction Severity Status sulfa drugs 1 Rash Active 1petecheal rash with fever and malaise Immunizations Given and Recorded Vaccine Date Status Refusal Reason tetanus/diphtheria/pertussis, acel(Tdap) 09/30/19 Given tetanus/diphtheria/pertussis, acel(Tdap) 1 10/20/15 Given 1Admin Note: VIS given to Mom Medications Strattera 60 mg oral capsule 1 capsule [...] Status Never smoker entered on: 06/30/15 Sex Male
--- OUTSIDE RECORDS SUMMARY | 2024-04-11 08:04 | XMS_ITS | Continuity of Care Document ---
Author Organization [facility] Address [address] [place] [address]- Care Team Providers Care Telephone Station Repairer Name Role Phone Malini SALEH, Braxton Berry Primary Care Physician [place] [facility] [place] - 11/26/[address] [address]- Discharge Disposition: A-D/C Walkout Attending Physician: Not on Staff, Attending MD Admitting Physician: Not on Staff, Admitting MD Referring Physician: Not on Staff, Referring MD Allergies, Adverse Reactions, Alerts Substance Reaction [...] in AM Start Date: 10/08/15 Status: Ordered Vraylar 3 mg oral capsule 1 capsule = 3 mg, By Mouth, Daily, 0 Refills, Maintenance, 01/24/22 18:05:00 EDT, Partial fill uponpatient request if the prescription is for a schedule II opioid drug. Start Date: 01/24/22 Status: Ordered Xenazine By Mouth, 0 Refills, Maintenance, 10/29/18 15:44:54 EST Start Date: 10/29/18 Status: Ordered ZyrTEC 10 mg oral tablet 1 tablet = 10 mg, By Mouth, Daily, 0 Refills, Maintenance, 01/24/22 18:05:00 EDT, Partial fill uponpatient request if the prescription is for a schedule II opioid drug. Start Date: 01/24/22 Status: Ordered Problem List Condition Confirmation Course Effective Dates Status Health St atus Informant Abdominal pain Confirmed Active ADHD Confirmed Active Learning disorder Confirmed Active GERD - Gastro-esophageal reflux disease Confirmed Active Tourettes syndrome Confirmed Active Mood disorder NOS Confirmed Active Morbid exogenous obesity Confirmed Active Obese class II Confirmed Active Autism spectrum disorder Confirmed Active Transient Alteration of Awareness Confirmed Active Vital Signs Most recent to oldest [Reference Range]: 1 2 Height 178 cm (11/26/22 8:48 AM) Weight 109.5 kg (11/26/22 8:48 AM) Oxygen Saturation [94-100 %] 100 % (11/26/22 10:29 AM) 100 % (11/26/22 8:26 AM) Pulse Rate [55-90 bpm] 68 bpm (11/26/22 10:29 AM) 76 bpm (11/26/22 8:26 AM) Blood Pressure [90-138/55-84 mm Hg] 136/ 67mm Hg (11/26/22 10:29 AM) 142/59mm Hg *H* (11/26/22 8:26 AM) Respiratory Rate [16-30 br/min] 16 br/mi n (11/26/22 10:29 AM) 20 br/min (11/26/22 8:26 AM) Temperature [96.8-100.4 DegF] 98.1 DegF (11/26/22 10:29 AM) 98.3 DegF (11/26/22 8:26 AM) Mode of Delivery (Oxygen) Room air (11/26/22 10:29 AM) 142 (11/26/22 8:26 AM) Blood pressure sites Arm, left (11/26/22 10:29 AM) Arm, left (11/26/22 8:26 AM) Temperature Route Oral (11/26/22 10:29 AM) Oral (11/26/22 8:26 AM) Dry Weight 109.5 kg (11/26/22 8:48 AM) Social History Social History Type Response Smoking Status Never smoker entered on: 06/30/15 Sex Male Patient Care team information Care Team Personnel Name: Silvia Pinto RN Position: [facility] RN Member Role: Primary Care Nurse Name: Braxton Nayak MD Position: [facility] General Pediatrics MD Member Role: PCP Address: Address: [address] [place] [address] Pediatric [facility]oles[facility] Medicine [place], [place] [address] Name: Ebony Tesfaye Position: [facility] Outreach Member Role: Lifetime Consulting Physician Name: Reyna Modi RN Position: [facility] RN Member Role: Primary Care Nurse Care Team Related Persons Name: CHELA TRAN Address: home [address] [place] [address] Name: CHELA TRAN Address: home [address] [place] [id number] Name: JL TRAN Address: home [address] [place] [address] Name: JEFRY SPENCER Address: home [address] [place] [address]
--- OUTSIDE RECORDS SUMMARY | 2024-04-11 08:04 | XMS_ITS | Continuity of Care Document ---
Author Organization [facility] ter Address [address] [place] [address]- Care Team Providers Care Nanny/Household Manager Name Role Phone Bhavna Guillen MD Primary Care Physician [phone] [place] [facility] [place](s[place] 09/29/19 - 09/30/[address] [address]- [facility] Encounter Diagnosis Finger laceration(Final) - 09/30/19 Discharge Disposition: A-D/C Home Attending Physician: Timbo Hidalgo MD Admitting Physician: Timbo Hidalgo MD Referring Physician: Not on Staff, Referring [...] Topically Once Start Date: 10/29/18 Status: Ordered [place] Borg[place]-3 oral capsule See Instructions, 2 capsules daily, [...] disorder(Confirmed) Active Transient Alteration of Awareness(Confirmed) Active Vital Signs Most recent to oldest [Reference Range]: 1 2 Weight 110.7 kg (09/29/19 9:35 PM) Oxygen Saturation [94-100 %] 99 % (09/30/19 12:37 AM) 100 % (09/29/19 9:35 PM) Pulse Rate [55-90 bpm] 72 bpm (09/30/19 12:37 AM) 78 bpm (09/29/19 9:35 PM) Blood Pressure [90-138/55-84 mm Hg] 136/ 72mm Hg (09/30/19 12:37 AM) 140/61mm Hg *H* (09/29/19 9:35 PM) Respiratory Rate [16-30 br/min] 16 br/mi n (09/30/19 12:37 AM) 18 br/min (09/29/19 9:35 PM) Temperature [96.8-100.4 DegF] 98.2 DegF (09/29/19 9:35 PM) Mode of Delivery (Oxygen) Room air (09/30/19 12:37 AM) Room air (09/29/19 9:35 PM) Blood pressure sites Arm, right (09/30/19 12:37 AM) Arm, right (09/29/19 9:35 PM) Temperature Route Oral (09/29/19 9:35 PM) Dry Weight 110.7 kg (09/29/19 9:35 PM) Weight Obtained Via Standing scale (09/29/19 9:35 PM) Social History Social History Type Response Smoking Status Never smoker entered on: 06/30/15 Sex
--- OUTSIDE RECORDS SUMMARY | 2024-04-11 08:04 | XMS_ITS | Continuity of Care Document ---
Author Organization [facility] Address [address] [place] [address]- Care Team Providers Care Freight Associate Name Role Phone Malini SALEH, Braxton Berry Primary Care Physician ( [phone] [place] [facility] [place] Date(s[place] 04/11/22 - 04/12/[address] [address]- Discharge Disposition: A-D/C Home Attending Physician: Gita Alvares MD Admitting Physician: Gita Alvares MD Referring Physician: Not on Staff, Referring [...] Date: 01/24/22 Status: Ordered Problem List Condition Effective Dates Status Health Status Inform ant Abdominal pain(Confirmed) Active ADHD(Confirmed) Active Learning disorder(Confirmed) Active GERD - Gastro-esophageal ref lux disease(Confirmed) Active Tourettes syndrome(Confirmed) Active Mood disorder NOS(Confirmed) Active Morbid exogenous obesity(Confirmed) Active Obese class II(Confirmed) Active Autism spectrum disorder(Confirmed) Active Transient Alteration of Awareness(Confirmed) Active Vital Signs Most recent to oldest [Reference Range]: 1 2 3 Oxygen Saturation [94-100 %] 100 % (04/11/22 9:18 PM) 100 % (04/11/22 7:08 PM) 99 % (04/11/22 4:40 PM) Pulse Rate [55-90 bpm] 88 bpm (04/11/22 9:18 PM) 90 bpm (04/11/22 7:08 PM) 88 bpm (04/11/22 4:40 PM) Blood Pressure [90-138/55-84 mm Hg] 140/58mm Hg *H* (04/11/22 9:18 PM) 136/54mm Hg (04/11/22 7:08 PM) 139/65mm Hg *H* (04/11/22 4:40 PM) Respiratory Rate [16-30 br/min] 18 br/min (04/11/22 9:18 PM) 18 br/min (04/11/22 7:08 PM) 16 br/min (04/11/22 4:40 PM) Temperature [96.8-100.4 DegF] 99.1 DegF (04/11/22 8:48 PM) 98.5 DegF (04/11/22 7:08 PM) 98.4 DegF (04/11/22 4:40 PM) Mode of Delivery (Oxygen) Room air (04/11/22 9:18 PM) Room air (04/11/22 7:08 PM) Room air (04/11/22 4:40 PM) Blood pressure sites Arm, right (04/11/22 9:18 PM) Arm, right (04/11/22 7:08 PM) Arm, left (04/11/22 4:40 PM) Temperature Route Oral (04/11/22 7:08 PM) Oral (04/11/22 4:40 PM) Social History Social History Type Response Smoking Status Never smoker entered on: 06/30/15 Sex Male
--- OUTSIDE RECORDS SUMMARY | 2024-04-11 08:04 | XMS_ITS | Continuity of Care Document ---
Author Organization [facility] Address [address] [place] [address]- Care Team Providers Care Review Rn Name Role Phone Malini SALEH, Braxton Berry Primary Care Physician [place] [facility] [place] 12/25/21 - 01/01/22 [facility] [address] [place], [place] [address] Attending Physician: Trell Noriega MD Referring Physician: Braxton Nayak MD Allergies, Adverse Reactions, Alerts Substance Reaction Severity Status sulfa drugs 1 Rash Active 1petecheal rash with fever and malaise Immunizations Given and Recorded Vaccine Date Status Refusal Reason tetanus/diphtheria/pertussis, acel(Tdap) 09/30/19 Given tetanus/diphtheria/pertussis, acel(Tdap) 1 10/20/15 Given 1Admin Note: VIS given to Mom Medications amoxicillin-clavulanate 875 mg-125 mg oral tablet 1 tablet, By Mouth, 2 times a day, for 10 days, with food or milk, # 20 tablet, 0 Refills, Acute 01/04/22 11:43:00 EDT, 12/25/21 11:43:00 EST, [facility]/pharmacy #[id number], Partial fill upon patient request ifthe prescription is for a schedule II opioid drug.,... Start Date: 12/25/21 Stop Date: 01/04/22 Status: Ordered Strattera 60 mg oral capsule 1 capsule = 60 mg, By Mouth, Daily in AM, # 30 capsule, 0 Refills, Maintenance, 10/08/15 8:21:44, Capsule, 1 capsule By Mouth Daily in AM Start Date: 10/08/15 Status: Ordered Xenazine By Mouth, 0 Refills, Maintenance, 10/29/18 15:44:54 EST Start Date: 1/14/19 Status: Ordered Problem List Condition Effective Dates [...]
--- OUTSIDE RECORDS SUMMARY | 2024-04-11 08:04 | XMS_ITS | Continuity of Care Document ---
Author Organization [facility] Address [address] [place] [address]- Care Team Providers Care Cement Patcher Name Role Phone Bhavna Guillen MD Primary Care Physician [phone] Encounter [facility] [place] Date(s): 12/06/19 - 12/13/19 [facility] [address] [place] [address]- [facility] Attending Physician: Jl Bey MD, V Referring Physician: Bhavna Guillen MD Allergies, Adverse Reactions, Alerts Substance Reaction [...] Topically Once Start Date: 10/29/18 Status: Ordered [place]-3 oral capsule See Instructions, 2 capsules daily, [...] Most recent to oldest [Reference Range]: 1 Weight 110.2 kg (12/06/19 9:47 AM) Dry Weight 110.2 kg (12/06/19 9:47 AM) Social History Social History Type Response Smoking Status Never smoker entered on: 06/30/15 Sex
--- OUTSIDE RECORDS SUMMARY | 2024-04-11 08:04 | XMS_ITS | Continuity of Care Document ---
Author Organization [facility] ter Address [address] [place] [address]- Care Team Providers Care Jewelry Repairer Name Role Phone Bhavna Guillen MD Primary Care Physician Encounter [facility] [place] Date(s): 07/29/21 - 07/30/[address] [address]- Discharge Disposition: A-D/C Home Attending Physician: Danny Mcdermott MD Admitting Physician: Danny Mcdermott MD Referring Physician: Not on Staff, Referring [...] Active Transient Alteration of Awareness(Confirmed) Active Results Radiology Reports * Exam Date Time Procedure Performing Provider Status 07/29/21 10:16 PM Shoulder Min 2 Views Left HussainKiera shah luci; Auth (Verified) Notes: (Shoulder Min 2 Views Left) Reason For Exam: with Pain;Trauma RESULT: Shoulder Min 2 Views Left Shoulder Left, 2 views Reason: Trauma; with Pain; Clinical Question(s): Fracture COMPARISON: None. FINDINGS: No fracture or dislocation. No arthritic change of the glenohumeral joint. Normal AC joint and portions of the clavicle included on the exam. No calcification of the rotator cuff. The visualized soft tissues are unremarkable. IMPRESSION: No fracture or dislocation. I have personally reviewed the images and I agree with this report. WSN: [id number] Ordering Physician: Stephanie Mccord Dictated By: Dewayne Anderson DO Dictated Date/Time: 07/29/21 10:23 p Reviewed By: Dann Galvan MD Signed By: Dann Galvan MD Signed Date/Time: 07/29/21 10:28 pm Transcribed By: CSJhony Transcribed Date/Time: 07/29/21 10:20 pm * Exam Date Time Procedure Performing Provider Status 07/29/21 10:16 PM Elbow Min 3 Views Left Susana Johnson; Auth (Verified) Notes: (Elbow Min 3 Views Left) Reason For Exam: with Pain;Trauma RESULT: Elbow Min 3 Views Left Elbow Min 3 Views Left, 3 views Reason: Trauma; with Pain; Clinical Question(s): Fracture COMPARISON: None. TECHNIQUE: 3 views of the left elbow. FINDINGS: No fracture or dislocation. No arthritic changes. No joint effusion. IMPRESSION: No fracture or dislocation. . I have personally reviewed the images and I agree with this report. WSN: [id number] Ordering Physician: Stephanie Mccord Dictated By: Dewayne Anderson DO Dictated Date/Time: 07/29/21 10:23 p Reviewed By: Dann Galvan MD Signed By: Dann Galvan MD Signed Date/Time: 07/29/21 10:28 pm Transcribed By: CShJony Transcribed Date/Time: 07/29/21 10:18 pm * Exam Date Time Procedure Performing Provider Status 07/29/21 10:01 PM Chest Portable Jacek Perdomo; Auth ( Verified) Notes: (Chest Portable) Reason For Exam: Pain;Other: RESULT: Chest Portable Chest Portable Reason: Other:; Pain; Clinical Question(s): Other:; Fracture, pneumothorax, pulmonary contusion COMPARISON: None. FINDINGS: LINES AND TUBES: None. LUNGS AND PLEURA: Clear and low lungs. Normal pulmonary vascularity. No pleural effusion. No pneumothorax. HEART, MEDIASTINUM AND HARRISON: Heart is normal in size. Normal upper mediastinal and hilar contour. BONES AND SOFT TISSUES: No acute abnormality. IMPRESSION: No acute abnormality. WSN: [id number] Ordering Physician: Stephanie Mccord Dictated By: Dann Galvan MD Dictated Date/Time: 07/29/21 10:03 p Reviewed By: Dann Gavlan MD Signed By: Dann Galvan MD Signed Date/Time: 07/29/21 10:03 pm Transcribed By: CELSO Transcribed Date/Time: 07/29/21 10:03 pm Vital Signs Most recent to oldest [Reference Range]: 1 Oxygen Saturation [94-100 %] 100 % (07/29/21 10:34 PM) Pulse Rate [55-90 bpm] 81 bpm (07/29/21 10:34 PM) Blood Pressure [90-138/55-84 mm Hg] 140/ 58mm Hg *H* (07/29/21 10:34 PM) Respiratory Rate [16-30 br/min] 20 br/mi n (07/29/21 10:34 PM) Temperature [96.8-100.4 DegF] 98.9 DegF (07/29/21 10:34 PM) Mode of Delivery (Oxygen) Room air (07/29/21 10:34 PM) Blood pressure sites Arm, right (07/29/21 10:34 PM) Temperature Route Oral (07/29/21 10:34 PM) Social History Social History Type Response Smoking Status Never smoker entered on: 06/30/15 Sex Male
--- OUTSIDE RECORDS SUMMARY | 2024-04-11 08:04 | XMS_ITS | Continuity of Care Document ---
Author Organization [facility] ter Address [address] [place] [address]- Care Team Providers Care Assembly Press Operator Name Role Phone Wilmer SALEH, Bhavna Choi Primary Care Physician Encounter [facility] Date(s): 01/09/20 - 02/26/[address] [address]- [facility] Attending Physician: Bj Rubin MD Admitting Physician: Bj Rubin MD Referring Physician: Bj Rubin MD Allergies, Adverse Reactions, Alerts Substance Reaction [...] Topically Once Start Date: 10/29/18 Status: Ordered [place]-3 oral capsule See Instructions, 2 capsules daily, # 60 each, 5 Refills, Maintenance, 08/08/18 14:19:47 EDT, 2 capsules daily Start Date: 08/08/18 Status: Ordered omeprazole 40 mg oral enteric coated capsule 1 capsule = 40 mg, By Mouth, Daily, # 30 capsule, 6 Refills, Maintenance, 12/04/19 12:00:00 EST, ECCapsule, [id number], 176.7, cm, 02/11/20 15:28:00 EST, Height, 106.4, kg, 12/04/19 10:01:00EST, [...]
--- OUTSIDE RECORDS SUMMARY | 2024-04-11 08:04 | XMS_ITS | Continuity of Care Document ---
Author Organization [facility] Address [address] [place] [address]- Care Team Providers Care Sensitizer Name Role Phone Bhavna Guillen MD Primary Care Physician En[place] [facility] [place] Date(s): 11/26/19 - 12/06/19 [facility] [address] [place] [address]- [facility] Attending Physician: Admtr, Ar8 Allergies, Adverse Reactions, Alerts [...] Topically Once Start Date: 10/29/18 Status: Ordered [place]-3 oral capsule See Instructions, 2 capsules daily, [...]
--- OUTSIDE RECORDS SUMMARY | 2024-04-11 08:04 | XMS_ITS | Continuity of Care Document ---
Author Organization [facility] ter Address [address] [place] [address]- Care Team Providers Care Electric Trucker Name Role Phone Bhavna Guillen MD Primary Care Physician Encounter [facility] [place] Date(s): 12/04/19 - 12/04/[address] [address]- [facility] Discharge Disposition: A-D/C Home Attending Physician: Bj Rubin MD Admitting Physician: [...] Topically Once Start Date: 10/29/18 Status: Ordered [place]-3 oral capsule See Instructions, 2 capsules daily, [...] to oldest [Reference Range]: 1 2 3 Weight 106.4 kg (12/04/19 10:01 AM) Oxygen Saturation [94-100 %] 100 % (12/04/19 11:47 AM) 99 % (12/04/19 11:43 AM) 97 % (12/04/19 11:25 AM) Pulse Rate [55-90 bpm] 79 bpm (12/04/19 10:01 AM) Blood Pressure [90-138/55-84 mm Hg] 133/70mm Hg (12/04/19 11:47 AM) 102/53mm Hg (12/04/19 11:43 AM) 95/46mm Hg (12/04/19 11:25 AM) Respiratory Rate [16-30 br/min] 20 br/min (12/04/19 10:01 AM) Temperature [96.8-100.4 DegF] 97.4 DegF (12/04/19 11:43 AM) 97.7 DegF (12/04/19 11:25 AM) 97.7 DegF (12/04/19 11:10 AM) Mode of Delivery (Oxygen) Room air (12/04/19 10:01 AM) Blood pressure sites Arm, left (12/04/19 10:01 AM) Temperature Route Oral (12/04/19 10:01 AM) Dry Weight 106.4 kg (12/04/19 10:01 AM) Weight Obtained Via Standing scale (12/04/19 10:01 AM) Social History Social History Type Response Smoking Status Never smoker entered on: 06/30/15 Sex
--- OUTSIDE RECORDS SUMMARY | 2024-04-11 08:04 | XMS_ITS | Continuity of Care Document ---
Author Organization [facility] Address [address] [place] [address]- Care Team Providers Care Green Building Design Specialist Name Role Phone Malini SALEH, Braxton Berry Primary Care Physician [place] [facility] [place] 10/18/23 - 11/17/23 [facility] [address] [place], [place] [address] Attending Physician: Daivd Medina Admitting Physician: AdmtrDavid Referring Physician: Admtr, David Allergies, Adverse Reactions, Alerts Substance Reaction Severity [...] Active Transient Alteration of Awareness Confirmed Active Social History Social History Type Response Smoking Status Never smoker entered on: 06/30/15 Sex Male Patient Care team information Care Team Personnel Name: Silvia Pinto RN Position: [facility] RN Member Role: Primary Care Nurse Name: Malini SALEH, Braxton Berry Position: [facility] Physician - Pediatrics Member Role: PCP Address: Address: [address] [place] [address] Pediatric & Adolescent Medicine [address] Name: Ebony Tesfaye Position: [facility] Outreach Member Role: Lifetime Consulting Physician Name: Reyna Modi RN Position: [facility] RN Member Role: Primary Care Nurse Care Team Related Persons Name: CHELA TRAN Address: home [address] [id number] Name: CHELA TRAN Address: [address] [place] [address] Name: JL TRAN Address: home [address] [place] [address] Name: JEFRY SPENCER Address: home [address] [place] [address]
--- OUTSIDE RECORDS SUMMARY | 2024-04-11 08:04 | XMS_ITS | Continuity of Care Document ---
Author Organization [facility] Address [address] [place] [address]- Care Team Providers Care District Resource Officer Name Role Phone Bhavna Guillen MD Primary Care Physician [place] [facility] [place] 11/25/20 - 12/02/20 [facility] Pediatric [facility] [address] [place] [address] Attending Physician: Jl Bey MD, V Referring [...] Topically Once Start Date: 10/29/18 Status: Ordered [place]-3 oral capsule See Instructions, 2 capsules daily, # 60 each, 5 Refills, Maintenance, 08/08/18 14:19:47 EDT, 2 capsules daily Start Date: 08/08/18 Status: Ordered Strattera 60 mg oral capsule [...] disorder(Confirmed) Active Transient Alteration of Awareness(Confirmed) Active Procedures Procedure Date Related Diagnosis Body Site Status Adenoidectomy Completed Circumcision Completed Vital Signs Most recent to oldest [Reference Range]: 1 Height 178 cm (11/25/20 2:10 PM) Weight 114 kg (11/25/20 2:10 PM) Body Mass Index [18.5-24.99] 35.98 *>HHI* (11/25/20 2:10 PM) Dry Weight 114 kg (11/25/20 2:10 PM) Weight Obtained Via Standing scale (11/25/20 2:10 PM) Dry Weight Obtained Via Standing scale (11/25/20 2:10 PM) Social History Social History Type Response Smoking Status Never smoker entered on: 06/30/15 Sex Male
--- OUTSIDE RECORDS SUMMARY | 2024-04-11 08:04 | XMS_ITS | Continuity of Care Document ---
Author Organization [facility] Address [address] [place] [address]- Care Team Providers Care Assistant Housekeeping Manager Name Role Phone Bhavna Guillen MD Primary Care Physician Encounter [facility] Date(s): 06/03/21 - 06/10/21 [facility] [address] [place], [place] [address] Attending Physician: Horace Jones DO Referring Physician: Bhavna Guillen MD Allergies, Adverse Reactions, Alerts Substance Reaction Severity Status sulfa drugs 1 Rash Active 1petecheal rash with fever and malaise Immunizations Given and Recorded Vaccine Date Status Refusal Reason tetanus/diphtheria/pertussis, acel(Tdap) 09/30/19 Given tetanus/diphtheria/pertussis, acel(Tdap) 1 10/20/15 Given 1Admin Note: VIS given to Mom Medications nystatin topical [id number] u/gm powder 1 application, Topically, 2 times a day, for 10 days, # 30 Gm, 1 Refills, Acute 06/23/21 11:53:00 EDT, 06/03/21 11:53:00 EDT, Powder, [facility]/pharmacy #[id number], Partial fill upon patient request if the prescription is for a schedule II opioid drug., 1 applic... Start Date: 06/03/21 Stop Date: 06/23/21 Status: Ordered Strattera 60 mg oral capsule [...] oldest [Reference Range]: 1 Height 178 cm (06/03/21 11:40 AM) Oxygen Saturation [94-100 %] 98 % (06/03/21 11:40 AM) Pulse Rate [55-90 bpm] 100 bpm *H* (06/03/21 11:40 AM) Blood Pressure [90-138/55-84 mm Hg] 137/ 67mm Hg (06/03/21 11:40 AM) Respiratory Rate [16-30 br/min] 20 br/mi n (06/03/21 11:40 AM) Temperature [96.8-100.4 DegF] 98.5 DegF (06/03/21 11:40 AM) Mode of Delivery (Oxygen) Room air (06/03/21 11:40 AM) Blood pressure sites Arm, left (06/03/21 11:40 AM) Temperature Route Temporal (06/03/21 11:40 AM) Social History Social History Type Response Smoking Status Never smoker entered on: 06/30/15 Sex Male
--- OUTSIDE RECORDS SUMMARY | 2024-04-11 08:04 | XMS_ITS | Continuity of Care Document ---
Author Organization [facility] Address [address] [place] [address]- Care Team Providers Care Electron Beam Welder Name Role Phone Malini SALEH, Braxton Berry Primary Care Physician ( [phone] [place] [facility] [place] Date(s): 10/18/23 - 11/17/23 [facility] [address] [place], [place] [address] Attending Physician: Mary Sparrow MD Referring Physician: Juan Barron MD Allergies, Adverse Reactions, Alerts Substance Reaction [...] Team Personnel Name: Silvia Pinto RN Position: [facility] RN Member Role: Primary Care Nurse Name: Malini SALEH, Braxton Berry Position: [facility] Physician - Pediatrics Member Role: PCP Address: Address: [address] [place] [address] Pediatric & Adolescent Medicine [address] Name: Ebony Tesfaye Position: [facility] Outreach Member Role: Lifetime Consulting Physician Name: Reyna Modi RN Position: [facility] RN Member Role: Primary Care Nurse Care Team Related Persons Name: CHELA TRAN Address: home [address] [id number] Name: CHELA TRAN Address: home [address] [place] [address] Name: JL TRAN Address: home [address] [place] [address] Name: JEFRY SPENCER Address: home [address] [place] [address]
--- OUTSIDE RECORDS SUMMARY | 2024-04-11 08:04 | XMS_ITS | Continuity of Care Document ---
Author Organization [facility] Address [address] [place] [address]- Care Team Providers Care Pasteurizer Helper Name Role Phone Wilmer SALEH, Bhavna Choi Primary Care Physician [phone] Encounter [facility] Date(s): 11/16/20 - 12/16/20 [facility] [address] [place] [address] Allergies, Adverse Reactions, Alerts Substance Reaction Severity [...]
--- OUTSIDE RECORDS SUMMARY | 2024-04-11 08:04 | XMS_ITS | Continuity of Care Document ---
Author Organization [facility] Address [address] [place] [address]- Care Team Providers Care Powder Monkey Name Role Phone Wilmer SALEH, Bhavna Choi Primary Care Physician [phone] Encounter [facility] Date(s): 11/25/20 - 12/25/20 [facility] [address] [place] [id number] Attending Physician: David Medina Admitting Physician: AdmDavid bullard Referring Physician: Admtr ArRosanne Allergies, Adverse Reactions, Alerts Substance Reaction Severity [...]
--- OUTSIDE RECORDS SUMMARY | 2024-04-11 08:04 | XMS_ITS | Continuity of Care Document ---
Author Organization [facility] Address [address] [place] [address]- Care Team Providers Care Steward/Stewardess Lounge Name Role Phone Bhavna Guillen MD Primary Care Physician En[place] [facility] Date(s): 04/22/21 - 04/29/21 [facility] [address] [place], [place] [address] Attending Physician: Trell Noriega MD Referring Physician: Bhavna Guillen MD Allergies, Adverse [...] oldest [Reference Range]: 1 Height 178 cm (04/22/21 6:29 PM) Weight 113.1 kg (04/22/21 6:29 PM) Oxygen Saturation [94-100 %] 100 % (04/22/21 6:29 PM) Pulse Rate [55-90 bpm] 87 bpm (04/22/21 6:29 PM) Body Mass Index [18.5-24.99] 35.7 *>HHI* (04/22/21 6:29 PM) Blood Pressure [90-138/55-84 mm Hg] 119/ 55mm Hg (04/22/21 6:29 PM) Temperature [96.8-100.4 DegF] 97.8 DegF (04/22/21 6:29 PM) Mode of Delivery (Oxygen) Room air (04/22/21 6:29 PM) Blood pressure sites Arm, right (04/22/21 6:29 PM) Temperature Route Temporal (04/22/21 6:29 PM) Dry Weight 113.1 kg (04/22/21 6:29 PM) Weight Obtained Via Standing scale (04/22/21 6:29 PM) Dry Weight Obtained Via Standing scale (04/22/21 6:29 PM) Social History Social History Type Response Smoking Status Never smoker entered on: 06/30/15 Sex Male
--- OUTSIDE RECORDS SUMMARY | 2024-04-11 08:04 | XMS_ITS | Continuity of Care Document ---
Author Organization [facility] Address [address] [place] [address]- Care Team Providers Care Cutter Wet Machine Name Role Phone Bhavna Guillen MD Primary Care Physician [place] [facility] Date(s): 04/22/21 - 05/22/21 [facility] [address], [place] [address] Attending Physician: David Medina Admitting Physician: David [...]
--- OUTSIDE RECORDS SUMMARY | 2024-04-11 08:04 | XMS_ITS | Continuity of Care Document ---
Author Organization [facility] ter Address [address] [place] [address]- Care Team Providers Care Net Web Application Developer Name Role Phone Wilmer SALEH, Bhavna Choi Primary Care Physician Encounter [facility] Date(s): 12/20/19 - 12/20/[address] [address] [facility] Discharge Disposition: A-D/C Home Attending Physician: Neelima Harrison MD Admitting Physician: Neelima Harrison MD Referring Physician: Bj Rubin MD Allergies, [...] Topically Once Start Date: 10/29/18 Status: Ordered Larkspur-3 oral capsule See Instructions, 2 capsules daily, [...]
--- OUTSIDE RECORDS SUMMARY | 2024-04-11 08:04 | XMS_ITS | Continuity of Care Document ---
Author Organization [facility] Address [address] [place] [address]- Care Team Providers Care Production Drilling Machine Operator Name Role Phone Bhavna Guillen MD Primary Care Physician [phone] Encounter [facility] Date(s): 07/16/20 - 08/15/20 [facility] [address] [place] [address]- [facility] Attending Physician: Admtr, Ar8 Allergies, Adverse [...] Topically Once Start Date: 10/29/18 Status: Ordered Wallagrass-3 oral capsule See Instructions, 2 capsules daily, [...]
--- OUTSIDE RECORDS SUMMARY | 2024-04-11 08:04 | XMS_ITS | Continuity of Care Document ---
Author Organization [facility] Address [address] [place] [address]- Care Team Providers Care Casting Operator Helper Name Role Phone Wilmer SALEH, Bhavna Choi Primary Care Physician Encounter [facility] Date(s): 11/16/20 - 12/16/20 [facility] [address] [place] [address] Allergies, Adverse Reactions, Alerts Substance Reaction Severity [...]
--- OUTSIDE RECORDS SUMMARY | 2024-04-11 08:04 | XMS_ITS | Continuity of Care Document ---
Author Organization [facility] Address [address] [place] [address]- Care Team Providers Care Tool Grinder Operator External Name Role Phone Braxton Nayak MD Primary Care Physician En[place] [facility] Date(s): 12/25/21 - 01/24/22 [facility] [address] [place], [place] [address] Attending Physician: David Medina Admitting Physician: David [...]
--- OUTSIDE RECORDS SUMMARY | 2024-04-11 08:04 | XMS_ITS | Continuity of Care Document ---
Author Organization [facility] Address [address] [place] [address]- Care Team Providers Care Maintenance Service Supervisor Name Role Phone Bhavna Guillen MD Primary Care Physician [phone] Encounter [facility] Date(s): 11/26/19 - 12/03/19 [facility] [address] [place] [address] [facility] Attending Physician: Michael Benitez MD Referring Physician: Bhavna Guillen MD Allergies, [...] Topically Once Start Date: 10/29/18 Status: Ordered Milford-3 oral capsule See Instructions, 2 capsules daily, [...] to oldest [Reference Range]: 1 2 Height 176.7 cm (11/26/19 3:28 PM) 176.7 cm (11/26/19 3:28 PM) Weight 108.5 kg (11/26/19 3:28 PM) 108.5 kg (11/26/19 3:28 PM) Pulse Rate [55-90 bpm] 68 bpm (11/26/19 3:28 PM) Body Mass Index [18.5-24.99] 34.75 *>HHI* (11/26/19 3:28 PM) 34.75 *>HHI* (11/26/19 3:28 PM) Blood Pressure [90-138/55-84 mm Hg] 137/ 55mm Hg (11/26/19 3:28 PM) Blood pressure sites Arm, right (11/26/19 3:28 PM) Dry Weight 108.5 kg (11/26/19 3:28 PM) Weight Obtained Via Standing scale (11/26/19 3:28 PM) Dry Weight Obtained Via Standing scale (11/26/19 3:28 PM) Social History Social History Type Response Smoking Status Never smoker entered on: 06/30/15 Sex
--- OUTSIDE RECORDS SUMMARY | 2024-04-11 08:04 | XMS_ITS | Continuity of Care Document ---
Author Organization [facility] ter Address [address] [place] [address]- Care Team Providers Care Cigarette Filter Inspector Name Role Phone Bhavna Guillen MD Primary Care Physician [phone] [place] [facility] [place] 10[place]26/19 - 10/26/[address] [address] Encounter Diagnosis Sinusitis(Final) - 10/26/19 Chest pain(Final) - 10/26/19 Discharge Disposition: A-D/C Home Attending Physician: Aniya Toney MD Admitting Physician: Aniya Toney MD Referring Physician: Not on Staff, Referring [...] Topically Once Start Date: 10/29/18 Status: Ordered Creighton-3 oral capsule See Instructions, 2 capsules daily, [...] Exam Date Time Procedure Performing Provider Status 10/26/19 1:54 PM Chest 2 Views Frontal and Lat Gaby Shane; Nunu (Verified) Notes: (Chest 2 Views Frontal and Lat) Reason For Exam: Cough RESULT: Chest 2 Views Frontal and Lat Chest 2 Views Frontal and Lat INDICATION / CLINICAL QUESTION: Pt to ED with c.o sinus pain and productive cough x 3-4 weeks; COMPARISON: Yesterday FINDINGS: LINES AND TUBES: None. LUNGS AND PLEURA: Clear lungs. Normal pulmonary vascularity. No pleural effusion. No pneumothorax. HEART, MEDIASTINUM AND HARRISON: Normal. BONES AND SOFT TISSUES: Normal. IMPRESSION: Normal. WSN: [id number] Dictated By: Rodolfo Ibarra MD Dictated Date/Time: 10/26/19 1:57 pm Reviewed By: Rodolfo Ibarra MD Signed By: Rodolfo Ibarra MD Signed Date/Time: 10/26/19 1:57 pm Transcribed By: CELSO Transcribed Date/Time: 10/26/19 1:56 pm Vital Signs Most recent to oldest [Reference Range]: 1 2 3 Weight 109 kg (10/26/19 6:30 PM) 109 kg (10/26/19 4:16 PM) 109 kg (10/26/19 1:35 PM) Oxygen Saturation [94-100 %] 99 % (10/26/19 6:30 PM) 98 % (10/26/19 4:16 PM) 100 % (10/26/19 1:28 PM) Pulse Rate [55-90 bpm] 62 bpm (10/26/19 6:30 PM) 82 bpm (10/26/19 4:16 PM) 100 bpm *H* (10/26/19 1:28 PM) Blood Pressure [90-138/55-84 mm Hg] 126/53mm Hg (10/26/19 6:30 PM) 124/91mm Hg (10/26/19 4:16 PM) 117/55mm Hg (10/26/19 1:25 PM) Respiratory Rate [16-30 br/min] 16 br/min (10/26/19 6:30 PM) 5 br/min *L* (10/26/19 4:16 PM) 16 br/min (10/26/19 1:25 PM) Temperature [96.8-100.4 DegF] 98.0 DegF (10/26/19 6:30 PM) 98.3 DegF (10/26/19 4:16 PM) 98.6 DegF (10/26/19 1:25 PM) Mode of Delivery (Oxygen) Room air (10/26/19 6:30 PM) Room air (10/26/19 4:16 PM) Room air (10/26/19 1:28 PM) Blood pressure sites Arm, left (10/26/19 6:30 PM) Arm, right (10/26/19 4:16 PM) Arm, right (10/26/19 1:25 PM) Temperature Route Oral (10/26/19 6:30 PM) Oral (10/26/19 4:16 PM) Oral (10/26/19 1:25 PM) Dry Weight 109 kg (10/26/19 6:30 PM) 109 kg (10/26/19 4:16 PM) 109 kg (10/26/19 1:35 PM) Weight Obtained Via Standing scale (10/26/19 1:25 PM) Dry Weight Obtained Via Standing scale (10/26/19 1:25 PM) Social History Social History Type Response Smoking Status Never smoker entered on: 06/30/15 Sex
--- OUTSIDE RECORDS SUMMARY | 2024-04-11 08:04 | XMS_ITS | Continuity of Care Document ---
Author Organization [facility] Address [address] [place] [address]- Care Team Providers Care Wind Turbine Design Engineer Name Role Phone Bhavna Guillen MD Primary Care Physician Encounter [facility] Date(s): 11/05/21 - 12/05/21 [facility] [address] [place], [place] [address] Attending Physician: Trell Noriega MD Allergies, Adverse Reactions, Alerts Substance Reaction [...]
== END 2024-04-09 16:34 | disposition home or self-care (01) ==
PROVIDERS: PCP Family Medicine; Visit Provider Physician Assistant Medical
DX: L25.9 Unspecified contact dermatitis, unspecified cause (principal)
CPT/HCPCS: 99213

== ENCOUNTER 2024-04-10 14:18 | Outpatient (AMB) | payer OTHER, SELFPAY ==
[2024-04-10 14:21] VITALS: BP 142/84; PULSE 87; BMI 40.5
--- NOTE | 2024-04-10 14:21 | MHC.OFFVIS ---
Vital Signs 04/10/24 14:21 Height 5 ft 10 in Weight 282 lb 3.067 oz BMI 40.5 BP 142/84 H Blood Pressure Location Lt brachial Position Sitting Pulse 87 Intake Visit Reasons: [id number] Intake Note: Follow-up after echo, holter and ett feeling better Control Systems Drafting Officer Required: No Fruit Loader: Fruit Loader Present Accompanied by: Mother Allergies Sulfa (Sulfonamide Antibiotics) [SULFA(SULFONAMIDE ANTIBIOTICS)] Allergy (Intermediate, Verified 04/09/24 16:00) RASH amoxicillin [From AUGMENTIN] Adverse Reaction (Mild, Verified 04/09/24 16:00) YEAST INFECTION clavulanic acid [From AUGMENTIN] Adverse Reaction (Mild, Verified 04/09/24 16:00) YEAST INFECTION HPI Comments Details: 23-year-old male presents today with his mother for a follow-up visit. He has a history of autism, anxiety, and tourettes. He was having an in chest pain on exertion and tachycardia. His mother reports his chest pains having been happening on lower impact activities like bike riding.The chest pains have improved and he has not been as busy at work but riding his bike and doing activities as normal. Reports there is a family history of strokes, [place], and atrial fibrillation. He does not drink, smoke, or do illicit drugs. [facility] Medical History Abnormal EKG Chest pain Palpitations GERD (gastroesophageal reflux disease) Autism Tourette's Surgical History History of fundoplication Family History Sister Brain cancer Social History Housing: House Alcohol intake: never Patient Tobacco Use Status: Never used Tobacco e-Cigarette/Vaping Use: Never Used Current occupational status: unemployed Review of Systems Const Denies chills, Denies fatigue, Denies fever(s), Denies frequent falls, Denies weakness, Denies weight gain and Denies weight loss ENT Denies dizziness Card Denies chest pain, Denies leg edema, Denies lightheadedness, Denies palpitations, Denies dyspnea, Denies dyspnea on exertion, Denies orthopnea and Denies other (loss of consciousness) Resp Denies cough, Denies dyspnea and Denies dyspnea on exertion GI Denies hematochezia and Denies change in stool character Musc Denies abnormal gait, Denies muscle weakness, Denies numbness, Denies radiating pain into limb and Denies tingling Neuro Denies abnormal gait, Denies dizziness, Denies frequent falls, Denies numbness, Denies tingling and Denies weakness Endo Denies fatigue and Denies palpitations Physical Exam Vital Signs: Last Vital Signs Pulse 87 04/10/24 14:21 BP 142/84 H 04/10/24 14:21 BMI result Body Mass Index 40.5 Results Reviewed Results Reviewed: Echo: Conclusions: - Normal study Exercise stress test exercise 8 min 1 sec of Rufino protocol achieving 87% MPHR, with baseline 10/10 on right chest, mid chest pain 10/10 which all chest pain resolved with inhaler , with mild to moderate SOB, without arrhythmias, with normotensive response, without EKG changes. Test reviewed with Dr. Acuna. Holter Total monitoring time 2 days. Underlying rhythm is sinus with an average rate of 91/Min. About 34% of the time, rate > 100/Min. Very rare supraventricular and ventricular ectopy with minimal burden. No significant pauses or AV blocks. No patient markers or diary events. Assessment & Plan Assessment & Plan (1) Chest pain: Code(s): R07.9 - Chest pain, unspecified Category: Medical Plan: Patient devloped 10/10 right chest pain at peak of stress test which was resolved with rest and inhaler use. Will do stress echocardiogram to ensure no ischemic changes. Patient wore holter when at work and heart rate max was 171 bpm. Echocardiogram overall normal. Did note: Regional wall motion abnormalities can not be excluded due to suboptimal endocardial definition. ED care if needed. Patient instructed to report any chest discomforts to mother. Orders: Orders CA echo stress exercise w con 04/10/24 R07.9 - Chest pain, unspecified Coding Level of Care Code Est Pt Level 3 (72668) Diagnoses Chest pain R07.9
== END 2024-04-10 14:49 | disposition home or self-care (01) ==
PROVIDERS: PCP Family Medicine; Visit Provider Nurse Practitioner
DX: R07.9 Chest pain, unspecified (principal)
CPT/HCPCS: 99213

== ENCOUNTER → 2024-04-10 14:18 | Outpatient (BNVA) | payer OTHER, SELFPAY | PROVIDERS: PCP Family Medicine; Visit Provider Nurse Practitioner | DX: R07.9 Chest pain, unspecified (principal) | CPT/HCPCS: 99212 ==

== ENCOUNTER 2024-04-15 11:21 | Outpatient (AMB) | payer OTHER, SELFPAY ==
[2024-04-15 13:11] VITALS: BP 132/80; PULSE 78; TEMP 36.7; O2SAT 98; BMI 40.5
--- NOTE | 2024-04-15 13:11 | AM.OFFWIN_ITS ---
Intake Vital Signs 04/15/24 13:11 Height 5 ft 10 in Weight 282 lb BMI 40.5 BP 132/80 Blood Pressure Location Rt brachial Position Sitting Pulse 78 Pulse Source Pulse Oximeter Temp 98.0 F Temp Source Oral Pulse Oximetry (%) 98 Oxygen Delivery Method Room Air Intake Visit Reasons: EP Unable to hear both ears/?clogged Intake Note: pt is here for ear pressure Patient Tobacco Use Status: Never used Tobacco Allergies Sulfa (Sulfonamide Antibiotics) [SULFA(SULFONAMIDE ANTIBIOTICS)] Allergy (Intermediate, Verified 04/15/24 13:13) RASH amoxicillin [From AUGMENTIN] Adverse Reaction (Mild, Verified 04/15/24 13:13) YEAST INFECTION clavulanic acid [From AUGMENTIN] Adverse Reaction (Mild, Verified 04/15/24 13:13) YEAST INFECTION Do you need a note to return to daycare/school/sports/work: No HPI HPI Comments History of Present Illness Details Patient is a 23-year-old male complaining of 3 days of feeling like his both of his ears are clogged, he states they are both painful on the ?inside? also states he had a subjective fever last night but today it is gone. He st ates he has a history of ear infections. He does not report any pain behind the ear or any change in hearing [facility] Medical History Abnormal EKG Chest pain Palpitations GERD (gastroesophageal reflux disease) Autism Tourette's Surgical History History of fundoplication Family History Sister Brain cancer Social History Housing: House Alcohol intake: never Patient Tobacco Use Status: Never used Tobacco e-Cigarette/Vaping Use: Never Used Current occupational status: unemployed Review of Systems Const All systems reviewed & are unremarkable except as noted in HPI and below Physical Exam Vital Signs: Last Vital Signs Temp 98.0 F 04/15/24 13:11 Pulse 78 04/15/24 13:11 BP 132/80 04/15/24 13:11 Pulse Ox 98 04/15/24 13:11 Oxygen Delivery Method Room Air 04/15/24 13:11 BMI result Body Mass Index 40.5 Const General: cooperative, healthy appearing, comfortable and no acute distress Orientation/consciousness: patient oriented x3 Limitations: no limitations HEENT Head: Yes normal to inspection Ears: external ears normal, TM normal on the left and TM abnormal wth effusion, erythematous and with loss of landmarks General nose exam: Normal external nose present, Normal nares present and No nasal discharge present Face and sinus: Yes normal facial exam and Yes sinuses nontender Mouth: Normal oral and palatal mucosa present and moist mucous membranes Throat: Yes posterior oropharynx abnormal (Erythematous) Eyes General: appearance normal, both eyes and all related structures Neck Neck: Yes normal visual inspection Skin General skin exam: no rashes or lesions noted Neuro General: patient oriented x3 Extrem General: Yes normal to inspection and Yes no clubbing, cyanosis or edema Assessment & Plan Assessment & Plan (1) Otitis media, right: Code(s): H66.91 - Otitis media, unspecified, right ear Qualifiers: Otitis media type: mucoid Chronicity: acute Qualified Code(s): H65.191 - Other acute nonsuppurative otitis media, right ear Plan: sent rx to pharmacy Plan see above Medications: New amoxicillin 875 mg PO Q12H 10 tabs 0RF Coding Level of Care Code Est Pt Level 3 (10194) Diagnoses Acute mucoid otitis media of right ear H65.191 Otitis media type: mucoid Chronicity: acute
== END 2024-04-15 13:26 | disposition home or self-care (01) ==
PROVIDERS: PCP Family Medicine; Visit Provider Physician Assistant
DX: H65.191 Other acute nonsuppurative otitis media, right ear (principal)
CPT/HCPCS: 99213

== ENCOUNTER 2024-04-19 09:43 | Outpatient (AMB) | payer OTHER, SELFPAY ==
--- NOTE | 2024-04-19 09:40 | MHC.PC.OV ---
Intake Visit Reasons: Work note to carry inhaler Allergies Sulfa (Sulfonamide Antibiotics) [SULFA(SULFONAMIDE ANTIBIOTICS)] Allergy (Intermediate, Verified 04/19/24 09:43) RASH amoxicillin [From AUGMENTIN] Adverse Reaction (Mild, Verified 04/19/24 09:43) YEAST INFECTION clavulanic acid [From AUGMENTIN] Adverse Reaction (Mild, Verified 04/19/24 09:43) YEAST INFECTION Medication List - Last Reconciled 04/19/[address] [facility] albuterol sulfate 90 mcg/actuation (ProAir HFA) 2 puffs inhalation Q4-6H PRN amoxicillin 875 mg PO Q12H atomoxetine (Strattera) 60 mg PO QAM cariprazine (Vraylar) 4.5 mg PO DAILY cetirizine (All Day Allergy (cetirizine)) 10 mg PO DAILY PRN 90 days tetrabenazine (Xenazine) 12.5 mg PO DAILY Tobacco use date assessed: 11/29/23 Dental Screening Dental Screen Date: 11/29/23 HPI HPI Comments History of Present Illness Details Telehealth visit today with Mom and patient Was supposed to come in to the office today, however rejection immigration officer car and therefore cannot drive Be that as it may, this appt is to request a letter for med [facility] to have PRN Albuterol @ work Reports his asthma is well controlled, it is triggered by exercise and physical activity Current job is physical & has required the use of the Albuterol which he takes w/ good effect. He needs a refill sent today - done. [address] [place] [address] 04/19/24 Caleb Warren 2000 To Whom It May Concern: Mr. Warren is a Primary Care Patient at [facility]. This letter is to medically certify the need to have his inhaler at work to use as directed. He can keep this on his person or in a medical office if available/needed. Albuterol 90 mcg per actuation, Take 2 puffs as needed for wheezing, shortness of breath or cough every 4 hours Any questions, please reach out to the office. Stephy Ibarra [facility] [phone] Letter has been printed and mailed to above address. [facility] Medical History Abnormal EKG Chest pain Palpitations GERD (gastroesophageal reflux disease) Autism Tourette's Surgical History History of fundoplication Family History Sister Brain cancer Social History Housing: House Alcohol intake: never Patient Tobacco Use Status: Never used Tobacco e-Cigarette/Vaping Use: Never Used Current occupational status: unemployed Questionnaire MIRA-7 AMB Questionnaire MIRA-7 Date MIRA - 7 assessed: 11/29/23 Source: Developed by Drs. Javier Humphreys, Aliza Branch, Mayco Herbert and colleagues, with an educational kimberly from [employer]. Physical exam (Primary Care) Tobacco/Smoking Status: Tobacco use Status Tobacco use date assessed 11/29/23 04/15/24 11:20 Patient Tobacco Use Status Never used Tobacco 04/15/24 13:13 e-Cigarette/Vaping Use Never Used 04/15/24 11:20 Telehealth Telehealth Telehealth Platform: Telephone Location of provider rendering services: practice address Location of patient: address on file Patient Identification confirmed using: Name, : Yes Telehealth method: voice only Patient verbally consented to treatment: Yes Patient verbally consented to billing insurance company: Yes Patient informed of any privacy concerns related to visit: Yes Minutes spent on Phone/Video with Pt.: 6 Assessment and Plan Assessment & Plan (1) Exercise-induced asthma: Code(s): J45.990 - Exercise induced bronchospasm Medications: Changed From albuterol sulfate 90 mcg/actuation (ProAir HFA) 2 puffs inhalation Q4-6H PRN 8.5 grams 0RF Wheezing To albuterol sulfate 90 mcg/actuation 2 puffs inhalation Q4-6H PRN 8.5 grams 0RF Wheezing Coding Level of Care Code Tele Est Pt Level 1 (63649) Diagnoses Exercise-induced asthma J45.990
== END 2024-04-19 11:05 | disposition home or self-care (01) ==
PROVIDERS: PCP Family Medicine; Visit Provider Nurse Practitioner Family
DX: J45.990 Exercise induced bronchospasm (principal)
CPT/HCPCS: 99212

== ENCOUNTER 2024-04-29 16:14 | Outpatient (AMB) | payer OTHER, SELFPAY ==
--- NOTE | 2024-04-29 16:15 | AM.OFFWIN_ITS ---
Intake Vital Signs 04/29/24 16:16 Height 5 ft 10 in Weight 281 lb BMI 40.3 BP 146/84 H Blood Pressure Location Lt brachial Position Sitting Pulse 96 Pulse Source Pulse Oximeter Temp 98.3 F Temp Source Oral Pulse Oximetry (%) 97 Oxygen Delivery Method Room Air Intake Visit Reasons: EP tongue infection Intake Note: Pt is here today for tongue infection, pt states noticed it 4 days ago Patient Tobacco Use Status: Never used Tobacco Allergies Sulfa (Sulfonamide Antibiotics) [SULFA(SULFONAMIDE ANTIBIOTICS)] Allergy (Intermediate, Verified 04/29/24 16:20) RASH amoxicillin [From AUGMENTIN] Adverse Reaction (Mild, Verified 04/29/24 16:20) YEAST INFECTION clavulanic acid [From AUGMENTIN] Adverse Reaction (Mild, Verified 04/29/24 16:20) YEAST INFECTION Do you need a note to return to daycare/school/sports/work: No HPI HPI Comments History of Present Illness Details patient is a 23-year-old male here with his mother complaining of an infection on his tongue, he states that he noticed 4 days ago his tongue was hurting him, he states since that time he can squeeze a little bit of pus out of his tongue. He states he thought he cut it while using his water pick. he denies any fevers but is complaining of a low-grade headache. [facility] Medical History Abnormal EKG Chest pain Palpitations GERD (gastroesophageal reflux disease) Autism Tourette's Surgical History History of fundoplication Family History Sister Brain cancer Social History Housing: House Alcohol intake: never Patient Tobacco Use Status: Never used Tobacco e-Cigarette/Vaping Use: Never Used Current occupational status: unemployed Physical Exam Vital Signs: Last Vital Signs Temp 98.3 F 04/29/24 16:16 Pulse 96 04/29/24 16:16 BP 146/84 H 04/29/24 16:16 Pulse Ox 97 04/29/24 16:16 Oxygen Delivery Method Room Air 04/29/24 16:16 BMI result Body Mass Index 40.3 Const General: cooperative, healthy appearing, comfortable, no acute distress and well developed Orientation/consciousness: patient oriented x3 Limitations: no limitations HEENT Head: Yes normal to inspection General nose exam: Normal external nose present Face and sinus: Yes normal facial exam Mouth: Normal oral and palatal mucosa present, lip normal, oropharynx normal, no audible dysphonia, no drooling, no muffled voice and tongue abnormal (0.5cm round area of purulence on left lateral posterior tongue; o/w WNL) Throat: Yes posterior oropharynx normal Eyes General: appearance normal, both eyes and all related structures Neck Neck: Yes normal visual inspection and Yes full ROM Resp Effort & Inspection: normal respiratory effort and able to speak in complete sentences Skin General skin exam: no rashes or lesions noted Neuro General: patient oriented x3 Extrem General: Yes normal to inspection Assessment & Plan Assessment & Plan (1) Tongue infection: Code(s): K14.0 - Glossitis Plan: Called in prescription for doxycycline with purulence visible on the tongue, vital signs are stable, recommended stopping using the Waterpik until it the tongue is completely healed, recommended warm salt water rinses a few times a day while taking the antibiotic. Educated patient and mom on when to go to the emergency department, i.e. if he experiences any swelling underneath the tongue or in the floor of the mouth, he should go to the emergency department right away or call 911. Plan See above Medications: New doxycycline hyclate 100 mg PO BID 10 tabs 0RF Coding Level of Care Code Est Pt Level 3 (82206) Diagnoses Tongue infection K14.0
[2024-04-29 16:16] VITALS: BP 146/84; PULSE 96; TEMP 36.8; O2SAT 97; BMI 40.3
== END 2024-04-29 16:49 | disposition home or self-care (01) ==
PROVIDERS: PCP Family Medicine; Visit Provider Physician Assistant
DX: K14.0 Glossitis (principal)
CPT/HCPCS: 99213

== ENCOUNTER → 2024-05-17 11:18 | Outpatient (REF) | payer OTHER, SELFPAY ==
--- NOTE | 2024-05-17 11:23 | CA_ITS ---
Acquisition Time: 2024-05-17 11:27:10 Total Exercise Time: 00:09:54 Test Indications: cp, tachycardia Medications: see h Protocol: KOMAL Max HR: 176 BPM 89% of Pred: 196 BPM Max BP: 190/046 mmHG Max Work Load: 11.4 METS Exercise stress test exercise 9 min 54 sec of Komal protocol achieving 89% MPHR, with mild to moderate SOB, no chest discomfort, with isolated PVCs, with HTN response to exercise, without EKG changes from baseline. Breathing returned to baseline with rest. Echo images obtained by tech at rest and immediately post peak exercise. Definity contrast used. Test reviewed with Dr. Acuna. End BP 130/78 Echo reviewed at rest and post stress. At rest: Normal LVEF, no RWMA. Post stress: LVEF appropriately augmented, LV cavity is smaller in size and no RWMA. Conclusion: No evidence of ischemia at achieved workload. Referred By: Terrie Mondragon Overread By: Andi Acuna
== END ==
LOC: HO.CARD 11:18
PROVIDERS: PCP Family Medicine; Visit Provider Nurse Practitioner
DX: R07.9 Chest pain, unspecified (principal)
CPT/HCPCS: 93350; Q9957

== ENCOUNTER → 2024-05-17 11:23 | Outpatient (BNV) | payer OTHER, SELFPAY | PROVIDERS: PCP Family Medicine; Visit Provider Internal Medicine Cardiovascular Disease | DX: R06.02 Shortness of breath (principal); I49.3 Ventricular premature depolarization; R00.0 Tachycardia, unspecified; R07.9 Chest pain, unspecified | CPT/HCPCS: 93351; 93352 ==

== ENCOUNTER 2024-05-18 11:29 | Outpatient (AMB) | payer OTHER, SELFPAY ==
[2024-05-18 13:24] VITALS: BP 114/70; PULSE 80; TEMP 36.8; O2SAT 96; BMI 39.5
--- NOTE | 2024-05-18 13:24 | MHC.OFFWIV ---
Intake Vital Signs 05/18/24 13:24 Height 5 ft 10 in Weight 275 lb BMI 39.5 BP 114/70 Blood Pressure Location Rt brachial Position Sitting Pulse 80 Pulse Source Pulse Oximeter Temp 98.3 F Temp Source Oral Pulse Oximetry (%) 96 Oxygen Delivery Method Room Air Intake Visit Reasons: EP LT leg ?infection Intake Note: Pt is here today c/o Lt leg ?infection Patient Tobacco Use Status: Never used Tobacco Allergies Sulfa (Sulfonamide Antibiotics) [SULFA(SULFONAMIDE ANTIBIOTICS)] Allergy (Intermediate, Verified 05/18/24 13:45) RASH amoxicillin [From AUGMENTIN] Adverse Reaction (Mild, Verified 05/18/24 13:45) YEAST INFECTION clavulanic acid [From AUGMENTIN] Adverse Reaction (Mild, Verified 05/18/24 13:45) YEAST INFECTION HPI EP LT leg ?infection HPI Details Patient is a 23-year-old male with autism who comes to the walk-in clinic along with his mother, who noted a red wound to his left lateral lopez area after taking off his pants today and finding a spider inside the pants. He works outside doing [email or web address] and apparently does not shower regularly or changes closed at the end of the day. He denies any systemic or associated symptoms. [facility] Medical History Abnormal EKG Chest pain Palpitations GERD (gastroesophageal reflux disease) Autism Tourette's Surgical History History of fundoplication Family History Sister Brain cancer Social History Housing: House Alcohol intake: never Patient Tobacco Use Status: Never used Tobacco e-Cigarette/Vaping Use: Never Used Current occupational status: unemployed Review of Systems Const All systems reviewed & are unremarkable except as noted in HPI and below Physical Exam Vital Signs: Last Vital Signs Temp 98.3 F 05/18/24 13:24 Pulse 80 05/18/24 13:24 BP 114/70 05/18/24 13:24 Pulse Ox 96 05/18/24 13:24 Oxygen Delivery Method Room Air 05/18/24 13:24 BMI result Body Mass Index 39.5 Skin Other: Erythematous approximately 0.5 cm lesion to the left lateral mid calf area, with edema warmth and tenderness. No discharge, induration or fluctuance noted. No surrounding EM rash or streaking Assessment & Plan Assessment & Plan (1) Spider bite wound: Code(s): T63.301A - Toxic effect of unspecified spider venom, accidental (unintentional), initial encounter Qualifiers: Encounter type: initial encounter Injury intent: accidental or unintentional Qualified Code(s): T63.301A - Toxic effect of unspecified spider venom, accidental (unintentional), initial encounter Plan Patient is a 23-year-old male with autism who comes to the walk-in clinic along with his mother, who noted a red wound to his left lateral lopez area after taking off his pants today in finding a spider inside the pants. 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 He denies any systemic or associated symptoms. The wound does look consistent with a possible spider bite, but already looks erythematous and is warm to the touch, so cellulitis versus venomous spider bite wound consider today. I wrote patient for doxycycline and advised that he get close monitoring of the wound. If it seems to be persistent or worsens in any way, he should follow up with PCP or go to the emergency department with worrisome symptoms. We also discussed proper hygiene in regards to working outside, including regularly doing body checks for spider tics and other insects, and thorough washing and changing of clothes. His mother is able to help him with this, along with follow-up as discussed. Medications: New doxycycline monohydrate 100 mg PO BID 20 caps 0RF cellulitis 10 days Coding Level of Care Code Est Pt Level 4 (64112) Diagnoses Spider bite wound, accidental or unintentional, initial encounter T63.301A Encounter type: initial encounter Injury intent: accidental or unintentional
== END 2024-05-18 14:46 | disposition home or self-care (01) ==
PROVIDERS: PCP Family Medicine; Visit Provider Physician Assistant Medical
DX: T63.301A Toxic effect of unspecified spider venom, accidental (unintentional), initial encounter (principal)
CPT/HCPCS: 99051; 99214

== ENCOUNTER 2024-06-22 17:03 | Emergency (ER) | payer OTHER, SELFPAY ==
--- NOTE | ~2024-06-22 | XR_ITS ---
EXAMINATION: PORTABLE CHEST 1 VIEW CLINICAL INFORMATION: lightheaded, phlegm. COMPARISON: 02/28/2024. TECHNIQUE: Portable frontal view of the chest was obtained. FINDINGS: The lungs are hypoexpanded. No focal infiltrate, effusion, edema, or pneumothorax. Cardiac and mediastinal silhouettes are within normal limits for technique. No acute bony abnormality seen. XR/XR chest 1V IMPRESSION: No evidence of acute disease. Electronically signed by: Jl Vann MD 06/22/2024 06:29 PM EDT
[2024-06-22 17:10] VITALS: BP 122/73; PULSE 88; RESP 18; TEMP 36.8; O2SAT 98; BMI 39.5
--- NOTE | 2024-06-22 17:30 | ECG_ITS ---
Test Reason : pre-syncopal Blood Pressure : / mmHG Vent. Rate : 083 BPM Atrial Rate : 083 BPM P-R Int : 136 ms QRS Dur : 100 ms QT Int : 366 ms P-R-T Axes : 026 008 018 degrees QTc Int : 430 ms Normal sinus rhythm Minimal voltage criteria for LVH, may be normal variant ( R in aVL ) Borderline ECG When compared with ECG of 28-FEB-2024 17:09, No significant change was found Referred By: Jennifer Kim Electronically Signed By:GERMANIA HICKS
--- NOTE | 2024-06-22 17:37 | ED_ITS ---
HPI - General Adult General Chief complaint: General Medical Stated complaint: congestion/weakness/seeing stars Time Seen by Provider: 06/22/24 17:23 Source: patient, RN notes reviewed and old records reviewed Mode of arrival: ambulatory History of Present Illness ED Provider: Jennifer Kim PA-C HPI narrative: 23-year-old male with a past medical history palpitations, GERD, Autism, Tourette's, presenting to the ED complaining of rhinorrhea, congestion, phlegm, dry cough x few days, and feeling lightheaded described as seeing stars this morning. Denies lightheadedness/dizziness or presyncope at present. Also reports tick bite to left forearm about 2 weeks ago, states tick was intact for about 20 minutes prior to removal. Denies fever, chills, headache, chest pain/shortness of breath, abdominal pain, nausea/vomiting Related Data Home Medications ?Medication ?Instructions ?Recorded ?Confirmed atomoxetine 60 mg capsule 60 mg PO QAM 02/25/23 04/19/24 (Strattera) tetrabenazine 12.5 mg tablet 12.5 mg PO DAILY 02/25/23 04/19/24 (Xenazine) cariprazine 3 mg capsule (Vraylar) 4.5 mg PO DAILY 02/21/24 04/19/24 Previous Rx's ?Medication ?Instructions ?Recorded cetirizine 10 mg tablet (All Day 10 mg PO DAILY PRN allergy 11/29/23 Allergy (cetirizine)) symptoms 90 days #90 tabs albuterol sulfate 90 mcg/actuation 2 puff inhalation Q4-6H PRN 04/19/24 aerosol inhaler Wheezing #8.5 grams doxycycline monohydrate 100 mg 100 mg PO BID cellulitis 10 days 05/18/24 capsule #20 caps Allergies Allergy/AdvReac Type Severity Reaction Status Date / Time Sulfa (Sulfonamide Allergy Intermediate RASH Verified 06/22/24 17:14 Antibiotics) [SULFA(SULFONAMIDE ANTIBIOTICS)] amoxicillin [From AUGMENTIN] AdvReac Mild YEAST Verified 06/22/24 17:14 INFECTION clavulanic acid AdvReac Mild YEAST Verified 06/22/24 17:14 [From AUGMENTIN] INFECTION Review of Systems 2 Review of Systems: Yes all other systems are reviewed and are negative Constitutional: Constitutional: Reports as per HPI Neurologic: Denies Abnormal speech present PMFSH Past Medical History Attestation statement: The following information was validated with the patient. Source: old records reviewed Medical History Abnormal EKG Chest pain Palpitations GERD (gastroesophageal reflux disease) Autism Tourette's Surgical History History of fundoplication Family History Family History Sister Brain cancer Social History Social History Housing: House Alcohol intake: never Patient Tobacco Use Status: Never used Tobacco e-Cigarette/Vaping Use: Never Used Advance Directives: No Advance Directives Information Provided: No Current occupational status: unemployed Physical Exam ED Vital Signs: Vital Signs - 24 hr 06/22/24 17:10 06/22/24 18:00 06/22/24 18:17 Temperature 98.2 F 97.6 F Pulse Rate 88 72 72 Respiratory Rate 18 16 Blood Pressure 122/73 116/56 L 116/56 L Pulse Oximetry 98 98 Oxygen Delivery Method Room Air Room Air 06/22/24 18:18 06/22/24 18:20 Temperature Pulse Rate 74 91 Respiratory Rate Blood Pressure 125/56 L 116/47 L Pulse Oximetry Oxygen Delivery Method BMI result Body Mass Index 39.5 Const General: cooperative, healthy appearing and no acute distress Orientation/consciousness: patient oriented x3 Limitations: no limitations HENMT Head: Yes normal to inspection and Yes atraumatic Ears: hearing grossly normal bilaterally, external ears normal, TM's normal bilaterally and mastoids normal General nose exam: Normal external nose present Face and sinus: Yes normal facial exam Mouth: Normal oral and palatal mucosa present and no drooling Throat: Yes posterior oropharynx normal, Yes tonsils normal, Yes uvula midline, No peritonsillar mass, No uvula laterally displaced and No uvular edema Eyes General: appearance normal, both eyes and all related structures EOM: EOMs intact bilaterally Neck Neck: Yes normal visual inspection and Yes no meningeal signs Resp Effort & Inspection: normal respiratory effort, no respiratory distress and no stridor Auscultation: clear to auscultation bilaterally, no crackles, no rhonchi and no wheezes Cardio Rate: regular rate Heart sounds: S1 normal heart sound present and S2 normal heart sound present GI Inspection: Yes normal to inspection Palpation (GI): Soft to palpation, nontender, no guarding and not rigid General: Yes no CVA tenderness Back/Spine/Pelvis Back: no CVA tenderness Skin Other: + small healed pinpoint scab to left forearm without surrounding erythema, no fluctuance or induration Rashes: no rashes Neuro General: patient oriented x3, gait normal, tone normal, moves all extremities, no meningeal signs, no focal motor deficits and CN's II-XI intact bilaterally Cranial nerves: Yes CN's II-XII intact bilaterally and Yes Bilaterally intact EOM present Cognition (Neuro): normal cognition Speech: No Abnormal speech present Gait exam (Neuro): Normal gait present Motor exam (neuro): 5/5 motor strength present throughout Extrem General: Yes normal to inspection Course Course Course Narrative: -labs reassuring. ALT chronically elevated. -UA negative. Rapid strep negative -1826--orthostatic vital signs negative. COVID-19 positive -troponin negative XR chest 1V IMPRESSION: No evidence of acute disease. Results discussed with patient including worrisome signs and symptoms and strict return precautions, and when to return to the emergency department. They verbalized understanding and feel safe for discharge at this time. Medical Decision Making Medical Decision Making MDM Narrative: 23-year-old male with a past medical history palpitations, GERD, Autism, Tourette's, presenting to the ED complaining of rhinorrhea, congestion, phlegm, dry cough x few days, and feeling lightheaded described as seeing stars this morning. On exam vital signs stable, NAD, nontoxic appearing, no focal neuro deficits, lungs CTA, oropharynx WNL, uvula midline, no focal neuro deficits. Concern for viral illness for strep pharyngitis vs dehydration/metabolic abnormalities vs presyncope. Low suspicion for ACS, PE, pneumonia. No evidence of INSPECTOR WELDED PARTS/retropharyngeal abscess. Concern for possible Lyme/tick-borne illness, although lower suspicion with short duration of tick attachment Plan: EKG, labs, UA, orthostatics, viral studies, re-evaluate Please refer to course for remaining clinical decision making, interpretation of labs/imaging results, and discussions with consultants and/or family members. Differential Diagnosis Differential Diagnoses: The differential diagnosis associated with the presentation includes As above Admission/Observation Consideration of admission/observation: Escalation of care including admission/observation considered Lab Data MDM Lab Attestation statement: I reviewed the patient's lab results. 06/22/24 17:43 06/22/24 17:43 Labs: Lab Results 06/22/24 Range/Units 17:43 WBC 7.5 (4.8-10.8) X10*3/uL RBC 5.42 (4.60-5.80) X10*6/uL Hgb 15.0 (14.0-18.0) g/dl Hct 43.4 (42.0-52.0) % MCV 80.1 (80.0-98.0) fL MCH 27.7 (27.0-33.0) pg MCHC 34.6 (31.0-36.0) g/dl RDW 12.8 (11.0-16.0) % Plt Count 211 (160-400) X10*3/uL MPV 10.2 (9.4-12.4) fL Immature Gran % (Auto) 0.3 (0.0-0.4) % Neut % (Auto) 55.3 (45-73) % Lymph % (Auto) 32.2 (20-40) % Amador % (Auto) 7.6 (2-11) % Eos % (Auto) 4.2 H (0-4) % Baso % (Auto) 0.4 (0-2) % Lymph # (Auto) 2.4 (1.2-4.9) X10*3/uL [place] # (Auto) 0.6 (0.1-1.2) X10*3/uL Eos # (Auto) 0.3 (0.0-0.4) X10*3/uL Baso # (Auto) 0.0 (0.0-0.2) X10*3/uL Abs Immat Gran (auto) 0.02 (0.00-0.03) X10*3/uL Absolute Neuts (auto) 4.1 (2.0-8.3) x10*3/uL Absolute Nucleated RBC 0.000 (0.0-0.012) X10*3/uL Nucleated RBC % (auto) 0.0 (0.0-0.2) /100WBC Sodium 141 (135-145) mmol/L Potassium 4.0 (3.3-5.1) mmol/L Chloride 107 (96-108) mmol/L Carbon Dioxide 24 (22-29) mmol/L Anion Gap 14 (12-20) BUN 18 H (9-16) mg/dL Creatinine 0.91 (0.5-1.4) mg/dL Estim Creat Clear Calc 171.0 Estimated GFR > 60 Random Glucose 99 (60-115) mg/dL Calcium 9.4 (8.4-10.2) mg/dL Magnesium 1.9 (1.6-2.6) mg/dL Total Bilirubin 0.6 (0.0-1.0) mg/dL Direct Bilirubin 0.2 (0.0-0.5) mg/dL AST 52 H (5-37) U/L ALT 135 H (0-40) U/L Alkaline Phosphatase 76 (39-117) U/L Troponin I High Sens < 2.7 (<3.5-35.0) ng/L Total Protein 6.5 (6.5-8.0) g/dL Albumin 4.1 (3.5-5.0) g/dL Urine Color Yellow Urine Appearance Turbid Urine pH 7.5 (5.0-9.0) Ur Specific [employer] Mdl 1.025 (1.005-1.025) Urine Protein Negative (Neg-Trace) mg/dL Urine Glucose (UA) Negative (Negative) mg/dL Urine Ketones Negative (Negative) mg/dL Urine Blood Negative (Negative) Urine Nitrite Negative (Negative) Ur Leukocyte Esterase Negative (Negative) Influenza Type A (PCR) NEGATIVE (Negative) Influenza Type B (PCR) NEGATIVE (Negative) RSV RNA Qual (PCR) NEGATIVE (Negative) SARS-CoV-2 RNA (RT-PCR) POSITIVE A (Negative) S. pyogenes GrpA NYDIA Negative (Negative) Independent Interpretation I performed an independent interpretation of an: EKG and Plain X-Ray Radiology Impression Discussion of test interpretation with radiology: I have reviewed the radiologist's reading. External Record Review External record reviewed: Inpatient record, Office record, Outpatient record, Prior outpatient labs, Prior outpatient radiology, Primary care record and Outside ED record Tests considered The following testing was considered but not selected: As above Prescription Management I considered prescription management with: Other Chronic Conditions Patient?s care impacted by: Other (Autism, GERD) Social Determinants Patient?s care significantly limited by Social Determinants of Health including: Problems related to primary support group and Unemployment Discharge Plan Discharge Clinical Impression: COVID-19 Patient Disposition: Home, Self-Care Instructions: COVID-19 (Coronavirus Disease 2019) (ED) Additional Instructions: YOU HAVE COVID-19 At this time you will be okay for discharge. Please self isolate for 5 days. Do not expose yourself to others. You may not go to work or school. Please continue to follow cold instructions and wash your hands frequently. You may take Tylenol / Motrin as directed on the bottle for pain or fever. If you have constant or persistent shortness of breath, fever unresolved with medications, chest pain, or your unable to eat or drink please return to the ED CDC Guidelines for home isolation: - Stay away from others - WEAR A MASK if you are sick AND STAY HOME - Cover your mouth and nose with a tissue when you cough or sneeze. Dispose of tissues in a lined trash can and wash your hands immediately with soap and water for at least 20 seconds. If soap and water are not available, clean hands with alcohol-based hand news production supervisor that contains at least 60% alcohol. - Clean your hands often with soap and water for at least 20 seconds - Avoid touching your eyes, nose and mouth with unwashed hands - Do not share dishes, drinking glasses, cups, eating utensils, towels, or bedding with other people in your home. After using these items, wash them thoroughly with soap and water or put in the care assistant. - Clean high-touch surfaces in your isolation area ( sick room and bathroom) every day; let a caregiver clean and disinfect high-touch surfaces in other areas of the home. Clean the area or item with soap and water or another detergent if it is dirty. Then, use a household disinfectant. - Limit contact with pets and animals: If you must care for a pet, wash your hands before and after interacting with them) Prescriptions: No Action atomoxetine [Strattera] 60 mg capsule 60 mg PO QAM tetrabenazine [Xenazine] 12.5 mg tablet 12.5 mg PO DAILY Vraylar 3 mg capsule 4.5 mg PO DAILY albuterol sulfate 90 mcg/actuation HFA aerosol inhaler 2 puff inhalation Q4-6H PRN (Reason: Wheezing) Qty: 8.5 0RF doxycycline monohydrate 100 mg capsule 100 mg PO BID 10 Days Qty: 20 0RF cetirizine [All Day Allergy (cetirizine)] 10 mg tablet 10 mg PO DAILY PRN (Reason: allergy symptoms) 90 Days Qty: 90 3RF Referrals: Juan Barron MD [Primary Care Provider] - 1 week Print Language: Malawian
[2024-06-22 17:46] LABS: MANUAL DIFF FLAG NO
[2024-06-22 17:48] LABS: Basophils Percent Auto 0.4 % (0-2); Eosinophils Absolute Auto 0.3 X10*3/uL (0.0-0.4); Eosinophils Percent Auto 4.2 % (0-4); Hematocrit 43.4 % (42.0-52.0); Imm Gran Abs Auto 0.02 X10*3/uL (0.00-0.03); Imm Gran Pct Auto 0.3 % (0.0-0.4); Lymphocytes Absolute Auto 2.4 X10*3/uL (1.2-4.9); Lymphocytes Percent Auto 32.2 % (20-40); Mean Corpuscular HGB Conc 34.6 g/dl (31.0-36.0); Mean Corpuscular Hemoglobin 27.7 pg (27.0-33.0); Mean Corpuscular Volume 80.1 fL (80.0-98.0); Mean Platelet Volume 10.2 fL (9.4-12.4); Monocytes Absolute Auto 0.6 X10*3/uL (0.1-1.2); Monocytes Percent Auto 7.6 % (2-11); Neutrophils Absolute Auto 4.1 x10*3/uL (2.0-8.3); Neutrophils Percent Auto 55.3 % (45-73); Platelet Count 211 X10*3/uL (160-400); Red Blood Count 5.42 X10*6/uL (4.60-5.80); Red Cell Distribution Width 12.8 % (11.0-16.0); White Blood Count 7.5 X10*3/uL (4.8-10.8)
[2024-06-22 17:56] LABS: IDNOW Serial# 08D9AD1C; Strep A Nucleic Acid Negative (Negative)
[2024-06-22 18:00] VITALS: BP 116/56; PULSE 72; RESP 16; TEMP 36.4; O2SAT 98
[2024-06-22 18:07] LABS: Alanine Aminotransferase 135 U/L (0-40); Albumin Level 4.1 g/dL (3.5-5.0); Alkaline Phosphatase 76 U/L (39-117); Anion Gap 14 (12-20); Aspartate Amino Transferase 52 U/L (5-37); Bilirubin Direct 0.2 mg/dL (0.0-0.5); Bilirubin Total 0.6 mg/dL (0.0-1.0); Blood Urea Nitrogen 18 mg/dL (9-16); Calcium 9.4 mg/dL (8.4-10.2); Carbon Dioxide 24 mmol/L (22-29); Chloride 107 mmol/L (96-108); Estimated Glomerular Filt Rate > 60; Glucose Random 99 mg/dL (60-115); Magnesium 1.9 mg/dL (1.6-2.6); Sodium 141 mmol/L (135-145); Total Protein 6.5 g/dL (6.5-8.0)
[2024-06-22 18:11] LABS: Appearance Urine Turbid; Color Urine Yellow; Glucose Urine UA Negative (Negative); Leukocyte Esterase Urine Negative (Negative); Nitrite Urine Negative (Negative); PH 7.5 (5.0-9.0); Specific Gravity - Urine 1.025 (1.005-1.025); Urine Blood Negative (Negative); Urine Ketones Negative (Negative); Urine Protein Negative (Neg-Trace)
[2024-06-22 18:17] VITALS: BP 116/56; PULSE 72
[2024-06-22 18:18] VITALS: BP 125/56; PULSE 74
[2024-06-22 18:20] VITALS: BP 116/47; PULSE 91
[2024-06-22 18:25] LABS: Influenza A PCR NEGATIVE (Negative); Influenza B PCR NEGATIVE (Negative); Resp Syncy Virus RNA Qual PCR NEGATIVE (Negative); SARS COV2 PCR INHOUSE POSITIVE (Negative)
[2024-06-22 18:31] LABS: Troponin-I High Sensitivity < 2.7 ng/L (<3.5-35.0)
[2024-06-22 18:59] VITALS: BP 116/47; PULSE 91; RESP 16; TEMP -17.7; TEMP 0
[2024-06-24 18:04] LABS: Lyme Abs Screen <0.90 index
[2024-06-24 18:19] LABS: A. Phagocytphilium DNA,RT-PCR NOT DETECTED (NOT DETECTED); Babesia Microti DNA, RT-PCR NOT DETECTED (NOT DETECTED); Borrelia Miyamotoi,DNA RT-PCR NOT DETECTED (NOT DETECTED); E.Chaffeensis DNA RT-PCR NOT DETECTED (NOT DETECTED); Lyme(Borrelia ssp)DNA RT-PCR NOT DETECTED (NOT DETECTED)
== END 2024-06-22 19:00 | disposition home or self-care (01) ==
PROVIDERS: Physician Assistant; Emergency Provider Emergency Medicine; PCP Family Medicine
DX: U07.1 COVID-19 (principal); R42 Dizziness and giddiness
CPT/HCPCS: 0241U; 71045; 80048; 80076; 81003; 83735; 84484; 85025; 86617; 86618; 87468; 87469; 87478; 87484; 87651; 87798; 93005; 99284

== ENCOUNTER 2024-07-26 15:18 | Outpatient (AMB) | payer OTHER, SELFPAY ==
[2024-07-26 15:24] VITALS: BP 132/60; PULSE 98; O2SAT 96; BMI 40.0
--- NOTE | 2024-07-26 15:24 | MHC.OFFVIS ---
Vital Signs 07/26/24 15:24 Height 5 ft 10 in Weight 278 lb 10.629 oz BMI 40.0 BP 132/60 Blood Pressure Location Lt brachial Position Sitting Pulse 98 Pulse Source Pulse Oximeter Pulse Oximetry (%) 96 Oxygen Delivery Method Room Air Intake Visit Reasons: GERD, Vomiting Intake Note: Caleb presents in office today for a scheduled initial assessment. CC: Pt referred by PCP for GERD sx and N/V. Pt mother states that fundoplication was last checked when he was ~18-20 years of age. Pt mother states that the provider was surprised that it appeared so well. Pt mother reports that there was the presence of a foreign body ~ x1 year ago. 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 Pt mother also reports that he often has difficulty with his airway and breathing, pt does have a hx of asthma. Pt mother reports that it is often noticeable while he has his head down or while he is sleeping. Pt mother also reports that he has gained approximately 50 lbs over the last month despite no change in his ADLs. Pt will often begin eating as normal and suddenly begin projectile vomiting according to his mother. Pt mother states that his sx began all around the same time as the initial incident. Pt mother does state that there was some presence of hematemesis in the beginning. However, they have not seen any presence of blood to this point. Pt reports he can feel what he describes as a foreign body. Pt reports that he can feel something moving. Pt has prior hx of EGD and colo. Pt mother states that this was approximately 4 years ago via [facility]. Online Tutor Required: No Accompanied by: Mother Allergies Sulfa (Sulfonamide Antibiotics) [SULFA(SULFONAMIDE ANTIBIOTICS)] Allergy (Intermediate, Verified 08/02/24 13:31) RASH amoxicillin [From AUGMENTIN] Adverse Reaction (Mild, Verified 08/02/24 13:31) YEAST INFECTION clavulanic acid [From AUGMENTIN] Adverse Reaction (Mild, Verified 08/02/24 13:31) YEAST INFECTION HPI HPI GERD, Vomiting: Details: 23-year-old male medical history of exercise induced asthma, tourett's, autism, history of fundoplication is here accompanied by his mom. Patient was sent to us by his PCP. Patient and his mom reports that he frequently will have postprandial nausea and vomiting. Reports pain. History of fundoplication as a child, last endoscopy was done when he was in his late teens and everything looked normal at that time according to patient's mom. Patient's mom report that frequently after he eats he will have food coming up and he will be vomiting. Patient and his mom both admit that he eats very quickly trying to finish. He does eat large amount of meals at 1 sitting. Patient denies any choking episodes, however patient's mom reports that year ago or so had glass stuck in during work. Patient's mom believes that it fell in trouble inside to his throat. Patient is pointing to his laryngeal prominence and states that it hurts when he pushed his on it. Patient reports occasional dyspepsia without dysphagia or odynophagia. Reports that he is having frequent abdominal bloating. Admits to be constipated. When going to the bathroom patient is in patient about sitting on the toilet to have a bowel movement. Patient denies melena, hematochezia, unintentional weight loss or ribbon like stools. [facility] Medical History Abnormal EKG Chest pain Palpitations GERD (gastroesophageal reflux disease) Autism Tourette's Surgical History [place] teeth extracted History of fundoplication Family History Sister Brain cancer Social History Housing: House Alcohol intake: never Patient Tobacco Use Status: Never used Tobacco e-Cigarette/Vaping Use: Never Used Current occupational status: unemployed Review of Systems Const Denies weight gain and Denies weight loss ENT Reports no additional complaints, Reports dysphagia and Denies odynophagia Card Reports no additional complaints Resp Reports no additional complaints GI Reports abdominal pain, Denies belching, Denies melena, Reports bloating, Denies change in bowel habits, Reports constipation, Reports dysphagia, Denies excessive flatus, Denies dyspepsia, Reports heartburn, Denies diarrhea, Denies loose stools, Reports nausea, Denies odynophagia and Reports vomiting Reports no additional complaints Musc Reports no additional complaints Neuro Reports no additional complaints Psych Reports no additional complaints Endo Reports no additional complaints Physical Exam Vital Signs: Last Vital Signs Pulse 98 07/26/24 15:24 BP 132/60 07/26/24 15:24 Pulse Ox 96 07/26/24 15:24 Oxygen Delivery Method Room Air 07/26/24 15:24 BMI result Body Mass Index 40.0 Const General: healthy appearing and no acute distress Orientation/consciousness: patient oriented x3 Limitations: behavioral limitations (Patient has autism) Resp Effort & Inspection: normal respiratory effort, able to speak in complete sentences, no tracheal deviation and symmetric chest movement Auscultation: clear to auscultation bilaterally Cardio Rate: regular rate GI Inspection: Yes normal to inspection, No distended and Yes obesity Palpation (GI): Soft to palpation, not firm, nontender and No hepatosplenomegaly present Auscultation: normal bowel sounds General: Yes no CVA tenderness Back/Spine/Pelvis Back: no CVA tenderness Skin General skin exam: elasticity normal, turgor normal and dry skin Neuro General: patient oriented x3 Psych Appearance: grossly normal Mental Status: mental status grossly normal Assessment & Plan Assessment & Plan (1) GERD (gastroesophageal reflux disease): Code(s): K21.9 - Gastro-esophageal reflux disease without esophagitis Qualifiers: Esophagitis presence: esophagitis presence not specified Qualified Code(s): K21.9 - Gastro-esophageal reflux disease without esophagitis (2) Postprandial epigastric pain: Code(s): R10.13 - Epigastric pain (3) Globus sensation: Code(s): R09.A2 - Foreign body sensation, throat (4) Constipation: Code(s): K59.00 - Constipation, unspecified Qualifiers: Constipation type: slow transit constipation Qualified Code(s): K59.01 - Slow transit constipation Plan Discussed with patient and mom the importance of eating smaller meals and more often. Eating slow and chew food well. Patient will start pantoprazole in the morning. Avoid dietary triggers and late night snacking. Staying upright for minimum 3 hours after meals discussed with patient. Will send patient for upper GI with barium swallow. Patient will start taking Dulcolax tablets in the evening. Increase fluid intake and activity to promote better bowel motility. Patient will follow-up in the office in 2 months, sooner on as needed basis. Both patient and his mom are agreeable to plan of care and verbalizes understanding of instructions. They were given the opportunity to ask questions and all questions answered. Thank you for allowing me to participate in his care Orders: Orders FL upper GI w Ba Swallow 07/26/24 R13.10 - Dysphagia, unspecified, K21.9 - Gastro-esophageal reflux disease without esophagitis Medications: New pantoprazole take one tablet half an hour before breakfast 40 mg PO DAILY 30 tabs 2RF K21.9 - Gastro-esophageal reflux disease without esophagitis bisacodyl (Dulcolax (bisacodyl)) 10 mg (2 x 5 mg) PO BEDTIME 180 tabs 4RF Coding Level of Care Code New Pt Level 4 (09273) Diagnoses Gastroesophageal reflux disease, unspecified whether esophagitis present K21.9 Esophagitis presence: esophagitis presence not specified Postprandial epigastric pain R10.13 Globus sensation R09.A2 Slow transit constipation K59.01 Constipation type: slow transit constipation Time Spent (min) 45 Comment 30 minutes spent with patient and additional 15 minutes spent reviewing his records
== END 2024-07-26 16:17 | disposition home or self-care (01) ==
PROVIDERS: PCP Family Medicine; Visit Provider Nurse Practitioner Family
DX: K21.9 Gastro-esophageal reflux disease without esophagitis (principal); R10.13 Epigastric pain; R09.A2 Foreign body sensation, throat; K59.01 Slow transit constipation
CPT/HCPCS: 99204

== ENCOUNTER → 2024-07-26 15:18 | Outpatient (BNVA) | payer OTHER, SELFPAY | PROVIDERS: PCP Family Medicine; Visit Provider Nurse Practitioner Family | DX: K21.9 Gastro-esophageal reflux disease without esophagitis (principal); R13.10 Dysphagia, unspecified; R11.10 Vomiting, unspecified; R10.13 Epigastric pain; R09.A2 Foreign body sensation, throat; K59.01 Slow transit constipation | CPT/HCPCS: 99202 ==

== ENCOUNTER 2024-08-02 13:17 | Outpatient (AMB) | payer OTHER, SELFPAY ==
--- NOTE | 2024-08-02 13:24 | AM.OFFWIN_ITS ---
Intake Vital Signs 08/02/24 13:31 Weight 276 lb BP 130/80 Blood Pressure Location Lt brachial Position Sitting Pulse 87 Pulse Source Pulse Oximeter Pulse Oximetry (%) 96 Oxygen Delivery Method Room Air Intake Visit Reasons: EP Sinus congestion Intake Note: Patient here for sinus congestion, phlegm which has been present for about 1 week. Patient Tobacco Use Status: Never used Tobacco Allergies Sulfa (Sulfonamide Antibiotics) [SULFA(SULFONAMIDE ANTIBIOTICS)] Allergy (Intermediate, Verified 08/02/24 13:31) RASH amoxicillin [From AUGMENTIN] Adverse Reaction (Mild, Verified 08/02/24 13:31) YEAST INFECTION clavulanic acid [From AUGMENTIN] Adverse Reaction (Mild, Verified 08/02/24 13:31) YEAST INFECTION Do you need a note to return to daycare/school/sports/work: No HPI HPI Comments History of Present Illness Details 24 y/o male patient who presents to the walk in clinic with c/o URI symptoms. Reports Sinus and chest congestion for 1 week. Symptoms on/off. Denies fevers, chills, nausea or vomiting. He does endorse generalized malaise. [facility] Medical History Abnormal EKG Chest pain Palpitations GERD (gastroesophageal reflux disease) Autism Tourette's Surgical History [place] teeth extracted History of fundoplication Family History Sister Brain cancer Social History Housing: House Alcohol intake: never Patient Tobacco Use Status: Never used Tobacco e-Cigarette/Vaping Use: Never Used Current occupational status: unemployed Review of Systems Const All systems reviewed & are unremarkable except as noted in HPI and below Physical Exam Vital Signs: Last Vital Signs Pulse 87 08/02/24 13:31 BP 130/80 08/02/24 13:31 Pulse Ox 96 08/02/24 13:31 Oxygen Delivery Method Room Air 08/02/24 13:31 Const General: cooperative, comfortable and no acute distress Nutritional Appearance: obese Orientation/consciousness: patient oriented x3 HEENT Head: Yes normocephalic Ears: external ears normal, TM normal on the right and TM abnormal erythematous on the left; not perforated and not scarred General nose exam: Normal external nose present Face and sinus: Yes sinuses nontender Mouth: moist mucous membranes Throat: Yes uvula midline Resp Effort & Inspection: normal respiratory effort and able to speak in complete sentences Auscultation: clear to auscultation bilaterally, no crackles, no rales, no rhonchi and no wheezes Cardio Heart sounds: S1 normal heart sound present and S2 normal heart sound present Neuro General: patient oriented x3 Psych Speech and movement: Normal speech and movement present Assessment & Plan Assessment & Plan (1) URI, acute: Code(s): J06.9 - Acute upper respiratory infection, unspecified Plan: Ordered SARs OTC cold remedies Rest and hydrate well Acetaminophen for pain relief. Orders: Orders SARS-CoV2/FLU/RSV Today J06.9 - Acute upper respiratory infection, unspecified Coding Level of Care Code Est Pt Level 3 (04578) Diagnoses URI, acute J06.9 Time Spent (min) 15
[2024-08-02 13:31] VITALS: BP 130/80; PULSE 87; O2SAT 96
== END 2024-08-02 13:52 | disposition home or self-care (01) ==
PROVIDERS: PCP Family Medicine; Visit Provider Nurse Practitioner Family
DX: J06.9 Acute upper respiratory infection, unspecified (principal)

== ENCOUNTER 2024-08-22 14:46 | Outpatient (AMB) | payer OTHER, SELFPAY ==
--- NOTE | 2024-08-22 15:10 | A.OFFPC_ITS ---
Vital Signs 08/22/24 15:11 Height 5 ft 10 in Weight 276 lb 4 oz BMI 39.6 BP 114/64 Blood Pressure Location Lt brachial Position Sitting Respiration 16 Pulse 78 Pulse Source Pulse Oximeter Pulse Oximetry (%) 97 Oxygen Delivery Method Room Air Intake Visit Reasons: FollowUp Allergies Sulfa (Sulfonamide Antibiotics) [SULFA(SULFONAMIDE ANTIBIOTICS)] Allergy (Intermediate, Verified 08/02/24 13:31) RASH amoxicillin [From AUGMENTIN] Adverse Reaction (Mild, Verified 08/02/24 13:31) YEAST INFECTION clavulanic acid [From AUGMENTIN] Adverse Reaction (Mild, Verified 08/02/24 13:31) YEAST INFECTION Tobacco use date assessed: 11/29/23 Dental Screening Dental Screen Date: 11/29/23 HPI FollowUp HPI Details 24 y/o male presents to f[facility]u [facility]. Has complaints of ankle pain today. Notes he has hurt it before in the past when someone had fallen on him. Hx of elevated liver enzymes and fatty liver disease. FORMERLY [facility] Medical History Abnormal EKG Chest pain Palpitations GERD (gastroesophageal reflux disease) Autism Tourette's Surgical History [place] teeth extracted History of fundoplication Family History Sister Brain cancer Social History Housing: House Alcohol intake: never Patient Tobacco Use Status: Never used Tobacco e-Cigarette/Vaping Use: Never Used Current occupational status: unemployed Questionnaire PHQ-9 Over the last 2 weeks, how often have you been bothered by any of the following problems? 1. Little interest or pleasure in doing things: nearly every day 2. Feeling down, depressed, or hopeless: nearly every day 3. Trouble falling or staying asleep, or sleeping too much: nearly every day 4. Feeling tired or having little energy: nearly every day 5. Poor appetite or overeating: nearly every day 6. Feeling bad about yourself - or that you are a failure or have let yourself or your family down: nearly every day 7. Trouble concentrating on things, such as reading the newspaper or watching television: nearly every day 8. Moving or speaking so slowly that other people could have noticed. Or the opposite - being so fidgety or restless that you have been moving around a lot more than usual: nearly every day 9. Thoughts that you would be better off or of hurting yourself in some way: more than half the days Total score: 26 Source: Developed by Drs. Javier Humphreys, Aliza Branch, Mayco Herbert and colleagues, with an educational kimberly from [employer]. Thrive Questionnaire I am a: Parent/Caregiver What is your living situation today?: I have a steady place to live Within the past 12 months, did the food you bought not last and you didn't have the money to get more?: Never true Within the past 12 months, did you worry whether your food would run out before you got money to buy more?: Never true Do you have trouble paying for medicines?: No Do you have trouble getting transportation to medical appointments?: No Do you have trouble paying your heating and electricity bill?: No Do you have trouble taking care of your child, family member or friend?: No Do you have trouble with day-to-day activities such as bathing, preparing meals, shopping, managing finances, etc.?: Yes Are you currently unemployed and looking for a job?: No Are you interested in more education?: Yes Please select the resources that you would like help with: Education Currently or been in a relationship where the following occur: No concerns reported THRIVE Score: 0 AUDIT C Alcohol Use Questionnaire (AUDIT-C) 1. How often do you have a drink containing alcohol?: Never Total Score: 0 MIRA-7 AMB Questionnaire MIRA-7 Date MIRA - 7 assessed: 11/29/23 Feeling nervous, anxious, or on edge: 3 = Nearly every day Not being able to stop or control worryin = Nearly every day Worrying too much about different things: 3 = Nearly every day Trouble relaxin = Nearly every day Being so restless that it is hard to sit still: 3 = Nearly every day Becoming easily annoyed or irritable: 3 = Nearly every day Feeling afraid as if something awful might happen: 3 = Nearly every day Total MIRA-7 score (0-4 normal; 5-9 mild; 10-14 moderate; 15-21 severe): 21 Source: Developed by Drs. Javier Humphreys, Aliza Branch, Mayco Herbert and colleagues, with an educational kimberly from [employer]. Review of Systems Const Denies chills, Denies fatigue, Denies fever(s), Denies headache(s) and Denies weakness ENT Denies dizziness and Denies headache(s) Card Denies chest pain, Denies lightheadedness, Denies dyspnea and Denies other (Palpitations) Resp Denies cough, Denies dyspnea, Denies wheezing and Denies other ( shortness of breath) Musc Reports back pain, Denies numbness and Denies tingling Neuro Denies dizziness, Denies headache(s), Denies numbness, Denies tingling, Denies paresthesias and Denies weakness Psych Denies anxiety and Denies depression Endo Denies fatigue Aller/Immun Denies wheezing Physical exam (Primary Care) Vital Signs: Last Vital Signs Pulse 78 08/22/24 15:11 Resp 16 08/22/24 15:11 BP 114/64 08/22/24 15:11 Pulse Ox 97 08/22/24 15:11 Oxygen Delivery Method Room Air 08/22/24 15:11 BMI result Body Mass Index 39.6 Tobacco/Smoking Status: Tobacco use Status Tobacco use date assessed 11/29/23 08/22/24 15:16 Patient Tobacco Use Status Never used Tobacco 08/22/24 15:16 e-Cigarette/Vaping Use Never Used 08/22/24 15:16 PHQ-9: PHQ-9 Score PHQ-9: Total score 26 08/22/24 15:16 Currently or been in a relationship where the following occur: No concerns reported Const General: no acute distress and well developed Nutritional Appearance: well nourished Orientation/consciousness: patient oriented x3 HENMT Head: Yes normocephalic and Yes atraumatic Eyes General: appearance normal, both eyes and all related structures Pupils: Equal, round and reactive pupils present EOM: EOMs intact bilaterally Resp Effort & Inspection: normal respiratory effort Auscultation: clear to auscultation bilaterally Cardio Rate: regular rate Rhythm: regular rhythm Heart sounds: S1 normal heart sound present, S2 normal heart sound present, no gallops, no murmurs and no rubs Neuro General: patient oriented x3 and gait normal Cranial nerves: Yes Equal, round and reactive pupils present Psych Affect: normal affect Coding Level of Care Code Est Pt Level 3 (13788) Diagnoses Ankle pain M25.579 Asthma J45.20 Asthma complication type: uncomplicated Asthma persistence: intermittent Asthma severity: mild Fatty liver disease, nonalcoholic K76.0 Autism F84.0 Assessment & Plan Assessment & Plan (1) Ankle pain: Code(s): M25.579 - Pain in unspecified ankle and joints of unspecified foot Category: Medical Plan: Right?ankle?pain. Patient?sometimes?walks?many?miles Will?check?an?x-ray?to?rule?out?stress?fracture Start?physical?therapy Can?use?topical?Voltaren?gel Ice/heat May?need?ankle?brace?for?work?but?will?discuss?at?next?visit (2) Asthma: Code(s): J45.909 - Unspecified asthma, uncomplicated Category: Medical Qualifiers: Asthma complication type: uncomplicated Asthma persistence: intermittent Asthma severity: mild Qualified Code(s): J45.20 - Mild intermittent asthma, uncomplicated Plan: Lungs?are?clear?today Check?pulmonary?function?testing Continue?albuterol?inhaler (3) Fatty liver disease, nonalcoholic: Code(s): K76.0 - Fatty (change of) liver, not elsewhere classified Category: Medical Plan: Elevated?liver?enzyme Encouraged?weight?loss Will?recheck?liver?enzymes?at?a?subsequent?visit (4) Autism: Code(s): F84.0 - Autistic disorder Category: Medical Plan: Stable Orders: Orders RT pft w methacholine Today J45.990 - Exercise induced bronchospasm XR ankle RT min 3V Today M25.579 - Pain in unspecified ankle and joints of unspecified foot PT Evaluation and Treatment Today M25.579 - Pain in unspecified ankle and joints of unspecified foot Medications: New diclofenac sodium 1% (Voltaren Arthritis Pain) apply to single elbow, wrist or hand; for hand includes palm/fingers/back of hand 2 grams topical QID 30 days 100 grams 3RF Changed From tetrabenazine (Xenazine) 12.5 mg PO DAILY 30 tabs 0RF To tetrabenazine (Xenazine) 12.5 mg PO TID 30 days 90 tabs 1RF
[2024-08-22 15:11] VITALS: BP 114/64; PULSE 78; RESP 16; O2SAT 97; BMI 39.6
== END 2024-08-22 15:46 | disposition home or self-care (01) ==
LOC: HO.HMCFM 14:47
PROVIDERS: PCP Family Medicine; Visit Provider Family Medicine
DX: M25.579 Pain in unspecified ankle and joints of unspecified foot (principal); J45.20 Mild intermittent asthma, uncomplicated; K76.0 Fatty (change of) liver, not elsewhere classified; F84.0 Autistic disorder

== ENCOUNTER → 2024-08-22 14:46 | Outpatient (BNVA) | payer OTHER, SELFPAY | PROVIDERS: PCP Family Medicine; Visit Provider Family Medicine | DX: M25.571 Pain in right ankle and joints of right foot (principal); J45.20 Mild intermittent asthma, uncomplicated; K76.0 Fatty (change of) liver, not elsewhere classified; F84.0 Autistic disorder | CPT/HCPCS: 99212 ==

== ENCOUNTER 2024-09-07 11:42 | Outpatient (AMB) | payer OTHER, SELFPAY ==
[2024-09-07 11:48] VITALS: BP 130/76; PULSE 91; TEMP 36.6; O2SAT 96; BMI 39.9
--- NOTE | 2024-09-07 11:48 | MHC.OFFWIV ---
Intake Vital Signs 09/07/24 11:48 Height 5 ft 10 in Weight 278 lb BMI 39.9 BP 130/76 Blood Pressure Location Lt brachial Position Sitting Pulse 91 Pulse Source Pulse Oximeter Temp 97.8 F Temp Source Oral Pulse Oximetry (%) 96 Oxygen Delivery Method Room Air Intake Visit Reasons: EP rash Intake Note: Pt is here today c/o rash all over body Patient Tobacco Use Status: Never used Tobacco Allergies Sulfa (Sulfonamide Antibiotics) [SULFA(SULFONAMIDE ANTIBIOTICS)] Allergy (Intermediate, Verified 09/20/24 16:06) RASH amoxicillin [From AUGMENTIN] Adverse Reaction (Mild, Verified 09/20/24 16:06) YEAST INFECTION clavulanic acid [From AUGMENTIN] Adverse Reaction (Mild, Verified 09/20/24 16:06) YEAST INFECTION HPI EP rash HPI Details Caleb is a 24-year-old male with cognitive delays, who comes to the walk-in clinic with his mother presenting for skin issues. Mother reports that patient has multiple lesions on his arms torso legs and feet, that are extremely itchy and concerning. 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 He is not reliable for washing thoroughly, and tends to re where dirty clothing. Mother started noticing that he was picking his feet, and scratching at them. He then started to complain of itching to the legs as well as the arms and torso. There is no fever or chills, myalgias or malaise, dizziness or vertigo, weakness, nausea vomiting or diarrhea, headache, runny nose cough or other respiratory symptoms, abdominal pain or pelvic pain, urinary symptoms, chest pain or shortness of breath, or other significant associated symptoms. They deny recent travel, but there have been some sleep overs, with friends staying at the house on the couch. [facility] Medical History (Updated 09/20/24 @ 16:39 by Stephy Ibarra, [facility]) GERD (gastroesophageal reflux disease) Abnormal EKG Chest pain Palpitations Autism Tourette's Surgical History [place] teeth extracted History of fundoplication Family History Sister Brain cancer Social History (Reviewed 07/26/24 @ 15:36 by TOMASA Mckenzie Housing: House Alcohol intake: never Patient Tobacco Use Status: Never used Tobacco e-Cigarette/Vaping Use: Never Used Current occupational status: unemployed Cognitive needs: No Hearing needs: No Vision needs: No Physical Exam Vital Signs: Last Vital Signs Temp 97.8 F 09/07/24 11:48 Pulse 91 09/07/24 11:48 BP 130/76 09/07/24 11:48 Pulse Ox 96 09/07/24 11:48 Oxygen Delivery Method Room Air 09/07/24 11:48 BMI result Body Mass Index 39.9 Skin Other: Patient has multiple lesions throughout his body, with multiple papules and vesicles in the web spaces of his hands and on his arms and legs that are consistent with possible scabies infestation. He also has scattered maculopapular lesions on his arms and his feet, which are suspicious for contact dermatitis. Assessment & Plan Assessment & Plan (1) Contact dermatitis: Code(s): L25.9 - Unspecified contact dermatitis, unspecified cause Qualifiers: Contact dermatitis trigger: unspecified trigger Contact dermatitis type: unspecified Qualified Code(s): L25.9 - Unspecified contact dermatitis, unspecified cause Plan: Patient has a history of contact dermatitis, and I think this might be starting on his hands and arms. 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 (2) Fungal infection: Code(s): B49 - Unspecified mycosis Plan: I am not entirely convinced that his infection is not scabies infestation however. Therefore I advised to patient's mother that they trial a treatment of permethrin cream overnight to see if this helps to alleviate symptoms quickly, as he is very anxious about the itching. He also can put the antifungal cream on his feet, like he has done in the past (3) Cellulitis: Code(s): L03.90 - Cellulitis, unspecified Plan: There are a few lesions with significant edema, erythema and warmth surrounding them. I think he is picking at them and as he does not wash thoroughly, the he is starting to get infections from the initial pruritic rash. Medications: New doxycycline hyclate 100 mg PO BID 20 tabs 0RF 10 days prednisone then take 3 tabs for 3 days, then 2 tabs for 3 days, then 1 tab for 3 days. 40 mg (4 x 10 mg) PO DAILY 30 tabs 0RF 3 days naftifine 2% Apply to athlete's foot areas 1 appl topical DAILY 60 grams 0RF 2 weeks permethrin 5% apply second treatment 14 days after first treatment if live scabies remain 1 appl topical Q14D 60 grams 0RF 2 doses Coding Level of Care Code Est Pt Level 4 (88575) Diagnoses Contact dermatitis, unspecified contact dermatitis type, unspecified trigger L25.9 Contact dermatitis trigger: unspecified trigger Contact dermatitis type: unspecified Fungal infection B49 Cellulitis L03.90
== END 2024-09-07 13:54 | disposition home or self-care (01) ==
PROVIDERS: PCP Family Medicine; Visit Provider Physician Assistant Medical
DX: L25.9 Unspecified contact dermatitis, unspecified cause (principal); B49 Unspecified mycosis; L03.90 Cellulitis, unspecified

== ENCOUNTER → 2024-09-07 11:42 | Outpatient (BNVA) | payer OTHER, SELFPAY | PROVIDERS: PCP Family Medicine | DX: L25.9 Unspecified contact dermatitis, unspecified cause (principal); B49 Unspecified mycosis; L03.90 Cellulitis, unspecified | CPT/HCPCS: 99212 ==

== ENCOUNTER 2024-09-07 21:08 | Emergency (ER) | payer OTHER, SELFPAY ==
[2024-09-07 21:14] VITALS: BP 137/68; PULSE 79; RESP 16; TEMP 36.7; O2SAT 100; BMI 39.9
--- NOTE | 2024-09-07 22:31 | ED_ITS ---
HPI - General Adult General Chief complaint: Skin/Abscess/Foreign Body Stated complaint: body rash, itchy Time Seen by Provider: 09/07/24 21:56 Source: patient, family, RN notes reviewed and old records reviewed Mode of arrival: ambulatory Limitations: no limitations History of Present Illness ED Provider: Charly HPI narrative: 24-year-old male past medical history significant for developmental delay presents for evaluation of a rash. Patient developed a rash on Monday, 5 days ago. The patient has been using a new soap, mostly in his under arms but he has no rash in that area. His rash is worse on his feet, arms and groin. He does have some rash on his abdomen and back but it is less severe here. There is no significant rash on his face. The rash is extremely itching the patient has been scratching for the last 5 days You went to urgent care today and was prescribed ?permethrin, doxycycline, an antifungal, and a topical steroid. ? The patient and mother present seeking a 2nd opinion, as they do not know which treatment to pursue Related Data Home Medications ?Medication ?Instructions ?Recorded ?Confirmed atomoxetine 60 mg capsule 60 mg PO QAM 02/25/23 04/19/24 (Strattera) cariprazine 4.5 mg capsule 4.5 mg PO DAILY 07/26/24 (Vraylar) sertraline 25 mg tablet 25 mg PO DAILY 09/07/24 Previous Rx's ?Medication ?Instructions ?Recorded cetirizine 10 mg tablet (All Day 10 mg PO DAILY PRN allergy 11/29/23 Allergy (cetirizine)) symptoms 90 days #90 tabs albuterol sulfate 90 mcg/actuation 2 puff inhalation Q4-6H PRN 04/19/24 aerosol inhaler Wheezing #8.5 grams pantoprazole 40 mg tablet,delayed 40 mg PO DAILY #30 tabs 07/26/24 release tetrabenazine 12.5 mg tablet 12.5 mg PO TID 30 days #90 tabs 08/22/24 (Xenazine) doxycycline hyclate 100 mg tablet 100 mg PO BID 10 days #20 tabs 09/07/24 naftifine 2 % topical cream 1 appl topical DAILY 2 weeks #60 09/07/24 grams permethrin 5 % topical cream 1 appl topical Q14D 2 doses #60 09/07/24 grams prednisone 10 mg tablet 40 mg (4 x 10 mg) PO DAILY 3 days 09/07/24 #30 tabs Allergies Allergy/AdvReac Type Severity Reaction Status Date / Time Sulfa (Sulfonamide Allergy Intermediate RASH Verified 09/07/24 21:17 Antibiotics) [SULFA(SULFONAMIDE ANTIBIOTICS)] amoxicillin [From [facility]UGMENTIN] AdvReac Mild YEAST Verified 09/07/24 21:17 INFECTION clavulanic acid AdvReac Mild YEAST Verified 09/07/24 21:17 [From [facility]UGMENT[facility]] INFECTION Review of Systems Constitutional: Constitutional: Denies body ache(s), Denies chills, Denies frequent falls and Denies snoring Eyes: Eyes: Denies exophthalmos ENT: Denies vertigo and Denies dizziness Cardiovascular: Cardiovascular: Denies chest pain and Denies dyspnea Respiratory: Respiratory: Denies cough, Denies dyspnea and Denies snoring Gastrointestinal: Gastrointestinal: Denies abdominal pain, Denies nausea and Denies vomiting Musculoskeletal: Musculoskeletal: Denies back pain Integumentary/Breasts: Skin/Breast: Reports pruritus, Reports erythema, Reports rash and Denies wounds Neurologic: Denies vertigo, Denies dizziness and Denies frequent falls Psychiatric: Psychiatric: Denies depression [facility] Past Medical History Medical History Abnormal EKG Chest pain Palpitations GERD (gastroesophageal reflux disease) Autism Tourette's Surgical History [place] teeth extracted History of fundoplication Family History Family History Sister Brain cancer Social History Social History Housing: House Alcohol intake: never Patient Tobacco Use Status: Never used Tobacco e-Cigarette/Vaping Use: Never Used Advance Directives: No Advance Directives Information Provided: Yes Do you have a plan to hurt others: No Plan Current occupational status: unemployed Physical Exam ED Vital Signs: Vital Signs - 24 hr 09/07/24 21:14 Temperature 98.0 F Pulse Rate 79 Respiratory Rate 16 Blood Pressure 137/68 Pulse Oximetry 100 Oxygen Delivery Method Room Air BMI result Body Mass Index 39.9 Const General: healthy appearing, comfortable, no acute distress, alert and awake Nutritional Appearance: well nourished Orientation/consciousness: patient oriented x3 HENMT Head: Yes normocephalic and Yes atraumatic Eyes Eyelids: Yes eyelids normal Conjunctivae: conjunctivae normal Sclerae: sclerae normal Corneas: corneas normal Pupils: Equal, round and reactive pupils present EOM: EOMs intact bilaterally Neck Neck: Yes full ROM Resp Effort & Inspection: normal respiratory effort, able to speak in complete sentences and not labored Cardio Rate: regular rate Rhythm: regular rhythm GI Inspection: No distended Palpation (GI): Soft to palpation, not firm, nontender, no guarding and not rigid Skin Other: Patient has a diffuse erythematous macular rash with 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 This does appear to be spreading proximally towards the torso. There are 2 small lesions on the right side of the scrotum. There are no significant lesions to the face. No oral, perioral or retropharyngeal edema. No involvement on buccal mucosa. This does involve the web spacing of the fingers until his but does not involve the palms or soles General skin exam: elasticity normal Neuro General: patient oriented x3 Cranial nerves: Yes Equal, round and reactive pupils present and Yes Bilaterally intact EOM present Cognition (Neuro): normal cognition Extrem Other: Moving all extremities well without any obvious deformities Medical Decision Making Medical Decision Making MDM Narrative: 24-year-old male presents for evaluation of a rash. The rash is most consistent with scabies. There are no significant vesicles that would be consistent with poison jammie, however the patient reports he did have these initially and scratch them off. 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 It is difficult to determine with 100% certainty if the rash is contact dermatitis versus scabies. I do not see any evidence of cellulitis or bacterial infection. It does not appear to be a fungal rash. I encouraged the patient to hold off on the doxycycline and fungal treatment. I recommend he use permethrin tonight and then start the topical steroid tomorrow Differential Diagnosis Differential Diagnoses: The differential diagnosis associated with the presentation includes Contact dermatitis Scabies Allergic dermatitis Urticaria Anaphylaxis Discharge Plan Discharge Clinical Impression: Dermatitis Patient Disposition: Home, Self-Care Instructions: Poison Jammie (ED), Scabies (ED) Additional Instructions: Your rash is most likely either scabies or poison jammie. I recommend that you use the permethrin cream tonight and start the steroids tomorrow I do not think that you need to use the antibiotic or the antifungal medication [facility] Address ?[address] [facility] [address], [place] [id number] Prescriptions: No Action atomoxetine [Strattera] 60 mg capsule 60 mg PO QAM albuterol sulfate 90 mcg/actuation HFA aerosol inhaler 2 puff inhalation Q4-6H PRN (Reason: Wheezing) Qty: 8.5 0RF cetirizine [All Day Allergy (cetirizine)] 10 mg tablet 10 mg PO DAILY PRN (Reason: allergy symptoms) 90 Days Qty: 90 3RF Vraylar 4.5 mg capsule 4.5 mg PO DAILY pantoprazole 40 mg tablet,delayed release (DR/EC) 40 mg PO DAILY Qty: 30 2RF Rx Instructions: take one tablet half an hour before breakfast sertraline 25 mg tablet 25 mg PO DAILY doxycycline hyclate 100 mg tablet 100 mg PO BID 10 Days Qty: 20 0RF permethrin 5 % cream 1 appl topical Q14D Qty: 60 0RF Rx Instructions: apply second treatment 14 days after first treatment if live scabies remain prednisone 10 mg tablet 40 mg PO DAILY 3 Days Qty: 30 0RF Rx Instructions: then take 3 tabs for 3 days, then 2 tabs for 3 days, then 1 tab for 3 days. naftifine 2 % cream 1 appl topical DAILY 14 Days Qty: 60 0RF Rx Instructions: Apply to athlete's foot areas tetrabenazine [Xenazine] 12.5 mg tablet 12.5 mg PO TID 30 Days Qty: 90 1RF Print Language: [place]
[2024-09-07 23:32] VITALS: BP 124/69; PULSE 66; RESP 17; TEMP 37.2; O2SAT 100
== END 2024-09-07 23:33 | disposition home or self-care (01) ==
PROVIDERS: Emergency Provider Internal Medicine; PCP Family Medicine
DX: L30.9 Dermatitis, unspecified (principal); R21 Rash and other nonspecific skin eruption
CPT/HCPCS: 99282

== ENCOUNTER 2024-09-20 15:36 | Outpatient (AMB) | payer OTHER, SELFPAY ==
--- NOTE | 2024-09-20 15:39 | MHC.PC.OV ---
Vital Signs 09/20/24 15:50 Height 5 ft 10 in Weight 280 lb BMI 40.2 BP 134/62 Blood Pressure Location Rt brachial Position Sitting Respiration 14 Pulse 78 Pulse Source Pulse Oximeter Temp 98.6 F Temp Source Skin Pulse Oximetry (%) 97 Oxygen Delivery Method Room Air Intake Visit Reasons: cpe Intake Note: cpe and patient was wondering if they send the medications Manager Regional Sales Required: No Allergies Sulfa (Sulfonamide Antibiotics) [SULFA(SULFONAMIDE ANTIBIOTICS)] Allergy (Intermediate, Verified 09/20/24 16:06) RASH amoxicillin [From AUGMENTIN] Adverse Reaction (Mild, Verified 09/20/24 16:06) YEAST INFECTION clavulanic acid [From AUGMENTIN] Adverse Reaction (Mild, Verified 09/20/24 16:06) YEAST INFECTION Medication List - Last Reconciled 09/20/24 by Stephy Ibarra, [facility]- albuterol sulfate 90 mcg/actuation 2 puffs inhalation Q4-6H PRN atomoxetine (Strattera) 60 mg PO QAM cariprazine (Vraylar) 4.5 mg PO DAILY cetirizine (All Day Allergy (cetirizine)) 10 mg PO DAILY PRN 90 days naftifine 2% 1 appl topical DAILY 2 weeks pantoprazole 40 mg PO DAILY permethrin 5% 1 appl topical Q14D 2 doses sertraline (Zoloft) 25 mg PO DAILY tetrabenazine (Xenazine) 12.5 mg PO TID 30 days Tobacco use date assessed: 11/29/23 Dental Screening Dental Screen Date: 09/20/24 Did you have a dental visit in the last 12 months?: Yes Did you have a dental problem in the last 6 months where you did not have access to dental care?: No Was dental information given to patient?: Patient has dentist HPI HPI Comments History of Present Illness Details Here today for CPE & for a few complaints. 24-year-old male autism spectrum disorder, Tourette's, major depressive disorder, generalized anxiety disorder, ADHD, GERD Hepatic steatosis (CT abd 06/2023), Splenomegaly measuring up to 13.9 cm (CT abd 06/2023), family history of brain cancer, seasonal allergies SurgHx: Fundoplication, FHx: Sister: Brain Cancer, Glioblastoma. mGF: AFib, Schizoaffective d.o. 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 Results reviewed Labs 06/22/24 AST 54, ALT 135 otherwise WNL History of Present Illness The patient is a 24-year-old male presenting with Mom for ongoing management needs for multiple chronic conditions during a wellness visit. Notably, the patient has a history of nonalcoholic fatty liver disease, which was detected incidentally via imaging that showed elevated liver enzymes up to three times the normal limit. The patient has reported previous evaluations by a radiology receptionist with recommendations for further imaging and potential referral to other specialists for further evaluation and management; however, follow-up has not been completed. Consult 07/2024 [facility] reviewed. Mom reports hx of Lasha fundoplication in childhood and mentions a need for a repeat, reports a referral was made to a specialist however I am not able to find this information readily available. She reports that he was issues with vomiting. The patient is also dealing with asthma, currently managed with an as-needed inhaler. He is only using when his symptoms are so severe that he feels like he was going to pass out. He is not currently on it daily maintenance inhaler. Additionally, the patient has a long-standing history of chronic ear infections, with ongoing symptoms noted as potential eustachian tube dysfunction, and has been experiencing episodes of seasonal allergies. The patient is also receiving therapy and medication (Zoloft) for recent exacerbations of depression related to personal trauma, including familial loss. 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 The mom reports that the rash improved with doxycycline use. The rash is almost gone but continues on his trunk and right thigh. - Gastrointestinal: Denies current symptoms of constipation Plan - Nonalcoholic Fatty Liver Disease: Continue monitoring liver function tests; follow up with gastroenterology for further assessment and potential intervention. - Asthma: Prescribe daily inhaler Arnuity) for asthma management and continue current as-needed inhaler albuterol) for exacerbations. - Depression: Continue therapy and medication as planned; monitor for any worsening symptoms or new side effects. - Dermatological Concerns: Prescribe Nystatin powder for prophylactic use for rash prevention post-work exposure. Patient was informed and verbally consented to the use of an ambient scribe for clinic note documentation during this visit. Discussion Notes During the visit, the necessity of addressing the patient's fatty liver disease through gastroenterological evaluation was emphasized. A shift in asthma management was proposed to include a daily preventive inhaler to mitigate symptom recurrence, with the patient informed about the benefits and usage specifics. A review of dermatological issues led to an agreement to utilize Nystatin powder to treat tinea pedis as he does not prefer using a cream. I have given him a 7 day prescription for doxycycline to help improve the rash. The importance of adherence to mental health treatment regimes, given the patient?s history of depression and recent therapeutic engagement, was highlighted and positively received. I have also sent a message to the [facility]'s Gastroenterology team to request follow up with the mom about referral and scheduling a follow up appointment for elevated LFTs. An additional 30 minutes was spent addressing the problem(s) noted at todays visit. This includes time spent before the visit reviewing the chart, time spent during the visit, and time spent after the visit on documentation [facility] Medical History (Updated 09/20/24 @ 16:39 by Stephy Ibarra, [facility]) GERD (gastroesophageal reflux disease) Abnormal EKG Chest pain Palpitations Autism Tourette's Surgical History [place] teeth extracted History of fundoplication Family History Sister Brain cancer Social History Housing: House Alcohol intake: never Patient Tobacco Use Status: Never used Tobacco e-Cigarette/Vaping Use: Never Used Current occupational status: unemployed Cognitive needs: No Hearing needs: No Vision needs: No Questionnaire PHQ-9 Over the last 2 weeks, how often have you been bothered by any of the following problems? 43181 - PHQ-9 Billing: Patient declined-do not bill Source: Developed by Drs. Javier Hmuphreys, Aliza Branch, Mayco Herbert and colleagues, with an educational [email or web address] from [email or web address]. Thrive Questionnaire Date Thrive assessed: 09/20/24 I am a: Parent/Caregiver What is your living situation today?: I have a steady place to live Within the past 12 months, did the food you bought not last and you didn't have the money to get more?: Never true Within the past 12 months, did you worry whether your food would run out before you got money to buy more?: Never true Do you have trouble paying for medicines?: No Do you have trouble getting transportation to medical appointments?: No Do you have trouble paying your heating and electricity bill?: No Do you have trouble taking care of your child, family member or friend?: No Do you have trouble with day-to-day activities such as bathing, preparing meals, shopping, managing finances, etc.?: Yes Are you currently unemployed and looking for a job?: No Are you interested in more education?: Yes Please select the resources that you would like help with: Education Currently or been in a relationship where the following occur: No concerns reported THRIVE Score: 0 MIRA-7 AMB Questionnaire MIRA-7 Date MIRA - 7 assessed: 11/29/23 Source: Developed by Drs. Javier Humphreys, Aliza Branch, Mayco Herbert and colleagues, with an educational [email or web address] from [email or web address]. ACT Questionnaire In the past 4 weeks, how much of the time did your asthma keep you from getting as much done at work, school or at home?: None of the time During the past 4 weeks, how often have you had shortness of breath?: Once a day During the past 4 weeks, how often did your asthma symptoms wake you up at night or earlier than usual in the morning?: Not at all During the past 4 weeks, how often have you had to use your rescue inhaler or nebulizer medication?: 1-2 times a week How would you rate your asthma control during the past 4 weeks?: Somewhat controlled ACT Interpretation: Positive ACT Branch: New medication Score: 17 Physical exam (Primary Care) Vital Signs: Last Vital Signs Temp 98.6 F 09/20/24 15:50 Pulse 78 09/20/24 15:50 Resp 14 09/20/24 15:50 BP 134/62 09/20/24 15:50 Pulse Ox 97 09/20/24 15:50 Oxygen Delivery Method Room Air 09/20/24 15:50 BMI result Body Mass Index 40.2 BMI Assessment/Plan discussion: High BMI High, discussed plan: lifestyle Tobacco/Smoking Status: Tobacco use Status Tobacco use date assessed 11/29/23 09/20/24 15:41 Patient Tobacco Use Status Never used Tobacco 09/20/24 15:41 e-Cigarette/Vaping Use Never Used 09/20/24 15:41 Thrive Assessment: Date of Thrive Assessment Date Thrive assessed 09/20/24 09/20/24 15:41 Currently or been in a relationship where the following occur: No concerns reported Const Other: General: Well developed, well nourished, in no acute distress. Appears stated age. Head: Normocephalic, atraumatic. Eyes: Pupils are equal, round and reactive to light and accommodation. Conjunctivae are clear. Vision grossly normal. Ears: TMs clear AU, EACS WNL Nose: Patent, without discharge. Mouth: There are no ulcers or lesions noted. No inflammation, no post nasal drip, no plaques nor exudates. Neck: Supple, no adenopathy or thyromegaly. Lungs: Clear to auscultation bilaterally. No rales, rhonchi or wheeze noted. Good air flow in all olivera. Heart: Regular rate and rhythm. No murmurs, click, rubs or gallops are noted. Abdomen: Bowel sounds present in all quadrants. The abdomen is soft, nontender, with no masses or organomegaly noted. No hernias are noted. Musculoskeletal: Joints are nontender, without swelling, redness, or effusions. Range of motion is observed to be normal. Pulses: Peripheral pulses are equal and palpable bilaterally. Extremities: No clubbing, cyanosis nor edema is noted. Neurologic: Gait and station normal. Cranial Nerves 2-12 intact. Motor strength grossly symmetrical and intact. No sensory loss. Balance normal. Skin: Tinea pedis, papular rash with secondary excoriations noted to abdomen and right anterior thigh; No ulcers, or lesions noted. Turgor is good. Skin color is good. Hair and nails are without abnormalities. Psych: Mom provides most of the information however the patient is cooperative. Office Procedures Flu Questionnaire Does the patient have a severe egg allergy?: No Does the patient have severe life threatening allergies?: No Does the patient have a fever or illness today?: No Has the patient ever had Guillain-[place] Syndrome?: No Has the patient ever had any past reaction to a flu shot?: No Immunizations Fluarix Triv 3631-8401 (PF) 45 mcg (15 mcg x 3)/0.5 mL IM syringe Performing Provider: PAT Martinez Performing Location: [facility] Medicine Administered by: Mary Celis RN on 09/20/24 16:44 Dose Route Admin Location Dispensed Lot Number Expiration Date [facility] Face Hardener 0.5 mL IM Left Deltoid 0.5 mL [id number] 04/14/25 [id number] [place] VIS Given Date VIS Provided VIS Publication Date 09/20/24 Single Vaccine 21 Eligibility Eligibility Date Funding Source Not [facility] Eligible 09/20/24 Private Coding Level of Care Code Est Pt Level 4 (79146) Est Pt Prev Care 18-39y(29468) Diagnoses Encounter for general adult medical examination with abnormal findings Z00.01 Fatty liver disease, nonalcoholic K76.0 Exercise-induced asthma J45.990 Tourette's F95.2 Autism F84.0 Seasonal allergies J30.2 Attention deficit hyperactivity disorder (ADHD), predominantly inattentive type F90.0 Attention deficit-hyperactivity disorder type: predominantly inattentive MIRA (generalized anxiety disorder) F41.1 Moderate episode of recurrent major depressive disorder F33.1 Major depression episode severity: moderate Gastroesophageal reflux disease without esophagitis K21.9 Esophagitis presence: without esophagitis Family history of brain cancer Z80.8 Influenza vaccination administered at current visit Z23 Obesity, Class III, BMI 40-49.9 (morbid obesity) E66.01 Additional Codes Asthma Control Questionnaire - ACT Interpretation: Positive ([id number]) Assessment & Plan Assessment & Plan (1) Encounter for general adult medical examination with abnormal findings: Code(s): Z00.01 - Encounter for general adult medical examination with abnormal findings Category: Medical (2) Fatty liver disease, nonalcoholic: Code(s): K76.0 - Fatty (change of) liver, not elsewhere classified Category: Medical (3) Exercise-induced asthma: Code(s): J45.990 - Exercise induced bronchospasm Category: Medical (4) Tourette's: Code(s): F95.2 - Tourette's disorder Category: Medical (5) Autism: Code(s): F84.0 - Autistic disorder Category: Medical (6) Seasonal allergies: Code(s): J30.2 - Other seasonal allergic rhinitis Category: Medical (7) ADHD: Code(s): F90.9 - Attention-deficit hyperactivity disorder, unspecified type Category: Medical Qualifiers: Attention deficit-hyperactivity disorder type: predominantly inattentive Qualified Code(s): F90.0 - Attention-deficit hyperactivity disorder, predominantly inattentive type (8) MIRA (generalized anxiety disorder): Code(s): F41.1 - Generalized anxiety disorder Category: Medical (9) MDD (major depressive disorder), recurrent episode: Code(s): F33.9 - Major depressive disorder, recurrent, unspecified Category: Medical Qualifiers: Major depression episode severity: moderate Qualified Code(s): F33.1 - Major depressive disorder, recurrent, moderate (10) GERD (gastroesophageal reflux disease): Code(s): K21.9 - Gastro-esophageal reflux disease without esophagitis Category: Medical Qualifiers: Esophagitis presence: without esophagitis Qualified Code(s): K21.9 - Gastro-esophageal reflux disease without esophagitis (11) Family history of brain cancer: Code(s): Z80.8 - Family history of malignant neoplasm of other organs or systems Category: Medical (12) Influenza vaccination administered at current visit: Code(s): Z23 - Encounter for immunization (13) Obesity, Class III, BMI 40-49.9 (morbid obesity): Code(s): E66.01 - Morbid (severe) obesity due to excess calories Category: Medical Plan . Orders: Orders Influenza [id number] Immunization Today Z23 - Encounter for immunization Medications: New fluticasone furoate 50 mcg/actuation (Arnuity Ellipta) 1 inh inhalation DAILY 30 ea 11RF nystatin 1 appl topical BID PRN 60 grams 2RF rash doxycycline hyclate 100 mg PO BID 14 caps 0RF 7 days Discontinued permethrin 5% apply second treatment 14 days after first treatment if live scabies remain Discontinued Reason: Patient Completed Course 1 appl topical Q14D 60 grams 0RF Patient Instructions: Patient Instructions - Receive influenza vaccination before leaving today. - Begin using prescribed daily inhaler (Arnuity) each morning as part of your routine. - Continue to use albuterol inhaler as needed for acute asthma symptoms. - Apply Nystatin powder to feet and groin areas after work, as needed, to prevent dermatological issues. - Continue mental health therapy and medication (Zoloft) for mood management. - Schedule follow-up with gastroenterology regarding liver enzyme elevation and fundoplication revision. 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 - Return for follow-up if symptoms worsen or new issues arise. What is metabolic dysfunction-associated steatotic liver disease? Metabolic dysfunction-associated steatotic liver disease, or MASLD, is a condition in which fat builds up in the liver. The liver is a big organ in the upper right side of the belly (figure 1). MASLD used to be called nonalcoholic fatty liver disease. When the liver has fat buildup and is inflamed, the condition is called metabolic dysfunction-associated steatohepatitis, or MASH. MASH used to be called nonalcoholic steatohepatitis. This article is mostly about MASH, because this condition can lead to the most problems. What causes MASLD and MASH? Doctors do not know exactly. They do know that it happens more often in some people, such as those who have: ?Excess body weight ?Diabetes, which causes blood sugar levels to get too high ?High cholesterol ?High blood pressure What are the symptoms of MASH? Most people with MASH (when there is liver inflammation) have no symptoms. Some people feel tired or unwell, or have discomfort in the upper belly. Your doctor or nurse might suspect that you have MASH based on the results of your routine blood tests. Will I need more tests? Yes. If your doctor or nurse suspects that you have MASH, you will likely have: ?More blood tests ?An imaging test of the liver ? This might be an ultrasound or MRI scan. Imaging tests create pictures of the inside of the body. Some people need a liver biopsy. During this test, a doctor removes a small sample of tissue from the liver. Then, another doctor looks at the sample under a microscope to check for MASH. A liver biopsy is the only test that can tell for sure if you have MASH. Your doctor might do this test if they are not sure if you have MASH or to see how inflamed your liver is. If your blood tests and imaging tests are normal, you will not need a liver biopsy. How is MASH treated? It is not typically treated directly. But it can improve when related medical conditions get treated. For example, losing weight and controlling high blood sugar and cholesterol can help improve MASH. Your doctor can: ?Help you lose weight, if you have excess body weight ? If your doctor recommends losing weight, they can help you make a plan to do this safely. It's important not to lose weight too quickly. Do not lose more than 2 pounds (approximately 1 kilogram) a week. ?Treat your high blood sugar, if you have diabetes ?Treat your high cholesterol, if you have it Making these changes has benefits besides helping with MASH. These changes can also lower your chances of having a heart attack or stroke. That's important because people with MASH are often also at risk for heart disease and stroke. Your doctor might recommend other things, too. For example: ?You might get vaccines to protect against hepatitis A and B. These are infections that can harm your liver. ?If you have MASH but do not also have diabetes, your doctor might suggest that you take vitamin E. A few studies suggest that vitamin E can reduce some of the liver damage and inflammation that happens with MASH. But there are also studies that suggest that high doses of vitamin E increase the risk of . So do not take vitamin E unless your doctor or nurse recommends it. What can I do on my own? You can: ?Take all of your medicines as instructed. ?Avoid alcohol. Alcohol can make liver problems worse. ?Eat a healthy diet with plenty of vegetables, fruits, and whole grains. ?Get regular physical activity. Even gentle activity, like walking, is good for your health. ?Go to all of your doctor's appointments. Does MASH get worse over time? It might. Sometimes, people with MASH get something called cirrhosis. This means serious scarring of the liver. Cirrhosis can cause different symptoms, such as swelling in the legs, trouble breathing, or feeling tired. People who have MASH need to see their doctor for regular check-ups. Your doctor will do follow-up tests regularly. These usually include blood tests. When should I call the doctor? Call your doctor or nurse if you have symptoms of cirrhosis. These can include: ?Blood in your bowel movements or vomit ?Symptoms of infection, such as fever over 100.4?F (38?C) or chills ?Belly pain ?Swollen legs or ankles ?Trouble breathing ?Extreme tiredness ?Confusion ?Yellowing of the skin or whites of your eyes, called jaundice Health screenings for men You should visit your health care provider regularly, even if you feel healthy. The purpose of these visits is to: Screen for medical issues Assess your risk for future medical problems Encourage a healthy lifestyle Update vaccinations and other preventive care services Help you get to know your provider in case of an illness Information Even if you feel fine, you should still see your provider for regular checkups. These visits can help you avoid problems in the future. For example, the only way to find out if you have high blood pressure is to have it checked regularly. High blood sugar and high cholesterol level also may not have any symptoms in the early stages. Simple blood tests can check for these conditions. There are specific times when you should see your provider or receive specific health screenings. The [place] Preventive Services Task Force publishes a list of recommended screenings. Below are screening guidelines for men ages 40 to 64. BLOOD PRESSURE SCREENING Have your blood pressure checked at least once every year. Watch for blood pressure screenings in your area. Ask your provider if you can stop in to have your blood pressure checked. Ask your provider if you need your blood pressure checked more often if: You have diabetes, heart disease, kidney problems, or are overweight or have certain other health conditions You have a first-degree relative with high blood pressure You are Black Your blood pressure top number is from 120 to 129 mm Hg, or the bottom number is from 70 to 79 mm Hg If the top number is 130 mm Hg or greater or the bottom number is 80 mm Hg or greater, this is considered stage 1 hypertension. Schedule an appointment with your provider to learn how you can lower your blood pressure. Effects of age on blood pressure CHOLESTEROL SCREENING Cholesterol screening should begin at age 35 for men with no known risk factors for coronary heart disease. Repeat cholesterol screening should take place: Every 5 years for men with normal cholesterol levels More often if changes occur in lifestyle (including weight gain and diet) More often if you have diabetes, heart disease, kidney problems, or certain other conditions COLORECTAL CANCER SCREENING If you are under age 45, talk to your provider about getting screened. You may need to be screened if you have a strong family history of colon cancer or polyps. Screening may also be considered if you have risk factors such as a history of inflammatory bowel disease or polyps. If you are age 45 to 75, you should be screened for colorectal cancer. There are several screening tests available: A stool-based fecal occult blood (gFOBT) or fecal immunochemical test (FIT) every year A stool sDNA test every 1 to 3 years Flexible sigmoidoscopy every 5 years or every 10 years with stool testing FIT done every year CT colonography (virtual colonoscopy) every 5 years Colonoscopy every 10 years You may need a colonoscopy more often if you have risk factors for colorectal cancer, such as: Ulcerative colitis A personal or family history of colorectal cancer A history of growths in your colon called adenomatous polyps DENTAL EXAM Go to the dentist once or twice every year for an exam and cleaning. Your dentist will evaluate if you have a need for more frequent visits. DIABETES SCREENING All adults who do not have risk factors for diabetes should be screened starting at age 35 and repeated every 3 years. If you have other risk factors for diabetes, such as a first degree relative with diabetes, overweight or obesity, high blood pressure, prediabetes, or a history of heart disease, you may be tested more often. If you are overweight and have other risk factors, such as high blood pressure and are planning to become , screening is recommended. EYE EXAM Have an eye exam every 2 to 4 years ages 40 to 54 and every 1 to 3 years ages 55 to 64. Your provider may recommend more frequent eye exams if you have vision problems or glaucoma risk. Have an eye exam that includes an examination of your retina (back of your eye) at least every year if you have diabetes. IMMUNIZATIONS Commonly needed vaccines include: Flu shot: get one every year COVID-19 vaccine: ask your provider what is best for you Tetanus-diphtheria and acellular pertussis (Tdap) vaccine: have as one of your tetanus-diphtheria vaccines if you did not receive it as an adolescent Tetanus-diphtheria: have a booster (or Tdap) every 10 years Varicella vaccine: receive 2 doses if you never had chickenpox or the varicella vaccine and were born in 1980 or after Hepatitis B vaccine: receive 2, 3, or 4 doses, depending on your exact circumstances, if you did not receive these as a child or adolescent, until age 59 Shingles (herpes zoster) vaccine: at or after age 50 Ask your provider if you should receive other immunizations, especially if you have certain medical conditions, such as diabetes or are at increased risk for some diseases such as pneumonia. INFECTIOUS DISEASE SCREENING Screening for hepatitis C: all adults ages 18 to 79 should get a one-time test for hepatitis C. Screening for human immunodeficiency virus (HIV): all people ages 15 to 65 should get a one-time test for HIV. Depending on your lifestyle and medical history, you may need to be screened for infections such as syphilis, chlamydia, and other infections. LUNG CANCER SCREENING You should have an annual screening for lung cancer with low-dose computed tomography (LDCT) if: You are age 50 to 80 years AND You have a 20 pack-year smoking history AND You currently smoke or have quit within the past 15 years OSTEOPOROSIS SCREENING If you are age 50 to 64 and have risk factors for osteoporosis, you should discuss screening with your provider. Risk factors can include long-term steroid use, low body weight, smoking, heavy alcohol use, having a fracture after age 50, or a family history of hip fracture or osteoporosis. Osteoporosis PHYSICAL EXAM All adults should visit their provider from time to time, even if they are healthy. The purpose of these visits is to: Screen for diseases Assess risk of future medical problems Encourage a healthy lifestyle Update vaccinations and other preventive care services Maintain a relationship with a provider in case of an illness Your height, weight, and body mass index (BMI) should be checked at every exam. During your exam, your provider may ask you about: Depression and anxiety Diet and exercise Alcohol and tobacco use Safety, such as use of seat belts and smoke detectors Your medicines and risk for interactions PROSTATE CANCER SCREENING If you're 55 through 69 years old, before having the test, talk to your provider about the pros and cons of having a PSA test. Ask about: Whether screening decreases your chance of dying from prostate cancer. Whether there is any harm from prostate cancer screening, such as side effects from testing or overtreatment of cancer when discovered. Whether you have a higher risk of prostate cancer than others. If you are age 55 or younger, screening is not generally recommended. You should talk with your provider about if you have a higher risk for prostate cancer. Risk factors include: Having a family history of prostate cancer (especially a brother or father) Being If you choose to be tested, the PSA blood test is repeated over time (yearly or less often), though the best frequency is not known. Prostate examinations are no longer routinely done on men with no symptoms. Prostate cancer SKIN EXAM Your provider may check your skin for signs of skin cancer, especially if you're at high risk. People at high risk include those who have had skin cancer before, have close relatives with skin cancer, or have a weakened immune system. TESTICULAR EXAM The [place] Preventive Services Task Force (USPSTF) now recommends against performing testicular self-exams. Doing testicular self-exams has been shown to have little to no benefit.
[2024-09-20 15:50] VITALS: BP 134/62; PULSE 78; RESP 14; TEMP 37; O2SAT 97; BMI 40.2
--- OUTSIDE RECORDS SUMMARY | 2024-09-25 10:51 | XMS_ITS | Data Portability ---
Author Organization [place] - [facility], Allergy Address [address] [place] [address] Care Team Providers Care Radiation Safety Officer Name Role Phone HUMBERTO NAJERA Primary Care Provider Assessment Encounter Date Assessment Date Assessment LastModified by Organization Details LastModified Time 04/10/2024 04/10/2024 Impacted cerumen was debrided bilaterally today. Ear exam is otherwise normal. He will follow up in two months or so. [email or web address] Not available 04/10/2024 15:42:32 05/23/2024 05/23/2024 Impacted cerumen was debrided bilaterally. I performed a flexible laryngoscopy today given his persistent globus. Exam was normal. I suspect reflux as underlying cause. Recommend referral to GI and a barium swallow study. Follow up in six weeks for his ears. [email or web address] Not available 05/23/2024 16:03:17 Plan of Treatment Reminders Order Date Submit Date Provider Last Modified By Organization Details Last Modified Time Details Appointments None record ed. Lab None record ed. 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 Barium swallo w seble he Thank you. 2023 [facility] [address] [place] [address] Dr, 3rd [address], [place], [address], 11:42:46 Procedures None record ed. Surgeries None record ed. Imaging barium swallo w study - dyspha dianelys, histor y of cortney proced ure [email or web address] [place] [address] (Imaging), [address] [place], [address], 4 16:07:38 Medication Orders None record ed. Patient TargetsNo targets recorded. Patient InstructionsNo instructions recorded. 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 Barium swallow date pending. Thank you. Referring Physician: Mag Brandt, Otolaryngology, Encounter Date: 05/23/2024 Results Created Date Observation Date Name Description Value Unit Range Abnormal Flag Note LastModifiedBy Organization Detail LastModifiedTime 06/05/20 24 01/04/2019 imagi ng/di agnos tic resul t No observ ation record ed. [email or web address] Not Available 02:35:49 06/05/20 24 02/09/2022 imagi ng/di agnos tic resul t No observ ation record ed. [email or web address] Not Available 02:35:56 06/05/20 24 02/19/2019 audio gram No observ ation record ed. [email or web address] Not Available 02:36:05 06/05/20 24 02/19/2019 audio gram No observ ation record ed. [email or web address] Not Available 02:38:52 Result Notes None recorded. Problems Name Problem SNOMED Code Status Onset Date Resolution Date Notes Provider Name and Address Organization Details Recorded Time Respirato ry finding 865550706 Active 2022 Feeling of foreign body in throat; Note: Date Diagnosed : 12/01/2022 2:53 PM (R09.89) Not Available [facility] 4 02:37:23 Cardiovas cular finding 989551890 Active 2022 Feeling of foreign body in throat; Note: Date Diagnosed : 12/01/2022 2:53 PM (R09.89) Not Available [facility] 4 02:37:23 Posterior rhinorrhe a 72319507 Active 2016 Postnasal drip; Note: Date Diagnosed : 07/05/2017 11:11 AM (R09.82) Not Available [facility] 4 02:37:32 Abnormal auditory perceptio n 32512977 Active 2018 Other abnormal auditory perceptio ns, bilateral ; Note: Date Diagnosed : 12/19/2018 3:39 PM (H93.293) Not Available [facility] 4 02:37:35 Hypertrop hy of nasal turbinate s 62720478 Active 2016 Hypertrop hy of nasal turbinate s; Note: Date Diagnosed : 06/09/2017 12:30 PM (J34.3) Not Available [facility] 4 02:37:33 Attention deficit hyperacti vity disorder 858929318 Active 2016 Attention -deficit hyperacti vity disorder NOS; Note: Date Diagnosed : 06/09/2017 12:50 PM (F90.9) Not Available [facility] 4 02:37:34 Impacted cerumen of bilateral ears 54118006280 98176 Active 2018 Impacted cerumen, bilateral ; Note: Date Diagnosed : 02/19/2019 6:04 PM (H61.23) Not Available [facility] 4 02:37:22 Bilateral earache 524182408 Active 2018 Otalgia, bilateral ; Note: Date Diagnosed : 11/15/2018 4:19 PM (H92.03) Not Available [facility] 4 02:37:21 Headache 24703447 Active 2018 Facial pain NOS; Note: Date Diagnosed : 01/21/2019 4:58 PM (R51) Headach e; Note: Date Diagnosed : 06/09/2017 12:50 PM (R51) ; Start Date : 7 Not Available [facility] 4 02:37:31 Autism spectrum disorder 58795505 Active 2023 MAG BRANDT PA-C [address] [place] [address], [place], [address] , [facility] - [facility] 4 15:42:42 Acute sinusitis 63652218 Active 2023 Other acute sinusitis ; Note: Date Diagnosed : 11/15/2023 3:27 PM (J01.80) Not Available [facility] 4 02:37:24 Problem Notes None recorded. Procedures Surgical History Date Name Laterality Status Provider Name and Address Organization Details Recorded Time 05/23/20 24 Fiberoptic Laryngoscopy (Comprehensive) completed MAG BRANDT PA-C [address] [place] [address],[address], [address], [facility] - [facility] 05/23/2024 16:01:53 Imaging Results Imaging Date Name Status LastModified by Organiz ation Details LastModified Time 01/04/2019 imaging/diagno stic result completed [email or web address] Information not available 06/05/2024 02:35:49 02/09/2022 imaging/diagno stic result completed [email or web address] Information not available 06/05/2024 02:35:56 02/19/2019 audiogram completed [email or web address] Information not available 06/05/2024 02:36:05 02/19/2019 audiogram completed [email or web address] Information not available 06/05/2024 02:38:52 Procedure Notes None recorded. Medical Equipment None Reported. Allergies Allergen ID Allergen Name Allergen Category Reaction Reaction Severity Criticality Documentation Date Start Date Code Code System Note Provider Name and Address Organization Details Recorded Time 14718 Substance with sulfonami de structure and antibacte rial mechanism of action (substanc e) medicatio n other Not available Not available 02/27/2024 93693 8003 SNOMED React ion: unkno wn, unspe cifie d;; Not Available [facility] 4 00:56:23 Medications Name Sig Start Date Stop Date Status Note LastModified by Organization Details LastModified Time amoxicill in 500 mg capsule Take 1 capsule by mouth three times a day 2023 active Not Available Not Available Not Avai lable metformin 500 mg tablet 11/12 completed Medicati on ID: [id number] D uration Value: 30 Brand Name: metformi n Send Method: E-Prescr ibed Sub s Allowed: subs OK Speci al Instruct ion: TAKE 1 TABLET BY MOUTH DAILY WITH MEALS Me dication GenericN rohan: metformi n Not Available Not Available Not Available prednison e 10 mg tablet PLEASE SEE ATTACHED FOR DETAILED DIRECTIO NS active Not Available Not Available No t Available loratadin e 10 mg disintegr ating tablet 1 tablet by mouth 2017 active Medicati on ID: [id number] D uration Value: 30 Prescri bed By Name: Ami Berrios nd Name: erika beauchamp Send Method: E-Prescr ibed Sub s Allowed: subs OK Medic ationGen ericName : erika ne Not Available Not Available Not Available doxycycli ne hyclate 100 mg capsule active Not Available Not Available Not Available cetirizin e 10 mg tablet TAKE 1 TABLET BY MOUTH EVERY DAY NEEDED FOR ALLERGIE S active Not Available Not Available No t Available Lotrisone 1 %-0.05 % topical cream 01/12 completed Medicati on ID: [id number] B rand Name: Lotrison e Send Method: E-Prescr ibed Sub s Allowed: subs OK Speci al Instruct ion: apply to external ear tid X 2 weeks Me dication GenericN rohan: Lotrison e Medica tion ID: [id number] B rand Name: Lotrison e Send Method: E-Prescr ibed Sub s Allowed: subs OK Speci al Instruct ion: apply to external ear tid X 2 weeks Me dication GenericN rohan: Lotrison e Not Available Not Available Not Available clotrimaz ole-betam ethasone 1 %-0.05 % lotion 01/12 completed Medicati on ID: [id number] P rescribe d By Name: PINKY Isabel nd Name: Lotrison e Send Method: E-Prescr ibed Sub s Allowed: subs OK Speci al Instruct ion: apply to external ear tid X 2 weeks Me dication GenericN rohan: Lotrison e Not Available Not Available Not Available permethri n 5 % topical cream PLEASE SEE ATTACHED FOR DETAILED DIRECTIO NS active Not Available Not Available No t Available melatonin 3 mg tablet 11/12 completed Medicati on ID: [id number] D uration Value: 30 Brand Name: melatoni n Send Method: E-Prescr ibed Sub s Allowed: subs OK Speci al Instruct ion: TAKE 1 TABLET BY MOUTH DAILY AT BEDTIME Medicati onGeneri cName: melatoni n Not Available Not Available Not Available omeprazol e 40 mg capsule,d elayed release 07/13 completed Medicati on ID: [id number] B rand Name: omeprazo le Send Method: E-Prescr ibed Sub s Allowed: subs OK Speci al Instruct ion: TAKE 1 CAPSULE BY MOUTH EVERY DAY Medi cationGe nericNam e: omeprazo le Not Available Not Available Not Available amoxicill in 500 mg tablet TAKE 1 TABLET 3 TIMES A DAY 04/10 completed Not Available Not Available Not Available lidocaine -prilocai ne 2.5 %-2.5 % topical cream 11/12 completed Medicati on ID: [id number] D uration Value: 2 Brand Name: lidocain e-priloc blanka Sen d Method: E-Prescr ibed Sub s Allowed: subs OK Speci al Instruct ion: APPLY DIRECTED TOPICALL Y ONCE Med [facility] me: lidocain e-priloc blanka Not Available Not Available Not Available amoxicill in 875 mg tablet TAKE 1 TABLET BY MOUTH EVERY 12 HOURS active Not Available Not Available No t Available ciproflox acin 0.3 % eye drops 01/12 completed Medicati on ID: [id number] B rand Name: ciproflo xacin HCl Send Method: E-Prescr ibed Sub s Allowed: subs OK Speci al Instruct ion: PLACE 1 DROP INTO THE LEFT EYE 4 TIMES A DAY FOR 5 DAYS THEN DISCONTI NUE Medi cationGe nericNam e: ciproflo xacin HCl Not Available Not Available Not Available benzonata te 100 mg capsule TAKE 1 CAPSULE BY MOUTH THREE TIMES A DAY NEEDED FOR COUGH *NOT COVERED* 04/10 completed Not Available Not Available Not Available doxycycli ne monohydra te 100 mg capsule TAKE 1 CAPSULE BY MOUTH 2 TIMES A DAY FOR CELLULIT IS FOR 10 DAYS active Not Available Not Available No t Available cephalexi n 500 mg capsule TAKE ONE CAPSULE BY MOUTH TWICE A DAY 04/10 completed Not Available Not Available Not Available pantopraz ole 40 mg tablet,de layed release TAKE 1 TABLET ORALLY DAILY TAKE ONE TABLET HALF AN HOUR BEFORE BREAKFAS T active Not Available Not Available No t Available sertralin e 25 mg tablet active Not Available Not Available Not Available omeprazol e 20 mg capsule,d elayed release 11/12 completed Medicati on ID: [id number] D uration Value: 30 Brand Name: omeprazo le Send Method: E-Prescr ibed Sub s Allowed: subs OK Speci al Instruct ion: TAKE ONE CAPSULE BY MOUTH EVERY DAY Medi cationGe nericNam e: omeprazo le Not Available Not Available Not Available mupirocin 2 % topical ointment APPLY TO AFFECTED AREA TOPICALL Y 3 TIMES A DAY 04/10 completed Not Available Not Available Not Available nystatin 100,000 unit/gram topical powder active Not Available Not Available Not Available ibuprofen 600 mg tablet 04/12 completed Medicati on ID: [id number] B rand Name: ibuprofe n Send Method: E-Prescr ibed Sub s Allowed: subs OK Speci al Instruct ion: TAKE 1 TAB BY MOUTH EVERY 6 HOURS NEEDED FOR PAIN Med icationG enericNa me: ibuprofe n Not Available Not Available Not Available methylpre dnisolone 4 mg tablets in a dose pack 04/10 completed Not Available Not Available Not Available fluticaso ne propionat e 50 mcg/actua tion nasal spray,jessica pension USE 1 SPRAY BY NASAL ROUTE 2 (TWO) TIMES A DAY (ONCE IN THE MORNING AND ONCE IN THE AFTERNOO N). 04/10 completed Not Available Not Available Not Available clotrimaz ole 1 % topical cream APPLY TO AFFECTED AREA TWICE A DAY 04/10 completed Not Available Not Available Not Available doxycycli ne hyclate 100 mg tablet TAKE 1 TABLET BY MOUTH TWICE A DAY X10 DAYS active Not Available Not Available No t Available loratadin e 10 mg tablet 1 tablet by mouth 2016 active Medicati on ID: [id number] D uration Value: 30 Prescri bed By Name: Ami Berrios nd Name: erika beauchamp Send Method: E-Prescr ibed Sub s Allowed: subs OK Medic ationGen ericName : loratapriyanka ne Not Available Not Available Not Available amoxicill in 875 mg-potass ium clavulana te 125 mg tablet 07/01 completed Medicati on ID: [id number] D uration Value: 10 Reason: () Brand Name: amoxicil layne-pot clavulan ate Send Method: E-Prescr ibed Sub s Allowed: roma grullon Instruct ion: TAKE 1 TABLET BY MOUTH TWICE A DAY FOR 10 DAYS Med icationG enericNa me: amoxicil layne-pot clavulan ate Not Available Not Available Not Available Ventolin HFA 90 mcg/actua tion aerosol inhaler INHALE 2 PUFFS BY MOUTH EVERY 4 TO 6 HOURS NEEDED FOR WHEEZING active Not Available Not Available No t Available Laxative (bisacody l) 5 mg tablet,de layed release TAKE 2 TABLETS BY MOUTH DAILY AT BEDTIME active Not Available Not Available No t Available aripipraz ole 20 mg tablet 11/12 completed Medicati on ID: [id number] D uration Value: 30 Brand Name: aripipra zole Sen d Method: E-Prescr ibed Sub s Allowed: roma grullon Instruct ion: TAKE 1 TABLET BY MOUTH EVERY DAY Medi cationGe nericNam e: aripipra zole Not Available Not Available Not Available Strattera 60 mg capsule active Not Available Not Available Not Available aripipraz ole 5 mg tablet 11/12 completed Medicati on ID: [id number] D uration Value: 30 Brand Name: aripipra zole Sen d Method: E-Prescr ibed Sub s Allowed: roma grullon Instruct ion: TAKE 1 TABLET BY MOUTH EVERY DAY Medi cationGe nericNam e: aripipra zole Not Available Not Available Not Available chlorhexi dine gluconate 0.12 % mouthwash 11/12 completed Medicati on ID: [id number] D uration Value: 16 Brand Name: chlorhex idine gluconat e Send Method: E-Prescr ibed Sub s Allowed: roma grullon Instruct ion: IRRIGATE MOUTH AND SPIT OUT 15ML TWICE A DAY Medi cationGe nericNam e: chlorhex idine gluconat e Not Available Not Available Not Available omega-3 fatty acids-fis h oil 300 mg-1,000 mg capsule 11/12 completed Medicati on ID: [id number] D uration Value: 30 Brand Name: omega-3 fatty acids-fi oil Send Method: E-Prescr ibed Sub s Allowed: subs OK Speci al Instruct ion: TAKE 2 CAPSULES BY MOUTH EVERY DAY Medi cationGe nericNam e: omega-3 fatty acids-fi sh oil Not Available Not Available Not Available tetrabena zine 12.5 mg tablet active Not Available Not Available No t Available Nasacort 55 mcg nasal spray aerosol 11/12 completed Medicati on ID: [id number] P rescribe d By Name: PINKY Luevano nd Name: Nasacort Send Method: E-Prescr ibed Sub s Allowed: subs OK Speci al Instruct ion: 2 sprays each nostril once daily Me dication GenericN rohan: Nasacort Not Available Not Available Not Available Rexulti 3 mg tablet 02/16 completed Medicati on ID: [id number] D uration Value: 30 Brand Name: Rexulti Send Method: E-Prescr ibed Sub s Allowed: subs OK Speci al Instruct ion: TAKE 1 TABLET BY MOUTH EVERY MORNING MOOD STABILIZ ER Medic ationGen ericName : Rexulti Not Available Not Available Not Available Rexulti 2 mg tablet 07/13 completed Medicati on ID: [id number] B rand Name: Rexulti Send Method: E-Prescr ibed Sub s Allowed: subs OK Speci al Instruct ion: TAKE 1 TABLET BY MOUTH EVERY DAY IN THE MORNING Medicati onGeneri cName: Rexulti Not Available Not Available Not Available Vraylar 1.5 mg capsule 04/12 completed Medicati on ID: [id number] B rand Name: Vraylar Send Method: E-Prescr ibed Sub s Allowed: subs OK Speci al Instruct ion: TAKE 1 CAPSULE BY MOUTH EVERY DAY Medi cationGe nericNam e: Vraylar Not Available Not Available Not Available Vraylar 4.5 mg capsule active Not Available Not Available Not Available Vraylar 3 mg capsule 04/10 completed Not Available Not Available Not Available Arnuity Ellipta 50 mcg/actua tion powder for inhalatio n active Not Available Not Available Not Available Vitals Date Recorded Body height Body mass index (BMI) Body weight Provider Name and Address Organization Details Last Updated DateTime 04/10/2024 180.34 cm 39.6 kg/m2 962390.23 g Keely [place] - [facility] 04/10/2024 15:32:02 Date Recorded Body height Body mass index (BMI) Body weight Provider Name and Address Organization Details Last Updated DateTime 05/23/2024 180.34 cm 39.6 kg/m2 342322.23 g Luisa Verdugo [facility] 05/23/2024 15:36:05 Date Recorded Body height Body mass index (BMI) Body weight Provider Name and Address Organization Details Last Updated DateTime 09/23/2024 180.34 cm 39.6 kg/m2 309983.23 g Luisa Verdugo [facility] 09/23/2024 15:06:06 Social History None recorded. Functional Status None recorded. Mental Status None recorded. Family History Nothing Reported. Medical History No medical history recorded. Past Encounters Encounter ID Performer Location Encounter Start Date Encounter Closed Date Diagnosis/Indication Diagnosis SNOMED-CT Code Diagnosis ICD10 Code [id number] MAG BRANDT PA-C [facility] [address] [address] 04/10/2024 15:19:12 04/10/2024 16:22:57 Impacted cerumen of bilateral ears 5812707127 001230 H61.23 Autism spe ctrum disorder 45519622 F84.0 [id number] IZA MOON MD [facility] on [address] [place] [id number] 05/23/2024 15:34:40 05/23/2024 16:07:38 Autism spectrum disorder 60773632 F84.0 Respiratory finding 1060 78086 R09.89 Impacted c erumen of bilateral ears 1266759044 363478 H61.23 [id number] DAVE GARCIA PA-C [facility] on [address] [place] [phone] 09/23/2024 15:04:44 09/23/2024 15:24:42 Acute sinusitis 89794957 J01.80 Health Concerns Section Related Observation LastModified by Organization Detai ls LastModified Time None Recorded Concern Status LastModified by Organization Details LastModified Time None Recorded Advance Directives Directive None Recorded Payers Encounter Date Sequence Insurance Name Policy Number Policy Alva Covered Member ID Alva Member ID Guarantor Name 04/10/2024 1 [facility] [employer] (MEDICAID HMO) FRANCESCA Hendricks Kelvin [id number] Caleb Eladio Kelvin 05/23/2024 1 [facility] [employer] (MEDICAID HMO) FRANCESCA Hendricks Kelvin [id number] Caleb Hendricks Kelvin Notes Date Note Type Note Provider Name and Address Organization Details Recorded Time 04/10/2024 text/html 23 year old male with a history of autism, presents today for follow up for an ear cleaning. Ears have been feeling plugged. Not using headphones anymore regularly. MAG BRANDT PA-C [address], [address], [place] - [facility] 04/10/2024 15:43:01 05/23/2024 text/html 23 year old male with a history of autism presents today for an ear cleaning. He also has concerns about globus sensation. In November of 2022 he thought he inhaled some glass when working on a window. FOL in our office was normal and CT scan showed no foreign body. Of late he has been having worsening globus and having projectile vomiting after eating or taking pills. History of Cortney fundoplication as a child. He has not seen GI in some years. IZA MOON MD [address],[place] [address], [place], [address], [facility] 05/24/2024 08:06:04
== END 2024-09-20 16:44 | disposition home or self-care (01) ==
PROVIDERS: PCP Family Medicine; Visit Provider Nurse Practitioner Family
DX: Z00.00 Encounter for general adult medical examination without abnormal findings (principal); F33.1 Major depressive disorder, recurrent, moderate; E66.01 Morbid (severe) obesity due to excess calories; Z68.41 Body mass index [BMI] 40.0-44.9, adult; K76.0 Fatty (change of) liver, not elsewhere classified; J45.990 Exercise induced bronchospasm; F95.2 Tourette's disorder; F84.0 Autistic disorder; J30.2 Other seasonal allergic rhinitis; F90.0 Attention-deficit hyperactivity disorder, predominantly inattentive type; F41.1 Generalized anxiety disorder; K21.9 Gastro-esophageal reflux disease without esophagitis

== ENCOUNTER → 2024-09-20 15:36 | Outpatient (BNVA) | payer OTHER, SELFPAY | PROVIDERS: PCP Family Medicine; Visit Provider Nurse Practitioner Family | DX: Z00.01 Encounter for general adult medical examination with abnormal findings (principal); Z23 Encounter for immunization; K76.0 Fatty (change of) liver, not elsewhere classified; J45.990 Exercise induced bronchospasm; F95.2 Tourette's disorder; F84.0 Autistic disorder; J30.2 Other seasonal allergic rhinitis; F90.0 Attention-deficit hyperactivity disorder, predominantly inattentive type; F41.1 Generalized anxiety disorder; F33.1 Major depressive disorder, recurrent, moderate; K21.9 Gastro-esophageal reflux disease without esophagitis; E66.01 Morbid (severe) obesity due to excess calories; Z68.41 Body mass index [BMI] 40.0-44.9, adult; Z80.8 Family history of malignant neoplasm of other organs or systems; Z71.3 Dietary counseling and surveillance | CPT/HCPCS: 90471; 90656; 96160; 99212; 99395 ==

== ENCOUNTER 2024-11-07 08:04 | Outpatient (REF) | payer OTHER, SELFPAY ==
--- NOTE | ~2024-11-07 | FL_ITS ---
EXAMINATION: XR FLUOROSCOPY UPPER GI WITH AIR CLINICAL INFORMATION: Dysphagia. COMPARISON: None TECHNIQUE: Fluoroscopic air contrast upper GI examination was performed utilizing standard techniques with thin and thick barium and effervescent granules. Numerous spot images were obtained. FINDINGS: Lateral cine images of the oropharynx and hypopharynx demonstrate normal swallow mechanism with normal epiglottic inversion and soft palate elevation. There is trace laryngeal penetration with thick barium. No tracheal penetration, glottic or subglottic aspiration identified. No nasopharyngeal reflux present. Hypopharyngeal structures appear normal without evidence of mass or diverticulum. There was no significant cricopharyngeal achalasia. Dual and single contrast images of the esophagus demonstrate normal caliber, contour, and mucosal pattern. No evidence of stricture, mass, or ulcerations identified. Esophageal peristalsis was normal. A small type I hiatal hernia is present. Gastroesophageal reflux is observed up to the midesophagus. Dual contrast and single contrast images of the stomach demonstrated a normal contour. There is mild thickening of the gastric rugal folds, suggestive of gastritis. No masses or ulcerations are seen. Contrast freely passed into the gastric antrum and duodenal bulb without delay. Single and air-contrast images of the duodenal bulb demonstrate no abnormality. The duodenal sweep has a normal appearance, course, and mucosal fold appearance. The imaged proximal jejunum has a normal fold pattern and caliber. FLUOROSCOPY TIME: 3 minutes 37 seconds Number of Spot Images: 8 Number of Cine: 12 DOSE AREA PRODUCT: 2217 uGy-m2 (microgray-meter squared) FL/FL upper GI w Ba Swallow IMPRESSION: 1. Trace laryngeal penetration with thick barium. 2. Small type I hiatal hernia with moderate gastric esophageal reflux. 3. Mild thickening of the gastric rugal folds, suggestive of gastritis. This procedure was performed by Rosalino Carney PA-C, and supervised by Dr. Mondragon Electronically signed by: Caleb Mondragon MD 11/07/2024 03:17 PM [facility]
--- OUTSIDE RECORDS SUMMARY | 2024-11-07 08:11 | XMS_ITS | Data Portability ---
Author Organization [place] - [facility], Allergy Address [address] [address] Care Team Providers Care Health Education Director Name Role Phone HUMBERTO NAJERA Primary Care Provider [phone] Assessment Encounter Date Assessment Date Assessment LastModified [...] his ears. [email or web address] Not available 05/23/2024 16:03:17 09/23/2024 09/23/2024 24 year old Autistic male presents with his mother reporting sinus infection. I have issued him a prescription for Amoxicillin which usually works well for him. Ears are clear of debris today. He will follow up in 2 months for ear cleaning. [email or web address] Not available 09/24/2024 09:15:02 Plan of Treatment Reminders Order Date Submit Date Provider Last Modified By Organization Details Last Modified Time Details Appointments None record ed. Lab None record ed. 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 Barium swallo w date rolly g. Thank you. 2023 024 [facility], [address] [place] [address] , [facility], [place], [address], 4 11:42:46 Procedures None record ed. Surgeries None record ed. Imaging barium swallo w study - dyspha dianelys, histor y of cortney proced ure 2023 024 [email or web address] [facility] (Imaging), [address] [facility], [place], [address], 4 16:07:38 Medication Orders amoxic illin 500 mg capsul e 2023 024 [facility]/Pharmacy #[id number], [address] [facility] [place], [address], 4 15:18:07 Patient TargetsNo targets recorded. Patient InstructionsNo instructions recorded. 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 Respiratory finding Referral for reflux, [...] Organization Details Recorded Time Respirato ry finding 888102033 Active 2022 Feeling of foreign body in throat; Note: Date Diagnosed : 12/01/2022 2:53 PM (R09.89) Not Available [facility] 4 02:37:23 Cardiovas cular finding 875261078 Active 2022 Feeling of foreign body in throat; Note: Date Diagnosed : 12/01/2022 2:53 PM (R09.89) Not Available [facility] 4 02:37:23 Posterior rhinorrhe a 79622910 Active 2016 Postnasal drip; Note: Date Diagnosed : 07/05/2017 11:11 AM (R09.82) Not Available [facility] 4 02:37:32 Abnormal auditory perceptio n 33021189 Active 2018 Other abnormal auditory perceptio ns, bilateral ; Note: Date Diagnosed : 12/19/2018 3:39 PM (H93.293) Not Available [facility] 4 02:37:35 Hypertrop hy of nasal turbinate s 35100514 Active 2016 Hypertrop hy of nasal turbinate s; Note: Date Diagnosed : 06/09/2017 12:30 PM (J34.3) Not Available [facility] 4 02:37:33 Attention deficit hyperacti vity disorder 427551459 Active 2016 Attention -deficit hyperacti vity disorder NOS; Note: Date Diagnosed : 06/09/2017 12:50 PM (F90.9) Not Available [facility] 4 02:37:34 Impacted cerumen of bilateral ears 09089863571 31397 Active 2018 Impacted cerumen, bilateral ; Note: Date Diagnosed : 02/19/2019 6:04 PM (H61.23) Not Available [facility] 4 02:37:22 Bilateral earache 137552420 Active 2018 Otalgia, bilateral ; Note: Date Diagnosed : 11/15/2018 4:19 PM (H92.03) Not Available [facility] 4 02:37:21 Headache 55956136 Active 2018 Facial pain NOS; Note: Date Diagnosed : 01/21/2019 4:58 PM (R51) Headach e; Note: Date Diagnosed : 06/09/2017 12:50 PM (R51) ; Start Date : 7 Not Available [facility] 02:37:31 Autism spectrum disorder 38774835 Active 2023 MAG BRANDT PA-C [address] [place] [address],[place] [address], [place], [address] , [facility] 4 15:42:42 Acute sinusitis 54300545 Active 2023 Other acute sinusitis ; Note: Date Diagnosed : 11/15/2023 3:27 PM (J01.80) Not Available [facility] 4 02:37:24 Problem Notes None recorded. Procedures Surgical History Date Name Laterality Status Provider Name and Address Organization Details Recorded Time 05/23/20 24 Fiberoptic Laryngoscopy (Comprehensive) completed MAG BRANDT PA-C [address] [place] [address],[place] [address], [place], [address], [facility] 05/23/2024 16:01:53 Imaging Results Imaging Date Name Status LastModified by Organiz ation Details LastModified Time 01/04/2019 imaging/diagno stic result completed [email or web address] Information not available 06/05/2024 02:35:49 02/09/2022 imaging/diagno stic result completed Information not available 06/05/2024 02:35:56 02/19/2019 audiogram completed Information not available 06/05/2024 02:36:05 02/19/2019 audiogram completed Information not available 06/05/2024 02:38:52 Procedure Notes None recorded. Medical Equipment None Reported. Allergies Allergen ID Allergen Name Allergen Category Reaction Reaction Severity Criticality Documentation Date Start Date Code Code System Note Provider Name and Address Organization Details Recorded Time 57787 Substance with sulfonami de structure and antibacte rial mechanism of action (substanc e) medicatio n other Not available Not available 02/27/2024 44112 8003 SNOMED React ion: unkno wn, unspe cifie d;; Not Available [facility] 4 00:56:23 Medications Name Sig Start Date Stop Date Status Note LastModified by Organization Details LastModified Time amoxicill in 500 mg capsule Take 1 capsule by mouth three times a day active Not Available Not Available No t Available metformin 500 mg tablet 11/12 completed Medicati on ID: [id number] D uration Value: 30 Brand Name: kim brothers Send Method: E-Prescr ibed Sub s Allowed: [...] by mouth 2017 active Medicati on ID: [id number] D uration Value: 30 Prescri bed By Name: Ami Berrios nd Name: erika nito Send Method: E-Prescr ibed Sub s Allowed: subs OK Medic ationGen ericName : kelseyatapriyanka ne Not Available Not Available Not Available doxycycli ne hyclate 100 mg capsule active Not Available Not Available Not Available cetirizin e 10 mg tablet TAKE 1 TABLET BY MOUTH EVERY DAY NEEDED FOR ALLERGIE S active Not Available Not Available No t Available Lotrisone 1 %-0.05 % topical cream 01/12 completed Medicati on ID: [id number] B rand Name: Lotrison e Send Method: E-Prescr ibed Sub s Allowed: subs OK Speci al Instruct ion: apply to external ear tid X 2 weeks Me dication GenericN rohan: Lotrison e Medica tion ID: [id number] B rand Name: Lotrison e Send Method: E-Prescr ibed Sub s Allowed: subs OK Speci al Instruct ion: apply to external ear tid X 2 weeks Me dication GenericN rohan: Lotrison e Not Available Not Available Not Available clotrimaz ole-betam ethasone 1 %-0.05 % lotion 01/12 completed Medicati on ID: [id number] P rescribe d By Name: PINKY Isabel [...] mg tablet 11/12 completed Medicati on ID: [id number] D uration Value: 30 Brand Name: melatoni n Send Method: E-Prescr ibed Sub s Allowed: subs OK Speci al Instruct ion: TAKE 1 TABLET BY MOUTH DAILY AT BEDTIME Medicati onGeneri cName: melatoni n Not Available Not Available Not Available omeprazol e 40 mg capsule,d elayed release 07/13 completed Medicati on ID: [id number] B rand Name: omeprazo le Send Method: [...] topical cream 11/12 completed Medicati on ID: [id number] D uration Value: 2 Brand Name: lidocain e-priloc blanka Sen d Method: E-Prescr ibed Sub s Allowed: subs OK Speci al Instruct ion: APPLY DIRECTED TOPICALL Y ONCE [facility] lidocain e-priloc blanka Not Available Not Available Not Available amoxicill in 875 mg tablet TAKE 1 TABLET BY MOUTH EVERY 12 HOURS active Not Available Not Available No t Available ciproflox acin 0.3 % eye drops 01/12 completed Medicati on ID: [id number] B rand Name: ciproflo xacin HCl Send [...] elayed release 11/12 completed Medicati on ID: [id number] D uration Value: 30 Brand Name: omeprazo [...] mg tablet 04/12 completed Medicati on ID: [id number] B rand Name: ibuprofe n Send Method: [...] by mouth 2016 active Medicati on ID: 906512 D uration Value: 30 Prescri bed By Name: Ami Berrios nd Name: erika beauchamp Send Method: E-Prescr ibed Sub s Allowed: subs OK Medic ationGen ericName : erika beauchamp Not Available Not Available Not Available amoxicill in 875 mg-potass ium clavulana te 125 mg tablet 07/01 completed Medicati on ID: [id number] D uration Value: 10 Reason: () Brand Name: amoxicil layne-pot clavulan ate Send Method: E-Prescr ibed Sub s Allowed: subs SAMIR Parmar al Instruct ion: TAKE 1 TABLET BY [...] mg tablet 11/12 completed Medicati on ID: [id number] D uration Value: 30 Brand Name: aripipra zole Sen d Method: E-Prescr ibed Sub s Allowed: subs SAMIR Parmar al Instruct ion: TAKE 1 TABLET BY MOUTH EVERY DAY Medi cationGe nericNam e: aripipra zole Not Available Not Available Not Available Strattera 60 mg capsule active Not Available Not Available Not Available aripipraz ole 5 mg tablet 11/12 completed Medicati on ID: [id number] D uration Value: 30 Brand Name: aripipra zole Sen d Method: E-Prescr ibed Sub s Allowed: subs SAMIR Parmar al Instruct ion: TAKE 1 TABLET BY MOUTH EVERY DAY Medi cationGe nericNam e: aripipra zole Not Available Not Available Not Available chlorhexi dine gluconate 0.12 % mouthwash 11/12 completed Medicati on ID: [id number] D uration Value: 16 Brand Name: chlorhex idine gluconat e Send Method: E-Prescr ibed Sub s Allowed: subs OK Speci al Instruct ion: IRRIGATE MOUTH AND SPIT OUT 15ML TWICE A DAY Medi cationGe nericNam e: chlorhex idine gluconat e Not Available Not Available Not Available omega-3 fatty acids-fis h oil 300 mg-1,000 mg capsule 11/12 completed Medicati on ID: [id number] D uration Value: 30 Brand Name: omega-3 fatty acids-fi sh oil Send Method: E-Prescr ibed Sub s Allowed: subs OK Speci al Instruct ion: TAKE 2 CAPSULES BY MOUTH EVERY DAY Medi cationGe nericNam e: omega-3 fatty acids-fi sh oil Not Available Not Available Not Available diclofena c 1 % topical gel active Not Available Not Available Not Available tetrabena zine 12.5 mg tablet active Not Available Not Available No t Available naftifine 2 % topical cream active Not Available Not Available Not Available Nasacort 55 mcg nasal spray aerosol 11/12 completed Medicati on ID: [id number] P rescribe d By Name: PINKY Luevano nd Name: Nasacort Send Method: E-Prescr ibed Sub s Allowed: subs OK Speci al Instruct ion: 2 sprays each nostril once daily Me dication GenericN rohan: Nasacort Not Available Not Available Not Available Rexulti 3 mg tablet 02/16 completed Medicati on ID: [id number] D uration Value: 30 Brand Name: Rexulti Send Method: E-Prescr ibed Sub s Allowed: subs OK Speci al Instruct ion: TAKE 1 TABLET BY MOUTH EVERY MORNING MOOD STABILIZ ER Medic ationGen ericName : Rexulti Not Available Not Available Not Available Rexulti 2 mg tablet 07/13 completed Medicati on ID: [id number] B rand Name: Rexulti Send Method: E-Prescr ibed Sub s Allowed: subs OK Speci al Instruct ion: TAKE 1 TABLET BY MOUTH EVERY DAY IN THE MORNING Medicati onGeneri cName: Rexulti Not Available Not Available Not Available Vraylar 1.5 mg capsule 04/12 completed Medicati on ID: [id number] B rand Name: Son Send Method: E-Prescr ibed Sub s Allowed: [...] Updated DateTime 04/10/2024 180.34 cm 39.6 kg/m2 048943.23 g Keely Girard [place] - [facility] 04/10/2024 15:32:02 Date Recorded Body height Body mass index (BMI) Body weight Provider Name and Address Organization Details Last Updated DateTime 05/23/2024 180.34 cm 39.6 kg/m2 870691.23 g Luisa Verdugo [facility] 05/23/2024 15:36:05 Date Recorded Body height Body mass index (BMI) Body weight Provider Name and Address Organization Details Last Updated DateTime 09/23/2024 180.34 cm 39.6 kg/m2 665327.23 g Luisa Verdugo [facility] 09/23/2024 15:06:06 Social History None recorded. Functional Status None recorded. Mental Status None recorded. Family History Nothing Reported. Medical History No medical history recorded. Past Encounters Encounter ID Performer Location Encounter Start Date Encounter Closed Date Diagnosis/Indication Diagnosis SNOMED-CT Code Diagnosis ICD10 Code Diagnosis Note [id number] MAG BRANDT PA-C [facility] on [address] [place] [address] 04/10/2024 15:19:12 04/10/2024 16:22:57 Impacted cerumen of bilateral ears [id number] 574846 H61.23 Autism spe ctrum disorder 59920620 F84.0 [id number] IZA MOON MD [facility] on [address] [place] [id number] 05/23/2024 15:34:40 05/23/2024 16:07:38 Autism spectrum disorder 86088443 F84.0 Respiratory finding 1060 71436 R09.89 Impacted c erumen of bilateral ears 2638487564 589327 H61.23 [id number] GERMANIA HUERTA MD [facility], [facility] on [address] [place] [id number] 09/23/2024 15:04:44 09/23/2024 15:24:42 Acute sinusitis 56402276 J01.80 Health Concerns Section Related Observation LastModified by Organization Detai ls LastModified Time None Recorded Concern Status LastModified by Organization Details LastModified Time None Recorded Advance Directives Directive None Recorded Payers Encounter Date Sequence Insurance Name Policy Number Policy Alva Covered Member ID Alva Member ID Guarantor Name 04/10/2024 1 [facility] PLAN (MEDICAID HMO) FRANCESCA Warren [id number] Caleb Warren 05/23/2024 1 [facility] PLAN (MEDICAID HMO) FRANCESCA Warren [id number] Caleb Warren 09/23/2024 1 [facility] PLAN (MEDICAID HMO) FRANCESCA Warern [id number] Caleb Warren Notes Date Note Type Note Provider Name and Address Organization Details Recorded Time 04/10/2024 text/html 23 year old male with a history of autism, presents today for follow up for an ear cleaning. Ears have been feeling plugged. Not using headphones anymore regularly. MAG BRANDT PA-C [address] [place] [address], [phone], [place] - [facility] 04/10/2024 15:43:01 05/23/2024 text/html 23 year [...] in some years. IZA MOON MD [address] [facility],[address], [address], [place] - [facility] 05/24/2024 08:06:04 09/23/2024 text/html 24 year old male presents accompanied by his mother reporting left sided frontal sinus pain, increased phlegm and postnasal drip. Mother reports that he has a history of sinus infection and usually does well with Amoxicillin. They also request ear cleaning. GERMANIA HUERTA MD [address] [facility],[place] [address], [place], [address], [place] - [facility] 09/25/2024 13:22:59
== END 2024-11-07 08:05 | disposition home or self-care (01) ==
LOC: HO.XRAY 08:04
PROVIDERS: PCP Family Medicine; Visit Provider Nurse Practitioner Family
DX: R13.10 Dysphagia, unspecified (principal); K21.9 Gastro-esophageal reflux disease without esophagitis
CPT/HCPCS: 74240

== ENCOUNTER → 2024-11-07 08:04 | Outpatient (BNV) | payer OTHER, SELFPAY | PROVIDERS: PCP Family Medicine; Visit Provider Physician Assistant Surgical | DX: R13.10 Dysphagia, unspecified (principal) | CPT/HCPCS: 74246 ==

== ENCOUNTER 2024-11-13 16:28 | Outpatient (AMB) | payer OTHER, SELFPAY ==
[2024-11-13 16:27] VITALS: BP 136/62; PULSE 74; O2SAT 99; BMI 39.3
--- NOTE | 2024-11-13 16:27 | MHC.OFFVIS ---
Vital Signs 11/13/24 16:27 Height 5 ft 10 in Weight 273 lb 13.026 oz BMI 39.3 BP 136/62 Blood Pressure Location Lt brachial Position Sitting Pulse 74 Pulse Source Pulse Oximeter Pulse Oximetry (%) 99 Oxygen Delivery Method Room Air Intake Visit Reasons: 2 mo f/u Gerd, vomitting R/S needs BS done Intake Note: ESTABLISHED PATIENT for GERD mgmt. BA FL complete and read. Chief Complaint; Reflux is under OK control but still having frequent breakthrough, slightly improved from last visit. Still having difficulty swallowing pills. Fiber is helping with BMs. Not having diarrhea as frequently. No other GI concerns at this time. 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 Accompanied by: Mother Allergies Sulfa (Sulfonamide Antibiotics) [SULFA(SULFONAMIDE ANTIBIOTICS)] Allergy (Intermediate, Verified 11/13/24 16:27) RASH amoxicillin [From AUGMENTIN] Adverse Reaction (Mild, Verified 11/13/24 16:27) YEAST INFECTION clavulanic acid [From AUGMENTIN] Adverse Reaction (Mild, Verified 11/13/24 16:27) YEAST INFECTION HPI HPI 2 mo f/u Gerd, vomitting R/S needs BS done: Details: LAST VISIT: GERD (gastroesophageal reflux disease) Postprandial epigastric pain Globus sensation Constipation Plan Discussed with patient and mom the importance of eating smaller meals and more often. Eating slow and chew food well. Patient will start pantoprazole in the morning. Avoid dietary triggers and late night snacking. Staying upright for minimum 3 hours after meals discussed with patient. Will send patient for upper GI with barium swallow. Patient will start taking Dulcolax tablets in the evening. Increase fluid intake and activity to promote better bowel motility. Patient will follow-up in the office in 2 months, sooner on as needed basis. Both patient and his mom are agreeable to plan of care and verbalizes understanding of instructions. They were given the opportunity to ask questions and all questions answered. ? Thank you for allowing me to participate in his care Orders Orders FL upper GI w Ba Swallow 07/26/24 R13.10, K21.9 Medications New pantoprazole take one tablet half an hour before breakfast 40 mg PO DAILY 30 tabs 2RF K21.9 bisacodyl (Dulcolax (bisacodyl)) 10 mg (2 x 5 mg) PO BEDTIME 180 tabs 4RF TODAY VISIT Patient is here today for follow-up and to discuss upper GI with barium swallow. Mild laryngeal penetration seen on x-ray. Moderate reflux seen. Patient reports that he is feeling better. Takes fiber every day. Patient reports that he takes pantoprazole and his symptoms of acid reflux are suppressed. Patient's mom on the phone as patient today is with his grandmother. Patient's mom reports that he is not taking pantoprazole at all. Patient reports occasional trouble swallowing specially when he is taking his morning medication. That includes large capsule that he was to open up and take it with yogurt or applesauce. Patient denies any abdominal pain or discomfort. Denies melena, hematochezia. Denies dyspepsia or odynophagia. Overall patient reports that he is doing better today. Tries to manage his symptoms with dietary changes although not always compliant. [facility] Medical History GERD (gastroesophageal reflux disease) Abnormal EKG Chest pain Palpitations Autism Tourette's Surgical History [place] teeth extracted History of fundoplication Family History Sister Brain cancer Social History Housing: House Alcohol intake: never Patient Tobacco Use Status: Never used Tobacco e-Cigarette/Vaping Use: Never Used Current occupational status: unemployed Cognitive needs: No Hearing needs: No Vision needs: No Review of Systems Const Denies weight gain and Denies weight loss ENT Reports no additional complaints, Reports dysphagia (Occasional) and Denies odynophagia Card Reports no additional complaints Resp Reports no additional complaints GI Reports abdominal pain, Denies belching, Denies melena, Reports bloating, Denies change in bowel habits, Reports constipation, Reports dysphagia (Occasional), Denies excessive flatus, Denies dyspepsia, Reports heartburn, Denies diarrhea, Denies loose stools, Reports nausea, Denies odynophagia and Reports vomiting Reports no additional complaints Musc Reports no additional complaints Neuro Reports no additional complaints Psych Reports no additional complaints Endo Reports no additional complaints Physical Exam Vital Signs: Last Vital Signs Pulse 74 11/13/24 16:27 BP 136/62 11/13/24 16:27 Pulse Ox 99 11/13/24 16:27 Oxygen Delivery Method Room Air 11/13/24 16:27 BMI result Body Mass Index 39.3 Const General: healthy appearing and no acute distress Orientation/consciousness: patient oriented x3 Limitations: behavioral limitations (Patient has autism) Resp Effort & Inspection: normal respiratory effort, able to speak in complete sentences, no tracheal deviation and symmetric chest movement Auscultation: clear to auscultation bilaterally Cardio Rate: regular rate GI Inspection: Yes normal to inspection, No distended and Yes obesity Palpation (GI): Soft to palpation, not firm, nontender and No hepatosplenomegaly present Auscultation: normal bowel sounds General: Yes no CVA tenderness Back/Spine/Pelvis Back: no CVA tenderness Skin General skin exam: elasticity normal, turgor normal and dry skin Neuro General: patient oriented x3 Psych Appearance: grossly normal Mental Status: mental status grossly normal Results Reviewed Results Reviewed: UPPER GI BARIUM SWALLOW 11/07/2024 IMPRESSION: 1. Trace laryngeal penetration with thick barium. 2. Small type I hiatal hernia with moderate gastric esophageal reflux. 3. Mild thickening of the gastric rugal folds, suggestive of gastritis. Assessment & Plan Assessment & Plan (1) GERD (gastroesophageal reflux disease): Code(s): K21.9 - Gastro-esophageal reflux disease without esophagitis Qualifiers: Esophagitis presence: esophagitis presence not specified Qualified Code(s): K21.9 - Gastro-esophageal reflux disease without esophagitis (2) Postprandial epigastric pain: Code(s): R10.13 - Epigastric pain (3) Globus sensation: Code(s): R09.A2 - Foreign body sensation, throat (4) Constipation: Code(s): K59.00 - Constipation, unspecified Qualifiers: Constipation type: slow transit constipation Qualified Code(s): K59.01 - Slow transit constipation Plan Patient was encouraged to take pantoprazole daily as moderate reflux seen on upper GI series with barium swallow. Will send him for modified barium swallow with speech therapy to assess. Mild laryngeal penetration seen. Patient was encouraged to eat slowly and chew well. Try to swallow small pieces with water or liquid of choice. Avoid soda, caffeine. Avoid dietary triggers and late night snacking. Staying upright for minimum 3 hours after meals discussed with patient. Continue taking fiber. Patient will return in 3 months, sooner on as needed basis. Patient, his grandmother and his mom are agreeable to plan of care and verbalizes understanding of instructions. They were given the opportunity to ask questions and all questions answered. Thank you for allowing me to participate in his care Orders: Orders FL Modified Barium Swallow Today R13.10 - Dysphagia, unspecified Coding Level of Care Code Est Pt Level 4 (32031) Complex EM visit Add On G2211 Diagnoses Gastroesophageal reflux disease, unspecified whether esophagitis present K21.9 Esophagitis presence: esophagitis presence not specified Postprandial epigastric pain R10.13 Globus sensation R09.A2 Slow transit constipation K59.01 Constipation type: slow transit constipation Time Spent (min) 35 Comment 25 minutes spent with patient and additional 10 minutes spent reviewing his records
--- OUTSIDE RECORDS SUMMARY | 2024-11-13 17:52 | XMS_ITS | Clinical Summary ---
Author Organization [facility] Address [address] [place] [address] Care Team Providers Care Supply Chain Design Manager Name Role Phone Unknown Primary Care Provider [phone] Allergies Active Allergy Reactions Criticality Noted Date Comments Amoxicillin-Pot Clavulanate Rash/Dermatitis Low Clavulanic Acid Unknown/Patient and Family Unable to Define Medium 01/04/2019 Sulfa Antibiotics Hives Medium 01/04/2019 Medications Medication Sig Dispensed Refills Start Date End Date Status tetrabenazine (XENAZINE) 12.5 MG tablet Take 12.5 mg by mouth daily. Active atomoxetine (STRATTERA) 60 MG capsule Take 60 mg by mouth daily. Active OMEprazole (PriLOSEC) 20 MG capsule Take 20 mg by mouth every morning before breakfast. Active Social History Tobacco Use Types Packs/Day Years Used Date Smoking Tobacco: Never Assessed Sex and Gender Information Value Date Recorded Sex Assigned at Not on file Gender Identity Not on file Sexual Orientation Not on file Last Filed Vital Signs Vital Sign Reading Time Taken Comments Blood Pressure 147/54 01/05/2019 7:59 AM EDT Pulse 80 01/05/2019 7:59 AM EDT Temperature 37.3 ??C (99.2 ??F) 01/05/2019 7:59 AM ED T Respiratory Rate 16 01/05/2019 7:59 AM EDT Oxygen Saturation 94% 01/05/2019 7:59 AM EDT Inhaled Oxygen Concentration - - Weight - - Height - - Body Mass Index - - Plan of Treatment Health Maintenance Due Date Last Done Comments Hepatitis C Virus Screening 1999 HIV Screening 2012 HPV Vaccines (1 - Male 3-dos e series) 2014 DTaP/Tdap/Td Vaccines (1 - Tdap) 2018 Hepatitis B Vaccines (1 of 3 - 19+ 3-dose series) 2018 Influenza Vaccine 05/16/2024 COVID-19 Vaccine (2023-2 5 season) 2024 Pneumococcal Vaccine: Pediat tigist (0-5 Years) and At-Risk Patients (6 to 49 Years) Aged Out No longer eligible b ased on patient's age to complete this topic Care Teams Supply Chain Design Manager Relationship Specialty Start Date End Date Unknown Unknow Provider Address PCP - General 01/04/19
--- OUTSIDE RECORDS SUMMARY | 2024-11-13 17:52 | XMS_ITS | Data Portability ---
Author Organization [place] [facility], Allergy Address [address] [address] Care Team Providers Care Director Medicare Sales Name Role Phone HUMBERTO NAJERA Primary Care [...] date rolly g. Thank you. 2023 024 [facility], [address] [place] [address] , [facility], [place], [address], 4 11:42:46 Procedures None record ed. Surgeries None record ed. Imaging barium swallo w study - dyspha dinaelys, histor y of cortney proced ure 2023 024 [email or web address] [facility] (Imaging), [address] [facility], [place], [address], 4 16:07:38 Medication Orders amoxic illin 500 mg capsul e 2023 024 [facility][id number], [address] [facility] [place], [address], 4 15:18:07 Patient TargetsNo targets recorded. Patient InstructionsNo instructions recorded. 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82) Not Available [facility] 4 02:37:32 Abnormal auditory perceptio n 79261068 Active 2018 Other abnormal auditory perceptio ns, bilateral ; Note: Date Diagnosed : 12/19/2018 3:39 PM (H93.293) Not Available [facility] 4 02:37:35 Hypertrop hy of nasal turbinate s 03688199 Active 2016 Hypertrop hy of nasal turbinate s; Note: Date Diagnosed : 06/09/2017 12:30 PM (J34.3) Not Available [facility] 4 02:37:33 Attention deficit hyperacti vity disorder 584781490 Active 2016 Attention -deficit hyperacti vity disorder NOS; Note: Date Diagnosed : 06/09/2017 12:50 PM (F90.9) Not Available [facility] 4 02:37:34 Impacted cerumen of bilateral ears 78998377734 16864 Active 2018 Impacted cerumen, bilateral ; Note: Date Diagnosed : 02/19/2019 6:04 PM (H61.23) Not Available [facility] 4 02:37:22 Bilateral earache 579918543 Active 2018 Otalgia, bilateral ; Note: Date Diagnosed : 11/15/2018 4:19 PM (H92.03) Not Available [facility] 4 02:37:21 Headache 28565709 Active 2018 Facial pain NOS; Note: Date Diagnosed : 01/21/2019 4:58 PM (R51) Headach e; Note: Date Diagnosed : 06/09/2017 12:50 PM (R51) ; Start Date : 7 Not Available [facility] 02:37:31 Autism spectrum disorder 22840228 Active 2023 MAG BRANDT PA-C [address] [place] [address],[place] [address], [place], [address] , [facility] 4 15:42:42 Acute sinusitis 57890751 Active 2023 Other acute sinusitis ; Note: Date Diagnosed : 11/15/2023 3:27 PM (J01.80) Not Available [facility] 4 02:37:24 Problem Notes None recorded. Procedures Surgical History Date Name Laterality Status Provider Name and Address Organization Details Recorded Time 05/23/20 24 Fiberoptic Laryngoscopy (Comprehensive) completed MAG BRANDT PA-C [address] [place] [address],[place] [address], [place], [address], [facility] 05/23/2024 16:01:53 Imaging Results Imaging Date Name Status LastModified by Organiz ation Details LastModified Time 01/04/2019 imaging/diagno stic result completed [email or web address] Information not available 06/05/2024 02:35:49 02/09/2022 imaging/diagno [...] Name and Address Organization Details Recorded Time 27864 Substance with sulfonami de structure and antibacte rial mechanism of action (substanc e) medicatio n other Not available Not available 02/27/2024 32005 8003 SNOMED React ion: unkno wn, unspe cifie d;; Not Available [facility] 4 00:56:23 Medications Name Sig Start Date Stop Date Status Note LastModified by Organization Details LastModified Time amoxicill in 500 mg capsule Take 1 capsule by mouth three times a day active Not Available Not Available No t Available metformin 500 mg tablet 11/12 completed Medicati on ID: [id number] D uration Value: 30 Brand Name: kim [...] by mouth 2017 active Medicati on ID: [id number] D uration Value: 30 Prescri bed By [...] topical cream 01/12 completed Medicati on ID: [id number] B rand Name: Lotrison e Send Method: E-Prescr ibed Sub s Allowed: subs OK Speci al Instruct ion: apply to external ear tid X 2 weeks Me dication GenericN rohan: Lotrison e Medica tion ID: [id number] B rand Name: Lotrison e Send Method: E-Prescr ibed Sub s Allowed: subs OK Speci al Instruct ion: apply to external ear tid X 2 weeks Me dication GenericN rohan: Lotrison e Not Available Not Available Not Available clotrimaz ole-betam ethasone 1 %-0.05 % lotion 01/12 completed Medicati on ID: [id number] P rescribe d By Name: PINKY Isabel [...] mg tablet 11/12 completed Medicati on ID: [id number] D uration Value: 30 Brand Name: melatoni n Send Method: E-Prescr ibed Sub s Allowed: subs OK Speci al Instruct ion: TAKE 1 TABLET BY MOUTH DAILY AT BEDTIME Medicati onGeneri cName: melatoni n Not Available Not Available Not Available omeprazol e 40 mg capsule,d elayed release 07/13 completed Medicati on ID: [id number] B rand Name: omeprazo le Send Method: [...] topical cream 11/12 completed Medicati on ID: [id number] D uration Value: 2 Brand Name: lidocain e-priloc blanka Sen d Method: E-Prescr ibed Sub s Allowed: subs OK Speci al Instruct ion: APPLY DIRECTED TOPICALL Y ONCE [facility]: lidocain e-priloc blanka Not Available Not Available Not Available amoxicill in 875 mg tablet TAKE 1 TABLET BY MOUTH EVERY 12 HOURS active Not Available Not Available No t Available ciproflox acin 0.3 % eye drops 01/12 completed Medicati on ID: [id number] B rand Name: ciproflo xacin HCl Send [...] elayed release 11/12 completed Medicati on ID: [id number] D uration Value: 30 Brand Name: omeprazo [...] mg tablet 04/12 completed Medicati on ID: [id number] B rand Name: ibuprofe n Send Method: [...] by mouth 2016 active Medicati on ID: [id number] D uration Value: 30 Prescri bed By Name: Ami Berrios nd Name: erika beauchamp Send Method: E-Prescr ibed Sub s Allowed: subs OK Medic ationGen ericName : erika beauchamp Not Available Not Available Not Available amoxicill in 875 mg-potass ium clavulana te 125 mg tablet 07/01 completed Medicati on ID: [id number] D uration Value: 10 Reason: () Brand [...] mg tablet 11/12 completed Medicati on ID: [id number] D uration Value: 30 Brand Name: aripipra zole Sen d Method: E-Prescr ibed Sub s Allowed: subs SAMIR Parmar al Instruct ion: TAKE 1 TABLET BY MOUTH EVERY DAY Medi cationGe nericNam e: aripipra zole Not Available Not Available Not Available Strattera 60 mg capsule active Not Available Not Available Not Available aripipraz ole 5 mg tablet 11/12 completed Medicati on ID: [id number] D uration Value: 30 Brand Name: aripipra zole Sen d Method: E-Prescr ibed Sub s Allowed: subs SAMIR Parmar al Instruct ion: TAKE 1 TABLET BY MOUTH EVERY DAY Medi cationGe nericNam e: aripipra zole Not Available Not Available Not Available chlorhexi dine gluconate 0.12 % mouthwash 11/12 completed Medicati on ID: [id number] D uration Value: 16 Brand Name: chlorhex idine gluconat e Send Method: E-Prescr ibed Sub s Allowed: subs OK Speci al Instruct ion: IRRIGATE MOUTH AND SPIT OUT 15ML TWICE A DAY Medi cationGe nericNam e: chlorhex idine gluconat e Not Available Not Available Not Available omega-3 fatty acids-fis h oil 300 mg-1,000 mg capsule 11/12 completed Medicati on ID: [id number] D uration Value: 30 Brand Name: omega-3 [...] spray aerosol 11/12 completed Medicati on ID: [id number] P rescribe d By Name: PINKY Luevano nd Name: Nasacort Send Method: E-Prescr ibed Sub s Allowed: subs OK Speci al Instruct ion: 2 sprays each nostril once daily Me dication GenericN rohan: Nasacort Not Available Not Available Not Available Rexulti 3 mg tablet 02/16 completed Medicati on ID: [id number] D uration Value: 30 Brand Name: Rexulti Send Method: E-Prescr ibed Sub s Allowed: subs OK Speci al Instruct ion: TAKE 1 TABLET BY MOUTH EVERY MORNING MOOD STABILIZ ER Medic ationGen ericName : Rexulti Not Available Not Available Not Available Rexulti 2 mg tablet 07/13 completed Medicati on ID: [id number] B rand Name: Rexulti Send Method: E-Prescr ibed Sub s Allowed: subs OK Speci al Instruct ion: TAKE 1 TABLET BY MOUTH EVERY DAY IN THE MORNING Medicati onGeneri cName: Rexulti Not Available Not Available Not Available Vraylar 1.5 mg capsule 04/12 completed Medicati on ID: [id number] B rand Name: Son Send Method: E-Prescr [...] Updated DateTime 04/10/2024 180.34 cm 39.6 kg/m2 600340.23 g Keely Girard [place] [facility] 04/10/2024 15:32:02 Date Recorded Body height Body mass index (BMI) Body weight Provider Name and Address Organization Details Last Updated DateTime 05/23/2024 180.34 cm 39.6 kg/m2 072987.23 g Luisa Verdugo [facility] 05/23/2024 15:36:05 Date Recorded Body height Body mass index (BMI) Body weight Provider Name and Address Organization Details Last Updated DateTime 09/23/2024 180.34 cm 39.6 kg/m2 598339.23 g Luisa Verdugo [facility] 09/23/2024 15:06:06 Social History None recorded. Functional Status None recorded. Mental Status None recorded. Family History Nothing Reported. Medical History No medical history recorded. Past Encounters Encounter ID Performer Location Encounter Start Date Encounter Closed Date Diagnosis/Indication Diagnosis SNOMED-CT Code Diagnosis ICD10 Code Diagnosis Note [id number] MAG BRANDT PA-C [facility] on [address] [place] [address] 04/10/2024 15:19:12 04/10/2024 16:22:57 Impacted cerumen of bilateral ears 3156694367 918037 H61.23 Autism spe ctrum disorder 73638972 F84.0 [id number] IZA MOON MD [facility] [address] [place] [address] 05/23/2024 15:34:40 05/23/2024 16:07:38 Autism spectrum disorder 51343146 F84.0 Respiratory finding 1060 05395 R09.89 Impacted c erumen of bilateral ears 7520196121 103285 H61.23 [id number] GERMANIA HUERTA MD [facility] [address] [place] [phone] 09/23/2024 15:04:44 09/23/2024 15:24:42 Acute sinusitis 60133036 J01.80 Health Concerns Section Related Observation LastModified by Organization Detai ls LastModified Time None Recorded Concern Status LastModified by Organization Details LastModified Time None Recorded Advance Directives Directive None Recorded Payers Encounter Date Sequence Insurance Name Policy Number Policy Alva Covered Member ID Alva Member ID Guarantor Name 04/10/2024 1 [facility] PLAN (MEDICAID HMO) FRANCESCA Warren [id number] Caleb Warren 05/23/2024 1 [facility] PLAN (MEDICAID HMO) FRANCESCA Warren [id number] Caleb Warren 09/23/2024 1 [facility] PLAN (MEDICAID HMO) FRANCESCA Warren [id number] Caleb Warren Notes Date Note Type Note Provider Name and Address Organization Details Recorded Time 04/10/2024 text/html 23 year old male with a history of autism, presents today for follow up for an ear cleaning. Ears have been feeling plugged. Not using headphones anymore regularly. MAG BRANDT PA-C [address] [place] [address], [address], [place] - [facility] 04/10/2024 15:43:01 05/23/2024 text/html 23 year old [...] in some years. IZA MOON MD [address] [facility],[address], [address], [place] [facility] 05/24/2024 08:06:04 09/23/2024 text/html 24 year old male presents accompanied by his mother reporting left sided frontal sinus pain, increased phlegm and postnasal drip. Mother reports that he has a history of sinus infection and usually does well with Amoxicillin. They also request ear cleaning. GERMANIA HUERTA MD [address] [facility],[place] [address], [place], [address], [place] [facility] 09/25/2024 13:22:59
== END 2024-11-13 17:04 | disposition home or self-care (01) ==
LOC: HO.HGI 16:28
PROVIDERS: PCP Family Medicine; Visit Provider Nurse Practitioner Family
DX: K21.9 Gastro-esophageal reflux disease without esophagitis (principal); R10.13 Epigastric pain; R09.A2 Foreign body sensation, throat; K59.01 Slow transit constipation
CPT/HCPCS: 99214; G2211

== ENCOUNTER → 2024-11-13 16:28 | Outpatient (BNVA) | payer OTHER, SELFPAY | PROVIDERS: PCP Family Medicine; Visit Provider Nurse Practitioner Family | DX: K21.9 Gastro-esophageal reflux disease without esophagitis (principal); K59.01 Slow transit constipation; R09.A2 Foreign body sensation, throat; R10.13 Epigastric pain | CPT/HCPCS: 99212 ==

== ENCOUNTER 2025-01-06 21:39 | Observation (INO) | payer OTHER, SELFPAY ==
--- NOTE | 2025-01-06 | ECG_ITS ---
Test Reason : CP Blood Pressure : */* mmHG Vent. Rate : 80 BPM Atrial Rate : 80 BPM P-R Int : 132 ms QRS Dur : 94 ms QT Int : 374 ms P-R-T Axes : 46 33 46 degrees QTcB Int : 431 ms Normal sinus rhythm Normal ECG When compared with ECG of 22-Jun-2024 17:37, No significant change was found Referred By: Generic ED Physician Electronically Signed By: GEORGE MYERS MD
--- NOTE | ~2025-01-06 | CT_ITS ---
EXAMINATION: CT ABDOMEN PELVIS WITHOUT IV CONTRAST HISTORY: abd pain COMPARISON: Comparison is made with the prior examination dated 06/21/2023. TECHNIQUE: CT scan of the abdomen and pelvis was performed without contrast using standard departmental protocol. Coronal and sagittal reformatted images were generated and reviewed. Oral contrast material was not administered at the request of the referring physician. This CT exam was performed with one or more of the following dose reduction techniques: automated exposure control, adjustment of the mA and/or kV according to patient size, use of iterative reconstruction technique. DLP: 1055 mGy-cm FINDINGS: LOWER CHEST: The visualized lung bases are clear. There is no pleural effusion. CARDIOVASCULATURE: The heart is normal in size. There is no pericardial effusion. LIVER: The liver is normal in size and contour. The liver demonstrates diffusely decreased attenuation, consistent with steatosis. There is focal fatty sparing adjacent to the gallbladder. GALLBLADDER / BILE DUCTS: The gallbladder is unremarkable. There is no intra or extrahepatic biliary ductal dilatation. SPLEEN: The spleen is enlarged. PANCREAS: The pancreas has an unremarkable unenhanced appearance. ADRENAL GLANDS: Unremarkable. KIDNEYS/RETROPERITONEUM: No renal calculi are identified. There is no hydronephrosis. LYMPH NODES: No retroperitoneal lymphadenopathy is identified in the abdomen or pelvis. VASCULATURE: The abdominal aorta is normal in caliber. MESENTERY/PERITONEUM: No free fluid. No masses. There is no free intraperitoneal gas. STOMACH: There is a small hiatal hernia. The remainder of the stomach is unremarkable. SMALL BOWEL: The small bowel is normal in caliber. COLON: The descending and sigmoid colon are largely collapsed. There appears to be wall thickening of the rectum. Mild pericolonic inflammatory changes are seen. Findings are suggestive of colitis. APPENDIX: Normal. URINARY BLADDER/PELVIC ORGANS: The urinary bladder is collapsed, limiting evaluation. The prostate is normal in size. BONES / SOFT TISSUES: There is bilateral spondylolysis of L5 without spondylolisthesis. CT/CT abdomen pelvis wo IV con IMPRESSION: 1. Findings suggestive of colitis. 2. Hepatic steatosis. Splenomegaly. Electronically signed by: Javier Tran MD 01/07/2025 08:17 AM EDT
--- NOTE | ~2025-01-06 | US_ITS ---
EXAMINATION: US LOWER EXTREMITY VEINS BILATERAL HISTORY: pain COMPARISON: Comparison is made with the prior examination of the left lower extremity veins dated 05/01/2023. TECHNIQUE: Duplex and color Doppler sonographic examination of the deep venous system of the bilateral lower extremities was performed. FINDINGS: The right common femoral, superficial femoral, and popliteal veins are patent demonstrating normal compressibility, spontaneous flow, and augmentation. There is a normal color and spectral Doppler waveform appearance of the visualized deep venous system above the knee. The posterior tibial and peroneal veins are patent. The left common femoral, superficial femoral, and popliteal veins are patent demonstrating normal compressibility, spontaneous flow, and augmentation. There is a normal color and spectral Doppler waveform appearance of the visualized deep venous system above the knee. The posterior tibial and peroneal veins are patent. US/US venous duplex LE BI IMPRESSION: No evidence of acute DVT in the bilateral lower extremities. Electronically signed by: Javier Tran MD 01/07/2025 02:47 PM EDT
--- NOTE | ~2025-01-06 | XR_ITS ---
CLINICAL HISTORY: shortness of breath chest pain 2 view chest x-ray Comparison: CR/SR - XR CHEST 1V - 06/22/24 17:54 EDT CR/SR - XR CHEST 2V - 02/28/24 18:49 EDT Findings: The lungs are clear. Heart size is normal. No acute fracture. IMPRESSION: 1. No acute findings. This document has been electronically signed by: Bell Herndon MD on 01/06/2025 22:35:40
[2025-01-06 21:54] VITALS: BP 135/58; PULSE 73; RESP 18; TEMP 36.7; O2SAT 99; BMI 37.2
[2025-01-06 22:14] LABS: Mean Corpuscular Hemoglobin 27.5 pg (27.0-33.0); Mean Corpuscular Volume 78.6 fL (80.0-98.0); Mean Platelet Volume 10.1 fL (9.4-12.4); Platelet Count 199 X10*3/uL (160-400); Red Blood Count 5.09 X10*6/uL (4.60-5.80); Red Cell Distribution Width 12.5 % (11.0-16.0); White Blood Count 6.8 X10*3/uL (4.8-10.8)
[2025-01-06 22:32] LABS: Alanine Aminotransferase 69 U/L (0-40); Albumin Level 3.8 g/dL (3.5-5.0); Alkaline Phosphatase 86 U/L (39-117); Anion Gap 11 (12-20); Aspartate Amino Transferase 35 U/L (5-37); Bilirubin Total 0.4 mg/dL (0.0-1.0); Blood Urea Nitrogen 17 mg/dL (9-16); Calcium 9.1 mg/dL (8.4-10.2); Carbon Dioxide 25 mmol/L (22-29); Chloride 108 mmol/L (96-108); Creatinine Clr Calc Pharmacy 186.9; Estimated Glomerular Filt Rate > 60; Glucose Random 70 mg/dL (60-115); Magnesium 1.9 mg/dL (1.6-2.6); Potassium 4.2 mmol/L (3.3-5.1); Sodium 140 mmol/L (135-145); Total Protein 6.4 g/dL (6.5-8.0)
[2025-01-06 22:38] LABS: Troponin-I High Sensitivity 284.3 ng/L (<3.5-35.0)
[2025-01-06 22:50] LABS: Influenza A PCR NEGATIVE (Negative); Influenza B PCR NEGATIVE (Negative); Resp Syncy Virus RNA Qual PCR NEGATIVE (Negative); SARS COV2 PCR INHOUSE NEGATIVE (Negative)
[2025-01-06 23:01] LABS: C Reactive Protein 3.73 mg/dL (< or = 0.50)
[2025-01-06 23:12] LABS: B Type Natriuretic Peptide < 10 pg/mL (<100)
--- NOTE | 2025-01-06 23:19 | ED.CHESTPAIN ---
HPI - Chest Pain General Chief Complaint: Chest Pain Stated Complaint: chest pain, sob Time Seen by Provider: 01/06/25 22:39 Source: patient and old records reviewed Mode of arrival: ambulatory Limitations: no limitations History of Present Illness ED Provider: [facility] HPI narrative: 24 yo male with PMH of autism, obesity, anxiety, MDD, ADHD, GERD who reports not feeling well with sinus pressure, neck pain, headaches, body aches. He did have recent stressful event of a grandparent dying. He also walked 3 hours to [place] this week. He states besides the L sided chest pain and dyspnea he feels his neck hurts and his head hurts. No fevers that they know of. No recent trauma. MD complaint: chest pain Onset (ago): week(s) (2) Timing of current episode: episodic Prior episodes: Yes Onset: during rest and during exertion Pain location: left chest Pain radiation: neck Severity: moderate Quality: aching Relieving factors: nothing Exacerbating factors: palpation and movement Context: recent illness Associated symptoms: dyspnea and other (body aches) Related Data Home Medications ?Medication ?Instructions ?Recorded ?Confirmed atomoxetine 60 mg capsule 60 mg PO QAM 02/25/23 09/20/24 (Strattera) cariprazine 4.5 mg capsule 4.5 mg PO DAILY 07/26/24 09/20/24 (Vraylar) sertraline 25 mg tablet (Zoloft) 25 mg PO DAILY 09/20/24 09/20/24 Previous Rx's ?Medication ?Instructions ?Recorded albuterol sulfate 90 mcg/actuation 2 puff inhalation Q4-6H PRN 04/19/24 aerosol inhaler Wheezing #8.5 grams tetrabenazine 12.5 mg tablet 12.5 mg PO TID 30 days #90 tabs 08/22/24 (Xenazine) naftifine 2 % topical cream 1 appl topical DAILY 2 weeks #60 09/07/24 grams doxycycline hyclate 100 mg capsule 100 mg PO BID 7 days #14 caps 09/20/24 fluticasone furoate 50 1 inh inhalation DAILY #30 ea 09/20/24 mcg/actuation blister powder for inhalation (Arnuity Ellipta) nystatin 100,000 unit/gram topical 1 appl topical BID PRN rash #60 09/20/24 powder grams pantoprazole 40 mg tablet,delayed 40 mg PO QAM #90 tabs 10/22/24 release cetirizine 10 mg tablet (All Day 10 mg PO DAILY PRN allergy 01/02/25 Allergy (cetirizine)) symptoms 90 days #90 tabs Allergies Allergy/AdvReac Type Severity Reaction Status Date / Time Sulfa (Sulfonamide Allergy Intermediate RASH Verified 01/06/25 21:57 Antibiotics) [SULFA(SULFONAMIDE ANTIBIOTICS)] amoxicillin [From AUGMENTIN] AdvReac Mild YEAST Verified 01/06/25 21:57 INFECTION clavulanic acid AdvReac Mild YEAST Verified 01/06/25 21:57 [From AUGMENTIN] INFECTION Review of Systems Review of Systems: Constitutional : No Weight loss, No Fever, No Chills ENT/Mouth : No sore throat, No Rhinorrhea Eyes: No Eye Pain, No Swelling Cardiovascular : pos Chest Pain, pos SOB, no Dyspnea on Exertion, No Orthopnea, No Edema, No Palpitations Respiratory : No Cough, No Sputum Gastrointestinal : no Nausea, No Vomiting, No Diarrhea, No abdominal Pain, No Hematochezia, No Melena Genitourinary : No Dysuria, No Urinary Frequency Musculoskeletal : No joint pain, pos Myalgias, No Joint Swelling Skin : No Skin Lesions, No rash Neuro : No Weakness, No Numbness, No Dizziness, No Headache Psych : No Anxiety/Panic, No Depression Heme/Lymph: No Bruising, No Lymphadenopathy Endocrine : No Polyuria, No Polydipsia All other systems reviewed and are negative PMFSH Past Medical History Attestation statement: The following information was validated with the patient. Source: old records reviewed Medical History GERD (gastroesophageal reflux disease) Abnormal EKG Chest pain Palpitations Autism Tourette's Surgical History [place] teeth extracted History of fundoplication Family History Family History Sister Brain cancer Social History Social History Housing: House Alcohol intake: never Patient Tobacco Use Status: Never used Tobacco e-Cigarette/Vaping Use: Never Used Advance Directives: No Advance Directives Information Provided: No Current occupational status: unemployed Cognitive needs: No Hearing needs: No Vision needs: No Physical Exam Vital Signs: Vital Signs: Last Vital Signs Temp 97.7 F 01/07/25 01:50 Pulse 76 01/07/25 01:50 Resp 16 01/07/25 01:50 BP 124/52 L 01/07/25 01:50 Pulse Ox 96 01/07/25 01:50 O2 Del Method Room Air 01/07/25 01:50 BMI result Body Mass Index 37.2 Appearance: Alert. Oriented X3. No acute distress. Eyes: Pupils equal, round and reactive to light. ENT: Pharynx normal. Neck: Normal inspection. Neck supple. CVS: Normal heart rate and rhythm. Pulses normal. Respiratory: No respiratory distress. Breath sounds normal. Abdomen: Soft and nontender. Skin: Skin warm and dry. Normal skin color. Normal skin turgor. Extremities: No lower extremity edema. No calf ttp Neuro: Oriented X 3. No motor deficit. No sensory deficit. CN2-12 intact Medications Administered Discontinued Medications Generic Name Dose Route Start Last Admin Trade Name Freq PRN Reason Stop Dose Admin Lactated Ringer's 1,000 mls @ 999 mls/hr 01/06/25 23:10 01/07/25 01:21 Lr IV 01/07/25 00:10 Infused .Q1H1M ONE Infusion Ketorolac Tromethamine 15 mg 01/06/25 23:14 01/06/25 23:44 Ketorolac Tromethamine 15 Mg/Ml Vial IVPUSH 01/06/25 23:15 15 mg ONCE ONE Administration Medical Decision Making Medical Decision Making [facility] Narrative: 24 yo male with PMH of autism, obesity, anxiety, MDD, ADHD, GERD here with c/o viral like illness for several days now with chest pain x 2 days he has no signs of ACS/VTE on exam and denies risk factors he is PERC negative I suspect at this time given his symptoms he likely has myocarditis - he has no fever now he has no Differential Diagnosis Differential Diagnoses: The differential diagnosis associated with the presentation includes myocarditis, atypical chest pain, pericardial effusion Admission/Observation Consideration of admission/observation: Escalation of care including admission/observation considered admit for ECHO Consult Healthcare Provider Management of the patient was discussed with: Hospitalist (will admit) Lab Data [facility] Lab Attestation statement: I reviewed the patient's lab results. 01/06/25 22:05 01/06/25 22:05 Labs: Lab Results 01/06/25 01/06/25 01/06/25 Range/Units 22:05 23:25 23:44 WBC 6.8 (4.8-10.8) X10*3/uL RBC 5.09 (4.60-5.80) X10*6/uL Hgb 14.0 (14.0-18.0) g/dl Hct 40.0 L (42.0-52.0) % MCV 78.6 L (80.0-98.0) fL MCH 27.5 (27.0-33.0) pg MCHC 35.0 (31.0-36.0) g/dl RDW 12.5 (11.0-16.0) % Plt Count 199 (160-400) X10*3/uL MPV 10.1 (9.4-12.4) fL Absolute Nucleated RBC 0.000 (0.0-0.012) X10*3/uL Nucleated RBC % (auto) 0.0 (0.0-0.2) /100WBC ESR 16 H (0-15) MM/HR Sodium 140 (135-145) mmol/L Potassium 4.2 (3.3-5.1) mmol/L Chloride 108 (96-108) mmol/L Carbon Dioxide 25 (22-29) mmol/L Anion Gap 11 L (12-20) BUN 17 H (9-16) mg/dL Creatinine 0.80 (0.5-1.4) mg/dL Estim Creat Clear Calc 186.9 Estimated GFR > 60 Random Glucose 70 (60-115) mg/dL Calcium 9.1 (8.4-10.2) mg/dL Magnesium 1.9 (1.6-2.6) mg/dL Total Bilirubin 0.4 (0.0-1.0) mg/dL AST 35 (5-37) U/L ALT 69 H (0-40) U/L Alkaline Phosphatase 86 (39-117) U/L Total Creatine Kinase 212 H (38-174) U/L Troponin I High Sens 284.3 H* D (<3.5-35.0) ng/L C-Reactive Protein 3.73 H (< or = 0.50) mg/dL B-Natriuretic Peptide < 10 (<100) pg/mL Total Protein 6.4 L (6.5-8.0) g/dL Albumin 3.8 (3.5-5.0) g/dL Urine Color Yellow Urine Appearance Clear Urine pH 5.5 (5.0-9.0) Ur Specific [place] 1.025 (1.005-1.025) Urine Protein Negative (Neg-Trace) mg/dL Urine Glucose (UA) Negative (Negative) mg/dL Urine Ketones Negative (Negative) mg/dL Urine Blood Negative (Negative) Urine Nitrite Negative (Negative) Ur Leukocyte Esterase Negative (Negative) Urine RBC 0-2 (0-2) /HPF Urine WBC 0-5 (0-5) /HPF Ur Squamous Epith Cells 0-2 (0-2) /HPF Urine Bacteria None Seen (None Seen) Hyaline Casts 0-2 (0-2) /LPF Influenza Type A (PCR) NEGATIVE (Negative) Influenza Type B (PCR) NEGATIVE (Negative) RSV RNA Qual (PCR) NEGATIVE (Negative) SARS-CoV-2 RNA (RT-PCR) NEGATIVE (Negative) 01/07/25 Range/Units 01:45 WBC (4.8-10.8) X10*3/uL RBC (4.60-5.80) X10*6/uL Hgb (14.0-18.0) g/dl Hct (42.0-52.0) % MCV (80.0-98.0) fL MCH (27.0-33.0) pg MCHC (31.0-36.0) g/dl RDW (11.0-16.0) % Plt Count (160-400) X10*3/uL MPV (9.4-12.4) fL Absolute Nucleated RBC (0.0-0.012) X10*3/uL Nucleated RBC % (auto) (0.0-0.2) /100WBC ESR (0-15) MM/HR Sodium (135-145) mmol/L Potassium (3.3-5.1) mmol/L Chloride (96-108) mmol/L Carbon Dioxide (22-29) mmol/L Anion Gap (12-20) BUN (9-16) mg/dL Creatinine (0.5-1.4) mg/dL Estim Creat Clear Calc Estimated GFR Random Glucose (60-115) mg/dL Calcium (8.4-10.2) mg/dL Magnesium (1.6-2.6) mg/dL Total Bilirubin (0.0-1.0) mg/dL AST (5-37) U/L ALT (0-40) U/L Alkaline Phosphatase (39-117) U/L Total Creatine Kinase (38-174) U/L Troponin I High Sens 268.7 H* (<3.5-35.0) ng/L C-Reactive Protein (< or = 0.50) mg/dL B-Natriuretic Peptide (<100) pg/mL Total Protein (6.5-8.0) g/dL Albumin (3.5-5.0) g/dL Urine Color Urine Appearance Urine pH (5.0-9.0) Ur Specific [place] (1.005-1.025) Urine Protein (Neg-Trace) mg/dL Urine Glucose (UA) (Negative) mg/dL Urine Ketones (Negative) mg/dL Urine Blood (Negative) Urine Nitrite (Negative) Ur Leukocyte Esterase (Negative) Urine RBC (0-2) /HPF Urine WBC (0-5) /HPF Ur Squamous Epith Cells (0-2) /HPF Urine Bacteria (None Seen) Hyaline Casts (0-2) /LPF Influenza Type A (PCR) (Negative) Influenza Type B (PCR) (Negative) RSV RNA Qual (PCR) (Negative) SARS-CoV-2 RNA (RT-PCR) (Negative) Independent Interpretation I performed an independent interpretation of an: EKG and Plain X-Ray (normal ) Interpretation: Rate: 80 Rhythm: NSR [employer]: normal Normal P waves. Normal SHAR. Normal QRS complex. ST T wave : tall t waves V2, no LEAH, no reciprocal changes qTC: 431 prior studies: no acute ischemia The study has been interpreted contemporaneously by me. EKG #2 Rate: 66 Rhythm: NSR [employer]: normal Normal P waves. Normal SHAR. Normal QRS complex. ST T wave : normal no LEAH qTC: 402 prior studies: no acute ischemia The study has been interpreted contemporaneously by me. . Radiology Impression Discussion of test interpretation with radiology: I have reviewed the radiologist's reading. Independent Historian Clinical information obtained from an independent historian. History obtained from or confirmed by: Parent External Record Review External record reviewed: Outpatient record Discharge Plan Discharge Clinical Impression: Chest pain, Elevated troponin Patient Disposition: Admitted As Inpatient Prescriptions: No Action pantoprazole 40 mg tablet,delayed release (DR/EC) 40 mg PO QAM Qty: 90 0RF cetirizine [All Day Allergy (cetirizine)] 10 mg tablet 10 mg PO DAILY PRN (Reason: allergy symptoms) 90 Days Qty: 90 3RF atomoxetine [Strattera] 60 mg capsule 60 mg PO QAM albuterol sulfate 90 mcg/actuation HFA aerosol inhaler 2 puff inhalation Q4-6H PRN (Reason: Wheezing) Qty: 8.5 0RF Vraylar 4.5 mg capsule 4.5 mg PO DAILY naftifine 2 % cream 1 appl topical DAILY 14 Days Qty: 60 0RF Rx Instructions: Apply to athlete's foot areas tetrabenazine [Xenazine] 12.5 mg tablet 12.5 mg PO TID 30 Days Qty: 90 1RF sertraline [Zoloft] 25 mg tablet 25 mg PO DAILY Arnuity Ellipta 50 mcg/actuation blister with device 1 inh inhalation DAILY Qty: 30 11RF doxycycline hyclate 100 mg capsule 100 mg PO BID 7 Days Qty: 14 0RF nystatin 100,000 unit/gram powder 1 appl topical BID PRN (Reason: rash) Qty: 60 2RF Print Language: Egyptian
--- NOTE | 2025-01-06 23:20 | ECG_ITS ---
Test Reason : CHEST PAIN Blood Pressure : */* mmHG Vent. Rate : 66 BPM Atrial Rate : 66 BPM P-R Int : 134 ms QRS Dur : 100 ms QT Int : 384 ms P-R-T Axes : 28 13 10 degrees QTcB Int : 402 ms Normal sinus rhythm Normal ECG When compared with ECG of 06-Jan-2025 21:45, No significant change was found Referred By: Awilda Le Electronically Signed By: GEORGE MYERS MD
[2025-01-06] MEDS: Lactated Ringers 1,000 ML 999 ML IV (23:44)
[2025-01-06] MEDS: Ketorolac Tromethamine 15 MG/ML VIAL IVPUSH (23:44)
[2025-01-07] VITALS (8 sets, daily range): BP systolic 116–147; BP diastolic 47–66; PULSE 74–96; RESP 16–20; TEMP 36.4–37.4; O2SAT 96–100; BMI 38.6
[2025-01-07 00:17] LABS: Erythrocyte Sedimentation Rate 16 MM/HR (0-15)
[2025-01-07 00:20] LABS: Appearance Urine Clear; Color Urine Yellow; Glucose Urine UA Negative (Negative); Leukocyte Esterase Urine Negative (Negative); Nitrite Urine Negative (Negative); PH 5.5 (5.0-9.0); Specific Gravity - Urine 1.025 (1.005-1.025); Urine Blood Negative (Negative); Urine Ketones Negative (Negative); Urine Protein Negative (Neg-Trace)
[2025-01-07 00:25] LABS: Bacteria Urine None Seen (None Seen); Hyaline Casts Urine 0-2 /LPF (0-2); RBC Urine 0-2 /HPF (0-2); Squamous Epithelial Cell Urine 0-2 /HPF (0-2); WBC Urine 0-5 /HPF (0-5)
--- NOTE | 2025-01-07 01:50 | MHC.EDTECH ---
This pct assumed care of Patient at 0100 ,vitals taken,Repeated trop drawn and sent to lab .
[2025-01-07 02:11] LABS: Troponin-I High Sensitivity 268.7 ng/L (<3.5-35.0)
[2025-01-07] MEDS: Colchicine 0.6 MG TABLET PO ×2 (03:18→22:05)
[2025-01-07] MEDS: Enoxaparin Sodium 40 MG/0.4 ML SYRINGE SUBCUT (05:38)
--- NOTE | 2025-01-07 06:25 | P.HPHOSP_ITS ---
History of Present Illness Date of Service: 01/07/25 <PINKY Reddy Last Filed: 01/07/25 06:41> Attending physician on admission: Astrid Monet <PINKY Reddy Last Filed: 01/07/25 06:41> Chief Complaint: L sternal chest pain <PINKY Reddy Last Filed: 01/07/25 06:41> Patient is a 24-year-old male with a past medical history significant for autism, obesity, anxiety, major depressive disorder, ADHD, GERD and moderate persistent asthma, who presented to the ED due to left sternal chest pain, shortness breath and diarrhea for the past week. His history is very difficult to obtain. His mother reports that he has been going through stress with his grandfather recently passing after a viral illness and cardiac complications. She feels that the patient thinks he has the same problem. He reports left lower extremity swelling, pain and limp, this is unclear if chronic. They do report that he walked 3 hours this weekend. He denies any fever, chills, nausea, vomiting. He does report diarrhea every time he eats but denies any blood in the stool. He is having lower abdominal pain he reports dysuria. His mother also mentions he has chronic sinus infections and she is concerned as he has been using a nasal lavage without cleaning it properly. He is having some frontal sinus tenderness. <PINKY Reddy Last Filed: 01/07/25 06:41> Review of Systems 2 Constitutional: Constitutional: Denies body ache(s), Denies chills, Denies fatigue, Denies fever(s) and Reports headache(s) <PINKY Reddy Last Filed: 01/07/25 06:41> Eyes: Eyes: Denies change in vision and Denies photophobia <PINKY Reddy Last Filed: 01/07/25 06:41> ENT: Reports headache(s), Denies nasal discharge, Reports sinus pain, Reports sinus pressure and Denies sore throat <PINKY Reddy Last Filed: 01/07/25 06:41> Cardiovascular: Cardiovascular: Reports chest pain (L sided), Denies rapid heart rate, Denies lightheadedness and Reports dyspnea <DONNIE Reddy Last Filed: 01/07/25 06:41> Respiratory: Respiratory: Denies cough, Reports dyspnea and Denies wheezing <PINKY Reddy Last Filed: 01/07/25 06:41> Gastrointestinal: Gastrointestinal: Reports abdominal pain, Denies melena, Denies hematochezia, Reports diarrhea, Denies nausea and Denies vomiting < Ritu Means PA-C Last Filed: 01/07/25 06:41> Genitourinary: Genitourinary: Reports dysuria <Ritu Means PA-C Last Filed: 01/07/25 06:41> Musculoskeletal: Musculoskeletal: Denies myalgias <Ritu Means PA-C Last Filed: 01/07/25 06:41> Integumentary/Breasts: Skin/Breast: Denies rash <Ritu Means PA-C Last Filed: 01/07/25 06:41> Neurologic: Denies confusion and Reports headache(s) <DONNIE Reddy Last Filed: 01/07/25 06:41> Psychiatric: Psychiatric: Denies confusion <Ritu Means PA-C Last Filed: 01/07/25 06:41> Endocrine: Endocrine: Denies fatigue <PINKY Reddy Last Filed: 01/07/25 06:41> Hematologic/Lymphatic: Hematologic/Lymphatic: Denies easy bleeding and Denies easy bruising <Ritu Means PA-C - Last Filed: 01/07/25 06:41> Allergic/Immunologic: Allergic/Immunologic: Denies wheezing <Ritu Means PA-C Last Filed: 01/07/25 06:41> [facility] Medical History: Medical History (Updated 01/07/25 @ 06:32 by Ritu Means PA-C) Obesity, Class III, 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 persistent allergic asthma GERD (gastroesophageal reflux disease) Abnormal EKG Chest pain Palpitations Autism Tourette's <PINKY Reddy Last Filed: 01/07/25 06:41> Functional capacity: independent ambulation <PINKY Reddy Last Filed: 01/07/25 06:41> Family History: Family History Sister Brain cancer <PINKY Reddy Last Filed: 01/07/25 06:41> Surgical History: Surgical History Lequire teeth extracted History of fundoplication <PINKY Reddy Last Filed: 01/07/25 06:41> Social History: Social History Housing: House Alcohol intake: never Patient Tobacco Use Status: Never used Tobacco Smoked in Last 30 Days: No e-Cigarette/Vaping Use: Never Used Use of substances other than those prescribed or required for medical reasons: No Advance Directives: No Advance Directives Information Provided: No Nutrition Risks: No Nutritional Risk Current occupational status: unemployed Cognitive needs: No Hearing needs: No Vision needs: No <PINKY Reddy Last Filed: 01/07/25 06:41> Meds Allergies/Adverse reactions: Allergies Allergy/AdvReac Type Severity Reaction Status Date / Time Sulfa (Sulfonamide Allergy Intermediate RASH Verified 01/06/25 21:57 Antibiotics) [SULFA(SULFONAMIDE ANTIBIOTICS)] amoxicillin [From AUGMENTIN] AdvReac Mild YEAST Verified 01/06/25 21:57 INFECTION clavulanic acid AdvReac Mild YEAST Verified 01/06/25 21:57 [From AUGMENTIN] INFECTION <PINKY Reddy Last Filed: 01/07/25 06:41> Active Medications: Current Medications Acetaminophen (Acetaminophen 325 Mg Tablet) 650 mg PO Q6H PRN PRN Reason: Pain, Mild 1-3,fever,headache Calcium Carbonate (Calcium Carbonate 750 Mg Tab.Chew) 750 mg PO Q4H PRN PRN Reason: Heartburn Enoxaparin Sodium (Enoxaparin Sodium 40 Mg/0.4 Ml Syringe) 40 mg SUBCUT Q24H DAILY Last Admin: 01/07/25 05:38 Dose: 40 mg Enoxaparin Sodium (Enoxaparin Sodium 80 Mg/0.8 Ml Syringe) 80 mg SUBCUT ONCE ONE Stop: 01/07/25 06:01 Magnesium Hydroxide (Milk Of Magnesia 30 Ml Oral.Susp) 30 ml PO DAILY PRN PRN Reason: Constipation Melatonin (Melatonin 3 Mg Tablet) 6 mg PO BEDTIME PRN PRN Reason: Insomnia Ondansetron HCl (Ondansetron Hcl 4 Mg/2 Ml Vial) 4 mg IVPUSH Q8H PRN PRN Reason: Nausea and Vomiting Sodium Chloride (0.9 % Sodium Chloride Flush 3 Ml Syringe) 3 ml IVFLUSH QSHIFT [facility] <Ritu Means PA-C - Last Filed: 01/07/25 06:41> Home medications: Home Medications ?Medication ?Instructions ?Recorded ?Confirmed ?Last Taken ?Type atomoxetine 60 mg capsule 60 mg PO QAM 02/25/23 09/20/24 Unknown History (Strattera) cariprazine 4.5 mg capsule 4.5 mg PO DAILY 07/26/24 09/20/24 Unknown History (Vraylar) sertraline 25 mg tablet (Zoloft) 25 mg PO DAILY 09/20/24 09/20/24 Unknown History <Ritu Means PA-C - Last Filed: 01/07/25 06:41> Physical Exam 2 Vital Signs and Narrative: Vital Signs: Last Vital Signs Temp 97.6 F 01/07/25 05:21 Pulse 96 01/07/25 05:21 Resp 16 01/07/25 05:21 BP 116/56 L 01/07/25 05:21 Pulse Ox 97 01/07/25 05:21 O2 Del Method Room Air 01/07/25 05:21 BMI result Body Mass Index 37.2 <Ritu Means PA-C - Last Filed: 01/07/25 06:41> General: AOx3, no acute distress. seen with mother bedside. Resp: CTA bilaterally, no wheezing CVS: S1, S2, RRR GI: +BS, tender lower abd, no distention Skin: Warm, dry Neuro: Cranial nerves II-XII grossly intact bilaterally. Motor grossly intact bilaterally Extremities: ?mild edema LLE compared to the R. pain with palpation of the calf Psych: Appropriate affect. flight of ideas. <Ritu Means PA-C Last Filed: 01/07/25 06:41> Const: General: No confusion <Ritu Means PA-C - Last Filed: 01/07/25 06:41> Orientation/consciousness: No confusion <Ritu Means PA-C Last Filed: 01/07/25 06:41> Eyes: Direct Ophthalmoscopy: No photophobia <PINKY Reddy Last Filed: 01/07/25 06:41> Neuro: General: No confusion <Ritu Means PA-C Last Filed: 01/07/25 06:41> Results Labs CBC and Chem 7: 01/06/25 22:05 01/06/25 22:05 <Ritu Means PA-C Last Filed: 01/07/25 06:41> Labs: Laboratory Results - last 24 hr 01/06/25 01/06/25 01/06/25 22:05 23:25 23:44 MCV 78.6 L MCH 27.5 MCHC 35.0 RDW 12.5 Plt Count 199 MPV 10.1 Absolute Nucleated RBC 0.000 Nucleated RBC % (auto) 0.0 ESR 16 H Anion Gap 11 L Estim Creat Clear Calc 186.9 Estimated GFR > 60 Random Glucose 70 Calcium 9.1 Magnesium 1.9 Total Bilirubin 0.4 AST 35 ALT 69 H Alkaline Phosphatase 86 Total Creatine Kinase 212 H C-Reactive Protein 3.73 H B-Natriuretic Peptide < 10 Total Protein 6.4 L Albumin 3.8 Urine Color Yellow Urine Appearance Clear Urine pH 5.5 Ur Specific [place] 1.025 Urine Protein Negative Urine Glucose (UA) Negative Urine Ketones Negative Urine Blood Negative Urine Nitrite Negative Ur Leukocyte Esterase Negative Urine RBC 0-2 Urine WBC 0-5 Ur Squamous Epith Cells 0-2 Urine Bacteria None Seen Hyaline Casts 0-2 Influenza Type A (PCR) NEGATIVE Influenza Type B (PCR) NEGATIVE RSV RNA Qual (PCR) NEGATIVE SARS-CoV-2 RNA (RT-PCR) NEGATIVE <PINKY Reddy Last Filed: 01/07/25 06:41> Assessment and Plan (1) Chest pain: Qualifiers: Chest pain type: unspecified Qualified Code(s): R07.9 - Chest pain, unspecified <KATHY Reddy-C - Last Filed: 01/07/25 06:41> Status: Acute <KATHY Reddy-C - Last Filed: 01/07/25 06:41> (2) Elevated troponin: Status: Acute <KATHY Reddy-C - Last Filed: 01/07/25 06:41> (3) Acute pain of left lower extremity: Status: Acute <Ritu Means PA-C - Last Filed: 01/07/25 06:41> (4) Lower abdominal pain: Status: Acute <Ritu Means PA-C - Last Filed: 01/07/25 06:41> (5) Diarrhea: Status: Acute <Ritu Means PA-C - Last Filed: 01/07/25 06:41> (6) Obesity, Class III, BMI 40-49.9 (morbid obesity): Status: Chronic <KATHY Reddy-C - Last Filed: 01/07/25 06:41> Patient is a 24-year-old male with a past medical history significant for autism, obesity, anxiety, major depressive disorder, ADHD, GERD and moderate persistent asthma, who presented to the ED due to left sternal chest pain, shortness breath and diarrhea for the past week. chest pain/elevated troponin - EKG x2 without acute ischemia - troponin elevated at 284.3, 268.7 on repeat - CPK, ESR and CRP elevated - COVID/flu/RSV negative - chest x-ray negative - WBC normal, vital signs stable, no acute infection - Lyme panel pending - echocardiogram - given colchicine and Toradol in ED for possible myocarditis - ASA 325mg x1 - cardiology consult - monitor on tele Left lower extremity pain, mild edema - Doppler ultrasound left lower extremity - therapeutic Lovenox x1 dose Lower abdominal pain/diarrhea - GI panel - A/P CT - UA negative Autism/anxiety/MDD/ADHD - continue home meds GERD - continue home meds Moderate persistent asthma, no acute exacerbation - continue home meds Class 3 obesity - BMI 37.2 - weight loss encouraged Full code VTE prophylaxis: Lovenox Patient with acute chest pain elevated troponin as well as lower abdominal pain and diarrhea, requiring admission for observation for further evaluation. <Ritu Means PA-C - Last Filed: 01/07/25 06:41> Patient is a 24-year-old male with a past medical history significant for autism, obesity, anxiety, major depressive disorder, ADHD, GERD and moderate persistent asthma, who presented to the ED due to left sternal chest pain, shortness breath and diarrhea for the past week. chest pain/elevated troponin - EKG x2 without acute ischemia - troponin elevated at 284.3, 268.7 on repeat - CPK, ESR and CRP elevated - COVID/flu/RSV negative - chest x-ray negative - WBC normal, vital signs stable, no acute infection - Lyme panel pending - echocardiogram - given colchicine and Toradol in ED for possible myocarditis - ASA 325mg x1 -therapeutic lovenox x1 - cardiology consult - monitor on tele Left lower extremity pain, mild edema - Doppler ultrasound left lower extremity - therapeutic Lovenox x1 dose Lower abdominal pain/diarrhea - GI panel pending - A/P CT pending - UA negative Autism/anxiety/MDD/ADHD - continue home meds GERD - continue home meds Moderate persistent asthma, no acute exacerbation - continue home meds Class 3 obesity - BMI 37.2 - weight loss encouraged Full code VTE prophylaxis: Lovenox Patient with acute chest pain elevated troponin as well as lower abdominal pain and diarrhea, requiring admission for observation for further evaluation. <Astrid Monet MD - Last Filed: 01/07/25 06:42> Quality Stroke Does the patient have a stroke diagnosis?: No <Ritu Means PA-C - Last Filed: 01/07/25 06:41> VTE Prior VTE?: No <Ritu Means PA-C - Last Filed: 01/07/25 06:41> VTE Risk Level:: Medical - moderate - high <Ritu Means PA-C - Last Filed: 01/07/25 06:41> VTE Device Contraindication: Treatment Not Indicated <Ritu Means PA-C - Last Filed: 01/07/25 06:41> VTE Drug Contraindication: N/A - Med Ordered <Ritu Means PA-C - Last Filed: 01/07/25 06:41>
[2025-01-07 06:38] LABS: MANUAL DIFF FLAG NO
[2025-01-07 06:48] LABS: Basophils Percent Auto 0.4 % (0-2); Eosinophils Absolute Auto 0.1 X10*3/uL (0.0-0.4); Eosinophils Percent Auto 1.5 % (0-4); Hematocrit 39.8 % (42.0-52.0); Hemoglobin 13.7 g/dl (14.0-18.0); Imm Gran Abs Auto 0.02 X10*3/uL (0.00-0.03); Imm Gran Pct Auto 0.3 % (0.0-0.4); Lymphocytes Absolute Auto 0.8 X10*3/uL (1.2-4.9); Lymphocytes Percent Auto 12.3 % (20-40); Mean Corpuscular HGB Conc 34.4 g/dl (31.0-36.0); Mean Corpuscular Hemoglobin 27.3 pg (27.0-33.0); Mean Corpuscular Volume 79.3 fL (80.0-98.0); Mean Platelet Volume 10.9 fL (9.4-12.4); Monocytes Absolute Auto 0.5 X10*3/uL (0.1-1.2); Monocytes Percent Auto 7.4 % (2-11); Neutrophils Absolute Auto 5.3 x10*3/uL (2.0-8.3); Neutrophils Percent Auto 78.1 % (45-73); Platelet Count 173 X10*3/uL (160-400); Red Blood Count 5.02 X10*6/uL (4.60-5.80); Red Cell Distribution Width 12.5 % (11.0-16.0); White Blood Count 6.8 X10*3/uL (4.8-10.8)
[2025-01-07 06:56] LABS: Anion Gap 13 (12-20); Blood Urea Nitrogen 14 mg/dL (9-16); Carbon Dioxide 21 mmol/L (22-29); Chloride 109 mmol/L (96-108); Creatinine Clr Calc Pharmacy 213.6; Estimated Glomerular Filt Rate > 60; Glucose Random 92 mg/dL (60-115); Potassium 4.1 mmol/L (3.3-5.1); Sodium 139 mmol/L (135-145)
--- NOTE | 2025-01-07 07:00 | CA_ITS ---
Transthoracic Echocardiogram Patient (Last, First, Middle): Caleb Warren, Gender: Male Date of : 2000 Age: 24 Procedure Date: 01/07/2025 Procedure Type: Transthoracic Echocardiogram Location: [facility] [place] Height: 180.34 cm Weight: 120.66 kg BSA: 2.38 m2 Heart Rate: bpm BP: 116 / 56 mmHg Patient Companion: Referring MD: Astrid Monet MD [employer]shore Equipment Operator: Elder Lucero MD Symptoms: chest pain Study Quality: Adequate w Contrast ECG Rhythm: Sinus Conclusions: - Essentially normal study with trivial pericardial fluid noted near the right atrium Findings Procedure Information Contrast agent, definity, is being given per protocol without apparent complications. Left Ventricle Normal left ventricular size, thickness, and systolic function. The visually estimated ejection fraction is between 65-70%. Spectral Doppler is indicative of a normal filling pattern. Right Ventricle Normal right ventricular cavity size and systolic function. Atria Both atria are normal in size. There is no evidence of interatrial shunt. Aortic Valve Normal aortic valve structure and function. There is no aortic valve stenosis. There is no aortic valve regurgitation. Mitral Valve Normal mitral valve structure and function. There is no mitral valve regurgitation. There is no mitral valve stenosis. Pulmonic Valve The pulmonic valve is likely normal. There is trace pulmonic valve regurgitation. Tricuspid Valve Normal tricuspid valve structure. Tricuspid regurgitation envelope is inadequate for calculation of right ventricular systolic pressure. Normal right atrial pressure. Great Vessels All visible segments of the aorta are normal in size. The pulmonary artery was not well visualized. Venous The inferior vena cava is normal in size and collapses greater than 50% with inspiration. Pericardium/Pleural There is a trivial loculated pericardial effusion overlying the right atrium. Measurements 2D Linear Measurements IVSd: 1.21 0.6-0.9/0.6-1.0 cm LVIDd: 5.19 3.9-5.3/4.2-5.9 cm LVIDd Index: 2.18 2.4-3.2/2.2-3.1 cm/m2 LVIDs: 3.18 2.0-3.6 cm LVPWd: 1.24 0.7-1.1 cm Ao Root: 2.60 2.1-3.5 cm LA Diam: 3.90 2.7-3.8/3.0-4.0 cm LAIDs Index: 1.64 1.5-2.3 cm/m2 LV Mass: 318.39 67-162/88-224 g LV Mass Index: 133.78 43-95/49-115 g/m2 LVOT Diam: 2.30 3.0+(-)1.3 cm 2D Systolic Function EF 4C: 68.00 >55% EF 2C: 68.10 >55% EF BiP: 68.00 >55% Mitral Valve MV Pk E: 0.86 MV PK A: 0.68 MV Decel Time: 223.00 E/A: 1.30 E'Lateral: 14.50 E'Medial: 8.49 E/E' Med: 10.10 E/E' Lat: 5.90 PHT: 65.00 MVA PHT: 3.38 Decel Winkler: 3.86 Aortic Valve AoV Pk Slim: 1.55 AoV Mn Slim: 0.96 AoV VTI: 0.32 AoV Pk Grad: 10.00 Aov Mn Grad: 5.00 SIENA Cont.VTI: 2.87 LVOT LVOT Pk Slim: 0.97 LVOT Mn Slim: 0.70 LVOT VTI: 0.22 LVOT Pk Grad: 4.00 LVOT Mn Grad: 2.00 LVOT Diam: 2.30 LVOT Area: 4.15 Diastolic Function MV Pk E: 0.86 MV Pk A: 0.68 E/A: 1.30 E'Medial: 8.49 E/E' Med: 10.10 E' Laterial: 14.50 E/E' Lat: 5.90 Right Ventricle TAPSE (mm): 20.00 TVS' Slim: 11.00 Tricuspid Valve TR Pk Slim: 1.66 TR Pk Grad: 11.00 RA Press: 3.00 Great Vessels Aorta Ao Root-2D: 2.60 2.0-3.7 cm Ao Asc: 2.50 2.1-3.4 cm Pulmonary Valve PV Pk Slim: 1.31 Peak PV Grad: 7.00 Updated in Other Vendor System with Status of Final Elder Lucero MD electronically signed on 01/08/2025 8:50:59 AM with status of Final
[2025-01-07 07:11] LABS: Troponin-I High Sensitivity 194.7 ng/L (<3.5-35.0)
--- NOTE | 2025-01-07 09:24 | MHC.CM.PN ---
Lor 01/07/25, Pt. lives with his mother, he does not have any home health services or use DME. His mother is bedside, assisting with giving information, as pt. is very anxious at this time, has autism and Tourette's syndrome. HCP form to be completed and added to chart. PCP confirmed: Dr. Barron. CM to follow and assist with DC planning.
--- NOTE | 2025-01-07 09:50 | PHA.MEDREC ---
Addendum entered by Karey Erickson, [facility] 01/07/25 10:31: reviewed, will let provider know about Tetrabenazine Original Note: Pharmacy Consult ? Medication Reconciliation Pharmacy has completed the medication reconciliation. Spoke with patient and patients mother at bedside. Patients mother was able to confirm the patients medications with me. The patient confirmed he is taking Vrylar and his mom was able to confirmed the dose of 3mg and confirmed the Dr changed it in the last few months. The mom also confirmed the Serteraline 50mg tab and confirmed the Dr had just increased that in the last month-month and a half. The patient and patients mother confirmed he is taking Tetrabenazine and the mom confirmed the dose of 12.mg tabs. According to the mom the directions for the Tetrabenazine is to be taken 3 times a day but states the patient only takes it at bedtime and the Dr has to write it for TID in order for insurance to cover it. The patients mom states the patient is getting that from Dr. Barron, looking in past visits, patient saw Dr Barron back on August 26, [address] Barron had updated the Tetrabenazine to be taken from once daily to three times a day but did not state what pharmacy that was sent too . I called patients preferred pharmacy [facility] and they confirmed that they have a script on file from September but it requires a PA from the Dr and they have no other fill history of that medication. I also called [facility] on [facility] in [place] since in claims it looks like he has been filling there more lately and they stated they never filled that medication but has a script on file from June 2024 that was never filled. I called [facility] in [place] and they had no history of that medication being sent in for this patient. I also tried [facility] pharmacy to see if it was sent there accidentally and [facility] has no history of that patient at all filling with them; I kept that on the [facility] rec since patient and patient mother confirmed it. The patients mom confirmed the patient last took his medications yesterday before coming in.
--- NOTE | 2025-01-07 10:02 | P.CONCA_ITS ---
History of Present Illness History of Present Illness Date of Service: 01/07/25 Requesting physician: Sheila Chandler Consult reason: chest pain and troponin elevation Chief complaint: chest pain Narrative: I was consulted to see Caleb in cardiology consultation today for chest pain elevated troponin. Patient was 24-year-old male, said he came to the hospital because unrelenting diuresis had for more than a week. He said he continues to have symptoms of diarrhea and has loose bowel motion. He also complained of left-sided chest pain which she describes as burning chest pain constantly present. Says it has been present for about a week. When he takes deep breath he gets shooting pain in his chest. His troponins were elevated initially 200 rate subsequently downtrended to 100 range. EKGs does not show any acute changes. CRP is elevated suggestive of inflammation. Complains of diffuse joint pains. He also says he overall does not feel well. Currently getting IV fluids. He was prior history of asthma, obesity, anxiety disorder as well as acid reflux disease ADHD. Works as a [employer] doing heavy work. He said otherwise he was no significant issues. Review of Systems 2 Constitutional: Constitutional: Reports body ache(s), Denies fatigue, Denies frequent falls and Reports weakness Eyes: Eyes: Denies no additional eye complaints Cardiovascular: Cardiovascular: Reports chest pain at rest, Denies rapid heart rate, Denies leg edema, Denies lightheadedness, Denies Loss of Consciousness, Denies palpitations and Denies dyspnea Respiratory: Respiratory: Reports pain on inspiration and Denies dyspnea Gastrointestinal: Gastrointestinal: Reports abdominal pain and Reports diarrhea Genitourinary: Genitourinary: Denies no additional male genitourinary complaints Neurologic: Denies system reviewed and no additional complaints, except as documented, Denies frequent falls and Reports weakness Psychiatric: Psychiatric: Denies no additional psychiatric complaints Endocrine: Endocrine: Denies fatigue and Denies palpitations PMFSH Past Medical History 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 persistent allergic asthma GERD (gastroesophageal reflux disease) Abnormal EKG Chest pain Palpitations Autism Tourette's Family History Family History Sister Brain cancer Surgical History Surgical History [place] teeth extracted History of fundoplication Social History Social History Household Members: Family Household Members Other:: mother Housing: House Do you presently have visiting nurse or other home services: No Alcohol intake: never Patient Tobacco Use Status: Never used Tobacco e-Cigarette/Vaping Use: Never Used service: No Current occupational status: unemployed Cognitive needs: No Hearing needs: No Vision needs: No Meds Allergies Allergy/AdvReac Type Severity Reaction Status Date / Time Sulfa (Sulfonamide Allergy Intermediate RASH Verified 01/06/25 21:57 Antibiotics) [SULFA(SULFONAMIDE ANTIBIOTICS)] amoxicillin [From AUGMENTIN] AdvReac Mild YEAST Verified 01/06/25 21:57 INFECTION clavulanic acid AdvReac Mild YEAST Verified 01/06/25 21:57 [From AUGMENTIN] INFECTION Active Medications: Current Medications Acetaminophen (Acetaminophen 325 Mg Tablet) 650 mg PO Q6H PRN PRN Reason: Pain, Mild 1-3,fever,headache Calcium Carbonate (Calcium Carbonate 750 Mg Tab.Chew) 750 mg PO Q4H PRN PRN Reason: Heartburn Enoxaparin Sodium (Enoxaparin Sodium 40 Mg/0.4 Ml Syringe) 40 mg SUBCUT Q24H [facility] Last Admin: 01/07/25 05:38 Dose: 40 mg Magnesium Hydroxide (Milk Of Magnesia 30 Ml Oral.Susp) 30 ml PO DAILY PRN PRN Reason: Constipation Melatonin (Melatonin 3 Mg Tablet) 6 mg PO BEDTIME PRN PRN Reason: Insomnia Ondansetron HCl (Ondansetron Hcl 4 Mg/2 Ml Vial) 4 mg IVPUSH Q8H PRN PRN Reason: Nausea and Vomiting Sodium Chloride (0.9 % Sodium Chloride Flush 3 Ml Syringe) 3 ml IVFLUSH QSHIFT [facility] Home Medications ?Medication ?Instructions ?Recorded ?Confirmed ?Last Taken ?Type atomoxetine 60 mg capsule 60 mg PO DAILY 02/25/23 01/07/25 01/06/25 History (Strattera) cariprazine 3 mg capsule (Vraylar) 3 mg PO DAILY 01/07/25 01/07/25 01/06/25 History pantoprazole 40 mg tablet,delayed 40 mg PO DAILY@0630 01/07/25 01/07/2501/06/25 History release sertraline 50 mg tablet 50 mg PO DAILY 01/07/25 01/07/25 01/06/25 History tetrabenazine 12.5 mg tablet 12.5 mg PO BEDTIME 01/07/25 01/07/25 01/06/25 History (Xenazine) Physical Exam 2 Vital Signs: Vital Signs: Last Vital Signs Temp 99.3 F 01/07/25 09:36 Pulse 92 01/07/25 08:00 Resp 20 01/07/25 08:00 BP 132/47 L 01/07/25 08:00 Pulse Ox 97 01/07/25 08:00 O2 Del Method Room Air 01/07/25 08:00 BMI result Body Mass Index 38.6 Const: General: cooperative, comfortable, no acute distress, awake and ill appearing Nutritional Appearance: obese Orientation/consciousness: patient oriented x3 Limitations: no limitations HEENT: Head: Yes normocephalic and Yes atraumatic Neck: Neck: Yes trachea midline, Yes supple and Yes no JVD Resp: Effort & Inspection: normal respiratory effort Auscultation: clear to auscultation bilaterally Cardio: Jugular venous distension: no JVD Palpation: normal PMI Rate: r egular rate Rhythm: regular rhythm Heart sounds: S1 normal heart sound present, S2 normal heart sound present, no click, no gallops, no murmurs and no rubs GI: Auscultation: normal bowel sounds Skin: General skin exam: no rashes or lesions noted Neuro: General: patient oriented x3 and no focal motor deficits Extrem: General: Yes no clubbing, cyanosis or edema Psych: Appearance: grossly normal Objective Labs and Meds 01/07/25 05:34 01/07/25 05:34 Lab results: Laboratory Results - last 24 hr 01/06/25 01/06/25 01/06/25 22:05 23:25 23:44 WBC 6.8 RBC 5.09 Hgb 14.0 Hct 40.0 L MCV 78.6 L MCH 27.5 MCHC 35.0 RDW 12.5 Plt Count 199 MPV 10.1 Immature Gran % (Auto) Neut % (Auto) Lymph % (Auto) [place] % (Auto) Eos % (Auto) Baso % (Auto) Lymph # (Auto) [place] # (Auto) Eos # (Auto) Baso # (Auto) Abs Immat Gran (auto) Absolute Neuts (auto) Absolute Nucleated RBC 0.000 Nucleated RBC % (auto) 0.0 ESR 16 H Sodium 140 Potassium 4.2 Chloride 108 Carbon Dioxide 25 Anion Gap 11 L BUN 17 H Creatinine 0.80 Estim Creat Clear Calc 186.9 Estimated GFR > 60 Random Glucose 70 Calcium 9.1 Magnesium 1.9 Total Bilirubin 0.4 AST 35 ALT 69 H Alkaline Phosphatase 86 Total Creatine Kinase 212 H Troponin I High Sens 284.3 H* D C-Reactive Protein 3.73 H B-Natriuretic Peptide < 10 Total Protein 6.4 L Albumin 3.8 Urine Color Yellow Urine Appearance Clear Urine pH 5.5 Ur Specific [place] 1.025 Urine Protein Negative Urine Glucose (UA) Negative Urine Ketones Negative Urine Blood Negative Urine Nitrite Negative Ur Leukocyte Esterase Negative Urine RBC 0-2 Urine WBC 0-5 Ur Squamous Epith Cells 0-2 Urine Bacteria None Seen Hyaline Casts 0-2 Influenza Type A (PCR) NEGATIVE Influenza Type B (PCR) NEGATIVE RSV RNA Qual (PCR) NEGATIVE SARS-CoV-2 RNA (RT-PCR) NEGATIVE 01/07/25 01/07/25 01:45 05:34 WBC 6.8 RBC 5.02 Hgb 13.7 L Hct 39.8 L MCV 79.3 L MCH 27.3 MCHC 34.4 RDW 12.5 Plt Count 173 MPV 10.9 Immature Gran % (Auto) 0.3 Neut % (Auto) 78.1 H Lymph % (Auto) 12.3 L [place] % (Auto) 7.4 Eos % (Auto) 1.5 Baso % (Auto) 0.4 Lymph # (Auto) 0.8 L [place] # (Auto) 0.5 Eos # (Auto) 0.1 Baso # (Auto) 0.0 Abs Immat Gran (auto) 0.02 Absolute Neuts (auto) 5.3 Absolute Nucleated RBC 0.000 Nucleated RBC % (auto) 0.0 ESR Sodium 139 Potassium 4.1 Chloride 109 H Carbon Dioxide 21 L Anion Gap 13 BUN 14 Creatinine 0.70 Estim Creat Clear Calc 213.6 Estimated GFR > 60 Random Glucose 92 Calcium 9.0 Magnesium Total Bilirubin AST ALT Alkaline Phosphatase Total Creatine Kinase 134 Troponin I High Sens 268.7 H* 194.7 H* C-Reactive Protein B-Natriuretic Peptide Total Protein Albumin Urine Color Urine Appearance Urine pH Ur Specific [place] Urine Protein Urine Glucose (UA) Urine Ketones Urine Blood Urine Nitrite Ur Leukocyte Esterase Urine RBC Urine WBC Ur Squamous Epith Cells Urine Bacteria Hyaline Casts Influenza Type A (PCR) Influenza Type B (PCR) RSV RNA Qual (PCR) SARS-CoV-2 RNA (RT-PCR) Imaging Radiologist's impression: Impressions Abdomen/Pelvis CT 01/07/25 07:47 IMPRESSION: 1. Findings suggestive of colitis. 2. Hepatic steatosis. Splenomegaly. Electronically signed by: Javier Tran MD 01/07/2025 08:17 AM EDT RP Assessment and Plan (1) Myocarditis: Status: Acute Patient with left-sided chest pain which is constantly present for about a week worse with deep breathing with associated elevated troponins as well as inflammatory markers. These is highly consistent with myocarditis and pericardial involvement. Will obtain echocardiogram to assess LV systolic and wall motion abnormality. Will treat him with anti-inflammatory therapy with colchicine for 3 months and nonsteroidals for 2 weeks. Further treatment based on the findings of the echocardiogram. Will sign of the case otherwise. Thank you for allowing me to partake in his care Procedures Date of Service Date of Service: 01/07/25
[2025-01-07 10:17] LABS: Adenovirus F 40/41 Not Detected (Not Detect.); Astrovirus Not Detected (Not Detect.); Cryptosporidium Not Detected (Not Detect.); Cyclospora cayetanensis Not Detected (Not Detect.); E. coli EAEC Not Detected (Not Detect.); E. coli EPEC Not Detected (Not Detect.); E. coli ETEC Not Detected (Not Detect.); E. coli STEC Not Detected (Not Detect.); Entamoeba histolytica Not Detected (Not Detect.); Giardia lamblia Not Detected (Not Detect.); Norovirus GI/GII Not Detected (Not Detect.); Plesiomonas shigelloides Not Detected (Not Detect.); Rotavirus A Not Detected (Not Detect.); Salmonella Not Detected (Not Detect.); Sapovirus Not Detected (Not Detect.); Shigella sp./EIEC Not Detected (Not Detect.); Vibrio Not Detected (Not Detect.); Vibrio Cholerae Not Detected (Not Detect.); Yersinia enterocolitica Not Detected (Not Detect.)
--- NOTE | 2025-01-07 10:26 | PM.EVENT ---
Event Note Date of Service: 01/07/25 Event Note: 24-year-old man with a history of autism presenting with complaints of chest pain, shortness of breath and diarrhea for 1 week Myocarditis versus pericarditis Presentation with chest pain, elevated troponins as well as CPK, ESR and CRP COVID/flu/RSV negative Seen and evaluated by Cardiology> colchicine and NSAID Obtain echocardiogram Bilateral lower extremity pain Obtain venous Doppler ultrasound Campylobacter Colitis, Diarrhea Abdominal CT suggestive of colitis, hepatic steatosis, splenomegaly GI panel showing Campylobacter GI consult>IV Azithro total 1 gram Moderate persistent asthma. No exacerbation Continue home inhalers Autism/mental health Continue home medications Obesity class 3. BMI 38.6 Discussed importance of weight management as this may be contributing to worsening of other comorbidities DVT prophylaxis with Lovenox Full code Time Spent With Patient Time: Total time managing care of this patient today ____ minutes.
[2025-01-07 10:35] LABS: Campylobacter Detected (Not Detect.)
--- NOTE | 2025-01-07 10:58 | P.CNGI_ITS ---
History of Present Illness Data of Consult Service Date: 01/07/25 Requesting physician: Sheila Chandler Primary Care Provider: Juan Barron MD HPI Reason for consult: Campylobacter colitis This is a 24 y.o M with autism spectrum, obesity, GERD, MIRA, MDD fatty liver who presented to the hospital for worsening lower abd pain and chest pain. Gastroenterology consulted for campylobacter + PCR. Pt reports a week ago, he had suboptimally cooked chicken pot pie and within a day developed abd cramping with N/V/D. The N/V resolved after a couple of days but the abd cramping and diarrhea persisted. 2 days ago he also started experiencing chest pain with shortness of breath as well as joint pains for which he was brought to the hospital. On arrival, noted to be afebrile with stable vitals. Elevated trops with normal EKG - being empirically managed for possible myocarditis/pericarditis. At bedside, pt reports some improvement in abd pain. Also reports pain in his hip and knee joints. Laboratory Tests 06/22/24 01/06/25 01/07/25 17:43 22:05 01:45 Hgb Hct MCV Sodium Potassium BUN Creatinine Troponin I High Sens < 2.7 284.3 H* D 268.7 H* Stool Campylobacter PCR 01/07/25 01/07/25 05:34 08:04 Hgb 13.7 L Hct 39.8 L MCV 79.3 L Sodium 139 Potassium 4.1 BUN 14 Creatinine 0.70 Troponin I High Sens 194.7 H* Stool Campylobacter PCR Detected A Review of Systems 2 Review of Systems: Yes all other systems are reviewed and are negative [facility] Past Medical History 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 persistent allergic asthma GERD (gastroesophageal reflux disease) Abnormal EKG Chest pain Palpitations Autism Tourette's Family History Family History Sister Brain cancer Surgical History Surgical History [place] teeth extracted History of fundoplication Social History Social History Household Members: Family Household Members Other:: mother Housing: House Do you presently have visiting nurse or other home services: No Alcohol intake: never Patient Tobacco Use Status: Never used Tobacco e-Cigarette/Vaping Use: Never Used service: No Current occupational status: unemployed Cognitive needs: No Hearing needs: No Vision needs: No Meds Allergies Allergy/AdvReac Type Severity Reaction Status Date / Time Sulfa (Sulfonamide Allergy Intermediate RASH Verified 01/06/25 21:57 Antibiotics) [SULFA(SULFONAMIDE ANTIBIOTICS)] amoxicillin [From AUGMENTIN] AdvReac Mild YEAST Verified 01/06/25 21:57 INFECTION clavulanic acid AdvReac Mild YEAST Verified 01/06/25 21:57 [From AUGMENTIN] INFECTION Active Medications: Current Medications Acetaminophen (Acetaminophen 325 Mg Tablet) 650 mg PO Q6H PRN PRN Reason: Pain, Mild 1-3,fever,headache Calcium Carbonate (Calcium Carbonate 750 Mg Tab.Chew) 750 mg PO Q4H PRN PRN Reason: Heartburn Cariprazine (Cariprazine Hcl 3 Mg Capsule) 3 mg PO DAILY [facility] Colchicine (Colchicine 0.6 Mg Tablet) 0.6 mg PO BID [facility] Enoxaparin Sodium (Enoxaparin Sodium 40 Mg/0.4 Ml Syringe) 40 mg SUBCUT Q24H [facility] Last Admin: 01/07/25 05:38 Dose: 40 mg Ketorolac Tromethamine (Ketorolac Tromethamine 15 Mg/Ml Vial) 15 mg IVPUSH Q6H [facility] Stop: 01/12/25 04:31 Levofloxacin (Levofloxacin 750 Mg Tablet) 750 mg PO Q24H [facility] Loratadine (Loratadine 10 Mg Tablet) 10 mg PO DAILY PRN PRN Reason: allergy symptoms Magnesium Hydroxide (Milk Of Magnesia 30 Ml Oral.Susp) 30 ml PO DAILY PRN PRN Reason: Constipation Melatonin (Melatonin 3 Mg Tablet) 6 mg PO BEDTIME PRN PRN Reason: Insomnia Non-Formulary Medication (Atomoxetine [Strattera]) 60 mg PO DAILY [facility] Non-Formulary Medication (Tetrabenazine [Xenazine]) 12.5 mg PO BEDTIME [facility] Ondansetron HCl (Ondansetron Hcl 4 Mg/2 Ml Vial) 4 mg IVPUSH Q8H PRN PRN Reason: Nausea and Vomiting Sertraline HCl (Sertraline Hcl 50 Mg Tablet) 50 mg PO DAILY [facility] Sodium Chloride (0.9 % Sodium Chloride Flush 3 Ml Syringe) 3 ml IVFLUSH QSHIFT [facility] Home Medications ?Medication ?Instructions ?Recorded ?Confirmed ?Last Taken ?Type atomoxetine 60 mg capsule 60 mg PO DAILY 02/25/23 01/07/25 01/06/25 History (Strattera) cariprazine 3 mg capsule (Vraylar) 3 mg PO DAILY 01/07/25 01/07/25 01/06/25 History pantoprazole 40 mg tablet,delayed 40 mg PO DAILY@0630 01/07/25 01/07/25 01/06/25 History release sertraline 50 mg tablet 50 mg PO DAILY 01/07/25 01/07/25 01/06/25 History tetrabenazine 12.5 mg tablet 12.5 mg PO BEDTIME 01/07/25 01/07/25 01/06/25 History (Xenazine) Physical Exam 2 Vital Signs: Vital Signs: Last Vital Signs Temp 99.3 F 01/07/25 09:36 Pulse 92 01/07/25 08:00 Resp 20 01/07/25 08:00 BP 132/47 L 01/07/25 08:00 Pulse Ox 97 01/07/25 08:00 O2 Del Method Room Air 01/07/25 08:00 BMI result Body Mass Index 38.6 No apparent distress, with obesity Nonicteric Abdomen soft, nondistended, mildly tender in suprapubic and LLQ region, no guarding possible small effusion under R patella Alert and oriented x3 Results Labs 01/07/25 05:34 01/07/25 05:34 Labs: Short CBC 01/06/25 01/07/25 Range/Units 22:05 05:34 WBC 6.8 6.8 (4.8-10.8) X10*3/uL Hgb 14.0 13.7 L (14.0-18.0) g/dl Hct 40.0 L 39.8 L (42.0-52.0) % Plt Count 199 173 (160-400) X10*3/uL BMP 01/06/25 01/07/25 22:05 05:34 Sodium 140 139 Potassium 4.2 4.1 Chloride 108 109 H Carbon Dioxide 25 21 L BUN 17 H 14 Creatinine 0.80 0.70 Calcium 9.1 9.0 Cardiac Enzymes 01/06/25 01/07/25 Range/Units 22:05 05:34 Total Creatine Kinase 212 H 134 (38-174) U/L Liver Function 01/06/25 Range/Units 22:05 Total Bilirubin 0.4 (0.0-1.0) mg/dL AST 35 (5-37) U/L ALT 69 H (0-40) U/L Alkaline Phosphatase 86 (39-117) U/L Albumin 3.8 (3.5-5.0) g/dL Urine 01/06/25 Range/Units 23:44 Urine Color Yellow Urine Appearance Clear Urine pH 5.5 (5.0-9.0) Ur Specific [place] 1.025 (1.005-1.025) Urine Protein Negative (Neg-Trace) mg/dL Urine Glucose (UA) Negative (Negative) mg/dL Imaging CT scan - abdomen: Radiologist's impression: SMALL BOWEL: The small bowel is normal in caliber. COLON: The descending and sigmoid colon are largely collapsed. There appears to be wall thickening of the rectum. Mild pericolonic inflammatory changes are seen. Findings are suggestive of colitis. Assessment and Plan (1) Myocarditis: Status: Acute (2) Lower abdominal pain: Status: Acute (3) Diarrhea: Status: Acute (4) Campylobacter diarrhea: Status: Acute Plan Has acute campylobacter enterocolitis complicated by myocarditis/pericarditis. May also have reactive arthritis based on description and exam. Recommendations: - 1g of IV Azithromycin. Can be given as 500 mg IV BID today to decrease GI side effects - IV fluids as needed - OK for diet from GI standpoint - Mgmt for myocarditis/pericarditis as per primary team/cardiology. - Consider rheum/ortho eval to r/o reactive arthritis of the knee Thank you for allowing me to participate in his care. Please do not hesitate to reach out for questions or concerns. Procedures Date of Service Date of Service: 01/07/25
[2025-01-07] MEDS: 0.9 % Sodium Chloride Flush 3 ML SYRINGE IVFLUSH ×2 (11:38→16:59)
[2025-01-07] MEDS: Ketorolac Tromethamine 15 MG/ML VIAL IVPUSH ×3 (11:38→22:03)
[2025-01-07] MEDS: Aspirin 325 MG TABLET PO (11:38)
[2025-01-07] MEDS: Azithromycin 500 MG in 0.9 % Sodium Chloride 250 ML 125 MG IV ×2 (11:40→22:05)
[2025-01-07] MEDS: Cariprazine HCl 3 MG CAPSULE PO (22:19)
[2025-01-08] VITALS: BP 110/53; PULSE 68; RESP 18; TEMP 36.6; O2SAT 95
[2025-01-08 03:44] VITALS: BP 131/61; PULSE 74; RESP 16; TEMP 36.8; O2SAT 99
[2025-01-08] MEDS: Enoxaparin Sodium 40 MG/0.4 ML SYRINGE SUBCUT (05:57)
[2025-01-08] MEDS: Ketorolac Tromethamine 15 MG/ML VIAL IVPUSH ×2 (05:57→09:40)
[2025-01-08 07:23] VITALS: BP 136/66; PULSE 73; RESP 18; TEMP 36.2; O2SAT 96
[2025-01-08 07:53] LABS: Lyme Abs Screen <0.90 index
--- NOTE | 2025-01-08 08:20 | HO.PM.IMPN ---
Subjective Subjective Date of Service: 01/08/25 Physical Exam Vital Signs: Vital Signs: Last Vital Signs Temp 97.2 F 01/08/25 07:23 Pulse 73 01/08/25 07:23 Resp 18 01/08/25 07:23 BP 136/66 01/08/25 07:23 Pulse Ox 96 01/08/25 07:23 O2 Del Method Room Air 01/08/25 07:23 BMI result Body Mass Index 38.6 Objective Data Active Medications Acetaminophen (Acetaminophen 325 Mg Tablet) 650 mg PO Q6H PRN PRN Reason: Pain, Mild 1-3,fever,headache Calcium Carbonate (Calcium Carbonate 750 Mg Tab.Chew) 750 mg PO Q4H PRN PRN Reason: Heartburn Cariprazine (Cariprazine Hcl 3 Mg Capsule) 3 mg PO BEDTIME [facility] Last Admin: 01/07/25 22:19 Dose: 3 mg Documented By: DAISY Colchicine (Colchicine 0.6 Mg Tablet) 0.6 mg PO BID [facility] Last Admin: 01/07/25 22:05 Dose: 0.6 mg Documented By: DAISY Enoxaparin Sodium (Enoxaparin Sodium 40 Mg/0.4 Ml Syringe) 40 mg SUBCUT Q24H [facility] Last Admin: 01/08/25 05:57 Dose: 40 mg Documented By: DAISY Ketorolac Tromethamine (Ketorolac Tromethamine 15 Mg/Ml Vial) 15 mg IVPUSH Q6H [facility] Stop: 01/12/25 04:31 Last Admin: 01/08/25 05:57 Dose: 15 mg Documented By: DAISY Loratadine (Loratadine 10 Mg Tablet) 10 mg PO DAILY PRN PRN Reason: allergy symptoms Magnesium Hydroxide (Milk Of Magnesia 30 Ml Oral.Susp) 30 ml PO DAILY PRN PRN Reason: Constipation Melatonin (Melatonin 3 Mg Tablet) 6 mg PO BEDTIME PRN PRN Reason: Insomnia Pt Own (Atomoxetine [Strattera] 60 Mg Capsule) 60 mg PO DAILY [facility] Pt Own ( Tetrabenazine [ Xenazine] 12.5 Mg Tablet) 12.5 mg PO BEDTIME [facility] Last Admin: 01/07/25 22:05 Dose: 12.5 mg Documented By: DAISY Pt Own (Arnuity 50 (Mcg)) 50 mcg INHALE RDAILY [facility] Ondansetron HCl (Ondansetron Hcl 4 Mg/2 Ml Vial) 4 mg IVPUSH Q8H PRN PRN Reason: Nausea and Vomiting Sertraline HCl (Sertraline Hcl 50 Mg Tablet) 50 mg PO DAILY DAILY Sodium Chloride (0.9 % Sodium Chloride Flush 3 Ml Syringe) 3 ml IVFLUSH QSHIFT DAILY Last Admin: 01/07/25 22:05 Dose: Not Given Documented By: DAISY Non-Admin Reason: IV Running Labs 01/07/25 05:34 01/07/25 05:34 Labs: Laboratory Results - last 24 hr 01/06/25 01/07/25 23:25 08:04 Stl C. cayetanensis PCR Not Detected Stool Rotavirus A PCR Not Detected Stl Adenov F 40/41 PCR Not Detected Stool Astrovirus (PCR) Not Detected Stool Campylobacter PCR Detected A Stool Cryptosporidium PCR Not Detected Stl Sh Tox Pr E STEC PCR Not Detected Stool E coli O157 PCR Not applicable Stl Enterotoxigenic E PCR Not Detected Stool EPEC (PCR) Not Detected Stool EAEC (PCR) Not Detected Stl E. histolytica PCR Not Detected Stool Giardia Lamblia PCR Not Detected Stl P. shigelloides PCR Not Detected Stool Salmonella PCR Not Detected Stool Sapovirus (PCR) Not Detected Stl Shigella/EIEC PCR Not Detected St Y.enterocolitica PCR Not Detected Stool Vibrio (PCR) Not Detected Stl Vibrio cholerae PCR Not Detected Stl Norovirus GI/GII PCR Not Detected Lyme Screen IgG & IgM <0.90 Assessment and Plan Plan 24-year-old man with a history of autism presenting with complaints of chest pain, shortness of breath and diarrhea for 1 week Myocarditis versus pericarditis Presentation with chest pain, elevated troponins as well as CPK, ESR and CRP COVID/flu/RSV negative Seen and evaluated by Cardiology> colchicine and NSAID Obtain echocardiogram Bilateral lower extremity pain Obtain venous Doppler ultrasound Campylobacter Colitis, Diarrhea Abdominal CT suggestive of colitis, hepatic steatosis, splenomegaly GI panel showing Campylobacter GI consult>IV Azithro total 1 gram Moderate persistent asthma. No exacerbation Continue home inhalers Autism/mental health Continue home medications Obesity class 3. BMI 38.6 Discussed importance of weight management as this may be contributing to worsening of other comorbidities DVT prophylaxis with Lovenox Full code Quality Stroke Does the patient have a stroke diagnosis?: No VTE Prior VTE?: No VTE Risk Level:: Medical - moderate - high VTE Device Contraindication: Treatment Not Indicated VTE Drug Contraindication: N/A - Med Ordered
[2025-01-08] MEDS: Sertraline HCL 50 MG TABLET PO (09:24)
[2025-01-08] MEDS: Colchicine 0.6 MG TABLET PO (09:24)
[2025-01-08] MEDS: 0.9 % Sodium Chloride Flush 3 ML SYRINGE IVFLUSH (09:25)
--- NOTE | 2025-01-08 11:04 | P.DS_ITS ---
DS: Providers Provider Date of Service: 01/08/25 Date of admission: 01/07/25 05:07 Date of discharge: 01/08/25 Primary care physician: Juan Barron MD Admitting clinician: Ritu Means Attending physician on admission: Astrid Monet Consults: 01/07/25 06:00 Consult to Cardiology Routine Consulting Provider: [facility] Reason for consultation: chest and elevated troponin Has provider been notified: Yes 01/07/25 10:29 Consult to Gastroenterology Routine Consulting Provider: Cira Drew Reason for consultation: colitis Attending physician on discharge: Jose Dick Discharging clinician: Rebeca Floyd DS: Diagnosis Discharge Diagnosis (1) Myocarditis: Status: Acute (2) Lower abdominal pain: Status: Acute (3) Diarrhea: Status: Acute (4) Campylobacter diarrhea: Status: Acute DS: Summary Hospital Course Hospital Course: HPI on admission by Ritu Measn PA-C 01/07/25: Patient is a 24-year-old male with a past medical history significant for autism, obesity, anxiety, major depressive disorder, ADHD, GERD and moderate persistent asthma, who presented to the ED due to left sternal chest pain, shortness breath and diarrhea for the past week. His history is very difficult to obtain. His mother reports that he has been going through stress with his grandfather recently passing after a viral illness and cardiac complications. She feels that the patient thinks he has the same problem. He reports left lower extremity swelling, pain and limp, this is unclear if chronic. They do report that he walked 3 hours this weekend. He denies any fever, chills, nausea, vomiting. He does report diarrhea every time he eats but denies any blood in the stool. He is having lower abdominal pain he reports dysuria. His mother also mentions he has chronic sinus infections and she is concerned as he has been using a nasal lavage without cleaning it properly. He is having some frontal sinus tenderness. Hospital course: Patient admitted to [facility] for myopericarditis and acute diarrhea illness. He ultimately tested positive for Campylobacter. He was treated with 1 g azithromycin x1 with improvement in symptoms. He was also followed by Cardiology recommending colchicine and NSAIDs. Echocardiogram showed a trivial amount of pericardial fluid noted near the right atrium. Chest pain resolved on discharge. He will continue colchicine 0.6 mg twice daily x3 months and ibuprofen 600 mg t.i.d. x2 weeks. Discussed with Gastroenterology given history of gastric ulcer recommending pantoprazole increased to 40 mg twice daily and follow-up in 1-2 weeks. Patient and mother educated on discharge plan. 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 Colchicine and Lower abdominal pain/diarrhea Positive for Campylobacter Given 1 time dose IV azithromycin 1 g Autism/anxiety/MDD/ADHD continue home meds GERD continue home meds Moderate persistent asthma, no acute exacerbation continue home meds Class 3 obesity BMI 37.2 Discussed weight loss efforts Status at Discharge Functional status at discharge: independent ambulation Overall status at discharge: patient is progressing back to baseline Time Attestation Discharge Coordination Time (in mins): 40 Quality: Safe Use of Opioids Does Pt have an Active Cancer Diagnosis on the Problem List?: No Quality: Stroke Does the patient have a stroke diagnosis?: No Physical Exam Vital Signs: Vital Signs: Last Vital Signs Temp 97.2 F 01/08/25 07:23 Pulse 73 01/08/25 07:23 Resp 18 01/08/25 07:23 BP 136/66 01/08/25 07:23 Pulse Ox 96 01/08/25 07:23 O2 Del Method Room Air 01/08/25 07:23 BMI result Body Mass Index 38.6 DS: Data Data Completed and Pending Labs on day of discharge: Laboratory Results - last 24 hr 01/06/25 23:25 Lyme Screen IgG & IgM <0.90 Lyme Progressive Test TNP Discharge Plan Discharge Anticipated Discharge Date/Time: 01/08/25 10:42 Patient Disposition: Home, Self-Care Discharge Diagnosis: Myopericarditis Referrals: Juan Barron MD [Primary Care Provider] - 1 Week Discharge Medications: New ibuprofen 600 mg tablet 600 mg PO TID Qty: 270 0RF sucralfate 1 gram tablet 1 g PO QIDWMHS Qty: 360 0RF Rx Instructions: TAKE BEFORE BREAKFAST, LUNCH, DINNER, AND BEDTIME colchicine 0.6 mg tablet 0.6 mg PO BID Qty: 180 0RF Continued cetirizine [All Day Allergy (cetirizine)] 10 mg tablet 10 mg PO DAILY PRN (Reason: allergy symptoms) 90 Days Qty: 90 3RF sertraline 50 mg tablet 50 mg PO DAILY Vraylar 3 mg capsule 3 mg PO DAILY tetrabenazine [Xenazine] 12.5 mg tablet 12.5 mg PO BEDTIME atomoxetine [Strattera] 60 mg capsule 60 mg PO DAILY Arnuity Ellipta 50 mcg/actuation blister with device 1 inh inhalation DAILY Qty: 30 11RF Changed pantoprazole 40 mg tablet,delayed release (DR/EC) 40 mg PO BID@0630,1630 Qty: 180 0RF Discharge Orders: Discharge Order (Routine); Ordered 01/08/25 Ordered By: Rebeca Floyd Diet: Advance to usual diet Activity on Discharge: As tolerated Stand Alone Forms: Patient Portal Discharge page, Work/School Release Print Language: Armenian Activity Restrictions/Additional Instructions: Light duty at work x1 week- see below Care Plan Goals: Continue colchicine 0.6mg twice daily x3 months (180 doses). Take ibuprofen 600mg every 8 hours. Take pantoprazole 40mg twice daily and sucralfate 1g with breakfast, lunch, dinner and at bedtime for gastritic protection given scheduled ibuprofen use. Take every morning about 1 hour before eating. May discontinue after completing course of ibuprofen. Take all medication as prescribed- do not skip doses, take all of the medication even if feeling better The Campylobacter infection was treated with a 1 time dose of azithromycin 1 g w ith resolution of symptoms. This viral infection can cause the myopericarditis which was causing you chest pain and will be effectively treated by colchicine. The Campylobacter can also cause an inflammatory arthritis which is likely why you have been experiencing pain in the lower extremities. Colchicine will also be helpful for this. Light duty x 6 weeks- no heavy lifting greater than 25 pounds. No strenuous activity including competitive sports or high-intensity workouts Follow-up with your PCP Work note for light duty provided 1 week. Contact PCP if extension is needed Follow-up with gastroenterology Health Concerns: Campylobacter infection Myopericarditis Inflammatory arthritis Plan of Treatment: Colchicine 0.6 mg twice daily x3 months Light duty x6 weeks Assessment: See above. See discharge summary Discharge Date/Time: 01/08/25 14:37
[2025-01-08 11:09] VITALS: BP 130/80; PULSE 92; RESP 18; TEMP 36.4; O2SAT 97
--- NOTE | 2025-01-08 11:23 | MHC.CM.PN ---
Pt has been medically cleared for DC, he will go home via family transport, plan is self care.
--- NOTE | 2025-01-08 11:39 | PM.PNCARD ---
Subjective Subjective Date of Service: 01/08/25 Principal diagnosis: Myocarditis Interval history: Patient diagnose with Campylobacter diarrhea. He says with the medications his chest pain has significantly improved and he is feeling a lot better. His diarrhea is also improved. His echocardiogram shows normal LV ejection fraction without any significant wall motion abnormality with trivial pericardial effusion near the right atrium. Review of Systems Review of Systems Yes all other systems are reviewed and are negative Physical Exam Vital Signs: Last Vital Signs Temp 97.6 F 01/08/25 11:09 Pulse 92 01/08/25 11:09 Resp 18 01/08/25 11:09 BP 130/80 01/08/25 11:09 Pulse Ox 97 01/08/25 11:09 O2 Del Method Room Air 01/08/25 11:09 BMI result Body Mass Index 38.6 Const General: cooperative, comfortable, no acute distress, awake and ill appearing Nutritional Appearance: obese Orientation/consciousness: patient oriented x3 Limitations: no limitations HEENT Head: Yes normocephalic and Yes atraumatic Neck Neck: Yes trachea midline, Yes supple and Yes no JVD Resp Effort & Inspection: normal respiratory effort Auscultation: clear to auscultation bilaterally Cardio Jugular venous distension: no JVD Palpation: normal PMI Rate: regular rate Rhythm: regular rhythm Heart sounds: S1 normal heart sound present, S2 normal heart sound present, no click, no gallops, no murmurs and no rubs GI Auscultation: normal bowel sounds Skin General skin exam: no rashes or lesions noted Neuro General: patient oriented x3 and no focal motor deficits Extrem General: Yes no clubbing, cyanosis or edema Psych Appearance: grossly normal Objective Labs and Meds 01/07/25 05:34 01/07/25 05:34 Lab results: Laboratory Results - last 24 hr 01/06/25 23:25 Lyme Screen IgG & IgM <0.90 Lyme Progressive Test TNP Imaging Radiologist's impression: Impressions Venous Duplex 01/07/25 14:12 IMPRESSION: No evidence of acute DVT in the bilateral lower extremities. Electronically signed by: Javier Tran MD 01/07/2025 02:47 PM EDT RP Progress Note: A&P Assessment and plan (1) Myocarditis: Status: Acute Assessment and Plan: Both myocarditis and reactive arthritis I known to occur in patients with Campylobacter diarrheal illnesses. Would continue colchicine for 3 months and nonsteroidals with GI protection for 2 weeks. Continue supportive care. Agree with avoidance of sudden strenuous or significant strenuous activity for next 6 weeks. Patient can be discharged from cardiac perspective. Time Spent With Patient Time: Total time managing care of this patient today ____ minutes. Progress Note: Quality Stroke Does the patient have a stroke diagnosis?: No Procedures Date of Service Date of Service: 01/08/25
== END 2025-01-08 14:37 | disposition home or self-care (01) ==
LOC: HO.ED 01-07 02:16 → HO.EDOVER 01-07 05:13 → HO.IMC 01-07 07:19
PROVIDERS: Admitting Provider Student in an Organized Health Care Education/Training Program; Emergency Provider Emergency Medicine; PCP Family Medicine; Visit Provider Physician Assistant
DX: I51.4 Myocarditis, unspecified (principal); A04.5 Campylobacter enteritis; R07.9 Chest pain, unspecified; R79.89 Other specified abnormal findings of blood chemistry; R10.30 Lower abdominal pain, unspecified; R19.7 Diarrhea, unspecified; R06.02 Shortness of breath; M79.662 Pain in left lower leg; R60.0 Localized edema; E66.9 Obesity, unspecified; Z68.38 Body mass index [BMI] 38.0-38.9, adult; J45.40 Moderate persistent asthma, uncomplicated; E66.01 Morbid (severe) obesity due to excess calories; K76.0 Fatty (change of) liver, not elsewhere classified; K21.9 Gastro-esophageal reflux disease without esophagitis; R00.2 Palpitations; F84.0 Autistic disorder; F95.2 Tourette's disorder; Z03.818 Encounter for observation for suspected exposure to other biological agents ruled out; Z79.01 Long term (current) use of anticoagulants; Z79.899 Other long term (current) drug therapy
CPT/HCPCS: 0241U; 36415; 71046; 74176; 80048; 80053; 81001; 82550; 83735; 83880; 84484; 85025; 85027; 85652; 86140; 86617; 86618; 87507; 93005; 93306; 93970; 99222; 99285; J0456; J1650; J1885; J7120; Q9957

== ENCOUNTER → 2025-01-06 21:45 | Outpatient (BNV) | payer OTHER, SELFPAY | PROVIDERS: Admitting Provider Student in an Organized Health Care Education/Training Program; Emergency Provider Emergency Medicine; PCP Family Medicine; Visit Provider Internal Medicine Cardiovascular Disease | DX: R07.9 Chest pain, unspecified (principal) | CPT/HCPCS: 93010 ==

== ENCOUNTER → 2025-01-06 22:05 | Outpatient (BNV) | payer OTHER, SELFPAY | PROVIDERS: Emergency Provider Emergency Medicine; PCP Family Medicine; Visit Provider Radiology Diagnostic Radiology | DX: R07.9 Chest pain, unspecified (principal) | CPT/HCPCS: 71046 ==

== ENCOUNTER 2025-01-07 05:07 | Outpatient (BNV) | payer OTHER, SELFPAY | END 2025-01-07 07:47 | PROVIDERS: Admitting Provider Student in an Organized Health Care Education/Training Program; Emergency Provider Emergency Medicine; PCP Family Medicine; Visit Provider Radiology Diagnostic Radiology | DX: K76.0 Fatty (change of) liver, not elsewhere classified (principal); M79.604 Pain in right leg; M79.605 Pain in left leg | CPT/HCPCS: 74176; 93970 ==

== ENCOUNTER → 2025-01-07 05:07 | Outpatient (BNV) | payer OTHER, SELFPAY | PROVIDERS: Admitting Provider Student in an Organized Health Care Education/Training Program; Emergency Provider Emergency Medicine; PCP Family Medicine; Visit Provider Internal Medicine | DX: I51.4 Myocarditis, unspecified (principal); R10.30 Lower abdominal pain, unspecified; R19.7 Diarrhea, unspecified; A04.5 Campylobacter enteritis | CPT/HCPCS: 99222 ==

== ENCOUNTER → 2025-01-07 05:07 | Outpatient (BNV) | payer OTHER, SELFPAY | PROVIDERS: Admitting Provider Student in an Organized Health Care Education/Training Program; Emergency Provider Emergency Medicine; PCP Family Medicine; Visit Provider Physician Assistant | DX: I51.4 Myocarditis, unspecified (principal); R10.30 Lower abdominal pain, unspecified; R19.7 Diarrhea, unspecified; A04.5 Campylobacter enteritis | CPT/HCPCS: 99239 ==

== ENCOUNTER → 2025-01-07 05:07 | Outpatient (BNV) | payer OTHER, SELFPAY | PROVIDERS: Admitting Provider Student in an Organized Health Care Education/Training Program; Emergency Provider Emergency Medicine; PCP Family Medicine; Visit Provider Internal Medicine Cardiovascular Disease | DX: I51.4 Myocarditis, unspecified (principal) | CPT/HCPCS: 99222 ==

== ENCOUNTER 2025-01-10 15:13 | Outpatient (REF) | payer OTHER, SELFPAY ==
--- NOTE | 2025-01-10 15:17 | PFT_ITS ---
Indication: Asthma Spirometry [FEV1 to FVC 79%; FEV1 4.5 L; FVC 5.73 L. No significant response to bronchodilators noted.] Lung Volumes [Total lung capacity 102% predicted] Diffusion Capacity [DLCO 113% predicted] Comparisons [None] Interpretation [No obstructive nor restrictive ventilatory defects identified. No significant response to bronchodilators noted. Normal lung volumes. Normal diffusing capacity. If asthma is in your differential, a methacholine challenge may be helpful in assessing for hyperreactive airways.] MTDD
[2025-01-10 15:50] VITALS: PULSE 89; O2SAT 100
== END 2025-01-10 15:14 | disposition home or self-care (01) ==
LOC: HO.RESP 15:13
PROVIDERS: PCP Family Medicine; Visit Provider Family Medicine
DX: J45.990 Exercise induced bronchospasm (principal)
CPT/HCPCS: 94010; 94640; 94727; 94729

== ENCOUNTER → 2025-01-10 15:17 | Outpatient (BNV) | payer OTHER, SELFPAY | PROVIDERS: PCP Family Medicine; Visit Provider Hospitalist | DX: J45.909 Unspecified asthma, uncomplicated (principal) | CPT/HCPCS: 94060; 94727; 94729 ==

== ENCOUNTER 2025-01-13 16:02 | Emergency (ER) | payer OTHER, SELFPAY ==
--- NOTE | ~2025-01-13 | XR_ITS ---
CLINICAL HISTORY: Chest pain Single view of the chest. Comparison 01/06/2025. Findings: Heart size is normal. There is no consolidation. No pleural effusions are seen. Impression: No acute abnormalities. This document has been electronically signed by: Grady Dale MD on 01/13/2025 17:16:23
--- NOTE | 2025-01-13 16:05 | ECG_ITS ---
Test Reason : cp Blood Pressure : */* mmHG Vent. Rate : 77 BPM Atrial Rate : 77 BPM P-R Int : 140 ms QRS Dur : 102 ms QT Int : 388 ms P-R-T Axes : 37 31 4 degrees QTcB Int : 439 ms Normal sinus rhythm Normal ECG When compared with ECG of 06-Jan-2025 23:49, No significant change was found Referred By: Shane Zambrano Electronically Signed By: JARAD ROSAS
[2025-01-13 16:19] VITALS: BP 113/60; PULSE 81; RESP 18; TEMP 36.8; O2SAT 97; BMI 38.7
--- NOTE | 2025-01-13 16:35 | ED.CHESTPAIN ---
HPI - Chest Pain General Chief Complaint: Chest Pain Stated Complaint: chest pains Time Seen by Provider: 01/13/25 21:08 Source: patient Mode of arrival: ambulatory Limitations: no limitations History of Present Illness ED Provider: HPI narrative: patient's recent diagnose as of myocarditis with slight pericardial effusion on colchicine and ibuprofen comes here as having chest pain for 1 week was worried about it about the fluid pain is sharp in character no shortness a breath no palpitation no fever pain-free now Related Data Home Medications ?Medication ?Instructions ?Recorded ?Confirmed atomoxetine 60 mg capsule 60 mg PO DAILY 02/25/23 01/07/25 (Strattera) cariprazine 3 mg capsule (Vraylar) 3 mg PO DAILY 01/07/25 01/07/25 sertraline 50 mg tablet 50 mg PO DAILY 01/07/25 01/07/25 tetrabenazine 12.5 mg tablet 12.5 mg PO BEDTIME 01/07/25 01/07/25 (Xenazine) Previous Rx's ?Medication ?Instructions ?Recorded fluticasone furoate 50 1 inh inhalation DAILY #30 ea 09/20/24 mcg/actuation blister powder for inhalation (Arnuity Ellipta) cetirizine 10 mg tablet (All Day 10 mg PO DAILY PRN allergy 01/02/25 Allergy (cetirizine)) symptoms 90 days #90 tabs ibuprofen 600 mg tablet 600 mg PO TID #270 tabs 01/08/25 pantoprazole 40 mg tablet,delayed 40 mg PO BID@0630,1630 #180 tabs 01/08/25 release sucralfate 1 gram tablet 1 g PO QIDWMHS #360 tabs 01/08/25 colchicine 0.6 mg tablet 0.6 mg PO BID #180 tabs 01/09/25 Allergies Allergy/AdvReac Type Severity Reaction Status Date / Time Sulfa (Sulfonamide Allergy Intermediate RASH Verified 01/13/25 16:22 Antibiotics) [SULFA(SULFONAMIDE ANTIBIOTICS)] amoxicillin [From AUGMENTIN] AdvReac Mild YEAST Verified 01/13/25 16:22 INFECTION clavulanic acid AdvReac Mild YEAST Verified 01/13/25 16:22 [From AUGMENTIN] INFECTION Review of Systems Review of Systems: Yes all other systems are reviewed and are negative PMFSH Past Medical History 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 persistent allergic asthma GERD (gastroesophageal reflux disease) Abnormal EKG Chest pain Palpitations Autism Tourette's Surgical History [place] teeth extracted History of fundoplication Family History Family History Sister Brain cancer Social History Social History Household Members: Family Household Members Other:: mother Housing: House Do you presently have visiting nurse or other home services: No Alcohol intake: never Patient Tobacco Use Status: Never used Tobacco e-Cigarette/Vaping Use: Never Used Advance Directives: No Advance Directives Information Provided: Yes service: No Current occupational status: unemployed Cognitive needs: No Hearing needs: No Vision needs: No Physical Exam Vital Signs: Vital Signs: Last Vital Signs Temp 98.1 F 01/13/25 21:25 Pulse 65 01/13/25 21:25 Resp 16 01/13/25 21:25 BP 143/52 H 01/13/25 21:25 Pulse Ox 99 01/13/25 21:25 O2 Del Method Room Air 01/13/25 21:25 BMI result Body Mass Index 38.7 Appearance: Alert. Oriented X3. No acute distress. Eyes: no pallor or icterus ENT: Pharynx normal. Oral Mucosa moist Neck: Normal inspection. Neck supple. CVS: Normal heart rate and rhythm. Pulses normal. no pericardial rub Respiratory: No respiratory distress. Equal air entry bilateral, no wheezing/rales/rhonchi Abdomen: Soft and nontender. Bowel sounds are present, no mass palpable, no CVA tenderness Skin: Skin warm and dry. Normal skin color. Normal skin turgor. Extremities: No lower extremity edema. No calf tenderness Neuro: Oriented X 3. No motor deficit. Course Course Course Narrative: RME: 24-year-old male presents to ED for chest pain for over a week patient also has some shortness of breath. Mother denies any URI symptoms. Patient is autistic. Labs EKG chest x-ray ordered. 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 01/13/25 16:47 01/13/25 16:47 Labs: Lab Results 01/13/25 Range/Units 16:47 WBC 9.6 (4.8-10.8) X10*3/uL RBC 5.23 (4.60-5.80) X10*6/uL Hgb 14.2 (14.0-18.0) g/dl Hct 41.7 L (42.0-52.0) % MCV 79.7 L (80.0-98.0) fL MCH 27.2 (27.0-33.0) pg MCHC 34.1 (31.0-36.0) g/dl RDW 12.4 (11.0-16.0) % Plt Count 285 D (160-400) X10*3/uL MPV 9.9 (9.4-12.4) fL Immature Gran % (Auto) 2.4 H (0.0-0.4) % Neut % (Auto) 54.6 (45-73) % Lymph % (Auto) 33.0 (20-40) % [place] % (Auto) 6.1 (2-11) % Eos % (Auto) 3.2 (0-4) % Baso % (Auto) 0.7 (0-2) % Lymph # (Auto) 3.2 (1.2-4.9) X10*3/uL [place] # (Auto) 0.6 (0.1-1.2) X10*3/uL Eos # (Auto) 0.3 (0.0-0.4) X10*3/uL Baso # (Auto) 0.1 (0.0-0.2) X10*3/uL Abs Immat Gran (auto) 0.23 H (0.00-0.03) X10*3/uL Absolute Neuts (auto) 5.2 (2.0-8.3) x10*3/uL Absolute Nucleated RBC 0.000 (0.0-0.012) X10*3/uL Nucleated RBC % (auto) 0.0 (0.0-0.2) /100WBC PT 11.1 (10.9-12.4) SEC INR 1.0 (0.9-1.1) APTT 29.2 (26.0-36.8) SEC Sodium 141 (135-145) mmol/L Potassium 4.1 (3.3-5.1) mmol/L Chloride 109 H (96-108) mmol/L Carbon Dioxide 24 (22-29) mmol/L Anion Gap 12 (12-20) BUN 23 H (9-16) mg/dL Creatinine 0.81 (0.5-1.4) mg/dL Estim Creat Clear Calc 182.9 Estimated GFR > 60 Random Glucose 99 (60-115) mg/dL Calcium 9.1 (8.4-10.2) mg/dL Total Bilirubin 0.4 (0.0-1.0) mg/dL AST 29 (5-37) U/L ALT 77 H (0-40) U/L Alkaline Phosphatase 84 (39-117) U/L Troponin I High Sens < 2.7 D (<3.5-35.0) ng/L B-Natriuretic Peptide < 10 (<100) pg/mL Total Protein 6.4 L (6.5-8.0) g/dL Albumin 3.9 (3.5-5.0) g/dL Independent Interpretation I performed an independent interpretation of an: EKG Interpretation: normal sinus rhythm with heart rate 77 beats per minute normal interval normal axis no acute STT wave changes no acute ischemia Radiology Impression Discussion of test interpretation with radiology: I have reviewed the radiologist's reading. Radiologist Impression: NAD Discharge Plan Discharge Clinical Impression: Atypical chest pain Patient Disposition: Home, Self-Care Instructions: Noncardiac Chest Pain (ED) Additional Instructions: Continue medication as prescribed by coke crusher operator and follow up with coke crusher operator/PCP your blood workup for heart attack is negative at this time Prescriptions: No Action cetirizine [All Day Allergy (cetirizine)] 10 mg tablet 10 mg PO DAILY PRN (Reason: allergy symptoms) 90 Days Qty: 90 3RF sertraline 50 mg tablet 50 mg PO DAILY Vraylar 3 mg capsule 3 mg PO DAILY tetrabenazine [Xenazine] 12.5 mg tablet 12.5 mg PO BEDTIME ibuprofen 600 mg tablet 600 mg PO TID Qty: 270 0RF sucralfate 1 gram tablet 1 g PO QIDWMHS Qty: 360 0RF Rx Instructions: TAKE BEFORE BREAKFAST, LUNCH, DINNER, AND BEDTIME pantoprazole 40 mg tablet,delayed release (DR/EC) 40 mg PO BID@0630,1630 Qty: 180 0RF colchicine 0.6 mg tablet 0.6 mg PO BID Qty: 180 0RF atomoxetine [Strattera] 60 mg capsule 60 mg PO DAILY Arnuity Ellipta 50 mcg/actuation blister with device 1 inh inhalation DAILY Qty: 30 11RF Interventions: ED Discharge Assessment Last Done: 01/13/25 21:25 Discharge Date/Time: 01/13/25 21:27 Print Language: Liberian
[2025-01-13 16:50] LABS: MANUAL DIFF FLAG NO
[2025-01-13 16:54] LABS: Basophils Absolute Auto 0.1 X10*3/uL (0.0-0.2); Basophils Percent Auto 0.7 % (0-2); Eosinophils Absolute Auto 0.3 X10*3/uL (0.0-0.4); Eosinophils Percent Auto 3.2 % (0-4); Hematocrit 41.7 % (42.0-52.0); Hemoglobin 14.2 g/dl (14.0-18.0); Imm Gran Abs Auto 0.23 X10*3/uL (0.00-0.03); Imm Gran Pct Auto 2.4 % (0.0-0.4); Lymphocytes Absolute Auto 3.2 X10*3/uL (1.2-4.9); Mean Corpuscular HGB Conc 34.1 g/dl (31.0-36.0); Mean Corpuscular Hemoglobin 27.2 pg (27.0-33.0); Mean Corpuscular Volume 79.7 fL (80.0-98.0); Mean Platelet Volume 9.9 fL (9.4-12.4); Monocytes Absolute Auto 0.6 X10*3/uL (0.1-1.2); Monocytes Percent Auto 6.1 % (2-11); Neutrophils Absolute Auto 5.2 x10*3/uL (2.0-8.3); Neutrophils Percent Auto 54.6 % (45-73); Platelet Count 285 X10*3/uL (160-400); Red Blood Count 5.23 X10*6/uL (4.60-5.80); Red Cell Distribution Width 12.4 % (11.0-16.0); White Blood Count 9.6 X10*3/uL (4.8-10.8)
[2025-01-13 17:01] LABS: Prothrombin Time 11.1 SEC (10.9-12.4)
[2025-01-13 17:03] LABS: Partial Thromboplastin Time 29.2 SEC (26.0-36.8)
[2025-01-13 17:16] LABS: Alanine Aminotransferase 77 U/L (0-40); Albumin Level 3.9 g/dL (3.5-5.0); Alkaline Phosphatase 84 U/L (39-117); Anion Gap 12 (12-20); Aspartate Amino Transferase 29 U/L (5-37); Bilirubin Total 0.4 mg/dL (0.0-1.0); Blood Urea Nitrogen 23 mg/dL (9-16); Calcium 9.1 mg/dL (8.4-10.2); Carbon Dioxide 24 mmol/L (22-29); Chloride 109 mmol/L (96-108); Creatinine Clr Calc Pharmacy 182.9; Estimated Glomerular Filt Rate > 60; Glucose Random 99 mg/dL (60-115); Potassium 4.1 mmol/L (3.3-5.1); Sodium 141 mmol/L (135-145); Total Protein 6.4 g/dL (6.5-8.0)
[2025-01-13 17:21] LABS: B Type Natriuretic Peptide < 10 pg/mL (<100)
[2025-01-13 17:24] LABS: Troponin-I High Sensitivity < 2.7 ng/L (<3.5-35.0)
[2025-01-13 20:41] VITALS: BP 143/52; PULSE 65; RESP 16; TEMP 36.7; O2SAT 99
[2025-01-13 21:25] VITALS: BP 143/52; PULSE 65; RESP 16; TEMP 36.7; O2SAT 99
== END 2025-01-13 21:27 | disposition home or self-care (01) ==
PROVIDERS: Physician Assistant; Emergency Provider Internal Medicine; PCP Family Medicine
DX: R07.89 Other chest pain (principal); R06.02 Shortness of breath; Z79.899 Other long term (current) drug therapy
CPT/HCPCS: 36415; 71045; 80053; 83880; 84484; 85025; 85610; 85730; 93005; 99283; 99284

== ENCOUNTER → 2025-01-13 16:05 | Outpatient (BNV) | payer OTHER, SELFPAY | PROVIDERS: Emergency Provider Internal Medicine; PCP Family Medicine; Visit Provider Internal Medicine | DX: R07.9 Chest pain, unspecified (principal) | CPT/HCPCS: 93010 ==

== ENCOUNTER → 2025-01-13 16:35 | Outpatient (BNV) | payer OTHER, SELFPAY | PROVIDERS: PCP Family Medicine; Visit Provider Radiology Diagnostic Radiology | DX: R07.9 Chest pain, unspecified (principal) | CPT/HCPCS: 71045 ==

== ENCOUNTER 2025-03-16 22:46 | Emergency (ER) | payer OTHER, SELFPAY ==
--- NOTE | ~2025-03-16 | XR_ITS ---
CLINICAL HISTORY: pain 2 views soft tissue neck Comparison: None Findings Thickening of the aryepiglottic folds nonspecific at this age and can be seen with epiglottitis and pharyngitis of the hypopharynx. Imaged prevertebral soft tissues are otherwise unremarkable for technique. Aorta is partly obscured left frontal image. Imaged lung apices appear well aerated. IMPRESSION: Soft tissue fullness and/or thickening of the aerodigestive tract including of the aryepiglottic folds. As can be associated with early and/or mild epiglottitis and with pharyngitis of the hypopharynx. Direct visualization may be informative. This document has been electronically signed by: Eliu Lee MD on 03/16/2025 23:59:27
[2025-03-16 22:49] VITALS: BP 114/74; PULSE 85; RESP 20; TEMP 36.2; O2SAT 96; BMI 36.6
[2025-03-16 23:21] VITALS: BP 114/74; PULSE 85; RESP 20; TEMP 36.2; O2SAT 96
[2025-03-16] MEDS: Lidocaine HCl Viscous 2 % 15 ML SOLUTION MUCOUS MEM (23:29)
[2025-03-16] MEDS: Magnesium Hydrox/Alum Hydrox 30 ML ORAL.SUSP PO (23:30)
--- NOTE | 2025-03-17 00:02 | ED.GENADULT ---
HPI - General Adult General Chief complaint: Neck Pain/Injury Stated complaint: feels something in his throat x2 days says glass Time Seen by Provider: 03/16/25 23:10 Source: patient, RN notes reviewed and old records reviewed Mode of arrival: ambulatory Limitations: no limitations History of Present Illness ED Provider: Charly HPI narrative: 24-year-old male past medical history significant for myocarditis, some spectrum disorder, obesity, GERD presents for evaluation of ?something stuck in my throat. Patient reports pain in his throat which started 2 days ago. He reports that his symptoms started after he made himself throw up. He believes a piece of chicken bone was vomited up. He has had pain with swallowing over the last 2 days. He reports when he pushes on the front of his neck he has pain He thinks he may have a piece of glass in the area because ?about a year and a half ago I swallowed a piece of glass. ? He has been able to eat and drink. His mother was concerned because ?he usually eats 3 hot dogs at dinner and he only had 2 tonight. ? Related Data Home Medications ?Medication ?Instructions ?Recorded ?Confirmed atomoxetine 60 mg capsule 60 mg PO DAILY 02/25/23 01/07/25 (Strattera) cariprazine 3 mg capsule (Vraylar) 3 mg PO DAILY 01/07/25 01/07/25 sertraline 50 mg tablet 50 mg PO DAILY 01/07/25 01/07/25 Previous Rx's ?Medication ?Instructions ?Recorded fluticasone furoate 50 1 inh inhalation DAILY #30 ea 09/20/24 mcg/actuation blister powder for inhalation (Arnuity Ellipta) cetirizine 10 mg tablet (All Day 10 mg PO DAILY PRN allergy 01/02/25 Allergy (cetirizine)) symptoms 90 days #90 tabs ibuprofen 600 mg tablet 600 mg PO TID #270 tabs 01/08/25 pantoprazole 40 mg tablet,delayed 40 mg PO BID@0630,1630 #180 tabs 01/08/25 release sucralfate 1 gram tablet 1 g PO QIDWMHS #360 tabs 01/08/25 colchicine 0.6 mg tablet 0.6 mg PO BID #180 tabs 01/09/25 tetrabenazine 12.5 mg tablet 12.5 mg PO BEDTIME 30 days #30 tabs 02/18/25 (Xenazine) Allergies Allergy/AdvReac Type Severity Reaction Status Date / Time Sulfa (Sulfonamide Allergy Intermediate RASH Verified 03/16/25 22:52 Antibiotics) [SULFA(SULFONAMIDE ANTIBIOTICS)] amoxicillin [From AUGMENTIN] AdvReac Mild YEAST Verified 03/16/25 22:52 INFECTION clavulanic acid AdvReac Mild YEAST Verified 03/16/25 22:52 [From AUGMENTIN] INFECTION Review of Systems Constitutional: Constitutional: Denies body ache(s), Denies chills, Denies fever(s) and Denies headache(s) Eyes: Eyes: Denies blurry vision ENT: Denies vertigo, Denies dizziness, Denies headache(s), Reports neck pain and Reports sore throat Cardiovascular: Cardiovascular: Denies chest pain and Denies dyspnea Respiratory: Respiratory: Denies cough and Denies dyspnea Gastrointestinal: Gastrointestinal: Denies abdominal pain, Denies nausea and Denies vomiting Musculoskeletal: Musculoskeletal: Denies back pain and Reports neck pain Integumentary/Breasts: Skin/Breast: Denies rash Neurologic: Denies vertigo, Denies dizziness and Denies headache(s) [facility] Past Medical History 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 persistent allergic asthma GERD (gastroesophageal reflux disease) Abnormal EKG Chest pain Palpitations Autism Tourette's Surgical History [place] teeth extracted History of fundoplication Family History Family History Sister Brain cancer Social History Social History Household Members: Family Household Members Other:: mother Housing: House Do you presently have visiting nurse or other home services: No Alcohol intake: never Patient Tobacco Use Status: Never used Tobacco Smoked in Last 30 Days: No e-Cigarette/Vaping Use: Never Used Use of substances other than those prescribed or required for medical reasons: No Advance Directives: No Advance Directives Information Provided: Yes service: No Current occupational status: unemployed Cognitive needs: No Hearing needs: No Vision needs: No Physical Exam ED Vital Signs: Vital Signs - 24 hr 03/16/25 22:49 03/16/25 23:21 Temperature 97.2 F 97.2 F Pulse Rate 85 85 Respiratory Rate 20 20 Blood Pressure 114/74 114/74 Pulse Oximetry 96 96 Oxygen Delivery Method Room Air Room Air BMI result Body Mass Index 36.6 Const General: healthy appearing, comfortable, no acute distress, alert and awake Nutritional Appearance: well nourished Orientation/consciousness: patient oriented x3 HENMT Head: Yes normocephalic and Yes atraumatic Throat: Yes posterior oropharynx normal Eyes Eyelids: Yes eyelids normal Conjunctivae: conjunctivae normal Sclerae: sclerae normal Corneas: corneas normal Pupils: Equal, round and reactive pupils present EOM: EOMs intact bilaterally Neck Other: No anterior neck edema Neck: Yes full ROM Resp Effort & Inspection: normal respiratory effort, able to speak in complete sentences and not labored Skin General skin exam: elasticity normal Neuro General: patient oriented x3 Cranial nerves: Yes Equal, round and reactive pupils present and Yes Bilaterally intact EOM present Cognition (Neuro): normal cognition Extrem Other: Moving all extremities well without any obvious deformities Course Reevaluation(s) Reevaluation #1: Patient's soft tissue neck x-ray shows soft tissue fullness in her thickening of the aerodigestive tract the can be seen with early or mild epiglottitis and pharyngitis of the hypopharynx. Clinically the patient does not have a vehicle otitis, he is well-appearing, no drooling, he is not have a severe sore throat. He is pointing to his lower neck in the area of discomfort, not on the retropharynx. He is able to eat and drink without difficulty. There are no infectious signs or symptoms. Plan to discharge the patient to follow up with GI for upper endoscopy. He is already on pantoprazole b.i.d. Time: 00:11 Medications Administered Discontinued Medications Generic Name Dose Route Start Last Admin Trade Name Freq PRN Reason Stop Dose Admin Al Hydroxide/Mg Hydroxide 30 ml 03/16/25 23:23 03/16/25 23:30 Magnesium Hydrox/Alum Hydrox 30 Ml Oral.Susp PO 03/16/25 23:24 30 ml ONCE ONE Administration Lidocaine HCl 15 ml 03/16/25 23:23 03/16/25 23:29 Lidocaine Hcl Viscous 2 % 15 Ml Solution MUCOUS MEM 03/16/25 23:24 15 ml ONCE ONE Administration Medical Decision Making Medical Decision Making [facility] Narrative: 24-year-old male past medical history as above presents for evaluation of a foreign body sensation in his throat. He is easily able to eat and drink. Based on history I suspect he has a esophagitis due to the vomiting and possibly from excess acid. An x-ray of the soft tissue neck was ordered but I have a low suspicion that this will show any radiopaque foreign body. About a year and a half ago when he believes he swallowed a piece of glass it was recommended that he have an endoscopy but he never had this done. We can refer the patient to GI for an upper endoscopy. Differential Diagnosis Differential Diagnoses: The differential diagnosis associated with the presentation includes Pharyngitis Strep pharyngitis Upper respiratory infection Allergies Esophagitis Foreign body sensation Achalasia Esophageal stricture Independent Interpretation I performed an independent interpretation of an: Plain X-Ray Interpretation: No obvious radiopaque foreign body Discharge Plan Discharge Clinical Impression: Esophagitis Patient Disposition: Home, Self-Care Instructions: Esophagitis (ED) Additional Instructions: It is important that you follow-up with the GI team for an upper endoscopy. Continue taking the pantoprazole. Follow-up with your primary doctor, return for new or worsening symptoms Prescriptions: No Action cetirizine [All Day Allergy (cetirizine)] 10 mg tablet 10 mg PO DAILY PRN (Reason: allergy symptoms) 90 Days Qty: 90 3RF tetrabenazine [Xenazine] 12.5 mg tablet 12.5 mg PO BEDTIME 30 Days Qty: 30 3RF sertraline 50 mg tablet 50 mg PO DAILY Vraylar 3 mg capsule 3 mg PO DAILY ibuprofen 600 mg tablet 600 mg PO TID Qty: 270 0RF sucralfate 1 gram tablet 1 g PO QIDWMHS Qty: 360 0RF Rx Instructions: TAKE BEFORE BREAKFAST, LUNCH, DINNER, AND BEDTIME pantoprazole 40 mg tablet,delayed release (DR/EC) 40 mg PO BID@0630,1630 Qty: 180 0RF colchicine 0.6 mg tablet 0.6 mg PO BID Qty: 180 0RF atomoxetine [Strattera] 60 mg capsule 60 mg PO DAILY Arnuity Ellipta 50 mcg/actuation blister with device 1 inh inhalation DAILY Qty: 30 11RF Referrals: [facility] [Provider Group] (esophagitis. ? endoscopy) Interventions: ED Discharge Assessment Last Done: 03/17/25 00:17 Discharge Date/Time: 03/17/25 00:24 Print Language: Indian
[2025-03-17 00:17] VITALS: BP 114/74; PULSE 85; RESP 20; TEMP 36.2; O2SAT 96
== END 2025-03-17 00:24 | disposition home or self-care (01) ==
PROVIDERS: Emergency Provider Emergency Medicine; PCP Family Medicine
DX: K20.90 Esophagitis, unspecified without bleeding (principal); M54.2 Cervicalgia
CPT/HCPCS: 70360; 99283; 99284

== ENCOUNTER → 2025-03-16 23:23 | Outpatient (BNV) | payer OTHER, SELFPAY | PROVIDERS: Emergency Provider Emergency Medicine; PCP Family Medicine; Visit Provider Radiology Neuroradiology | DX: M54.2 Cervicalgia (principal) | CPT/HCPCS: 70360 ==

== ENCOUNTER 2025-04-02 09:30 | Emergency (ER) | payer OTHER, SELFPAY ==
--- NOTE | ~2025-04-02 | XR_ITS ---
EXAMINATION: XR CHEST CLINICAL INFORMATION: cp COMPARISON: 01/13/2025. TECHNIQUE: Frontal view of the chest was obtained. FINDINGS: The cardiac, hilar, and mediastinal contours are normal. The lungs are clear bilaterally. No pneumothorax or effusion. No focal osseous or soft tissue abnormality. XR/XR chest 1V IMPRESSION: Normal chest. Electronically signed by: Caleb Mondragon MD 04/02/2025 11:58 AM EDT
--- NOTE | ~2025-04-02 | CT_ITS ---
EXAMINATION: CT ANGIOGRAM CHEST CLINICAL INFORMATION: Elevated d-dimer. Rule out PE COMPARISON: None available. TECHNIQUE: Multiple axial images were obtained through the chest after the administration of 50 mL of Omnipaque 350 intravenous contrast. Extensive vascular post-processing including two-dimensional and three-dimensional reformatted images were created and reviewed on an independent workstation. This CT examination was performed using dose optimization techniques as appropriate, variously including the following: *Automated exposure control *Adjustment of mA and/or kV according to patient size (this includes techniques or standardized protocols for targeted exams where dose is matched to indication/reason for exam; i.e. extremities or head) *Use of iterative reconstruction technique DLP: 455 mGy/cm. FINDINGS: Vascular: There is good opacification of poorly artery and its branches without any intraluminal filling defect. The thoracic aorta is of normal caliber. There is a bovine arch with common origin of right brachiocephalic and left common carotid artery. At size is normal. No pericardial effusion seen. No coronary artery calcification present. Nonvascular: Thyroid lobes are symmetrical and normal. The central trachea and the bronchi are widely patent. No abnormal size mediastinal adenopathy. No mediastinal mass or hematoma. The lungs are well-expanded and clear acute pneumonic process. There is no pleural effusion or thickening. No abnormal size mediastinal or axillary lymph nodes visualized. The chest wall is unremarkable. Visualized liver, spleen, pancreas and bilateral adrenal glands are unremarkable. No aggressive lytic or sclerotic process seen. CT/CT angio chest PE protocol IMPRESSION: No evidence of PE. No evidence of aortic aneurysm or dissection. Fleischner guidelines were followed. Electronically signed by: Cesar Gant MD 04/02/2025 01:52 PM EDT
--- NOTE | 2025-04-02 09:32 | ECG_ITS ---
Test Reason : CHEST PAIN Blood Pressure : */* mmHG Vent. Rate : 68 BPM Atrial Rate : 68 BPM P-R Int : 136 ms QRS Dur : 94 ms QT Int : 382 ms P-R-T Axes : 44 26 24 degrees QTcB Int : 406 ms Normal sinus rhythm Normal ECG When compared with ECG of 13-Jan-2025 16:08, No significant change was found Referred By: Generic ED Physician Electronically Signed By: Andi Acuna
[2025-04-02 09:36] VITALS: BP 150/82; PULSE 73; RESP 16; TEMP 36.1; O2SAT 99; BMI 35.9
--- NOTE | 2025-04-02 11:37 | ED.GENADULT ---
HPI - General Adult General Chief complaint: General Medical Stated complaint: Chest pain Time Seen by Provider: 04/02/25 11:28 Source: patient Mode of arrival: ambulatory Limitations: no limitations History of Present Illness ED Provider: DR. 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 Related Data Home Medications ?Medication ?Instructions ?Recorded ?Confirmed atomoxetine 60 mg capsule 60 mg PO DAILY 02/25/23 01/07/25 (Strattera) cariprazine 3 mg capsule (Vraylar) 3 mg PO DAILY 01/07/25 01/07/25 sertraline 50 mg tablet 50 mg PO DAILY 01/07/25 01/07/25 Previous Rx's ?Medication ?Instructions ?Recorded fluticasone furoate 50 1 inh inhalation DAILY #30 ea 09/20/24 mcg/actuation blister powder for inhalation (Arnuity Ellipta) cetirizine 10 mg tablet (All Day 10 mg PO DAILY PRN allergy 01/02/25 Allergy (cetirizine)) symptoms 90 days #90 tabs ibuprofen 600 mg tablet 600 mg PO TID #270 tabs 01/08/25 pantoprazole 40 mg tablet,delayed 40 mg PO BID@0630,1630 #180 tabs 01/08/25 release sucralfate 1 gram tablet 1 g PO QIDWMHS #360 tabs 01/08/25 colchicine 0.6 mg tablet 0.6 mg PO BID #180 tabs 01/09/25 tetrabenazine 12.5 mg tablet 12.5 mg PO BEDTIME 30 days #30 tabs 02/18/25 (Xenazine) Allergies Allergy/AdvReac Type Severity Reaction Status Date / Time Sulfa (Sulfonamide Allergy Intermediate RASH Verified 04/02/25 09:43 Antibiotics) (SULFA(SULFONAMIDE ANTIBIOTICS)) amoxicillin (From AUGMENTIN) AdvReac Mild YEAST Verified 04/02/25 09:43 INFECTION clavulanic acid (From AdvReac Mild YEAST Verified 04/02/25 09:43 AUGMENTIN) INFECTION Review of Systems Review of Systems: All other systems are reviewed and are negative Constitutional: Reports as per HPI and Reports no additional constitutional complaints Eyes: Reports as per HPI and Reports no additional eye complaints Reports system reviewed and no additional complaints, except as documented Cardiovascular: Reports as per HPI and Reports no additional cardiovascular complaints Respiratory: Reports as per HPI and Reports no additional respiratory complaints Gastrointestinal: Reports as per HPI and Reports no additional gastrointestinal complaints Genitourinary: Reports no additional female genitourinary complaints Musculoskeletal: Reports no additional musculoskeletal complaints Skin/Breast: Reports system reviewed and no additional complaints, except as docu Psychiatric: Reports no additional psychiatric complaints Endocrine: Reports no additional endocrine complaints Hematologic/Lymphatic: Reports no additional hematologic/lymphatic complaints Allergic/Immunologic: Reports no additional allergic/immunologic complaints Reports system reviewed and no additional complaints, except as documented and Reports Abnormal speech present [facility] Past Medical History 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 persistent allergic asthma GERD (gastroesophageal reflux disease) Abnormal EKG Chest pain Palpitations Autism Tourette's Surgical History [place] teeth extracted History of fundoplication Family History Family History Sister Brain cancer Social History Social History Household Members: Family Household Members Other:: mother Housing: House Do you presently have visiting nurse or other home services: No Alcohol intake: never Patient Tobacco Use Status: Never used Tobacco e-Cigarette/Vaping Use: Never Used Advance Directives: No Advance Directives Information Provided: Yes service: No Current occupational status: unemployed Cognitive needs: No Hearing needs: No Vision needs: No Physical Exam ED Vital Signs: Vital Signs - 24 hr 04/02/25 09:36 04/02/25 12:00 Temperature 97 F Pulse Rate 73 68 Respiratory Rate 16 14 Blood Pressure 150/82 H 111/52 L Pulse Oximetry 99 95 Oxygen Delivery Method Room Air Room Air BMI result Body Mass Index 35.9 Vital signs have been reviewed and appear to be correct. Blood pressure elevated. Heart rate normal. Respiratory rate normal. Temperature normal. Oxygen saturation normal. Appearance: Alert. Oriented X3. No acute distress. Head: Normal external exam. Normocephalic. Atraumatic. No Berger signs noted. No raccoon eyes noted Eyes: PERRLA. EOMI. Conjunctiva and sclera normal. Eyelids normal. ENT: TM's Normal. Pharynx normal. Uvula midline. Moist mucous membranes. No trismus noted. No drooling noted. No muffled voice noted. Neck: Normal inspection. Neck supple. FROM. No adenopathy. Thyroid Normal. No meningeal signs. No neck mass noted. CVS: Normal heart rate and rhythm. Heart sound normal. No murmurs noted. Pulses normal throughout. Respiratory: No respiratory distress. Painless inspiration. Breath sounds normal. No wheezes/rales/rhonchi noted. Reproducible tenderness on the left chest wall, no step-off, no deformity. No accessory muscle usage noted or decreased air movement noted. Abdomen: Soft and nontender. Bowel sounds normal in all 4 quadrants. No distention noted. No organomegaly noted. No visible injury noted. Back: No CVA tenderness. Full range of motion noted. Skin: Skin warm and dry. Normal skin color. Normal skin turgor. No rashes/lesions/lacerations noted. Extremities: No lower extremity edema. Extremities exhibit normal range of motion. Extremities nontender. Neuro: Oriented X 3. Cranial nerve exam: II-XII are grossly intact No motor deficit. No sensory deficit. Reflexes normal. Course Reevaluation(s) Reevaluation #1: Chest pain for 2 weeks on and off, negative cardiac marker was EKG, slightly elevated D-dimer CT angio reveals no pulmonary embolism or other thoracic abnormalities pathology. Will reassure and discharge. Time: 15:17 Medications Administered Discontinued Medications Generic Name Dose Route Start Last Admin Trade Name Freq PRN Reason Stop Dose Admin Iohexol 100 ml 04/02/25 13:32 04/02/25 13:32 Iohexol 350 Mg/Ml 100 Ml Infus..Btl IV 04/02/25 13:33 65 ml ONCE ONE Administration Medical Decision Making Differential Diagnosis Differential Diagnoses: The differential diagnosis associated with the presentation includes (Pulmonary embolism, ACS, pneumonia, pneumothorax, pleural effusion, pulmonary embolism, aortic aneurysm, aortic dissection, electrolyte derangement, severe anemia, UTI.) Admission/Observation Consideration of admission/observation: Escalation of care including admission/observation considered Lab Data MDM Lab Attestation statement: I reviewed the patient's lab results. 04/02/25 11:55 04/02/25 11:55 Labs: Lab Results 04/02/25 04/02/25 Range/Units 11:55 13:28 WBC 5.1 (4.8-10.8) X10*3/uL RBC 5.13 (4.60-5.80) X10*6/uL Hgb 14.1 (14.0-18.0) g/dl Hct 40.6 L (42.0-52.0) % MCV 79.1 L (80.0-98.0) fL MCH 27.5 (27.0-33.0) pg MCHC 34.7 (31.0-36.0) g/dl RDW 13.0 (11.0-16.0) % Plt Count 203 D (160-400) X10*3/uL MPV 10.3 (9.4-12.4) fL Immature Gran % (Auto) 0.4 (0.0-0.4) % Neut % (Auto) 52.2 (45-73) % Lymph % (Auto) 33.6 (20-40) % [place] % (Auto) 8.3 (2-11) % Eos % (Auto) 4.7 H (0-4) % Baso % (Auto) 0.8 (0-2) % Lymph # (Auto) 1.7 (1.2-4.9) X10*3/uL [place] # (Auto) 0.4 (0.1-1.2) X10*3/uL Eos # (Auto) 0.2 (0.0-0.4) X10*3/uL Baso # (Auto) 0.0 (0.0-0.2) X10*3/uL Abs Immat Gran (auto) 0.02 (0.00-0.03) X10*3/uL Absolute Neuts (auto) 2.7 (2.0-8.3) x10*3/uL Absolute Nucleated RBC 0.000 (0.0-0.012) X10*3/uL Nucleated RBC % (auto) 0.0 (0.0-0.2) /100WBC ESR 2 (0-15) MM/HR D-Dimer High Sensitivty 492 NG/ML Sodium 140 (135-145) mmol/L Potassium 3.9 (3.3-5.1) mmol/L Chloride 110 H (96-108) mmol/L Carbon Dioxide 25 (22-29) mmol/L Anion Gap 9 L (12-20) BUN 28 H (9-16) mg/dL Creatinine 0.73 (0.5-1.4) mg/dL Estim Creat Clear Calc 195.0 Estimated GFR > 60 Random Glucose 90 (60-115) mg/dL Calcium 9.4 (8.4-10.2) mg/dL Total Bilirubin 0.8 (0.0-1.0) mg/dL Direct Bilirubin 0.3 (0.0-0.5) mg/dL AST 37 (5-37) U/L ALT 62 H (0-40) U/L Alkaline Phosphatase 69 (39-117) U/L Total Creatine Kinase 439 H (38-174) U/L Troponin I High Sens < 2.7 (<3.5-35.0) ng/L C-Reactive Protein 0.13 (< or = 0.50) mg/dL B-Natriuretic Peptide < 10 (<100) pg/mL Total Protein 6.3 L (6.5-8.0) g/dL Albumin 4.3 (3.5-5.0) g/dL Lipase 14 (8-78) U/L Urine Color Yellow Urine Appearance Clear Urine pH 6.5 (5.0-9.0) Ur Specific [place] >= 1.030 H (1.005-1.025) Urine Protein Negative (Neg-Trace) mg/dL Urine Glucose (UA) Negative (Negative) mg/dL Urine Ketones Negative (Negative) mg/dL Urine Blood Negative (Negative) Urine Nitrite Negative (Negative) Ur Leukocyte Esterase Negative (Negative) Urine RBC 0-2 (0-2) /HPF Urine WBC 0-5 (0-5) /HPF Ur Squamous Epith Cells 0-2 (0-2) /HPF Urine Bacteria None Seen (None Seen) Hyaline Casts 0-2 (0-2) /LPF Independent Interpretation I performed an independent interpretation of an: CT Scan (Chest angio CT: No PE) Radiology Impression Discussion of test interpretation with radiology: I have reviewed the radiologist's reading. Discharge Plan Discharge Clinical Impression: Atypical chest pain Patient Disposition: Home, Self-Care Instructions: Chest Pain (ED) Prescriptions: No Action cetirizine [All Day Allergy (cetirizine)] 10 mg tablet 10 mg PO DAILY PRN (Reason: allergy symptoms) 90 Days Qty: 90 3RF tetrabenazine [Xenazine] 12.5 mg tablet 12.5 mg PO BEDTIME 30 Days Qty: 30 3RF sertraline 50 mg tablet 50 mg PO DAILY Vraylar 3 mg capsule 3 mg PO DAILY ibuprofen 600 mg tablet 600 mg PO TID Qty: 270 0RF sucralfate 1 gram tablet 1 g PO QIDWMHS Qty: 360 0RF Rx Instructions: TAKE BEFORE BREAKFAST, LUNCH, DINNER, AND BEDTIME pantoprazole 40 mg tablet,delayed release (DR/EC) 40 mg PO BID@0630,1630 Qty: 180 0RF colchicine 0.6 mg tablet 0.6 mg PO BID Qty: 180 0RF atomoxetine [Strattera] 60 mg capsule 60 mg PO DAILY Arnuity Ellipta 50 mcg/actuation blister with device 1 inh inhalation DAILY Qty: 30 11RF Print Language: Bhutanese
[2025-04-02 12:00] VITALS: BP 111/52; PULSE 68; RESP 14; O2SAT 95
[2025-04-02 12:03] LABS: MANUAL DIFF FLAG NO
[2025-04-02 12:04] LABS: Basophils Percent Auto 0.8 % (0-2); Eosinophils Absolute Auto 0.2 X10*3/uL (0.0-0.4); Eosinophils Percent Auto 4.7 % (0-4); Hematocrit 40.6 % (42.0-52.0); Hemoglobin 14.1 g/dl (14.0-18.0); Imm Gran Abs Auto 0.02 X10*3/uL (0.00-0.03); Imm Gran Pct Auto 0.4 % (0.0-0.4); Lymphocytes Absolute Auto 1.7 X10*3/uL (1.2-4.9); Lymphocytes Percent Auto 33.6 % (20-40); Mean Corpuscular HGB Conc 34.7 g/dl (31.0-36.0); Mean Corpuscular Hemoglobin 27.5 pg (27.0-33.0); Mean Corpuscular Volume 79.1 fL (80.0-98.0); Mean Platelet Volume 10.3 fL (9.4-12.4); Monocytes Absolute Auto 0.4 X10*3/uL (0.1-1.2); Monocytes Percent Auto 8.3 % (2-11); Neutrophils Absolute Auto 2.7 x10*3/uL (2.0-8.3); Neutrophils Percent Auto 52.2 % (45-73); Platelet Count 203 X10*3/uL (160-400); Red Blood Count 5.13 X10*6/uL (4.60-5.80); White Blood Count 5.1 X10*3/uL (4.8-10.8)
[2025-04-02 12:19] LABS: Alanine Aminotransferase 62 U/L (0-40); Albumin Level 4.3 g/dL (3.5-5.0); Alkaline Phosphatase 69 U/L (39-117); Anion Gap 9 (12-20); Aspartate Amino Transferase 37 U/L (5-37); Bilirubin Direct 0.3 mg/dL (0.0-0.5); Bilirubin Total 0.8 mg/dL (0.0-1.0); Blood Urea Nitrogen 28 mg/dL (9-16); C Reactive Protein 0.13 mg/dL (< or = 0.50); Calcium 9.4 mg/dL (8.4-10.2); Carbon Dioxide 25 mmol/L (22-29); Chloride 110 mmol/L (96-108); Estimated Glomerular Filt Rate > 60; Glucose Random 90 mg/dL (60-115); Lipase 14 U/L (8-78); Potassium 3.9 mmol/L (3.3-5.1); Sodium 140 mmol/L (135-145); Total Protein 6.3 g/dL (6.5-8.0)
[2025-04-02 12:23] LABS: B Type Natriuretic Peptide < 10 pg/mL (<100)
[2025-04-02 12:24] LABS: D Dimer High Sensitivity 492 NG/ML
[2025-04-02 12:30] LABS: Troponin-I High Sensitivity < 2.7 ng/L (<3.5-35.0)
[2025-04-02 12:46] LABS: Erythrocyte Sedimentation Rate 2 MM/HR (0-15)
[2025-04-02] MEDS: iohexoL 350 MG/ML 100 ML INFUS..BTL IV (13:32)
[2025-04-02 13:39] LABS: Appearance Urine Clear; Color Urine Yellow; Glucose Urine UA Negative (Negative); Leukocyte Esterase Urine Negative (Negative); Nitrite Urine Negative (Negative); PH 6.5 (5.0-9.0); Specific Gravity - Urine >= 1.030 (1.005-1.025); Urine Blood Negative (Negative); Urine Ketones Negative (Negative); Urine Protein Negative (Neg-Trace)
[2025-04-02 13:41] LABS: Bacteria Urine None Seen (None Seen); Hyaline Casts Urine 0-2 /LPF (0-2); RBC Urine 0-2 /HPF (0-2); Squamous Epithelial Cell Urine 0-2 /HPF (0-2); WBC Urine 0-5 /HPF (0-5)
--- OUTSIDE RECORDS SUMMARY | 2025-04-02 13:42 | XMS_ITS | Data Portability ---
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 ana Not available 09/24/2024 09:15:02 01/13/2025 01/13/2025 EACs are clear of cerumen on exam. TMs intact and middle ear spaces appear well aerated. No TMJ tenderness. Reassurance was provided. They request to follow up in a few months for ear cleaning. With respect to his chest pain I did advised that they go directly to the ER following this visit. Mother is agreeable to this. ana Not available 01/13/2025 14:50:59 Plan of Treatment Reminders Order Date Submit Date Provider Last Modified By Organization Details Last Modified Time Details Appointments Estab digna d 15 2024 03:30P M DAVE GARCIA PA-C Not available Not available Not available Lab None recor ded. Referral gastr karon ndiaye ist refer ral - Refer ral for reflu x, proje ctile vomit ing after eatin g. Gary busby date pendi ng. Thank you. 2023 024 [facility], [address] [place] [address] Dr, [facility], [place], [address], 05/28/2024 11:42:46 Procedures None recor ded. Surgeries None recor ded. Imaging gary busby study - dysph agia, histo ry of nisse n proce dure [address] (Imaging), [address] [place] [address], [place], [address], 05/23/2024 16:07:38 Medication Orders amoxi cilli n 500 mg capsu le [address] [id number], [address] [facility] , [place], [address], 09/23/2024 15:18:07 Patient TargetsNo targets recorded. Patient InstructionsNo instructions recorded. Reason for Referral Intensive Care Unit Registered Nurse Referral for Respiratory finding Referral for reflux, projectile vomiting after eating. Barium swallow date pending. Thank you. Referring Physician: Mag Brandt, Otolaryngology, Encounter Date: 05/23/2024 Results Created Date Observation Date Name Description Value Unit Range Abnormal Flag Note LastModifiedBy Organization Detail LastModifiedTime 06/05/2001/04/2019 imagi ng/di agnos tic resul t No [...] Organization Details Recorded Time Respirato ry finding 213434355 Active 2022 Feeling of foreign body in throat; Note: Date Diagnosed : 12/01/2022 2:53 PM (R09.89) Not Available [facility] 4 02:37:23 Cardiovas cular finding 321305025 Active 2022 Feeling of foreign body in throat; Note: Date Diagnosed : 12/01/2022 2:53 PM (R09.89) Not Available [facility] 4 02:37:23 Posterior rhinorrhe a 23137612 Active 2016 Postnasal drip; Note: Date Diagnosed : 07/05/2017 11:11 AM (R09.82) Not Available [facility] 4 02:37:32 Abnormal auditory perceptio n 83822160 Active 2018 Other abnormal auditory perceptio ns, bilateral ; Note: Date Diagnosed : 12/19/2018 3:39 PM (H93.293) Not Available [facility] 4 02:37:35 Hypertrop hy of nasal turbinate s 35993647 Active 2016 Hypertrop hy of nasal turbinate s; Note: Date Diagnosed : 06/09/2017 12:30 PM (J34.3) Not Available [facility] 4 02:37:33 Attention deficit hyperacti vity disorder 914908075 Active 2016 Attention -deficit hyperacti vity disorder NOS; Note: Date Diagnosed : 06/09/2017 12:50 PM (F90.9) Not Available [facility] 4 02:37:34 Impacted cerumen of bilateral ears 04855537865 83011 Active 2018 Impacted cerumen, bilateral ; Note: Date Diagnosed : 02/19/2019 6:04 PM (H61.23) Not Available [facility] 4 02:37:22 Bilateral earache 616589435 Active 2018 Otalgia, bilateral ; Note: Date Diagnosed : 11/15/2018 4:19 PM (H92.03) Not Available [facility] 4 02:37:21 Headache 77913873 Active 2018 Facial pain NOS; Note: Date Diagnosed : 01/21/2019 4:58 PM (R51) Headach e; Note: Date Diagnosed : 06/09/2017 12:50 PM (R51) ; Start Date : 7 Not Available [facility] 4 02:37:31 Autism spectrum disorder 56285683 Active 2023 Mag ellington [place] - [facility] 4 15:42:42 Acute sinusitis 29067148 Active 2023 Other acute sinusitis ; Note: Date Diagnosed : 11/15/2023 3:27 PM (J01.80) Not Available [facility] 4 02:37:24 Problem Notes None recorded. Procedures Surgical History Date Name Laterality Status Provider Name and Address Organization Details Recorded Time 05/23/20 Fiberoptic Laryngoscopy (Comprehensive) completed Mag Brandt [place] [facility] 05/23/2024 16:01:53 Imaging Results None recorded. Procedure Notes None recorded. Medical Equipment None Reported. Allergies Allergen ID Allergen Name Allergen Category Reaction Reaction Severity Criticality Documentation Date Start Date Code Code System Note Provider Name and Address Organization Details Recorded Time 17661 Substance with sulfonami de structure and antibacte rial mechanism of action (substanc e) medicatio n other Not available Not available 02/27/2024 51199 8003 SNOMED React ion: unkno wn, unspe cifie d;; Not Available [facility] 4 00:56:23 Medications Name Sig Start Date Stop Date Status Note LastModified by Organization Details LastModified Time amoxicill in 500 mg capsule Take 1 capsule by mouth three times a day active Not Available Not Available No t Available metformin 500 mg tablet 11/12 completed Medicati on ID: [id number] D uration Value: 30 Brand Name: metformi [...] by mouth 2017 active Medicati on ID: [id number] D uration Value: 30 Prescri bed By Name: Ami Berrios nd Name: loratadi ne Send Method: E-Prescr ibed Sub s Allowed: subs OK Medic ationGen ericName : loratadi ne Not Available Not Available Not Available doxycycli ne hyclate 100 mg capsule active Not Available Not Available Not Available cetirizin e 10 mg tablet TAKE 1 TABLET BY MOUTH EVERY DAY NEEDED FOR ALLERGY SYMPTOMS active Not Available Not Available No t Available Lotrisone 1 %-0.05 % topical cream 01/12 completed Medicati on ID: [id number] B rand Name: Lotrison e Send Method: E-Prescr ibed Sub s Allowed: subs OK Speci al Instruct ion: apply to external ear tid X 2 weeks Me dication GenericN rohan: Lotrison e Medica tion ID: [id number] B rand Name: Lotrison e Send Method: E-Prescr ibed Sub s Allowed: subs OK Speci al Instruct ion: apply to external ear tid X 2 weeks Me dication GenericN rohan: Lotrison e Not Available Not Available Not Available clotrimaz ole-betam ethasone 1 %-0.05 % lotion 01/12 completed Medicati on ID: [id number] P rescribe d By Name: PINKY Isabel nd Name: Lotrison e Send Method: E-Prescr ibed Sub s Allowed: subs OK Speci al Instruct ion: apply to external ear tid X 2 weeks Me dication GenericN rohan: Lotrison e Not Available Not Available Not Available sucralfat e 1 gram tablet TAKE 1 TABLET BY MOUTH FOUR TIMES A DAY WITH MEALS AND AT BEDTIME active Not Available Not Available No t Available permethri n 5 % topical cream PLEASE SEE ATTACHED FOR DETAILED DIRECTIO NS active Not Available Not Available No t Available melatonin 3 mg tablet 11/12 completed Medicati on ID: [id number] D uration Value: 30 Brand Name: agustinaatodonna n Send Method: E-Prescr ibed Sub s Allowed: subs OK Speci al Instruct ion: TAKE 1 TABLET BY MOUTH DAILY AT BEDTIME Medicati onGeneri cName: melatoni n Not Available Not Available Not Available omeprazol e 40 mg capsule,d elayed release 07/13 completed Medicati on ID: [id number] B rand Name: omeprazo le Send Method: [...] topical cream 11/12 completed Medicati on ID: [id number] D uration Value: 2 Brand Name: lidocain e-priloc blanka Sen d Method: E-Prescr ibed Sub s Allowed: subs OK Vernai al Instruct ion: APPLY DIRECTED TOPICALL Y ONCE Med [facility] me: lidocain e-priloc blanka Not Available Not Available Not Available amoxicill in 875 mg tablet TAKE 1 TABLET BY MOUTH EVERY 12 HOURS active Not Available Not Available No t Available ciproflox acin 0.3 % eye drops 01/12 completed Medicati on ID: [id number] B rand Name: ciproflo xacin HCl Send [...] tablet,de layed release TAKE 1 TABLET ORALLY 2 TIMES A DAY AT 0630 AND 1630 active Not Available Not Available No t Available sertralin e 25 mg tablet active Not Available Not Available Not Available omeprazol e 20 mg capsule,d elayed release TAKE 1 CAPSULE BY MOUTH EVERY DAY active Not Available Not Available No t Available mupirocin 2 % topical ointment APPLY TO AFFECTED AREA TOPICALL Y 3 TIMES A DAY 04/10 completed Not Available Not Available Not Available nystatin 100,000 unit/gram topical powder active Not Available Not Available Not Available ibuprofen 600 mg tablet TAKE 1 TABLET BY MOUTH 3 TIMES A DAY active Not Available Not Available No t Available methylpre dnisolone 4 mg tablets in a dose pack 04/10 completed Not Available Not Available Not Available colchicin e 0.6 mg tablet TAKE 1 TABLET BY MOUTH TWICE A DAY active Not Available Not Available No t Available fluticaso ne propionat e 50 mcg/actua [...] by mouth 2016 active Medicati on ID: [id number] D uration Value: 30 Prescri bed By Name: Ami Berrios nd Name: erika beauchamp Send Method: E-Prescr ibed Sub s Allowed: subs OK Medic ationGen ericName : erika beauchamp Not Available Not Available Not Available amoxicill in 875 mg-potass ium clavulana te 125 mg tablet 07/01 completed Medicati on ID: [id number] D uration Value: 10 Reason: () Brand [...] mg tablet 11/12 completed Medicati on ID: [id number] D uration Value: 30 Brand Name: aripipra zole Sen d Method: E-Prescr ibed Sub s Allowed: roma grullon Instruct ion: TAKE 1 TABLET BY MOUTH EVERY DAY Medi cationGe nericNam e: aripipra zole Not Available Not Available Not Available Strattera 60 mg capsule active Not Available Not Available Not Available aripipraz ole 5 mg tablet 11/12 completed Medicati on ID: [id number] D uration Value: 30 Brand Name: aripipra zole Sen d Method: E-Prescr ibed Sub s Allowed: roma grullon Instruct ion: TAKE 1 TABLET BY MOUTH EVERY DAY Medi cationGe nericNam e: aripipra zole Not Available Not Available Not Available chlorhexi dine gluconate 0.12 % mouthwash 11/12 completed Medicati on ID: [id number] D uration Value: 16 Brand Name: chlorhex idine gluconat e Send Method: E-Prescr ibed Sub s Allowed: roma grullon Instruct ion: IRRIGATE MOUTH AND SPIT OUT 15ML TWICE A DAY Medi cationGe nericNam e: chlorhex idine gluconat e Not Available Not Available Not Available omega-3 fatty acids-fis h oil 300 mg-1,000 mg capsule 11/12 completed Medicati on ID: [id number] D uration Value: 30 Brand Name: omega-3 [...] spray aerosol 11/12 completed Medicati on ID: [id number] P chadwick d By Name: PINKY Luevano nd Name: Nasacort Send Method: E-Prescr ibed Sub s Allowed: subs OK Speci al Instruct ion: 2 sprays each nostril once daily Me dication GenericN rohan: Nasacort Not Available Not Available Not Available colchicin e 0.6 mg capsule TAKE 1 CAPSULE BY MOUTH 2 TIMES A DAY. active Not Available Not Available No t Available Rexulti 3 mg tablet 02/16 completed Medicati on ID: [id number] D uration Value: 30 Brand Name: Rexulti Send Method: E-Prescr ibed Sub s Allowed: subs OK Speci al Instruct ion: TAKE 1 TABLET BY MOUTH EVERY MORNING MOOD STABILIZ ER Medic ationGen ericName : Rexulti Not Available Not Available Not Available Rexulti 2 mg tablet 07/13 completed Medicati on ID: [id number] B rand Name: Rexulti Send Method: E-Prescr ibed Sub s Allowed: subs OK Speci al Instruct ion: TAKE 1 TABLET BY MOUTH EVERY DAY IN THE MORNING Medicati onGeneri cName: Rexulti Not Available Not Available Not Available Vraylar 1.5 mg capsule 04/12 completed Medicati on ID: [id number] B rand Name: Vraylar Send Method: E-Prescr [...] and Address Organization Details Last Updated DateTime 01/13/2025 180.34 cm 39.6 kg/m2 253405.23 g Trey Gallego [place] - [facility] 01/13/2025 14:28:21 Date Recorded Body height Body mass index (BMI) Body weight Provider Name and Address Organization Details Last Updated DateTime 04/10/2024 180.34 cm 39.6 kg/m2 991762.23 g Keely Era [place] - [facility] 04/10/2024 15:32:02 Date Recorded Body height Body mass index (BMI) Body weight Provider Name and Address Organization Details Last Updated DateTime 05/23/2024 180.34 cm 39.6 kg/m2 428483.23 g Luisa Verdugo [facility] 05/23/2024 15:36:05 Date Recorded Body height Body mass index (BMI) Body weight Provider Name and Address Organization Details Last Updated DateTime 09/23/2024 180.34 cm 39.6 kg/m2 413812.23 g Luisa Verdugo [facility] 09/23/2024 15:06:06 Social History None recorded. Functional Status None recorded. Mental Status None recorded. Family History Nothing Reported. Medical History No medical history recorded. Past Encounters Encounter ID Performer Location Encounter Start Date Encounter Closed Date Diagnosis/Indication Diagnosis SNOMED-CT Code Diagnosis ICD10 Code Diagnosis Note [id number] MAG BRANDT PA-C [facility] on [address] [place] [id number] 04/10/2024 15:19:12 04/10/2024 16:22:57 Impacted cerumen of bilateral ears 8669742279 558729 H61.23 Autism spe ctrum disorder 21116060 F84.0 [id number] MAG BRANDT PA-C [facility] on [address] [place] [address], [place] [address] 05/23/2024 15:34:40 05/23/2024 16:07:38 Autism spectrum disorder 24483268 F84.0 Respiratory finding 1060 42385 R09.89 Impacted c erumen of bilateral ears 0975147989 756748 H61.23 [id number] DAVE GARCIA PA-C [facility] on [address] [place] [address], [place] [address] 09/23/2024 15:04:44 09/23/2024 15:24:42 Acute sinusitis 76782351 J01.80 [id number] DAVE GARCIA PA-C [facility] on [address] [place] [address], [place] [address] 01/13/2025 14:19:40 01/13/2025 14:52:43 Abnormal auditory perception 74051156 H93.293 Autism spe ctrum disorder 87921787 F84.0 Health Concerns Section Related Observation LastModified by Organization Detai ls LastModified Time None Recorded Concern Status LastModified by Organization Details LastModified Time None Recorded Advance Directives Directive None Recorded Payers Insurance Date Sequence Insurance Name Policy Number Policy Alva Covered Member ID Alva Member ID Guarantor Name 01/14/2025 1 [employer] - HEALTH NET PLAN (MEDICAID HMO) FRANCESCA Warren [id number] Caleb Warren Notes Date Note Type Note Provider Name and Address Organization Details Recorded Time 04/10/2024 text/html 23 year old male with a history of autism, presents today for follow up for an ear cleaning. Ears have been feeling plugged. Not using headphones anymore regularly. Mag ellington [place] - [facility] 04/10/2024 15:43:01 05/23/2024 text/html 23 year [...] after eating or taking pills. History of Carolynn fundoplication as a child. He has not seen GI in some years. IZA MOON MD [address] [facility],[address], [address], [facility] - [facility] 05/24/2024 08:06:04 09/23/2024 text/html 24 year old male presents accompanied by his mother reporting left sided frontal sinus pain, increased phlegm and postnasal drip. Mother reports that he has a history of sinus infection and usually does well with Amoxicillin. They also request ear cleaning. GERMANIA HUERTA MD [address] [facility],[address], [address], [facility] 09/25/2024 13:22:59 01/13/2025 text/html 24 year old male with a history of autism presents today for an ear cleaning accompanied by his mother. He feels that the ears are full of wax. Caleb is reporting 10/10 chest pain since she picked him up from work and they are planning to go to the ER following this visit. Mother reports that he was recently on Azithromycin for bacteria in his stool which may have occurred from eating undercooked meat. GERMANIA HUERTA MD [address] [facility],[place] [address], [place], [address], [facility] - [facility] 01/13/2025 16:42:15
[2025-04-02 15:25] LABS: Troponin-I High Sensitivity < 2.7 ng/L (<3.5-35.0)
[2025-04-02 15:34] VITALS: BP 130/60; PULSE 76; RESP 16; TEMP 37.1; O2SAT 99
[2025-04-02 15:41] VITALS: BP 130/60; PULSE 76; RESP 16; TEMP 37.1; O2SAT 99
== END 2025-04-02 15:42 | disposition home or self-care (01) ==
PROVIDERS: Emergency Provider Emergency Medicine; PCP Family Medicine
DX: R07.89 Other chest pain (principal); R79.1 Abnormal coagulation profile; J45.40 Moderate persistent asthma, uncomplicated; Z79.899 Other long term (current) drug therapy
CPT/HCPCS: 36415; 71045; 71275; 80048; 80076; 81001; 82550; 83690; 83880; 84484; 85025; 85379; 85652; 86140; 93005; 99284; Q9967

== ENCOUNTER → 2025-04-02 09:32 | Outpatient (BNV) | payer OTHER, SELFPAY | PROVIDERS: Emergency Provider Emergency Medicine; PCP Family Medicine; Visit Provider Internal Medicine Cardiovascular Disease | DX: R07.9 Chest pain, unspecified (principal) | CPT/HCPCS: 93010 ==

== ENCOUNTER → 2025-04-02 11:33 | Outpatient (BNV) | payer OTHER, SELFPAY | PROVIDERS: Emergency Provider Emergency Medicine; PCP Family Medicine; Visit Provider Radiology Diagnostic Radiology | DX: R79.1 Abnormal coagulation profile (principal); R07.9 Chest pain, unspecified | CPT/HCPCS: 71045; 71275 ==

== ENCOUNTER 2025-04-12 17:42 | Emergency (ER) | payer OTHER, SELFPAY ==
--- NOTE | 2025-04-12 17:55 | ED.UPPEXIN ---
HPI - Extremity Injury (Upper) General Chief Complaint: Wound/Laceration Stated Complaint: left pinkie nail injury Time Seen by Provider: 04/12/25 17:57 Source: patient Mode of arrival: ambulatory Limitations: no limitations History of Present Illness ED Provider: Becky Carr APRN HPI narrative: 24 yo male right hand dominant here with complaints of laceration to left hand 5th digit from a saw. Patient reports he was cutting wood and his hand slipped causing a laceration. Last tetanus was in 2021. No associated weakness, numbness, tingling or pain. Related Data Home Medications ?Medication ?Instructions ?Recorded ?Confirmed atomoxetine 60 mg capsule 60 mg PO DAILY 02/25/23 01/07/25 (Strattera) cariprazine 3 mg capsule (Vraylar) 3 mg PO DAILY 01/07/25 01/07/25 sertraline 50 mg tablet 50 mg PO DAILY 01/07/25 01/07/25 Previous Rx's ?Medication ?Instructions ?Recorded fluticasone furoate 50 1 inh inhalation DAILY #30 ea 09/20/24 mcg/actuation blister powder for inhalation (Arnuity Ellipta) cetirizine 10 mg tablet (All Day 10 mg PO DAILY PRN allergy 01/02/25 Allergy (cetirizine)) symptoms 90 days #90 tabs ibuprofen 600 mg tablet 600 mg PO TID #270 tabs 01/08/25 pantoprazole 40 mg tablet,delayed 40 mg PO BID@0630,1630 #180 tabs 01/08/25 release sucralfate 1 gram tablet 1 g PO QIDWMHS #360 tabs 01/08/25 colchicine 0.6 mg tablet 0.6 mg PO BID #180 tabs 01/09/25 tetrabenazine 12.5 mg tablet 12.5 mg PO BEDTIME 30 days #30 tabs 02/18/25 (Xenazine) Allergies Allergy/AdvReac Type Severity Reaction Status Date / Time Sulfa (Sulfonamide Allergy Intermediate RASH Verified 04/12/25 17:58 Antibiotics) (SULFA(SULFONAMIDE ANTIBIOTICS)) amoxicillin (From AUGMENTIN) AdvReac Mild YEAST Verified 04/12/25 17:58 INFECTION clavulanic acid (From AdvReac Mild YEAST Verified 04/12/25 17:58 AUGMENTIN) INFECTION Review of Systems Review of Systems: Yes all other systems are reviewed and are negative Constitutional: Constitutional: Reports no additional constitutional complaints, Denies body ache(s), Denies chills, Denies fever(s), Denies headache(s) and Denies weakness Eyes: Eyes: Reports no additional eye complaints and Denies change in vision ENT: Reports system reviewed and no additional complaints, except as documented, Denies dizziness, Denies headache(s), Denies nasal congestion, Denies nasal discharge and Denies neck pain Cardiovascular: Cardiovascular: Reports no additional cardiovascular complaints, Denies chest pain, Denies leg edema and Denies dyspnea Respiratory: Respiratory: Reports no additional respiratory complaints, Denies cough and Denies dyspnea Gastrointestinal: Gastrointestinal: Reports no additional gastrointestinal complaints, Denies abdominal pain, Denies diarrhea, Denies nausea and Denies vomiting Genitourinary: Genitourinary: Denies urinary incontinence Musculoskeletal: Musculoskeletal: Reports no additional musculoskeletal complaints, Denies back pain, Denies arthralgias, Denies joint swelling, Denies neck pain, Denies numbness and Denies tingling Integumentary/Breasts: Skin/Breast: Reports system reviewed and no additional complaints, except as docu, Denies rash and Reports wounds Neurologic: Reports system reviewed and no additional complaints, except as documented, Denies Abnormal speech present, Denies dizziness, Denies headache(s), Denies numbness, Denies tingling and Denies weakness PMFSH Past Medical History Attestation statement: The following information was validated with the patient. Source: old records reviewed and nursing notes reviewed 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 persistent allergic asthma GERD (gastroesophageal reflux disease) Abnormal EKG Chest pain Palpitations Autism Tourette's Surgical History [place] teeth extracted History of fundoplication Family History Family History Sister Brain cancer Social History Social History Household Members: Family Household Members Other:: mother Housing: House Do you presently have visiting nurse or other home services: No Alcohol intake: never Patient Tobacco Use Status: Never used Tobacco e-Cigarette/Vaping Use: Never Used service: No Current occupational status: unemployed Cognitive needs: No Hearing needs: No Vision needs: No Physical Exam Vital Signs: Vital Signs: Last Vital Signs Temp 98.1 F 04/12/25 17:57 Pulse 91 04/12/25 17:57 Resp 16 04/12/25 17:57 BP 123/47 L 04/12/25 17:57 Pulse Ox 98 04/12/25 17:57 O2 Del Method Room Air 04/12/25 17:57 BMI result Body Mass Index 36.4 Const: General: cooperative, healthy appearing, comfortable and no acute distress Orientation/consciousness: patient oriented x3 Limitations: no limitations HEENT: Head: Yes normal to inspection Ears: hearing grossly normal bilaterally General nose exam: Normal external nose present Face and sinus: Yes normal facial exam Mouth: Normal oral and palatal mucosa present Throat: Yes posterior oropharynx normal Eyes: General: appearance normal, both eyes and all related structures Pupils: Equal, round and reactive pupils present Neck: Neck: Yes normal visual inspection Chest: Chest palpation & inspection: normal inspection of the chest Resp: Effort & Inspection: normal respiratory effort Auscultation: clear to auscultation bilaterally Cardio: Rate: regular rate Rhythm: regular rhythm Peripheral pulses: Peripheral pulses 2+ throughout GI: Inspection: Yes normal to inspection Palpation (GI): Soft to palpation and nontender Auscultation: normal bowel sounds Back/Spine/Pelvis: Thoracic/Lumbar Spine: thoracic and lumbar spine normal to inspection Skin: General skin exam: no rashes or lesions noted Neuro: General: patient oriented x3, no focal motor deficits and normal sensation to monofilament Cranial nerves: Yes Equal, round and reactive pupils present Cognition (Neuro): normal cognition Speech: No Abnormal speech present Gait exam (Neuro): Normal gait present Motor exam (neuro): 5/5 motor strength present throughout Extrem: General: Yes normal to inspection Hand/finger images:  1. superficial laceration to the lateral aspect. Edges are approximated. No active bleeding. FROM Medical Decision Making Medical Decision Making MDM Narrative: 24 yo male right hand dominant here with complaints of laceration to left hand 5th digit from a saw. Patient reports he was cutting wood and his hand slipped causing a laceration. Last tetanus was in 2021. No associated weakness, numbness, tingling or pain. To the left hand 5th digit there is a superficial laceration to the lateral aspect. Edges are approximated. No active bleeding. FROM. Patient washed his hand with soap and water before coming in. I cleaned the digit here, applied bacitracin and a dressing. No need for wound closure. Differential Diagnosis Differential Diagnoses: The differential diagnosis associated with the presentation includes laceration, abrasion Admission/Observation Consideration of admission/observation: Escalation of care including admission/observation considered Tests considered The following testing was considered but not selected: No reports of pain or crush injury or concern for FB or tendon ijnjury to warrant an x-ray Prescription Management I considered prescription management with: Antibiotic Discharge Plan Discharge Clinical Impression: Laceration Patient Disposition: Home, Self-Care Instructions: Finger Laceration (ED) Additional Instructions: Keep the wound clean, covered and dry Change the dressing daily Return for redness, swelling, drainage or fever Prescriptions: No Action cetirizine [All Day Allergy (cetirizine)] 10 mg tablet 10 mg PO DAILY PRN (Reason: allergy symptoms) 90 Days Qty: 90 3RF tetrabenazine [Xenazine] 12.5 mg tablet 12.5 mg PO BEDTIME 30 Days Qty: 30 3RF sertraline 50 mg tablet 50 mg PO DAILY Vraylar 3 mg capsule 3 mg PO DAILY ibuprofen 600 mg tablet 600 mg PO TID Qty: 270 0RF sucralfate 1 gram tablet 1 g PO QIDWMHS Qty: 360 0RF Rx Instructions: TAKE BEFORE BREAKFAST, LUNCH, DINNER, AND BEDTIME pantoprazole 40 mg tablet,delayed release (DR/EC) 40 mg PO BID@0630,1630 Qty: 180 0RF colchicine 0.6 mg tablet 0.6 mg PO BID Qty: 180 0RF atomoxetine [Strattera] 60 mg capsule 60 mg PO DAILY Arnuity Ellipta 50 mcg/actuation blister with device 1 inh inhalation DAILY Qty: 30 11RF Referrals: Juan Barron MD [Primary Care Provider, Internal Medicine] - 1 week Print Language: Vietnamese
[2025-04-12 17:57] VITALS: BP 123/47; PULSE 91; RESP 16; TEMP 36.7; O2SAT 98; BMI 36.4
[2025-04-12 18:07] VITALS: BP 123/47; PULSE 91; RESP 16; TEMP 36.7; O2SAT 98
[2025-04-12] MEDS: Bacitracin Oint 0.9 GM PACKET 1 APPL TOPICAL (18:07)
== END 2025-04-12 18:09 | disposition home or self-care (01) ==
LOC: HO.ED 18:09
PROVIDERS: Emergency Provider Emergency Medicine Emergency Medical Services; PCP Family Medicine
DX: S61.217A Laceration without foreign body of left little finger without damage to nail, initial encounter (principal); X58.XXXA Exposure to other specified factors, initial encounter; W27.0XXA Contact with workbench tool, initial encounter; Y93.9 Activity, unspecified; Y92.9 Unspecified place or not applicable; Y99.8 Other external cause status; Z79.899 Other long term (current) drug therapy
CPT/HCPCS: 99282; 99283

== ENCOUNTER 2025-04-18 22:51 | Emergency (ER) | payer OTHER, SELFPAY ==
[2025-04-18 22:59] VITALS: BP 132/68; PULSE 87; RESP 18; TEMP 36.8; O2SAT 97; BMI 36.9
--- OUTSIDE RECORDS SUMMARY | 2025-04-18 23:07 | XMS_ITS | Data Portability ---
Author Organization [place] - [facility], Allergy Address [address] [address] Care Team Providers Care Dental Therapist Name Role Phone HUMBERTO NAJERA Primary Care [...] Appointments Estab digna d 15 2024 03:30P Eladio GARCIA PA-C Not available Not available Not available Lab None recor ded. Referral gastr karon ndiaye ist refer ral - Refer ral for reflu x, proje ctile vomit ing after eatin g. Gary busby date pendi ng. Thank you. 2023 024 [facility], [address] [place] [address] Dr, [facility], [place], [address], 05/28/2024 11:42:46 Procedures None recor ded. Surgeries None recor ded. Imaging gary busby study - dysph agia, histo ry of nisse n proce dure [address] (Imaging), [address] [place] [address], [place], [address], 05/23/2024 16:07:38 Medication Orders amoxi cilli n 500 mg capsu le 2023 024 [facility] #[id number], [address] [facility] , [place], [address], 09/23/2024 15:18:07 Patient TargetsNo targets recorded. Patient InstructionsNo instructions recorded. 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 Barium swallow date pending. Thank you. Referring Physician: Mag Cowan, Otolaryngology, Encounter Date: 05/23/2024 Results Created Date [...] Organization Details Recorded Time Respirato ry finding 643019987 Active 2022 Feeling of foreign body in throat; Note: Date Diagnosed : 12/01/2022 2:53 PM (R09.89) Not Available [facility] 4 02:37:23 Cardiovas cular finding 756595306 Active 2022 Feeling of foreign body in throat; Note: Date Diagnosed : 12/01/2022 2:53 PM (R09.89) Not Available [facility] 4 02:37:23 Posterior rhinorrhe a 16706898 Active 2016 Postnasal drip; Note: Date Diagnosed : 07/05/2017 11:11 AM (R09.82) Not Available [facility] 4 02:37:32 Abnormal auditory perceptio n 03201414 Active 2018 Other abnormal auditory perceptio ns, bilateral ; Note: Date Diagnosed : 12/19/2018 3:39 PM (H93.293) Not Available [facility] 4 02:37:35 Hypertrop hy of nasal turbinate s 43424762 Active 2016 Hypertrop hy of nasal turbinate s; Note: Date Diagnosed : 06/09/2017 12:30 PM (J34.3) Not Available [facility] 4 02:37:33 Attention deficit hyperacti vity disorder 939103429 Active 2016 Attention -deficit hyperacti vity disorder NOS; Note: Date Diagnosed : 06/09/2017 12:50 PM (F90.9) Not Available [facility] 4 02:37:34 Impacted cerumen of bilateral ears 96881469402 40511 Active 2018 Impacted cerumen, bilateral ; Note: Date Diagnosed : 02/19/2019 6:04 PM (H61.23) Not Available [facility] 4 02:37:22 Bilateral earache 423047080 Active 2018 Otalgia, bilateral ; Note: Date Diagnosed : 11/15/2018 4:19 PM (H92.03) Not Available [facility] 4 02:37:21 Headache 49150492 Active 2018 Facial pain NOS; Note: Date Diagnosed : 01/21/2019 4:58 PM (R51) Headach e; Note: Date Diagnosed : 06/09/2017 12:50 PM (R51) ; Start Date : 7 Not Available [facility] 4 02:37:31 Autism spectrum disorder 69303921 Active 2023 Mag ellington [place] - [facility] 4 15:42:42 Acute sinusitis 99680329 Active 2023 Other acute sinusitis ; Note: Date Diagnosed : 11/15/2023 3:27 PM (J01.80) Not Available [facility] 4 02:37:24 Problem Notes None recorded. Procedures Surgical History Date Name Laterality Status Provider Name and Address Organization Details Recorded Time 05/23/20 24 Fiberoptic Laryngoscopy (Comprehensive) completed Mag Cowan [place] - [facility] 05/23/2024 16:01:53 Imaging Results None recorded. Procedure Notes None recorded. Medical Equipment None Reported. Allergies Allergen ID Allergen Name Allergen Category Reaction Reaction Severity Criticality Documentation Date Start Date Code Code System Note Provider Name and Address Organization Details Recorded Time 87771 Substance with sulfonami de structure and antibacte rial mechanism of action (substanc e) medicatio n other Not available Not available 02/27/2024 86809 8003 SNOMED React ion: unkno wn, unspe cifie d;; Not Available [facility] 4 00:56:23 Medications Name Sig Start Date Stop Date Status Note LastModified by Organization Details LastModified Time amoxicill in 500 mg capsule Take 1 capsule by mouth three times a day active Not Available Not Available No t Available metformin 500 mg tablet 11/12 completed Medicati on ID: [id number] D uration Value: 30 Brand Name: metformi [...] by mouth 2017 active Medicati on ID: [id number] D uration Value: 30 Prescri bed By Name: Ami Berrios nd Name: loratadi nito Send Method: E-Prescr ibed Sub s [...] topical cream 01/12 completed Medicati on ID: [id number] B rand Name: Lotrison e Send Method: E-Prescr ibed Sub s Allowed: subs OK Speci al Instruct ion: apply to external ear tid X 2 weeks Me dication GenericN rohan: Lotrison e Medica tion ID: [id number] B rand Name: Lotrison e Send Method: E-Prescr ibed Sub s Allowed: subs OK Speci al Instruct ion: apply to external ear tid X 2 weeks Me dication GenericN rohan: Lotrison e Not Available Not Available Not Available clotrimaz ole-betam ethasone 1 %-0.05 % lotion 01/12 completed Medicati on ID: [id number] P rescribe d By Name: PINKY Isabel [...] mg tablet 11/12 completed Medicati on ID: [id number] D uration Value: 30 Brand Name: melatoni n Send Method: E-Prescr ibed Sub s Allowed: subs OK Speci al Instruct ion: TAKE 1 TABLET BY MOUTH DAILY AT BEDTIME Medicati onGeneri cName: melatoni n Not Available Not Available Not Available omeprazol e 40 mg capsule,d elayed release 07/13 completed Medicati on ID: [id number] B rand Name: omeprazo le Send Method: [...] topical cream 11/12 completed Medicati on ID: [id number] D uration Value: 2 Brand Name: lidocain e-priloc blanka Sen d Method: E-Prescr ibed Sub s Allowed: subs OK Speci al Instruct ion: APPLY DIRECTED TOPICALL Y ONCE [facility] lidocain e-priloc blanka Not Available Not Available Not Available amoxicill in 875 mg tablet TAKE 1 TABLET BY MOUTH EVERY 12 HOURS active Not Available Not Available No t Available ciproflox acin 0.3 % eye drops 01/12 completed Medicati on ID: [id number] B rand Name: ciproflo xacin HCl Send [...] by mouth 2016 active Medicati on ID: [id number] D uration Value: 30 Prescri bed By Name: Ami Berrios nd Name: erika beauchamp Send Method: E-Prescr ibed Sub s Allowed: subs OK Medic ationGen ericName : erika beauchamp Not Available Not Available Not Available amoxicill in 875 mg-potass ium clavulana te 125 mg tablet 07/01 completed Medicati on ID: [id number] D uration Value: 10 Reason: () Brand Name: amoxicil layne-pot clavulan ate Send Method: E-Prescr ibed Sub s Allowed: subs SAMIR grullon Instruct ion: TAKE 1 TABLET BY [...] mg tablet 11/12 completed Medicati on ID: [id number] D uration Value: 30 Brand Name: aripipra zole Sen d Method: E-Prescr ibed Sub s Allowed: subs SAMIR grullon Instruct ion: TAKE 1 TABLET BY MOUTH EVERY DAY Medi cationGe nericNam e: aripipra zole Not Available Not Available Not Available Strattera 60 mg capsule active Not Available Not Available Not Available aripipraz ole 5 mg tablet 11/12 completed Medicati on ID: [id number] D uration Value: 30 Brand Name: aripipra zole Sen d Method: E-Prescr ibed Sub s Allowed: roma grullon Instruct ion: TAKE 1 TABLET BY MOUTH EVERY DAY Medi cationGe nericNam e: aripipra zole Not Available Not Available Not Available chlorhexi dine gluconate 0.12 % mouthwash 11/12 completed Medicati on ID: [id number] D uration Value: 16 Brand Name: chlorhex idine gluconat e Send Method: E-Prescr ibed Sub s Allowed: roma grullon Instruct ion: IRRIGATE MOUTH AND SPIT OUT 15ML TWICE A DAY Medi cationGe nericNam e: chlorhex idine gluconat e Not Available Not Available Not Available omega-3 fatty acids-fis h oil 300 mg-1,000 mg capsule 11/12 completed Medicati on ID: [id number] D uration Value: 30 Brand Name: omega-3 [...] spray aerosol 11/12 completed Medicati on ID: [id number] P chadwick madsen By Name: PINKY Luevano nd Name: Nasacort [...] mg tablet 02/16 completed Medicati on ID: [id number] D uration Value: 30 Brand Name: Rexulti Send Method: E-Prescr ibed Sub s Allowed: subs OK Speci al Instruct ion: TAKE 1 TABLET BY MOUTH EVERY MORNING MOOD STABILIZ ER Medic ationGen ericName : Rexulti Not Available Not Available Not Available Rexulti 2 mg tablet 07/13 completed Medicati on ID: [id number] B rand Name: Rexulti Send Method: E-Prescr ibed Sub s Allowed: subs OK Speci al Instruct ion: TAKE 1 TABLET BY MOUTH EVERY DAY IN THE MORNING Medicati onGeneri cName: Rexulti Not Available Not Available Not Available Vraylar 1.5 mg capsule 04/12 completed Medicati on ID: [id number] B rand Name: Vraylar Send Method: E-Prescr [...] Updated DateTime 01/13/2025 180.34 cm 39.6 kg/m2 047399.23 g Trey Gallego [place] - [facility] 01/13/2025 14:28:21 Date Recorded Body height Body mass index (BMI) Body weight Provider Name and Address Organization Details Last Updated DateTime 04/10/2024 180.34 cm 39.6 kg/m2 732322.23 g Keely Era [facility] 04/10/2024 15:32:02 Date Recorded Body height Body mass index (BMI) Body weight Provider Name and Address Organization Details Last Updated DateTime 05/23/2024 180.34 cm 39.6 kg/m2 307088.23 g Luisa Verdugo [facility] 05/23/2024 15:36:05 Date Recorded Body height Body mass index (BMI) Body weight Provider Name and Address Organization Details Last Updated DateTime 09/23/2024 180.34 cm 39.6 kg/m2 141832.23 g Luisa Verdugo [facility] 09/23/2024 15:06:06 Social History None recorded. Functional Status None recorded. Mental Status None recorded. Family History Nothing Reported. Medical History No medical history recorded. Past Encounters Encounter ID Performer Location Encounter Start Date Encounter Closed Date Diagnosis/Indication Diagnosis SNOMED-CT Code Diagnosis ICD10 Code Diagnosis Note [id number] MAG COWAN PA-C [facility] on [address] [place] [id number] 04/10/2024 15:19:12 04/10/2024 16:22:57 Impacted cerumen of bilateral ears 4705318477 998753 H61.23 Autism spe ctrum disorder 30410138 F84.0 [id number] MAG COWAN PA-C [facility] on [address] [place] [address], [place] [id number] 05/23/2024 15:34:40 05/23/2024 16:07:38 Autism spectrum disorder 29551424 F84.0 Respiratory finding 1060 49964 R09.89 Impacted c erumen of bilateral ears 7096892233 468305 H61.23 [id number] DAVE GARCIA PA-C [facility] on [address] [place] [address], [place] [id number] 09/23/2024 15:04:44 09/23/2024 15:24:42 Acute sinusitis 66533093 J01.80 [id number] DAVE GARCIA PA-C [facility] on [address] [place] [address], [place] [id number] 01/13/2025 14:19:40 01/13/2025 14:52:43 Abnormal auditory perception 67236954 H93.293 Autism spe ctrum disorder 46275197 F84.0 Health Concerns Section Related Observation LastModified by Organization Detai ls LastModified Time None Recorded Concern Status LastModified by Organization Details LastModified Time None Recorded Advance Directives Directive None Recorded Payers Insurance Date Sequence Insurance Name Policy Number Policy Alva Covered Member ID Alva Member ID Guarantor Name 01/14/2025 1 [facility] NET PLAN (MEDICAID HMO) FRANCESCA Warren [id number] Caleb Warren Notes Date Note Type Note Provider Name and Address Organization Details Recorded Time 04/10/2024 text/html 23 year old male with a history of autism, presents today for follow up for an ear cleaning. Ears have been feeling plugged. Not using headphones anymore regularly. Mag ellington [place] - [facility] 04/10/2024 15:43:01 05/23/2024 text/html 23 year old [...] in some years. IZA MOON MD [address] [facility] [address], [place], [address], [facility] - [facility] 05/24/2024 08:06:04 09/23/2024 text/html 24 year old male presents accompanied by his mother reporting left sided frontal sinus pain, increased phlegm and postnasal drip. Mother reports that he has a history of sinus infection and usually does well with Amoxicillin. They also request ear cleaning. GERMANIA HUERTA MD [address] [facility],[place] [address], [place], [address], [facility] - [facility] 09/25/2024 13:22:59 01/13/2025 text/html 24 year old [...] eating undercooked meat. GERMANIA HUERTA MD [address] [facility] [address], [place], [address], [facility] 01/13/2025 16:42:15
--- OUTSIDE RECORDS SUMMARY | 2025-04-18 23:07 | XMS_ITS | Clinical Summary ---
Author Organization [facility] Address [address] [place] [address] Care Team Providers Care Recycler Forklift Driver Truck Driver Name Role Phone Unknown Primary Care Provider Allergies Active Allergy Reactions Criticality Noted Date Comments Amoxicillin-Pot Clavulanate Rash/Dermatitis Low Clavulanic Acid Unknown/Patient and Family Unable to Define Medium 01/04/2019 Sulfa Antibiotics Hives Medium 01/04/2019 Medications tetrabenazine (XENAZINE) 12.5 MG tablet Take 12.5 [...] Recorded Sex Assigned at Not on file Legal Sex Male 9:47 PM EDT Gender Identity Not on file Sexual Orientation Not on file Last Filed Vital Signs Vital Sign Reading Time Taken Comments Blood Pressure 147/54 01/05/2019 7:59 AM EDT Pulse 80 01/05/2019 7:59 AM EDT Temperature 37.3 C (99.2 F) 01/05/2019 7:59 AM EDT Respiratory Rate 16 01/05/2019 7:59 AM EDT [...] of 3 - 19+ 3-dose series) 2018 COVID-19 Vaccine (2023-2 5 season) 2024 Influenza Vaccine 05/16/2025 Pneumococcal Vaccine: Pediat tigist (0-5 Years) and At-Risk Patients (6 to 49 Years) Aged Out No longer eligible b ased on patient's age to complete this topic Insurance [place]ICA[place] [facility] [place] [address] Care Teams Recycler Forklift Driver Truck Driver Relationship Specialty Start Date End Date Unknown Unknow Provider Address PCP - General 01/04/19
--- NOTE | 2025-04-18 23:42 | ED.SKABFB ---
HPI - Skin/Abscess/Foreign Bdy General Chief complaint: Skin/Abscess/Foreign Body Stated complaint: poison marietta wont go away Time Seen by Provider: 04/18/25 23:05 Source: patient Mode of arrival: ambulatory Limitations: no limitations History of Present Illness ED Provider: Caleb CHAVEZ HPI narrative: The patient is a 24-year-old male with history of autism, Tourette's, asthma, GERD, ADHD, depression, anxiety, and previous myocarditis presenting to the ED for evaluation of poison m[place] rash primarily to the left antecubital which has since radiated to his bilateral arms and legs. 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 The patient denies associated fever/chills, nausea, vomiting, or other systemic complaint, denies associated shortness of breath, cough, wheeze, chest pain or sores on the oral mucosa. The patient reports he has been scratching frequently, reports multiple scabbed areas however denies any areas of particular pain, warmth, or erythema. Related Data Home Medications ?Medication ?Instructions ?Recorded ?Confirmed atomoxetine 60 mg capsule 60 mg PO DAILY 02/25/23 01/07/25 (Strattera) cariprazine 3 mg capsule (Vraylar) 3 mg PO DAILY 01/07/25 01/07/25 sertraline 50 mg tablet 50 mg PO DAILY 01/07/25 01/07/25 Previous Rx's ?Medication ?Instructions ?Recorded fluticasone furoate 50 1 inh inhalation DAILY #30 ea 09/20/24 mcg/actuation blister powder for inhalation (Arnuity Ellipta) cetirizine 10 mg tablet (All Day 10 mg PO DAILY PRN allergy 01/02/25 Allergy (cetirizine)) symptoms 90 days #90 tabs ibuprofen 600 mg tablet 600 mg PO TID #270 tabs 01/08/25 pantoprazole 40 mg tablet,delayed 40 mg PO BID@0630,1630 #180 tabs 01/08/25 release sucralfate 1 gram tablet 1 g PO QIDWMHS #360 tabs 01/08/25 colchicine 0.6 mg tablet 0.6 mg PO BID #180 tabs 01/09/25 tetrabenazine 12.5 mg tablet 12.5 mg PO BEDTIME 30 days #30 tabs 02/18/25 (Xenazine) prednisone 10 mg tablet 10 mg PO DIRECTED #42 tabs 04/18/25 Allergies Allergy/AdvReac Type Severity Reaction Status Date / Time Sulfa (Sulfonamide Allergy Intermediate RASH Verified 04/18/25 23:01 Antibiotics) (SULFA(SULFONAMIDE ANTIBIOTICS)) amoxicillin (From AUGMENTIN) AdvReac Mild YEAST Verified 04/18/25 23:01 INFECTION clavulanic acid (From AdvReac Mild YEAST Verified 04/18/25 23:01 AUGMENTIN) INFECTION Review of Systems Review of Systems: Yes all other systems are reviewed and are negative PMFSH Past Medical History 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 persistent allergic asthma GERD (gastroesophageal reflux disease) Abnormal EKG Chest pain Palpitations Autism Tourette's Surgical History [place] teeth extracted History of fundoplication Family History Family History Sister Brain cancer Social History Social History Household Members: Family Household Members Other:: mother Housing: House Do you presently have visiting nurse or other home services: No Alcohol intake: never Patient Tobacco Use Status: Never used Tobacco e-Cigarette/Vaping Use: Never Used Advance Directives: No Advance Directives Information Provided: No service: No Current occupational status: unemployed Cognitive needs: No Hearing needs: No Vision needs: No Physical Exam Vital Signs: Vital Signs: Last Vital Signs Temp 98.2 F 04/18/25 22:59 Pulse 87 04/18/25 22:59 Resp 18 04/18/25 22:59 BP 132/68 04/18/25 22:59 Pulse Ox 97 04/18/25 22:59 O2 Del Method Room Air 04/18/25 22:59 BMI result Body Mass Index 36.9 CONSTITUTIONAL: The patient appears non-toxic, well nourished and in no acute distress. Vital signs as documented. HEAD: Atraumatic, normocephalic. EYES: EOMs grossly intact, pupils equal, conjunctiva clear, no exudate. ENT: Nares patent, no discharge. Airway patent, no audible stridor, visible mucosa is pink and moist, there are no noted lesions. NECK: trachea is midline, no obvious masses or gross abnormalities. CHEST: Symmetric movement, normal appearance. LUNGS: Non-labored work of breathing. CARDIAC: No evidence of hypoperfusion. ABDOMEN: Nondistended, no obvious injury. : Deferred. EXTREMITIES: Moves all extremities spontaneously without reported pain. No obvious injury or deformity noted. NEURO: Alert and oriented x3, CN II-XII appear grossly intact. Cerebellar Functioning grossly intact. Speech clear and appropriate. SKIN: Warm, dry, color appropriate. There is a diffuse pruritic, excoriated, macular papular rash noted to all 4 extremities but with increased concentration in the the left antecubital. There are no areas of well demarcated erythema, warmth, or areas of purulent drainage. No other rashes or lesions noted. Medical Decision Making Medical Decision Making MDM Narrative: 11:51 PM 04/18/2025 (Sunshine CHAVEZ): The patient is a 24-year-old male presenting to the ED for evaluation of a diffuse rash which originated on the left antecubital but has since disseminated to all 4 extremities. Exam is consistent with contact dermatitis with excessive excoriation, no areas concerning for superimposed infection. Patient is afebrile. Patient will be treated with a 2 week taper of prednisone. Patient educated to follow up with his PCP for re-evaluation. Discharge Plan Discharge Clinical Impression: Contact dermatitis Patient Disposition: Home, Self-Care Instructions: Contact Dermatitis (ED) Additional Instructions: Thank you for choosing [facility] Emergency Department for your care today. Your rash days consistent with contact dermatitis, which occurs as result of exposure to poison mari[place] and other plants. At this time there is no evidence of an acute process requiring admission to the hospital or continued ED observation, and it is safe to discharge you home. Please take the prednisone taper as prescribed until it is finished regardless of improvement in your symptoms. Failure to complete the entire course of prednisone may result in recurrence of your symptoms. You may take alternating (staggered) doses of ibuprofen 600mg and Tylenol 1000mg every 4 hours as needed for any pain. Please follow up with your primary care physician for re-evaluation, additional management of your symptoms, and continued preventative care. If you do not have a primary care physician, please call the [facility] at [phone] to establish a new primary care physician. While waiting to establish your new primary care physician, you can call our Walk[facility]in [facility] at [phone] for non-emergency needs. Please return to the emergency department if you develop a severe or sudden change in your symptoms, a fever over 100.4 that does not improve with Tylenol or Ibuprofen, recurrent vomiting, or any other new or worsening symptoms or concerns. Prescriptions: New prednisone 10 mg tablet 10 mg PO DIRECTED Qty: 42 0RF Rx Instructions: Take 60 mg (6 tabs) daily for 2 days. Then take 50 mg (5 tabs) daily for 2 days. Then take 40 mg (4 tabs) daily for 2 days. Then take 30 mg (3 tabs) daily for 2 days. Then take 20 mg (2 tabs) daily for 2 days. Then take 10 mg (1 tab) daily for 2 days. Then stop. No Action cetirizine [All Day Allergy (cetirizine)] 10 mg tablet 10 mg PO DAILY PRN (Reason: allergy symptoms) 90 Days Qty: 90 3RF tetrabenazine [Xenazine] 12.5 mg tablet 12.5 mg PO BEDTIME 30 Days Qty: 30 3RF sertraline 50 mg tablet 50 mg PO DAILY Vraylar 3 mg capsule 3 mg PO DAILY ibuprofen 600 mg tablet 600 mg PO TID Qty: 270 0RF sucralfate 1 gram tablet 1 g PO QIDWMHS Qty: 360 0RF Rx Instructions: TAKE BEFORE BREAKFAST, LUNCH, DINNER, AND BEDTIME pantoprazole 40 mg tablet,delayed release (DR/EC) 40 mg PO BID@0630,1630 Qty: 180 0RF colchicine 0.6 mg tablet 0.6 mg PO BID Qty: 180 0RF atomoxetine [Strattera] 60 mg capsule 60 mg PO DAILY Arnuity Ellipta 50 mcg/actuation blister with device 1 inh inhalation DAILY Qty: 30 11RF Print Language: Yi
[2025-04-19 00:13] VITALS: BP 120/57; PULSE 79; RESP 16; TEMP 36.8; O2SAT 98
[2025-04-19 00:15] VITALS: BP 120/57; PULSE 79; RESP 16; TEMP 36.8; O2SAT 98
== END 2025-04-19 00:15 | disposition home or self-care (01) ==
PROVIDERS: Emergency Provider Emergency Medicine; PCP Family Medicine
DX: L23.9 Allergic contact dermatitis, unspecified cause (principal); Z79.899 Other long term (current) drug therapy
CPT/HCPCS: 99283; 99284

== ENCOUNTER 2025-04-29 18:28 | Emergency (ER) | payer OTHER, SELFPAY ==
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
[2025-04-29 18:55] VITALS: BP 126/66; PULSE 85; RESP 17; TEMP 36.8; O2SAT 95; BMI 36.2
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
[2025-04-29 20:30] VITALS: BP 132/80; PULSE 72; RESP 15; TEMP 36.9; O2SAT 99
[2025-04-29 20:33] VITALS: BP 132/80; PULSE 72; RESP 15; TEMP 36.9; O2SAT 99
== END 2025-04-29 20:35 | disposition home or self-care (01) ==
LOC: HO.ED 20:33
PROVIDERS: Emergency Provider Emergency Medicine Emergency Medical Services; PCP Family Medicine
DX: S20.211A Contusion of right front wall of thorax, initial encounter (principal); S50.811A Abrasion of right forearm, initial encounter; W05.1XXA Fall from non-moving nonmotorized scooter, initial encounter; Y93.9 Activity, unspecified; Y92.9 Unspecified place or not applicable; Y99.9 Unspecified external cause status; R07.81 Pleurodynia
CPT/HCPCS: 71101; 99282; 99283

== ENCOUNTER → 2025-04-29 18:57 | Outpatient (BNV) | payer OTHER, SELFPAY | PROVIDERS: Emergency Provider Emergency Medicine Emergency Medical Services; PCP Family Medicine; Visit Provider Family Medicine | DX: R07.82 Intercostal pain (principal) | CPT/HCPCS: 71101 ==

== ENCOUNTER 2025-05-25 23:23 | Emergency (ER) | payer OTHER, SELFPAY ==
[2025-05-25 23:31] VITALS: BP 124/65; PULSE 80; RESP 20; TEMP 36.8; O2SAT 96; BMI 36.4
[2025-05-26 04:24] VITALS: BP 132/74; PULSE 65; RESP 16; TEMP 36.6; O2SAT 99
[2025-05-26 07:59] VITALS: BP 130/66; PULSE 54; RESP 16; TEMP 36.8; O2SAT 100
--- NOTE | 2025-05-26 08:11 | ED.EYEPROB ---
HPI - Eye Problem General Chief complaint: Eye Problems Stated complaint: metal object in left lower eye Time Seen by Provider: 05/26/25 07:56 Source: patient Mode of arrival: ambulatory Limitations: no limitations History of Present Illness HPI Narrative: This is 24 years old the patient presented to the emergency department complaining of feeling sensation of foreign body in the left eye he thinks he may have a piece of metal in the left eye. Symptoms started yesterday. Denies any difficult with the vision denies any blurred vision. chief complaint: other Onset (ago): day(s) (1) Onset description: gradual Duration: constant Location: left eye Eye Symptoms: burning Mechanism: other (He stated that he was cutting a piece of metal) Severity: mild Severity scale (1-10): 2 If Pain, Quality: burning Associated symptoms: none Treatments Prior to Arrival: none Related Data Home Medications ?Medication ?Instructions ?Recorded ?Confirmed atomoxetine 60 mg capsule 60 mg PO DAILY 02/25/23 01/07/25 (Strattera) cariprazine 3 mg capsule (Vraylar) 3 mg PO DAILY 01/07/25 01/07/25 sertraline 50 mg tablet 50 mg PO DAILY 01/07/25 01/07/25 Previous Rx's ?Medication ?Instructions ?Recorded fluticasone furoate 50 1 inh inhalation DAILY #30 ea 09/20/24 mcg/actuation blister powder for inhalation (Arnuity Ellipta) cetirizine 10 mg tablet (All Day 10 mg PO DAILY PRN allergy 01/02/25 Allergy (cetirizine)) symptoms 90 days #90 tabs ibuprofen 600 mg tablet 600 mg PO TID #270 tabs 01/08/25 pantoprazole 40 mg tablet,delayed 40 mg PO BID@0630,1630 #180 tabs 01/08/25 release sucralfate 1 gram tablet 1 g PO QIDWMHS #360 tabs 01/08/25 colchicine 0.6 mg tablet 0.6 mg PO BID #180 tabs 01/09/25 tetrabenazine 12.5 mg tablet 12.5 mg PO BEDTIME 30 days #30 tabs 02/18/25 (Xenazine) prednisone 10 mg tablet 10 mg PO DIRECTED #42 tabs 04/18/25 erythromycin 5 mg/gram (0.5 %) eye 1 appl ophthalmic (eye) TID #3.5 05/26/25 ointment grams Allergies Allergy/AdvReac Type Severity Reaction Status Date / Time Sulfa (Sulfonamide Allergy Intermediate RASH Verified 05/25/25 23:34 Antibiotics) (SULFA(SULFONAMIDE ANTIBIOTICS)) amoxicillin (From AUGMENTIN) AdvReac Mild YEAST Verified 05/25/25 23:34 INFECTION clavulanic acid (From AdvReac Mild YEAST Verified 05/25/25 23:34 AUGMENTIN) INFECTION Review of Systems Constitutional: Constitutional: Reports no additional constitutional complaints Cardiovascular: Cardiovascular: Reports no additional cardiovascular complaints Gastrointestinal: Gastrointestinal: Reports no additional gastrointestinal complaints [facility] Past Medical History [facility] Narrative: Anxiety depression Levine syndrome 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 persistent allergic asthma GERD (gastroesophageal reflux disease) Abnormal EKG Chest pain Palpitations Autism Tourette's Surgical History [place] teeth extracted History of fundoplication Family History Family History Sister Brain cancer Social History Social History Household Members: Family Household Members Other:: mother Housing: House Do you presently have visiting nurse or other home services: No Alcohol intake: never Patient Tobacco Use Status: Never used Tobacco e-Cigarette/Vaping Use: Never Used Advance Directives: No Advance Directives Information Provided: No Do you have a plan to hurt others: No Plan service: No Current occupational status: unemployed Cognitive needs: No Hearing needs: No Vision needs: No Physical Exam Exam: Exam: No acute distress looks well comfortable in the stretcher Vital Signs: Vital Signs: Last Vital Signs Temp 98.3 F 05/26/25 09:01 Pulse 54 05/26/25 09:01 Resp 16 05/26/25 09:01 BP 130/66 05/26/25 09:01 Pulse Ox 100 05/26/25 09:01 O2 Del Method Room Air 05/26/25 09:01 BMI result Body Mass Index 36.4 Stable vital signs Const: General: cooperative Nutritional Appearance: well nourished Orientation/consciousness: patient oriented x3 Limitations: no limitations HEENT: Head: Yes normal to inspection Ears: hearing grossly normal bilaterally General nose exam: Normal external nose present Face and sinus: Yes normal facial exam Mouth: Normal oral and palatal mucosa present Throat: Yes posterior oropharynx normal Eyes: Other: Examination of the left eye showed round pupils reactive, I examined the the eye under fluorescein I was unable to see any foreign body he has a mild abrasion of the cornea. Ocular pressure was measured was about 16 extraocular movement are full Visual Tsai: normal visual tsai by confrontation Periorbital: periorbital findings normal Eyelids: Yes eyelids normal Conjunctivae: conjunctivae normal Sclerae: sclerae normal Corneas: other (Very small corneal abrasion) Pupils: Equal, round and reactive pupils present EOM: EOMs intact bilaterally Neck: Neck: Yes normal visual inspection and Yes full ROM Resp: Effort & Inspection: normal respiratory effort Cardio: Rate: regular rate GI: Inspection: Yes normal to inspection Palpation (GI): Soft to palpation Neuro: General: patient oriented x3 Cranial nerves: Yes Equal, round and reactive pupils present Medications Administered Discontinued Medications Generic Name Dose Route Start Last Admin Trade Name Freq PRN Reason Stop Dose Admin Fluorescein Sodium 1 strip 05/26/25 07:55 05/26/25 08:18 Fluorescein Sodium Strip EYE-LEFT 05/26/25 07:56 1 strip ONCE ONE Administration Tetracaine HCl 1 drop 05/26/25 07:55 05/26/25 08:18 Tetracaine Hcl/Pf 0.5% Oph Erlinda 4 Ml Drops EYE-LEFT 05/26/25 07:56 1 drop ONCE ONE Administration Medical Decision Making Medical Decision Making [facility] Narrative: Patient is here with possible foreign body in the left eye, I was unable to visualize any foreign body ,he has a mild corneal abrasion I will discharge him on erythromycin ointment and follow-up with the simplex operator Differential Diagnosis Differential Diagnoses: The differential diagnosis associated with the presentation includes Corneal abrasion/foreign body in the left eye Discharge Plan Discharge Clinical Impression: Corneal abrasion Qualifiers: Encounter type: initial encounter Laterality: left Qualified Code(s): S05.02XA - Injury of conjunctiva and corneal abrasion without foreign body, left eye, initial encounter Patient Disposition: Home, Self-Care Instructions: Corneal Abrasion (DC) Additional Instructions: Use sunglasses, place antibiotic as directed (ointment was called to your pharmacy) we would like you to see an eye doctor for follow-up you could call her eye doctor Dr. No and make an appointment is available or you could see any eye doctor that you like or check with health insurance plan, Prescriptions: New erythromycin 5 mg/gram (0.5 %) ointment 1 appl ophthalmic (eye) TID Qty: 3.5 0RF Rx Instructions: apply let eye No Action cetirizine [All Day Allergy (cetirizine)] 10 mg tablet 10 mg PO DAILY PRN (Reason: allergy symptoms) 90 Days Qty: 90 3RF tetrabenazine [Xenazine] 12.5 mg tablet 12.5 mg PO BEDTIME 30 Days Qty: 30 3RF prednisone 10 mg tablet 10 mg PO DIRECTED Qty: 42 0RF Rx Instructions: Take 60 mg (6 tabs) daily for 2 days. Then take 50 mg (5 tabs) daily for 2 days. Then take 40 mg (4 tabs) daily for 2 days. Then take 30 mg (3 tabs) daily for 2 days. Then take 20 mg (2 tabs) daily for 2 days. Then take 10 mg (1 tab) daily for 2 days. Then stop. sertraline 50 mg tablet 50 mg PO DAILY Vraylar 3 mg capsule 3 mg PO DAILY ibuprofen 600 mg tablet 600 mg PO TID Qty: 270 0RF sucralfate 1 gram tablet 1 g PO QIDWMHS Qty: 360 0RF Rx Instructions: TAKE BEFORE BREAKFAST, LUNCH, DINNER, AND BEDTIME pantoprazole 40 mg tablet,delayed release (DR/EC) 40 mg PO BID@0630,1630 Qty: 180 0RF colchicine 0.6 mg tablet 0.6 mg PO BID Qty: 180 0RF atomoxetine [Strattera] 60 mg capsule 60 mg PO DAILY Arnuity Ellipta 50 mcg/actuation blister with device 1 inh inhalation DAILY Qty: 30 11RF Referrals: Ian No [Physician, Ophthalmology] - 05/27/25 Interventions: ED Discharge Assessment Last Done: 05/26/25 09:01 Discharge Date/Time: 05/26/25 09:01 Print Language: Lao
[2025-05-26] MEDS: Fluorescein Sodium STRIP 1 STRIP EYE-LEFT (08:18)
[2025-05-26] MEDS: Tetracaine HCl/PF 0.5% Oph Sol 4 ML DROPS 1 DROP EYE-LEFT (08:18)
[2025-05-26 09:01] VITALS: BP 130/66; PULSE 54; RESP 16; TEMP 36.8; O2SAT 100
== END 2025-05-26 09:01 | disposition home or self-care (01) ==
PROVIDERS: Emergency Provider Emergency Medicine; PCP Family Medicine
DX: S05.02XA Injury of conjunctiva and corneal abrasion without foreign body, left eye, initial encounter (principal); W20.8XXA Other cause of strike by thrown, projected or falling object, initial encounter; Y93.89 Activity, other specified; Y92.89 Other specified places as the place of occurrence of the external cause; Y99.8 Other external cause status
CPT/HCPCS: 99283

== ENCOUNTER 2025-06-02 22:18 | Emergency (ER) | payer OTHER, SELFPAY ==
[2025-06-02 22:22] VITALS: BP 165/89; PULSE 85; RESP 15; TEMP 36.2; O2SAT 96; BMI 39.7
[2025-06-02 22:59] LABS: IDNOW Serial# 6674DD1D; Strep A Nucleic Acid Negative (Negative)
[2025-06-02 23:20] LABS: Resp Syncy Virus RNA Qual PCR NEGATIVE (Negative); SARS COV2 PCR INHOUSE NEGATIVE (Negative)
--- NOTE | 2025-06-03 02:23 | ED.GENADULT ---
HPI - General Adult General Chief complaint: General Medical Stated complaint: throat pain Time Seen by Provider: 06/03/25 02:01 Source: patient Mode of arrival: ambulatory Limitations: no limitations History of Present Illness ED Provider: Dr. Corie Pagan HPI narrative: Patient comes to the emergency room complaining of sore throat for a few days and poison jammie rash in both upper arms. Denies fever chills. Denies runny nose or cough. Denies chest pain or shortness of breath Related Data Home Medications ?Medication ?Instructions ?Recorded ?Confirmed atomoxetine 60 mg capsule 60 mg PO DAILY 02/25/23 01/07/25 (Strattera) cariprazine 3 mg capsule (Vraylar) 3 mg PO DAILY 01/07/25 01/07/25 sertraline 50 mg tablet 50 mg PO DAILY 01/07/25 01/07/25 Previous Rx's ?Medication ?Instructions ?Recorded fluticasone furoate 50 1 inh inhalation DAILY #30 ea 09/20/24 mcg/actuation blister powder for inhalation (Arnuity Ellipta) cetirizine 10 mg tablet (All Day 10 mg PO DAILY PRN allergy 01/02/25 Allergy (cetirizine)) symptoms 90 days #90 tabs ibuprofen 600 mg tablet 600 mg PO TID #270 tabs 01/08/25 pantoprazole 40 mg tablet,delayed 40 mg PO BID@0630,1630 #180 tabs 01/08/25 release sucralfate 1 gram tablet 1 g PO QIDWMHS #360 tabs 01/08/25 colchicine 0.6 mg tablet 0.6 mg PO BID #180 tabs 01/09/25 tetrabenazine 12.5 mg tablet 12.5 mg PO BEDTIME 30 days #30 tabs 02/18/25 (Xenazine) prednisone 10 mg tablet 10 mg PO DIRECTED #42 tabs 04/18/25 erythromycin 5 mg/gram (0.5 %) eye 1 appl ophthalmic (eye) TID #3.5 05/26/25 ointment grams diphenhydramine HCl 2 % topical 1 appl topical BID PRN itching 06/03/25 gel (Benadryl) #103 mL hydrocortisone 2.5 % topical cream 1 appl topical QID PRN skin 06/03/25 irritation #28 grams Allergies Allergy/AdvReac Type Severity Reaction Status Date / Time Sulfa (Sulfonamide Allergy Intermediate RASH Verified 06/02/25 22:23 Antibiotics) (SULFA(SULFONAMIDE ANTIBIOTICS)) amoxicillin (From AUGMENTIN) AdvReac Mild YEAST Verified 06/02/25 22:23 INFECTION clavulanic acid (From AdvReac Mild YEAST Verified 06/02/25 22:23 AUGMENTIN) INFECTION Review of Systems Review of Systems: Constitutional : No Weight loss, No Fever, No Chills, No Night Sweats, No Fatigue, No Malaise ENT/Mouth : No Hearing loss, No Ear Pain, No Nasal Congestion, No Sinus Pain, No Hoarseness, complaining of sore throat, No Rhinorrhea, No Swallowing Difficulty Eyes: No Eye Pain, No Swelling, No Redness, No Foreign Body, No Discharge, No Vision Changes Cardiovascular : No Chest Pain, No SOB, No Dyspnea on Exertion, No Orthopnea, No Edema, No Palpitations Respiratory : No Cough, No Sputum, No Wheezing, No Smoke Exposure, No Dyspnea Gastrointestinal : No Nausea, No Vomiting, No Diarrhea, No Constipation, No abdominal Pain, No Hematochezia, No Melena Genitourinary : no irregular bleeding, No Dysuria, No Urinary Frequency, No Hematuria, No Urinary Incontinence, No Urgency, No Flank Pain, No Urinary Flow Changes, No Hesitancy Musculoskeletal : No joint pain, No Myalgias, No Joint Swelling Skin : Complaining of itchy vesicular rash in forearms, known exposure to poison jammie Neuro : No Weakness, No Numbness, No Paresthesias, No Loss of Consciousness, No Dizziness, No Headache Psych : No Anxiety/Panic, No Depression, No SI/HI/AH/VH, No Social Issues, Heme/Lymph: No Bruising, No Bleeding,No Lymphadenopathy Endocrine : No Polyuria, No Polydipsia, No Temperature Intolerance PMFSH Past Medical History 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 persistent allergic asthma GERD (gastroesophageal reflux disease) Abnormal EKG Chest pain Palpitations Autism Tourette's Surgical History [place] teeth extracted History of fundoplication Family History Family History Sister Brain cancer Social History Social History Household Members: Family Household Members Other:: mother Housing: House Do you presently have visiting nurse or other home services: No Alcohol intake: never Patient Tobacco Use Status: Never used Tobacco e-Cigarette/Vaping Use: Never Used Advance Directives: No Advance Directives Information Provided: No Do you have a plan to hurt others: No Plan service: No Current occupational status: unemployed Cognitive needs: No Hearing needs: No Vision needs: No Physical Exam ED Exam Exam: Appearance: Alert. Oriented X3. No acute distress. Eyes: Pupils equal, round and reactive to light. ENT: Pharynx normal. I do not appreciate any erythema, abscesses, swelling, exudates, uvula is midline Neck: Normal inspection. Neck supple. No lymph nodes noted. No crepitus CVS: Normal heart rate and rhythm. Pulses normal. Normal S1 and S2 Respiratory: No respiratory distress. Breath sounds normal. No Wheezing. No rales Abdomen: Soft and nontender. No rigidity. No distention. Skin: Skin warm and dry. Normal skin color. Normal skin turgor. See extremities below Extremities: No lower extremity edema. No Lacerations. No Rash informs, patient has a vesicular rash, consistent with poison jammie Neuro: Oriented X 3. No motor deficit. No sensory deficit. Moving all extremities. No slurred speech. CN 2 through 12 grossly intact Psych: calm, cooperative, normal affect Vital Signs: Vital Signs - 24 hr 06/02/25 22:22 Temperature 97.1 F Pulse Rate 85 Respiratory Rate 15 Blood Pressure 165/89 H Pulse Oximetry 96 Oxygen Delivery Method Room Air BMI result Body Mass Index 39.7 Medical Decision Making Medical Decision Making MDM Narrative: My interpretation of labs: Patient tested negative for influenza COVID RSV and strep Patient was given a dose of Decadron which would help for both, oropharyngeal discomfort and poison jammie. Lab Data Labs: Lab Results 06/02/25 Range/Units 22:32 Influenza Type A (PCR) NEGATIVE (Negative) Influenza Type B (PCR) NEGATIVE (Negative) RSV RNA Qual (PCR) NEGATIVE (Negative) SARS-CoV-2 RNA (RT-PCR) NEGATIVE (Negative) S. pyogenes GrpA NYDIA Negative (Negative) Discharge Plan Discharge Clinical Impression: Acute viral pharyngitis, Poison jammie Patient Disposition: Home, Self-Care Instructions: Pharyngitis (ED), Poison Jammie (ED) Additional Instructions: Please follow-up with your primary care physician tomorrow. If you have any worsening or new symptoms, please return to the emergency room or call 911 Prescriptions: New hydrocortisone 2.5 % cream 1 appl topical QID PRN (Reason: skin irritation) Qty: 28 0RF Benadryl 2 % gel 1 appl topical BID PRN (Reason: itching) Qty: 103 0RF No Action cetirizine [All Day Allergy (cetirizine)] 10 mg tablet 10 mg PO DAILY PRN (Reason: allergy symptoms) 90 Days Qty: 90 3RF tetrabenazine [Xenazine] 12.5 mg tablet 12.5 mg PO BEDTIME 30 Days Qty: 30 3RF prednisone 10 mg tablet 10 mg PO DIRECTED Qty: 42 0RF Rx Instructions: Take 60 mg (6 tabs) daily for 2 days. Then take 50 mg (5 tabs) daily for 2 days. Then take 40 mg (4 tabs) daily for 2 days. Then take 30 mg (3 tabs) daily for 2 days. Then take 20 mg (2 tabs) daily for 2 days. Then take 10 mg (1 tab) daily for 2 days. Then stop. sertraline 50 mg tablet 50 mg PO DAILY Vraylar 3 mg capsule 3 mg PO DAILY ibuprofen 600 mg tablet 600 mg PO TID Qty: 270 0RF sucralfate 1 gram tablet 1 g PO QIDWMHS Qty: 360 0RF Rx Instructions: TAKE BEFORE BREAKFAST, LUNCH, DINNER, AND BEDTIME pantoprazole 40 mg tablet,delayed release (DR/EC) 40 mg PO BID@0630,1630 Qty: 180 0RF colchicine 0.6 mg tablet 0.6 mg PO BID Qty: 180 0RF erythromycin 5 mg/gram (0.5 %) ointment 1 appl ophthalmic (eye) TID Qty: 3.5 0RF Rx Instructions: apply let eye atomoxetine [Strattera] 60 mg capsule 60 mg PO DAILY Arnuity Ellipta 50 mcg/actuation blister with device 1 inh inhalation DAILY Qty: 30 11RF Print Language: Azeri
[2025-06-03 02:46] VITALS: BP 165/89; PULSE 85; RESP 15; TEMP 36.2; O2SAT 96
== END 2025-06-03 02:46 | disposition home or self-care (01) ==
PROVIDERS: Emergency Provider Emergency Medicine
DX: J02.9 Acute pharyngitis, unspecified (principal); L23.7 Allergic contact dermatitis due to plants, except food; K21.9 Gastro-esophageal reflux disease without esophagitis
CPT/HCPCS: 87637; 87651; 99282; 99283; J8540

== ENCOUNTER 2025-06-18 07:56 | Outpatient (AMB) | payer OTHER, SELFPAY ==
--- OUTSIDE RECORDS SUMMARY | 2025-06-18 07:59 | XMS_ITS | Encounter Summary ---
Author Organization [facility] Address [address] [place] [phone] Phone Care Team Providers Care Popped Corn Oven Attendant Name Role Phone Juan Barron MD Primary Care Provider Encounter Details Date Type Department Care Team (Late st Contact Info) Description 12/11/2022 Procedure Pass [facility], Ct Scan - [address] [address] Social History Tobacco Use Types Packs/Day Years Used Date Smoking Tobacco: Never Smokeless Tobacco: Never Alcohol Use Standard Drinks/Week Comments Never 0 (1 standard drink = 0.6 oz pur e alcohol) Intimate Partner Violence Answer Date R ecorded Are you denied basic needs s uch as food, clothing, or medical care? No 12/11/2022 In the past 12 months have y ou been in a relationship with a person who hurts, threatens, or tries to control you? No 12/11/2022 Are you denied basic needs s uch as food, clothing, or medical care? No 12/11/2022 In the past 12 months have y ou been in a relationship with a person who hurts, threatens, or tries to control you? No 12/11/2022 Sex and Gender Information Value Date Recorded Sex Assigned at Male 12/11/2022 8:09 PM EST Legal Sex Male 12:45 AM EST Gender Identity Male 12/11/2022 8:09 PM EST Sexual Orientation Not on file documented as of this encounter Functional Status * Calculated C-SSRS Risk Score (Lifetime/Recent) Answer Date of Assessment Author No Risk Indicated 12/11/2022 8:09 PM EST Leda Jacinto RN * [place] Suicide Severity Rating Scale (Screener/Recent Self-Report) Question Answer Date of Assessment Author 1. Wish to be (Past 1 Month) No 12/11/2022 8:09 PM Leda Mckay RN 2. Non-Specific Active Suici carito Thoughts (Past 1 Month) No 12/11/2022 8:09 PM Rosina Mckay RN 6. Suicidal Behavior (Lifetime) No 8:09 PM Leda Mckay RN documented as of this encounter Plan of Treatment Upcoming Encounters Date Type Department Care Team (Late st Contact Info) Description 07/29/2025 8:30 AM EDT Telemedicine [facility] Department of Neurology [address] [place] [address], [address] Floor, [address] [place] [address] Gutierrez Ramirez MD, PhD [address] [place] [phone] [place] [address] [email or web address] documented as of this encounter Visit Diagnoses Not on filedocumented in this encounter Additional Health Concerns Infection Onset Date Last Indicated Resolved Time CoV-Risk 10/18/2023 10/18/2023 10/29/2023 1:24 AM EST documented as of this encounter Care Teams Popped Corn Oven Attendant Relationship Specialty Start Date End Date Juan Barron MD [address] [place] [address] PCP - General Family Medicine 12/09/22 documented as of this encounter Additional Source Comments The information contained in this document represents components of the legal health record. It is not the complete legal health record.[facility]
--- OUTSIDE RECORDS SUMMARY | 2025-06-18 07:59 | XMS_ITS | Encounter Summary ---
Author Organization [facility] Address [address] [place] [phone] Phone Care Team Providers Care Boot And Shoe Repairman Name Role Phone Juan Barron MD Primary Care Provider Encounter Details Date Type Department Care Team (Late st Contact Info) Description 12/09/2022 Transcribe Orders Virtual Department [address] [place] [phone] Mag Cowan PA-C [address] [place] [phone] [email or web address] Impacted cerumen, bilateral (Primary Dx); Feeling of foreign body in throat Social History Tobacco Use Types Packs/Day Years [...] 8:09 PM EST Leda Jacinto RN * [place] Suicide Severity Rating Scale (Screener/Recent Self-Report) Question Answer Date of Assessment Author 1. Wish to be (Past 1 Month) No 12/11/2022 8:09 PM EST Leda Du RN 2. Non-Specific Active Suici carito Thoughts (Past 1 Month) No 12/11/2022 8:09 PM EST Rosina Du RN 6. Suicidal Behavior (Lifetime) No 8:09 PM EST Leda Du RN documented as of this encounter Plan of Treatment Upcoming Encounters Date Type Department Care Team (Late st Contact Info) Description 07/29/2025 8:30 AM EDT Telemedicine [facility] Department of Neurology [address] [place] [address], [address] Floor, [address] [place] [address] Gutierrez Ramirez MD, PhD [address] [place] [phone] [place] [address] [email or web address] documented as of this encounter Visit Diagnoses Diagnosis Impacted cerumen, bilateral- Primary Feeling of foreign body in throat Other symptoms involving head and neck documented in this encounter Additional Health Concerns Infection Onset Date Last Indicated Resolved Time CoV-Risk 10/18/2023 10/18/2023 10/29/2023 1:24 AM EST documented as of this encounter Care Teams Boot And Shoe Repairman Relationship Specialty Start Date End Date Juan Barron MD [address] [place] [address] PCP - General Family Medicine 12/09/22 documented as of this encounter Additional Source Comments The information contained in this document represents components of the legal health record. It is not the complete legal health record.[facility]
--- OUTSIDE RECORDS SUMMARY | 2025-06-18 07:59 | XMS_ITS | Clinical Summary ---
Author Organization [facility] Address [address] [place] [address] Care Team Providers Care Disease Management Nurse Name Role Phone Unknown Primary Care Provider [...] this topic Insurance [place] OUT OF [place] [facility] [place] [address] [place] [address] Care Teams Disease Management Nurse Relationship Specialty Start Date End Date Unknown Unknow Provider Address PCP - General 01/04/19
--- OUTSIDE RECORDS SUMMARY | 2025-06-18 08:00 | XMS_ITS | Clinical Summary ---
Author Organization [facility] Address [address] [place] [phone] Phone Care Team Providers Care Business Analysis Analyst Name Role Phone Juan Barron MD Primary Care Provider Allergies Active Allergy Reactions Criticality Noted Date Comments Amoxicillin-Pot Clavulanate Rash Low 01/05/20 19 Augmentin (Amoxicillin-Pot Clavulanate) Rash 03/16/2015 Clavulanic Acid Unknown Medium 01/04/2019 Sulfa (Sulfonamide Antibiotics) Hives,Rash Medium 01/04/2019 petecheal rash with fever and malaise Medications amoxicillin (AMOXIL) 875 MG tablet Take 875 mg by mouth 2 (two) times a day. 2 Active amoxicillin-cla vulanate (AUGMENTIN) 875-125 mg per tablet TAKE 1 TABLET BY MOUTH TWICE A DAY FOR 7 DAYS TAKE WITH FOOD OR MILK 2 Active STRATTERA 60 mg capsule TAKE 1 CAPSULE BY MOUTH EVERY AFTERNOON BRAND ONLY 2 Active VRAYLAR 3 mg capsule Take by mouth daily. 2 Active cephalexin (KEFLEX) 500 MG capsule Take 500 mg by mouth 2 (two) times a day. 2 Active clindamycin (CLEOCIN) 300 MG capsule Take 300 mg by mouth 3 (three) times a day. 1 Active ibuprofen (ADVIL,MOTRIN) 600 MG tablet TAKE 1 TAB BY MOUTH EVERY 6 HOURS NEEDED FOR PAIN 2 Active cetirizine (ZYRTEC) 10 MG tablet cetirizine 10 mg tablet TAKE 1 TABLET BY MOUTH ONCE NEEDED FOR ALLERGY SYMPTOMS 2 Active tetrabenazine (XENAZINE) 12.5 mg tablet Take 12.5 mg by mouth daily. Active fluticasone propionate (FLONASE) 50 mcg/actuation nasal sprayIndication s:Bilateral otitis media with effusion 1 spray by Nasal route 2 (two) times a day (once in the morning and once in the afternoon). 16 each 4 Active Additional Information Patient not taking.Reported on 11/11/2023 VRAYLAR 3 mg capsule Take 3 mg by mouth. 2 Active tetrabenazine (XENAZINE) 12.5 mg tablet Take 12.5 mg by mouth daily. Active albuterol 90 mcg/actuation inhaler Inhale 2 puffs into the lungs every 6 (six) hours as needed for wheezing. 6.7 g 4 Active Active Problems Problem Noted Date Diagnosed Date Gastroesophageal reflux disease 03/16/2015 Overview (09/22/2015): Gastroesophageal reflux disease Autism 03/16/2015 Overview (09/22/2015): Autistic disorder Social History Tobacco Use Types Packs/Day Years Used Date Smoking Tobacco: Never Smokeless Tobacco: Never Tobacco Cessation:Counseling Given: Not Answered Alcohol Use Standard Drinks/Week Comments Never 0 (1 standard drink = 0.6 oz pur e alcohol) Education Answer Date Recorded Are you interested in more education? Not on casie e 02/10/2023 Are you concerned about learning? Not on file 02/10/2023 No 02/10/2023 No 02/10/2023 Digital Access Answer Date Recorded No 03/13/2023 No 03/13/2023 Reliable internet access at home? Not on file 03/13/2023 Device with a working camera? Not on file Intimate Partner Violence Answer Date R ecorded [...] PM EST Sexual Orientation Not on file Last Filed Vital Signs Vital Sign Reading Time Taken Comments Blood Pressure 124/77 11/11/2023 3:07 PM EST Pulse 90 11/11/2023 3:07 PM EST Temperature 36.8 C (98.2 F) 11/11/2023 3:07 PM EST Respiratory Rate 16 11/11/2023 3:07 PM EST Oxygen Saturation 98% 11/11/2023 3:07 PM EST Inhaled Oxygen Concentration - - Weight 122.5 kg (270 lb) 11/11/2023 3:07 PM EST Height 172.7 cm (5' 8 ) 11/11/2023 3:07 PM EST Body Mass Index 41.05 11/11/2023 3:07 PM EST Plan of Treatment Upcoming Encounters Date Type Department Care Team (Late st Contact Info) Description 07/29/2025 8:30 AM EDT Telemedicine [facility] [place]rology [address] [place] [address], 8th Floor, [address] [place] [address] Gutierrez Ramirez MD, PhD [address] [place] [phone] [place] [address] [email or web address] Health Maintenance Due Date Last Done Comments DEPRESSION SCREENING 2011 SMOKING Hx and SMOKELESS TOBACCO SCREENING 2012 HEPATITIS C SCREENING 2017 HIV ONE-TIME SCREENING (18-65 YEARS) 2017 INFLUENZA VACCINE (#1) 2025 , 07/12/2020, 10/21/2019, Additional history exists COVID-19 VACCINE ( season) 2025 09/24/2021, 01/12/2021, 12/15/2020 Adult Td,Tdap Booster 09/30/2029 09/30/2019 , 07/09/2018, 10/20/2015 HEPATITIS A VACCINES Completed 12/17/2012, 01/10/20 HPV VACCINES Completed 03/27/2017, 07/17, 04/21/2014 MENINGOCOCCAL VACCINES (ACWY) Completed 03/29/2018, 11/22/2013 MENINGOCOCCAL VACCINES (B) Completed 08/17/2018, HIB VACCINES Aged Out No longer eligi ble based on patient's age to complete this topic PNEUMOCOCCAL VACCINES (0-49 years) Aged Out No longer eligible based on patient's age to complete this topic Medical Devices Not on file Insurance [place] [address] [place] [address] [place] [address] [place] [address] [place] [address] [employer] [facility] [place] [address] [place] [address] [employer] [facility] [facility] [employer] [facility] Care Teams Business Analysis Analyst Relationship Specialty Start Date End Date Juan Barron MD [address] [place] [address] PCP - General Family Medicine 12/09/22 Additional Source Comments The information contained in this document represents components of the legal health record. It is not the complete legal health record.[facility]
--- NOTE | 2025-06-18 08:03 | AM.OFFWIN_ITS ---
Intake Intake Visit Reasons: EP-upper back tick bite Intake Note: Pt is here today c/o ? tick bite on upper back Patient Tobacco Use Status: Never used Tobacco Allergies Sulfa (Sulfonamide Antibiotics) (SULFA(SULFONAMIDE ANTIBIOTICS)) Allergy (Intermediate, Verified 06/18/25 08:04) RASH amoxicillin (From AUGMENTIN) Adverse Reaction (Mild, Verified 06/18/25 08:04) YEAST INFECTION clavulanic acid (From AUGMENTIN) Adverse Reaction (Mild, Verified 06/18/25 08:04) YEAST INFECTION HPI HPI Comments History of Present Illness Details History - The patient is a 24-year-old male pres enting with a suspected tick bite. - The patient reports feeling something on his back, which he scratched off, suspecting it to be a tick. - The incident occurred yesterday, and t he patient experienced chills last night. - The patient reports significant pain a t the site, with a visible scab and red ness. - The patient is currently taking amoxic illin for a sinus infection, prescribed by a nearby urgent care facility. - The patient has no fever, chills, join t pain, rashes, or lesions. Physical Exam General: Cooperative, healthy appearing, comfortable, no acute distress and well developed Orientation: Patient oriented x3 Neck: Normal visual inspection and Yes full ROM Respiratory: Normal respiratory effort and able to speak in complete sentences. Skin: Red heriberto and scab noted on the left upper back. No induration noted. No bleeding or discharge noted. Neuro: Patient oriented x3 Patient was informed and verbally consented to the use of an ambient scribe for clinic note documentation during this visit. [facility] 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 persistent allergic asthma GERD (gastroesophageal reflux disease) Abnormal EKG Chest pain Palpitations Autism Tourette's Surgical History [place] teeth extracted History of fundoplication Family History Sister Brain cancer Social History Household Members: Family Household Members Other:: mother Housing: House Do you presently have visiting nurse or other home services: No Alcohol intake: never Patient Tobacco Use Status: Never used Tobacco e-Cigarette/Vaping Use: Never Used service: No Current occupational status: unemployed Cognitive needs: No Hearing needs: No Vision needs: No Review of Systems Const All systems reviewed & are unremarkable except as noted in HPI and below Assessment & Plan Assessment & Plan (1) Tick bite: Code(s): W57.XXXA - Bitten or stung by nonvenomous insect and other nonvenomous arthropods, initial encounter Qualifiers: Encounter type: initial encounter Site of tick bite: thoracic wall Front or back of thoracic wall: back Thoracic wall location detail: left Qualified Code(s): S20.462A - Insect bite (nonvenomous) of left back wall of thorax, initial encounter; W57.XXXA - Bitten or stung by nonvenomous insect and other nonvenomous arthropods, initial encounter Plan Most likely a cellulitis from an insect bite plan - tylenol or motrin as needed for pain or fever - stop the amoxicillin - start doxycycline BID for 10 days - keep the area clean and dry - follow up with PCP Coding Level of Care Code Est Pt Level 3 (32270) Diagnoses Tick bite of left back wall of thorax, initial encounter S20.462A; W57.XXXA Encounter type: initial encounter Site of tick bite: thoracic wall Front or back of thoracic wall: back Thoracic wall location detail: left
== END 2025-06-18 09:25 | disposition home or self-care (01) ==
PROVIDERS: Visit Provider Physician Assistant Medical
DX: S20.462A Insect bite (nonvenomous) of left back wall of thorax, initial encounter (principal); W57.XXXA Bitten or stung by nonvenomous insect and other nonvenomous arthropods, initial encounter

== ENCOUNTER → 2025-06-18 07:56 | Outpatient (BNVA) | payer OTHER, SELFPAY | PROVIDERS: Visit Provider Physician Assistant Medical | DX: S20.462A Insect bite (nonvenomous) of left back wall of thorax, initial encounter (principal); W57.XXXA Bitten or stung by nonvenomous insect and other nonvenomous arthropods, initial encounter; Y93.9 Activity, unspecified; Y92.9 Unspecified place or not applicable; Y99.9 Unspecified external cause status | CPT/HCPCS: 99212 ==

== ENCOUNTER 2025-07-15 01:53 | Emergency (ER) | payer OTHER, SELFPAY ==
--- NOTE | 2025-07-15 01:55 | ECG_ITS ---
Test Reason : CP Blood Pressure : */* mmHG Vent. Rate : 83 BPM Atrial Rate : 83 BPM P-R Int : 140 ms QRS Dur : 98 ms QT Int : 366 ms P-R-T Axes : 24 30 20 degrees QTcB Int : 430 ms Normal sinus rhythm Normal ECG When compared with ECG of 02-Apr-2025 09:48, No significant change was found Referred By: Generic ED Physician Electronically Signed By: JARAD ROSAS
[2025-07-15 02:06] VITALS: BP 127/70; PULSE 83; RESP 18; TEMP 36.3; O2SAT 97; BMI 34.9
[2025-07-15 02:36] LABS: MANUAL DIFF FLAG NO
[2025-07-15 02:37] LABS: Hematocrit 42.2 % (42.0-52.0); Hemoglobin 14.4 g/dl (14.0-18.0); Imm Gran Abs Auto 0.02 X10*3/uL (0.00-0.03); Imm Gran Pct Auto 0.2 % (0.0-0.4); Lymphocytes Absolute Auto 2.8 X10*3/uL (1.2-4.9); Mean Corpuscular HGB Conc 34.1 g/dl (31.0-36.0); Mean Corpuscular Hemoglobin 26.8 pg (27.0-33.0); Mean Corpuscular Volume 78.6 fL (80.0-98.0); NRBC Abs Auto 0.000 X10*3/uL (0.0-0.012); NRBC Pct Auto 0.0 /100WBC (0.0-0.2); Platelet Count 220 X10*3/uL (160-400); Red Blood Count 5.37 X10*6/uL (4.60-5.80); White Blood Count 9.2 X10*3/uL (4.8-10.8)
[2025-07-15 02:51] LABS: Alanine Aminotransferase 40 U/L (0-40); Albumin Level 4.4 g/dL (3.5-5.0); Alkaline Phosphatase 76 U/L (39-117); Anion Gap 12 (12-20); Aspartate Amino Transferase 26 U/L (5-37); Blood Urea Nitrogen 24 mg/dL (9-16); Calcium 9.4 mg/dL (8.4-10.2); Carbon Dioxide 24 mmol/L (22-29); Chloride 110 mmol/L (96-108); Creatinine Clr Calc Pharmacy 147.5; Estimated Glomerular Filt Rate > 60; Magnesium 2.1 mg/dL (1.6-2.6); Potassium 3.8 mmol/L (3.3-5.1); Sodium 142 mmol/L (135-145); Total Protein 6.5 g/dL (6.5-8.0)
[2025-07-15 02:58] LABS: Troponin-I High Sensitivity < 2.7 ng/L (<3.5-35.0)
[2025-07-15 04:21] VITALS: BP 142/77; PULSE 80; RESP 18; TEMP 36.4; O2SAT 98
--- OUTSIDE RECORDS SUMMARY | 2025-07-15 04:24 | XMS_ITS | Clinical Summary ---
Author Organization [facility] Address [address] [place] [phone] Phone Care Team Providers Care Project Management Professor Name Role Phone Juan Barron MD Primary [...] Info) Description 07/29/2025 8:30 AM EDT Telemedicine [facility] [place]rology [address] [facility], 8th Floor, [address] [place] [address] Gutierrez Ramirez MD, PhD [address] [facility] [place] [address] [email or web address] Health Maintenance Due Date Last Done Comments [...] Medical Devices Not on file Insurance [place] [address] [address] [place] [address] [place] [address] [place] [address] [place] [address] [place] [address] [employer] [place] [address] [place] [address] [employer] Care Teams Project Management Professor Relationship Specialty Start Date End Date Juan Barron MD [address] [place] [address] PCP - General Family Medicine 12/09/22 Additional Source Comments The information contained in this document represents components of the legal health record. It is not the complete legal health record.[facility]
--- OUTSIDE RECORDS SUMMARY | 2025-07-15 04:24 | XMS_ITS | Encounter Summary ---
Author Organization [facility] Address [address] [place] [address] Phone Care Team Providers Care Investments Manager Name Role Phone Juan Barron MD Primary Care Provider Encounter Details Date Type Department Care Team (Late st Contact Info) Description 12/09/2022 Transcribe Orders Virtual Department [address] [place] [address] Mag Cowan PA-C [address] [place] [id number] [email or web address] Impacted cerumen, bilateral (Primary Dx); Feeling [...] 8:09 PM EST Leda Jacinto RN * [place] Suicide Severity Rating Scale (Screener/Recent Self-Report) Question [...] Info) Description 07/29/2025 8:30 AM EDT Telemedicine [facility] Department of Neurology [address] [place] [address], 8th Floor, [address] [place] [address] Gutierrez Ramirez MD, PhD [address] [place] [address] [email or web address] documented as of this encounter Visit Diagnoses Diagnosis Impacted cerumen, bilateral- Primary Feeling of foreign body in throat Other symptoms involving head and neck documented in this encounter Additional Health Concerns Infection Onset Date Last Indicated Resolved Time CoV-Risk 10/18/2023 10/18/2023 10/29/2023 1:24 AM EST documented as of this encounter Care Teams Investments Manager Relationship Specialty Start Date End Date Juan Barron MD [address] [place] [address] PCP - General Family Medicine 12/09/22 documented as of this encounter Additional Source Comments The information contained in this document represents components of the legal health record. It is not the complete legal health record.[facility]
--- OUTSIDE RECORDS SUMMARY | 2025-07-15 04:24 | XMS_ITS | Encounter Summary ---
Author Organization [facility] Address [address] [place] [phone] Phone Care Team Providers Care 4Th Grade Math Teacher Name Role Phone Juan Barron MD Primary Care Provider Encounter Details Date Type Department Care Team (Late st Contact Info) Description 12/11/2022 Procedure Pass [facility], Ct Scan - [address] [address] Social History Tobacco Use Types Packs/Day Years [...] 8:09 PM EST Leda Jacinto RN * [place] Suicide Severity Rating Scale (Screener/Recent Self-Report) Question [...] Info) Description 07/29/2025 8:30 AM EDT Telemedicine [facility] Department of Neurology [address] [place] [address], 8th Floor, [address] [place] [address] Gutierrez Ramirez MD, PhD [address] [place] [address] [email or web address] documented as of this encounter Visit Diagnoses Not on filedocumented in this encounter Additional Health Concerns Infection Onset Date Last Indicated Resolved Time CoV-Risk 10/18/2023 10/18/2023 10/29/2023 1:24 AM EST documented as of this encounter Care Teams 4Th Grade Math Teacher Relationship Specialty Start Date End Date Juan Barron MD [address] [place] [address] PCP - General Family Medicine 12/09/22 documented as of this encounter Additional Source Comments The information contained in this document represents components of the legal health record. It is not the complete legal health record.[facility]
--- OUTSIDE RECORDS SUMMARY | 2025-07-15 04:24 | XMS_ITS | Clinical Summary ---
Author Organization [facility] Address [address] [place] [address] Care Team Providers Care Patternmaker All Around Name Role Phone Unknown Primary Care Provider [phone] Allergies Active Allergy Reactions Criticality Noted Date [...] - 19+ 3-dose series) 2018 Influenza Vaccine 05/16/2025 COVID-19 Vaccine ( - 2023-2 5 season) 2025 Pneumococcal Vaccine: Pediat tigist (0-5 Years) and At-Risk Patients (6 to 49 Years) Aged Out No longer eligible b ased on patient's age to complete this topic Insurance MEDICAID [place] [facility] [address] [place] [address] Care Teams Patternmaker All Around Relationship Specialty Start Date End Date Unknown Unknow Provider Address PCP - General 01/04/19
--- OUTSIDE RECORDS SUMMARY | 2025-07-15 04:24 | XMS_ITS | Data Portability ---
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 Ear exam is otherwise normal. He will follow up in two months or so. [email or web address] Not available 04/10/2024 15:42:32 05/23/2024 05/23/2024 Impacted [...] g. Thank you. 2023 024 [facility], [address] [place] [address] , [facility], [place], [address], 4 11:42:46 Procedures None record ed. Surgeries None record ed. Imaging barium swallo w study - dyspha dianelys, histor y of cortney proced ure [address] (Imaging), [address] [place] [address], [place], [address], 4 16:07:38 Medication Orders amoxic illin 500 mg capsul e 2023 024 [facility] #[id number], [address] [facility] , [place], [address], 4 15:18:07 Patient TargetsNo targets recorded. Patient InstructionsNo instructions recorded. 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 Referral for Respiratory finding Referral for reflux, [...] Name and Address Organization Details Recorded Time Hypertrop hy of nasal turbinate s 12213771 Active 2016 Hypertrop hy of nasal turbinate s; Note: Date Diagnosed : 06/09/2017 12:30 PM (J34.3) Not Available [facility] 4 02:37:33 Attention deficit hyperacti vity disorder 576365326 Active 2016 Attention -deficit hyperacti vity disorder NOS; Note: Date Diagnosed : 06/09/2017 12:50 PM (F90.9) Not Available [facility] 4 02:37:34 Posterior rhinorrhe a 57874910 Active 2016 Postnasal drip; Note: Date Diagnosed : 07/05/2017 11:11 AM (R09.82) Not Available [facility] 4 02:37:32 Bilateral earache 762351150 Active 2018 Otalgia, bilateral ; Note: Date Diagnosed : 11/15/2018 4:19 PM (H92.03) Not Available [facility] 4 02:37:21 Abnormal auditory perceptio n 98001182 Active 2018 Other abnormal auditory perceptio ns, bilateral ; Note: Date Diagnosed : 12/19/2018 3:39 PM (H93.293) Not Available [facility] 4 02:37:35 Headache 09977654 Active 2018 Facial pain NOS; Note: Date Diagnosed : 01/21/2019 4:58 PM (R51) Headach e; Note: Date Diagnosed : 06/09/2017 12:50 PM (R51) ; Start Date : 7 Not Available [facility] 4 02:37:31 Impacted cerumen of bilateral ears [id number] 05317 Active 2018 Impacted cerumen, bilateral ; Note: Date Diagnosed : 02/19/2019 6:04 PM (H61.23) Not Available [facility] 4 02:37:22 Respirato ry finding 280047285 Active 2022 Feeling of foreign body in throat; Note: Date Diagnosed : 12/01/2022 2:53 PM (R09.89) Not Available [facility] 4 02:37:23 Cardiovas cular finding 856051150 Active 2022 Feeling of foreign body in throat; Note: Date Diagnosed : 12/01/2022 2:53 PM (R09.89) Not Available [facility] 4 02:37:23 Acute sinusitis 49012487 Active 2023 Other acute sinusitis ; Note: Date Diagnosed : 11/15/2023 3:27 PM (J01.80) Not Available [facility] 4 02:37:24 Autism spectrum disorder 70376695 Active 2023 Mag ellington [place] - [facility] 4 15:42:42 Problem Notes None recorded. Procedures Surgical History Date Name Laterality Status Provider Name and Address Organization Details Recorded Time 05/23/20 24 Fiberoptic Laryngoscopy (Comprehensive) completed Mag Brandt [place] - [facility] 05/23/2024 16:01:53 Imaging Results None recorded. Procedure Notes None recorded. Medical Equipment None Reported. Allergies Allergen ID Allergen Name Allergen Category Reaction Reaction Severity Criticality Documentation Date Start Date Code Code System Note Provider Name and Address Organization Details Recorded Time 02832 Substance with sulfonami de structure and antibacte rial mechanism of action (substanc e) medicatio n other Not available Not available 02/27/2024 71754 8003 SNOMED React ion: unkno wn, unspe cifie d;; Not Available [facility] 4 00:56:23 Medications Name Sig Start Date Stop Date Status Note LastModified by Organization Details LastModified Time amoxicill in 500 mg capsule Take 1 capsule by mouth three times a day active Not Available Not Available No t Available metformin 500 mg tablet 11/12 completed Medicati on ID: [id number] D uration Value: 30 Brand Name: metformi [...] by mouth 2017 active Medicati on ID: [id number] D uration Value: 30 Prescri bed By Name: Ami Berrios nd Name: kelseyatapriyanka ne Send Method: E-Prescr ibed Sub s [...] topical cream 01/12 completed Medicati on ID: [id number] B rand Name: Lotrison e Send Method: E-Prescr ibed Sub s Allowed: subs OK Speci al Instruct ion: apply to external ear tid X 2 weeks Me dication GenericN rohan: Lotrison e Medica tion ID: [id number] B rand Name: Lotrison e Send Method: E-Prescr ibed Sub s Allowed: subs OK Speci al Instruct ion: apply to external ear tid X 2 weeks Me dication GenericN rohan: Lotrison e Not Available Not Available Not Available clotrimaz ole-betam ethasone 1 %-0.05 % lotion 01/12 completed Medicati on ID: [id number] P rescribe d By Name: PINKY Isabel [...] mg tablet 11/12 completed Medicati on ID: [id number] D uration Value: 30 Brand Name: cody n Send Method: E-Prescr ibed Sub s Allowed: subs OK Speci al Instruct ion: TAKE 1 TABLET BY MOUTH DAILY AT BEDTIME Medicati onGeneri cName: melatoni n Not Available Not Available Not Available omeprazol e 40 mg capsule,d elayed release 07/13 completed Medicati on ID: [id number] B rand Name: omeprazo le Send Method: [...] topical cream 11/12 completed Medicati on ID: [id number] D uration Value: 2 Brand Name: lidocain e-priloc blanka Sen d Method: E-Prescr ibed Sub s Allowed: subs OK Speci al Instruct ion: APPLY DIRECTED TOPICALL Y ONCE Med icationG enericNa me: lidocain e-priloc blanka Not Available Not Available Not Available amoxicill in 875 mg tablet TAKE 1 TABLET BY MOUTH EVERY 12 HOURS active Not Available Not Available No t Available ciproflox acin 0.3 % eye drops 01/12 completed Medicati on ID: [id number] B rand Name: ciproflo xacin HCl Send [...] mg tablet,de layed release TAKE 1 TABLET BY MOUTH 2 TIMES A DAY AT 6:30AM AND 4:30PM. active Not Available Not Available No t [...] by mouth 2016 active Medicati on ID: [id number] D uration Value: 30 Prescri bed By Name: Ami Berrios nd Name: erika beauchamp Send Method: E-Prescr ibed Sub s Allowed: subs OK Medic ationGen ericName : erika beauchamp Not Available Not Available Not Available amoxicill in 875 mg-potass ium clavulana te 125 mg tablet TAKE 1 TABLET BY MOUTH TWICE A DAY FOR 10 DAYS 05/09 completed Not Available Not Available Not Available Ventolin [...] mg tablet 11/12 completed Medicati on ID: [id number] D uration Value: 30 Brand Name: aripipra zole Sen d Method: E-Prescr ibed Sub s Allowed: subs OK Speci al Instruct ion: TAKE 1 TABLET BY MOUTH EVERY DAY Medi cationGe nericNam e: aripipra zole Not Available Not Available Not Available Strattera 60 mg capsule active Not Available Not Available Not Available aripipraz ole 5 mg tablet 11/12 completed Medicati on ID: [id number] D uration Value: 30 Brand Name: aripipra zole Sen d Method: E-Prescr ibed Sub s Allowed: subs OK Speci al Instruct ion: TAKE 1 TABLET BY MOUTH EVERY DAY Medi cationGe nericNam e: aripipra zole Not Available Not Available Not Available chlorhexi dine gluconate 0.12 % mouthwash 11/12 completed Medicati on ID: [id number] D uration Value: 16 Brand Name: chlorhex idine gluconat e Send Method: E-Prescr ibed Sub s Allowed: subs OK Speci al Instruct ion: IRRIGATE MOUTH AND SPIT OUT 15ML TWICE A DAY Medi cationGe nericNam e: chlorhex idine gluconat e Not Available Not Available Not Available omega-3 fatty acids-fis h oil 300 mg-1,000 mg capsule 11/12 completed Medicati on ID: [id number] D uration Value: 30 Brand Name: omega-3 [...] spray aerosol 11/12 completed Medicati on ID: [id number] P chadwick d By Name: PINKY Luevano [...] mg tablet 02/16 completed Medicati on ID: [id number] D uration Value: 30 Brand Name: Rexulti Send Method: E-Prescr ibed Sub s Allowed: subs OK Speci al Instruct ion: TAKE 1 TABLET BY MOUTH EVERY MORNING MOOD STABILIZ ER Medic ationGen ericName : Rexulti Not Available Not Available Not Available Rexulti 2 mg tablet 07/13 completed Medicati on ID: [id number] B rand Name: Rexulti Send Method: E-Prescr ibed Sub s Allowed: subs OK Speci al Instruct ion: TAKE 1 TABLET BY MOUTH EVERY DAY IN THE MORNING Medicati onGeneri cName: Rexulti Not Available Not Available Not Available Vraylar 1.5 mg capsule 04/12 completed Medicati on ID: [id number] B rand Name: Vraylar Send Method: E-Prescr [...] Updated DateTime 01/13/2025 180.34 cm 39.6 kg/m2 050764.23 g Trey Gallego [place] - [facility] 01/13/2025 14:28:21 Date Recorded Body height Body mass index (BMI) Body weight Provider Name and Address Organization Details Last Updated DateTime 04/10/2024 180.34 cm 39.6 kg/m2 455781.23 g Keely Girard [place] - [facility] 04/10/2024 15:32:02 Date Recorded Body height Body mass index (BMI) Body weight Provider Name and Address Organization Details Last Updated DateTime 05/23/2024 180.34 cm 39.6 kg/m2 887412.23 g Luisa Kartik [place] [facility] 05/23/2024 15:36:05 Date Recorded Body height Body mass index (BMI) Body weight Provider Name and Address Organization Details Last Updated DateTime 09/23/2024 180.34 cm 39.6 kg/m2 334714.23 g Luisa Verdugo [place] - [facility] 09/23/2024 15:06:06 Social History None recorded. Functional Status None recorded. Mental Status None recorded. Family History Nothing Reported. Medical History No medical history recorded. Past Encounters Encounter ID Performer Location Encounter Start Date Encounter Closed Date Diagnosis/Indication Diagnosis SNOMED-CT Code Diagnosis ICD10 Code Diagnosis IMO Codes Diagnosis Note [id number] MAG BRANDT PA-C [facility] on [address] [place] [phone] 04/10/2024 15:19:12 04/10/2024 16:22:57 Impacted cerumen of bilateral ears [id number] 568412 H61.23 Autism spe ctrum disorder 96996266 F84.0 [id number] MAG BRANDT PA-C [facility] on [address] [place] [id number] 05/23/2024 15:34:40 05/23/2024 16:07:38 Autism spectrum disorder 27575552 F84.0 Respiratory finding 1060 52486 R09.89 Impacted c erumen of bilateral ears 5873110143 250756 H61.23 [id number] DAVE GARCIA PA-C [facility] on [address] [place] [address], [place] [address] 09/23/2024 15:04:44 09/23/2024 15:24:42 Acute sinusitis 53089735 J01.80 [id number] DAVE GARCIA PA-C [facility] on [address] [place] [address] 01/13/2025 14:19:40 01/13/2025 14:52:43 Abnormal auditory perception 78338806 H93.293 Autism spe ctrum disorder 83700160 F84.0 Health Concerns Section Related Observation LastModified by Organization Detai ls LastModified Time None Recorded Concern Status LastModified by Organization Details LastModified Time None Recorded Advance Directives Directive None Recorded Payers Insurance Date Sequence Insurance Name Policy Number Policy Alva Covered Member ID Alva Member ID Guarantor Name 05/09/2025 1 [facility] NET PLAN (MEDICAID HMO) FRANCESCA Warren [id number] Caleb Warren Notes Date Note Type Note Provider Name and Address Organization Details Recorded Time 04/10/2024 text/html ROS as noted in the [facility] 23 year old male with a history of autism, presents today for follow up for an ear cleaning. Ears have been feeling plugged. Not using headphones anymore regularly. Mag ellington [place] - [facility] [place] 04/10/2024 15:43:01 05/23/2024 text/html ROS as noted in the [facility] 23 year old male with a history [...] GI in some years. IZA MOON MD [address] [place] [address], [phone], [facility] - [facility] 05/24/2024 08:06:04 09/23/2024 text/html ROS as noted in the [facility] 24 year old male presents accompanied by his mother reporting left sided frontal sinus pain, increased phlegm and postnasal drip. Mother reports that he has a history of sinus infection and usually does well with Amoxicillin. They also request ear cleaning. GERMANIA HUERTA MD [address], [address], [facility] - [facility] 09/25/2024 13:22:59 01/13/2025 text/html ROS as noted in the HPI 24 year old male with a history [...] from eating undercooked meat. GERMANIA HUERTA MD [address] [place] [address],[place] [address], [place], [address], [facility] 01/13/2025 16:42:15
--- NOTE | 2025-07-15 04:57 | ED.CHESTPAIN ---
HPI - Chest Pain General Chief Complaint: Chest Pain Stated Complaint: CP Time Seen by Provider: 07/15/25 04:57 Source: patient, RN notes reviewed and old records reviewed Mode of arrival: ambulatory Limitations: other (autism) History of Present Illness ED Provider: Dr. Lisa Knight HPI narrative: 24-year-old male with history of autism, Tourette's syndrome, MDD, ged, ADHD and myocarditis presenting with substernal chest pain that is been ongoing for about a week now. Admits that the pain started while he was sitting down resting. Occasionally it radiates to the left arm and is worse with movement. No reported fever. No associated cough or cold-type symptoms. Denies shortness of breath, nausea, vomiting, diarrhea, abdominal pain, lower extremity edema or pain, known sick contacts or travel. Had been feeling well prior to this. Does admit to feeling anxious about the pain which brought him to the hospital tonight. Related Data Home Medications ?Medication ?Instructions ?Recorded ?Confirmed atomoxetine 60 mg capsule 60 mg PO DAILY 02/25/23 01/07/25 (Strattera) cariprazine 3 mg capsule (Vraylar) 3 mg PO DAILY 01/07/25 01/07/25 sertraline 50 mg tablet 50 mg PO DAILY 01/07/25 01/07/25 Previous Rx's ?Medication ?Instructions ?Recorded fluticasone furoate 50 1 inh inhalation DAILY #30 ea 09/20/24 mcg/actuation blister powder for inhalation (Arnuity Ellipta) cetirizine 10 mg tablet (All Day 10 mg PO DAILY PRN allergy 01/02/25 Allergy (cetirizine)) symptoms 90 days #90 tabs ibuprofen 600 mg tablet 600 mg PO TID #270 tabs 01/08/25 pantoprazole 40 mg tablet,delayed 40 mg PO BID@0630,1630 #180 tabs 01/08/25 release sucralfate 1 gram tablet 1 g PO QIDWMHS #360 tabs 01/08/25 colchicine 0.6 mg tablet 0.6 mg PO BID #180 tabs 01/09/25 tetrabenazine 12.5 mg tablet 12.5 mg PO BEDTIME 30 days #30 tabs 02/18/25 (Xenazine) diphenhydramine HCl 2 % topical 1 appl topical BID PRN itching 06/03/25 gel (Benadryl) #103 mL hydrocortisone 2.5 % topical cream 1 appl topical QID PRN skin 06/03/25 irritation #28 grams doxycycline hyclate 100 mg tablet 100 mg PO BID #14 tabs 06/18/25 ibuprofen 600 mg tablet 600 mg PO Q6H PRN pain #20 tabs 07/16/25 Allergies Allergy/AdvReac Type Severity Reaction Status Date / Time Sulfa (Sulfonamide Allergy Intermediate RASH Verified 07/16/25 13:57 Antibiotics) (SULFA(SULFONAMIDE ANTIBIOTICS)) amoxicillin (From AUGMENTIN) AdvReac Mild YEAST Verified 07/16/25 13:57 INFECTION clavulanic acid (From AdvReac Mild YEAST Verified 07/16/25 13:57 AUGMENTIN) INFECTION Review of Systems Review of Systems: as per HPI, full review of systems performed and negative but for the above mentioned pertinent positives and negatives. 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 GERD (gastroesophageal reflux disease) Abnormal EKG Chest pain Palpitations Autism Tourette's Surgical History [place] teeth extracted History of fundoplication Family History Family History Sister Brain cancer Social History Social History Household Members: Family Household Members Other:: mother Housing: House Do you presently have visiting nurse or other home services: No Alcohol intake: never Patient Tobacco Use Status: Never used Tobacco e-Cigarette/Vaping Use: Never Used Advance Directives: No Advance Directives Information Provided: Yes Do you have a plan to hurt others: No Plan service: No Current occupational status: unemployed Cognitive needs: No Hearing needs: No Vision needs: No Physical Exam Exam: Exam: GENERAL: Anxious, nontoxic appearing. SKIN: Normal skin color for ethnicity, warm, dry, intact, no rashes noted. HEENT: Normocephalic, atraumatic, no stridor, posterior oropharynx nonerythematous, dentition intact, EOMI. NECK: Soft, supple, full ROM, midline structures nontender, no step-offs, no deformities, no lymphadenopathy. CHEST: Heart regular rhythm, no murmurs, symmetric chest rise and fall, no crepitus, TTP over the R 3-4 ribs. PULMONARY: Clear to auscultation bilaterally, no labored breathing, no wheezes/rhales/ rhonchi. ABDOMINAL: Soft, nondistended, nontender, positive bowel sounds in all quadrants. : Deferred. MUSCULOSKELETAL: Normal tone, full range of motion, no deformities, no peripheral edema. NEURO: Alert and oriented x3, CN II through XII intact, equal strength and sensation bilateral upper and lower extremities, no focal neurologic deficits. PSYCHIATRIC: Anxious affect, fluid speech, poor eye contact and appropriate demeanor. Vital Signs: Vital Signs: Last Vital Signs Temp 97.5 F 07/15/25 05:48 Pulse 80 07/15/25 05:48 Resp 18 07/15/25 05:48 BP 142/77 H 07/15/25 05:48 Pulse Ox 98 07/15/25 05:48 O2 Del Method Room Air 07/15/25 05:48 BMI result Body Mass Index 34.9 Medical Decision Making Medical Decision Making [facility] Narrative: Patient presents today with a chief complaint of chest pain. Differential diagnosis includes, but is not limited to, acute coronary syndrome, musculoskeletal pain, pneumothorax, GERD, pleurisy, pulmonary embolism, dissection, among others. I will order EKG and laboratory workup including cardiac enzymes to further evaluate for etiology. Workup today is reassuring. Patient has no evidence of myocarditis with a normal EKG, low cardiac enzyme and pain that is controlled at this time. Given exam, high suspicion for costochondritis. He is tender overlying the 3rd and 4th ribs on the right side. Patient is refusing pain medication at this point. States he has Motrin at home he can take. Using shared decision making, plan for discharge home to follow-up with primary care and/or specialist. Patient understands and agrees with plan for discharge. Discharged home in stable condition. Differential Diagnosis Differential Diagnoses: The differential diagnosis associated with the presentation includes (as above) Admission/Observation Consideration of admission/observation: Escalation of care including admission/observation considered Lab Data [facility] Lab Attestation statement: I reviewed the patient's lab results. 07/15/25 02:21 07/15/25 02:22 Labs: Lab Results 07/15/25 07/15/25 Range/Units 02:21 02:22 WBC 9.2 (4.8-10.8) X10*3/uL RBC 5.37 (4.60-5.80) X10*6/uL Hgb 14.4 (14.0-18.0) g/dl Hct 42.2 (42.0-52.0) % MCV 78.6 L (80.0-98.0) fL MCH 26.8 L (27.0-33.0) pg MCHC 34.1 (31.0-36.0) g/dl RDW 12.9 (11.0-16.0) % Plt Count 220 (160-400) X10*3/uL MPV 10.2 (9.4-12.4) fL Immature Gran % (Auto) 0.2 (0.0-0.4) % Neut % (Auto) 58.5 (45-73) % Lymph % (Auto) 30.3 (20-40) % [place] % (Auto) 8.0 (2-11) % Eos % (Auto) 2.7 (0-4) % Baso % (Auto) 0.3 (0-2) % Lymph # (Auto) 2.8 (1.2-4.9) X10*3/uL [place] # (Auto) 0.7 (0.1-1.2) X10*3/uL Eos # (Auto) 0.3 (0.0-0.4) X10*3/uL Baso # (Auto) 0.0 (0.0-0.2) X10*3/uL Abs Immat Gran (auto) 0.02 (0.00-0.03) X10*3/uL Absolute Neuts (auto) 5.4 (2.0-8.3) x10*3/uL Absolute Nucleated RBC 0.000 (0.0-0.012) X10*3/uL Nucleated RBC % (auto) 0.0 (0.0-0.2) /100WBC Sodium 142 (135-145) mmol/L Potassium 3.8 (3.3-5.1) mmol/L Chloride 110 H (96-108) mmol/L Carbon Dioxide 24 (22-29) mmol/L Anion Gap 12 (12-20) BUN 24 H (9-16) mg/dL Creatinine 0.98 (0.5-1.4) mg/dL Estim Creat Clear Calc 147.5 Estimated GFR > 60 Random Glucose 98 (60-115) mg/dL Calcium 9.4 (8.4-10.2) mg/dL Magnesium 2.1 (1.6-2.6) mg/dL Total Bilirubin 0.6 (0.0-1.0) mg/dL AST 26 (5-37) U/L ALT 40 (0-40) U/L Alkaline Phosphatase 76 (39-117) U/L Troponin I High Sens < 2.7 (<3.5-35.0) ng/L Total Protein 6.5 (6.5-8.0) g/dL Albumin 4.4 (3.5-5.0) g/dL Independent Interpretation I performed an independent interpretation of an: EKG External Record Review External record reviewed: Inpatient record Prescription Management I considered prescription management with: Pain Medication Chronic Conditions Patient?s care impacted by: Other (autism, myocarditis) Social Determinants Patient?s care significantly limited by Social Determinants of Health including: Problems related to primary support group and Other Social Determinant of Health Discharge Plan Discharge Clinical Impression: Acute costochondritis Patient Disposition: Home, Self-Care Instructions: Costochondritis (ED) Additional Instructions: DIAGNOSIS & TREATMENT: You were seen in the Emergency Department for your chest discomfort. We performed an EKG, laboratory work and chest xray which did not reveal any acute abnormalities that would explain your symptoms. FURTHER CARE: We have not found any emergent physical exam or lab abnormalities that would require admission to the hospital today. Many people who come to the ER with chest discomfort do not leave with a specific diagnosis at the end of their visit. In the Emergency Department we try to make sure that there is no emergent problem that needs admission to the hospital or antibiotics right now. This does not mean that your evaluation is complete--please be sure to follow up with your regular doctor as additional testing as an outpatient may be indicated. Please be certain to drink plenty of fluids over the next several days. WHEN YOU SHOULD BE SEEN NEXT: Please follow-up with your primary care provider within the next 2-3 days for reevaluation of your symptoms. WHEN TO RETURN TO THE ED: Monitor your symptoms closely and return to the emergency department immediately for any new/worsening symptoms including: Worsening chest pain, difficulty breathing, fevers greater than 100 degrees, passing out, any new symptom that concerns you. Call 911 with any medical emergency. Prescriptions: No Action cetirizine [All Day Allergy (cetirizine)] 10 mg tablet 10 mg PO DAILY PRN (Reason: allergy symptoms) 90 Days Qty: 90 3RF tetrabenazine [Xenazine] 12.5 mg tablet 12.5 mg PO BEDTIME 30 Days Qty: 30 3RF hydrocortisone 2.5 % cream 1 appl topical QID PRN (Reason: skin irritation) Qty: 28 0RF Benadryl 2 % gel 1 appl topical BID PRN (Reason: itching) Qty: 103 0RF ibuprofen 600 mg tablet 600 mg PO Q6H PRN (Reason: pain) Qty: 20 0RF sertraline 50 mg tablet 50 mg PO DAILY Vraylar 3 mg capsule 3 mg PO DAILY ibuprofen 600 mg tablet 600 mg PO TID Qty: 270 0RF sucralfate 1 gram tablet 1 g PO QIDWMHS Qty: 360 0RF Rx Instructions: TAKE BEFORE BREAKFAST, LUNCH, DINNER, AND BEDTIME pantoprazole 40 mg tablet,delayed release (DR/EC) 40 mg PO BID@0630,1630 Qty: 180 0RF colchicine 0.6 mg tablet 0.6 mg PO BID Qty: 180 0RF atomoxetine [Strattera] 60 mg capsule 60 mg PO DAILY Arnuity Ellipta 50 mcg/actuation blister with device 1 inh inhalation DAILY Qty: 30 11RF doxycycline hyclate 100 mg tablet 100 mg PO BID Qty: 14 0RF Interventions: ED Discharge Assessment Last Done: 07/15/25 05:48 Discharge Date/Time: 07/15/25 05:45 Print Language: Salvadorean
[2025-07-15 05:48] VITALS: BP 142/77; PULSE 80; RESP 18; TEMP 36.4; O2SAT 98
== END 2025-07-15 05:45 | disposition home or self-care (01) ==
PROVIDERS: Emergency Provider Emergency Medicine
DX: M94.0 Chondrocostal junction syndrome [Tietze] (principal); F84.0 Autistic disorder; F95.2 Tourette's disorder; F90.9 Attention-deficit hyperactivity disorder, unspecified type; R07.9 Chest pain, unspecified; K21.9 Gastro-esophageal reflux disease without esophagitis
CPT/HCPCS: 36415; 80053; 83735; 84484; 85025; 93005; 99283; 99284

== ENCOUNTER → 2025-07-15 01:55 | Outpatient (BNV) | payer OTHER, SELFPAY | PROVIDERS: Emergency Provider Emergency Medicine; Visit Provider Internal Medicine | DX: R07.89 Other chest pain (principal) | CPT/HCPCS: 93010 ==

== ENCOUNTER 2025-07-16 13:11 | Emergency (ER) | payer OTHER, SELFPAY ==
--- NOTE | 2025-07-16 | ECG_ITS ---
Test Reason : CP Blood Pressure : */* mmHG Vent. Rate : 68 BPM Atrial Rate : 68 BPM P-R Int : 144 ms QRS Dur : 98 ms QT Int : 398 ms P-R-T Axes : 43 35 21 degrees QTcB Int : 423 ms Normal sinus rhythm Incomplete right bundle branch block Borderline ECG When compared with ECG of 15-Jul-2025 01:59, No significant change was found Referred By: Generic ED Physician Electronically Signed By: JARAD ROSAS
--- NOTE | ~2025-07-16 | XR_ITS ---
EXAMINATION: XR CHEST CLINICAL INFORMATION: chest discomfort with breathing COMPARISON: April 29, 2025 TECHNIQUE: PA and lateral views FINDINGS: Partial exclusion of the upper thorax in the lateral projection. No hyperinflation. No consolidation, pleural effusion or pneumothorax. Cardiomediastinal silhouette size is normal. Osseous structures are intact. Mild S-shaped curvature of the thoracolumbar spine. XR/XR chest 2V IMPRESSION: No acute airspace disease. Scoliosis, mild, thoracolumbar spine. Electronically signed by: Chan Godwin MD 07/16/2025 02:22 PM EDT
[2025-07-16 13:52] VITALS: BP 125/60; PULSE 74; RESP 16; TEMP 36.2; O2SAT 98; BMI 36.3
--- NOTE | 2025-07-16 14:12 | ED.GENADULT ---
HPI - General Adult General Chief complaint: General Medical Stated complaint: CP Time Seen by Provider: 07/16/25 17:32 Source: patient, RN notes reviewed and old records reviewed Mode of arrival: ambulatory Limitations: no limitations History of Present Illness ED Provider: Charly HPI narrative: 24-year-old male presents for evaluation of chest pain. The patient was seen here yesterday for similar and was diagnosed with costochondritis. He has been taking Tylenol with no improvement in his symptoms His pain is worse when he moves his arms or stretches. His worse with deep breathing. Denies any shortness of breath. Denies any falls or trauma. No other complaints or concerns at this time Related Data Home Medications ?Medication ?Instructions ?Recorded ?Confirmed atomoxetine 60 mg capsule 60 mg PO DAILY 02/25/23 01/07/25 (Strattera) cariprazine 3 mg capsule (Vraylar) 3 mg PO DAILY 01/07/25 01/07/25 sertraline 50 mg tablet 50 mg PO DAILY 01/07/25 01/07/25 Previous Rx's ?Medication ?Instructions ?Recorded fluticasone furoate 50 1 inh inhalation DAILY #30 ea 09/20/24 mcg/actuation blister powder for inhalation (Arnuity Ellipta) cetirizine 10 mg tablet (All Day 10 mg PO DAILY PRN allergy 01/02/25 Allergy (cetirizine)) symptoms 90 days #90 tabs ibuprofen 600 mg tablet 600 mg PO TID #270 tabs 01/08/25 pantoprazole 40 mg tablet,delayed 40 mg PO BID@0630,1630 #180 tabs 01/08/25 release sucralfate 1 gram tablet 1 g PO QIDWMHS #360 tabs 01/08/25 colchicine 0.6 mg tablet 0.6 mg PO BID #180 tabs 01/09/25 tetrabenazine 12.5 mg tablet 12.5 mg PO BEDTIME 30 days #30 tabs 02/18/25 (Xenazine) diphenhydramine HCl 2 % topical 1 appl topical BID PRN itching 06/03/25 gel (Benadryl) #103 mL hydrocortisone 2.5 % topical cream 1 appl topical QID PRN skin 06/03/25 irritation #28 grams doxycycline hyclate 100 mg tablet 100 mg PO BID #14 tabs 06/18/25 ibuprofen 600 mg tablet 600 mg PO Q6H PRN pain #20 tabs 07/16/25 Allergies Allergy/AdvReac Type Severity Reaction Status Date / Time Sulfa (Sulfonamide Allergy Intermediate RASH Verified 07/16/25 13:57 Antibiotics) (SULFA(SULFONAMIDE ANTIBIOTICS)) amoxicillin (From AUGMENTIN) AdvReac Mild YEAST Verified 07/16/25 13:57 INFECTION clavulanic acid (From AdvReac Mild YEAST Verified 07/16/25 13:57 AUGMENTIN) INFECTION Review of Systems Constitutional: Constitutional: Denies body ache(s), Denies chills and Denies fever(s) Cardiovascular: Cardiovascular: Reports chest pain, Denies chest pain at rest, Reports chest pain with activity and Denies dyspnea on exertion Respiratory: Respiratory: Denies cough and Denies dyspnea on exertion Gastrointestinal: Gastrointestinal: Denies abdominal pain PMFSH Past Medical History 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 persistent allergic asthma GERD (gastroesophageal reflux disease) Abnormal EKG Chest pain Palpitations Autism Tourette's Surgical History [place] teeth extracted History of fundoplication Family History Family History Sister Brain cancer Social History Social History Household Members: Family Household Members Other:: mother Housing: House Do you presently have visiting nurse or other home services: No Alcohol intake: never Patient Tobacco Use Status: Never used Tobacco e-Cigarette/Vaping Use: Never Used Advance Directives: No Advance Directives Information Provided: Yes Do you have a plan to hurt others: No Plan service: No Current occupational status: unemployed Cognitive needs: No Hearing needs: No Vision needs: No Physical Exam ED Vital Signs: Vital Signs - 24 hr 07/16/25 13:52 07/16/25 18:12 Temperature 97.2 F 98.0 F Pulse Rate 74 77 Respiratory Rate 16 16 Blood Pressure 125/60 128/63 Pulse Oximetry 98 98 Oxygen Delivery Method Room Air Room Air BMI result Body Mass Index 36.3 Const General: healthy appearing, comfortable, no acute distress, alert and awake Nutritional Appearance: well nourished Orientation/consciousness: patient oriented x3 HENMT Head: Yes normocephalic and Yes atraumatic Eyes Eyelids: Yes eyelids normal Conjunctivae: conjunctivae normal Sclerae: sclerae normal Corneas: corneas normal Pupils: Equal, round and reactive pupils present EOM: EOMs intact bilaterally Neck Neck: Yes full ROM Chest Chest palpation & inspection: normal inspection of the chest, no crepitus and tenderness (Right sternal border) Resp Effort & Inspection: normal respiratory effort, able to speak in complete sentences, no audible wheezes and not labored Auscultation: clear to auscultation bilaterally Cardio Rate: regular rate Rhythm: regular rhythm GI Inspection: No distended Palpation (GI): Soft to palpation, not firm, nontender, no guarding and not rigid Skin General skin exam: elasticity normal Neuro General: patient oriented x3 Cranial nerves: Yes Equal, round and reactive pupils present and Yes Bilaterally intact EOM present Cognition (Neuro): normal cognition Extrem Other: Moving all extremities well without any obvious deformities Course Course Course Narrative: This is an RME: Additional HPI, ROS, PE not included below will be deferred to primary provider. RME assessment and note performed by: Gaby Eduardo PA-C This is a 24-year-old male who presents emergency department complaining of chest discomfort. Patient was diagnosed with costochondritis. Patient reports that he continues to have pain, and hurts to lift bilateral arms. He took Tylenol without any relief. Plan: X-ray Medical Decision Making Medical Decision Making MDM Narrative: 24-year-old male presents for evaluation of chest pain. He had an EKG is nonischemic, chest x-ray without pneumothorax or pneumonia. I did review the patient's labs from yesterday, he had negative troponin. No leukocytosis. The patient's pain is reproducible on exam, most consistent with muscle strain or costochondritis. We will treat with ibuprofen, he does have a history of GERD but is on pantoprazole. We will only give him a 5 day course of NSAIDs due to the history of GERD as the Tylenol is not improving his pain. Differential Diagnosis Differential Diagnoses: The differential diagnosis associated with the presentation includes Costochondritis Chest pain Chest wall pain Muscle strain Independent Interpretation I performed an independent interpretation of an: EKG and Plain X-Ray (Agree with Radiology interpretation) Interpretation: Sinus rhythm with a rate of [address] segment elevation or depression. Nondiagnostic EKG Radiology Impression Discussion of test interpretation with radiology: I have reviewed the radiologist's reading. Radiologist Impression: FINDINGS: Partial exclusion of the upper thorax in the lateral projection. No hyperinflation. No consolidation, pleural effusion or pneumothorax. Cardiomediastinal silhouette size is normal. Osseous structures are intact. Mild S-shaped curvature of the thoracolumbar spine. XR/XR chest 2V IMPRESSION: No acute airspace disease. Scoliosis, mild, thoracolumbar spine. Electronically signed by: Chan Godwin MD 07/16/2025 02:22 PM EDT Discharge Plan Discharge Clinical Impression: Atypical chest pain Patient Disposition: Home, Self-Care Instructions: Chest Wall Pain (ED) Additional Instructions: Your workup in the ER today was reassuring. This includes your EKG as well as her chest x-ray. I agree that your symptoms are likely related to costochondritis or other musculoskeletal component. You may use ibuprofen 600 mg every 6 hours for the next 5 days to help with your pain Follow up with your primary doctor, return for new or worsening symptom Prescriptions: New ibuprofen 600 mg tablet 600 mg PO Q6H PRN (Reason: pain) Qty: 20 0RF No Action cetirizine [All Day Allergy (cetirizine)] 10 mg tablet 10 mg PO DAILY PRN (Reason: allergy symptoms) 90 Days Qty: 90 3RF tetrabenazine [Xenazine] 12.5 mg tablet 12.5 mg PO BEDTIME 30 Days Qty: 30 3RF hydrocortisone 2.5 % cream 1 appl topical QID PRN (Reason: skin irritation) Qty: 28 0RF Benadryl 2 % gel 1 appl topical BID PRN (Reason: itching) Qty: 103 0RF sertraline 50 mg tablet 50 mg PO DAILY Vraylar 3 mg capsule 3 mg PO DAILY ibuprofen 600 mg tablet 600 mg PO TID Qty: 270 0RF sucralfate 1 gram tablet 1 g PO QIDWMHS Qty: 360 0RF Rx Instructions: TAKE BEFORE BREAKFAST, LUNCH, DINNER, AND BEDTIME pantoprazole 40 mg tablet,delayed release (/EC) 40 mg PO BID@0630,1630 Qty: 180 0RF colchicine 0.6 mg tablet 0.6 mg PO BID Qty: 180 0RF atomoxetine [Strattera] 60 mg capsule 60 mg PO DAILY Arnuity Ellipta 50 mcg/actuation blister with device 1 inh inhalation DAILY Qty: 30 11RF doxycycline hyclate 100 mg tablet 100 mg PO BID Qty: 14 0RF Stand Alone Forms: Work/School Release Interventions: ED Discharge Assessment Last Done: 07/16/25 18:12 Discharge Date/Time: 07/16/25 18:15 Print Language: Persian
--- OUTSIDE RECORDS SUMMARY | 2025-07-16 17:18 | XMS_ITS | Clinical Summary ---
Author Organization Formerly [facility] Address [address] [place] [address] Care Team Providers Care Rn Compliance Name Role Phone Unknown Primary Care Provider [phone] Allergies Active Allergy Reactions Criticality Noted Date [...] this topic Insurance MEDICAID OUT OF STATE [facility] [address] [place] [address] Care Teams Rn Compliance Relationship Specialty Start Date End Date Unknown Unknow Provider Address PCP - General 01/04/19
--- OUTSIDE RECORDS SUMMARY | 2025-07-16 17:18 | XMS_ITS | Encounter Summary ---
Author Organization [facility] Address [address] [place] [phone] Phone Care Team Providers Care Ob Tech Name Role Phone Juan Barron MD Primary Care Provider Encounter Details Date Type Department Care Team (Late st Contact Info) Description 12/11/2022 Procedure Pass [facility], Ct Scan - [address] [address] Social History Tobacco Use Types Packs/Day Years [...] 8:09 PM EST Leda Jacinto RN * [place] Suicide Severity Rating Scale (Screener/Recent Self-Report) Question [...] Info) Description 07/29/2025 8:30 AM EDT Telemedicine [facility] Department of Neurology [address] [place] [address], [address] Floor, [address] [place] [address] Gutierrez Ramirez MD, PhD [address] [place] [address] [email or web address] documented as of this encounter Visit Diagnoses Not on filedocumented in this encounter Additional Health Concerns Infection Onset Date Last Indicated Resolved Time CoV-Risk 10/18/2023 10/18/2023 10/29/2023 1:24 AM EST documented as of this encounter Care Teams Ob Tech Relationship Specialty Start Date End Date Juan Barron MD [address] [place] [address] PCP - General Family Medicine 12/09/22 documented as of this encounter Additional Source Comments The information contained in this document represents components of the legal health record. It is not the complete legal health record.[facility]
--- OUTSIDE RECORDS SUMMARY | 2025-07-16 17:18 | XMS_ITS | Encounter Summary ---
Author Organization [facility] Address [address] [place] [phone] Phone Care Team Providers Care Waterworks Pump Station Operator Name Role Phone Juan Barron MD Primary Care Provider Encounter Details Date Type Department Care Team (Late st Contact Info) Description 12/09/2022 Transcribe Orders Virtual Department [address] [place] [address] Mag Cowan PA-C [address] [place] [phone] [email or web address] Impacted cerumen, bilateral (Primary Dx); Feeling [...] 8:09 PM EST Leda Jacinto RN * [place] Suicide Severity Rating Scale (Screener/Recent Self-Report) Question Answer Date of Assessment Author 1. Wish to be (Past 1 Month) No 12/11/2022 8:09 PM Leda Mckay RN 2. Non-Specific Active Suici craito Thoughts (Past 1 Month) No 12/11/2022 8:09 PM EST Rosina Du RN 6. Suicidal Behavior (Lifetime) No 8:09 PM EST Leda Du RN documented as of this encounter Plan of Treatment Upcoming Encounters Date Type Department Care Team (Late st Contact Info) Description 07/29/2025 8:30 AM EDT Telemedicine [facility] Department of Neurology [address] [place] [address], 8th Floor, [address] [place] [address] Gutierrez Ramirez MD, PhD [address] [place] [address] [email or web address] documented as of this encounter Visit Diagnoses Diagnosis Impacted cerumen, bilateral- Primary Feeling of foreign body in throat Other symptoms involving head and neck documented in this encounter Additional Health Concerns Infection Onset Date Last Indicated Resolved Time CoV-Risk 10/18/2023 10/18/2023 10/29/2023 1:24 AM EST documented as of this encounter Care Teams Waterworks Pump Station Operator Relationship Specialty Start Date End Date Juan Barron MD [address] [place] [address] PCP - General Family Medicine 12/09/22 documented as of this encounter Additional Source Comments The information contained in this document represents components of the legal health record. It is not the complete legal health record.[facility]
--- OUTSIDE RECORDS SUMMARY | 2025-07-16 17:19 | XMS_ITS | Clinical Summary ---
Author Organization [facility] Address [address] [place] [address] Phone Care Team Providers Care Concrete Inspector Name Role Phone Juan Barron MD Primary [...] Description 07/29/2025 8:30 AM EDT Telemedicine [facility] Department of Neurology [address] [facility], 8th Floor, [address] [place] [address] Gutierrez Ramirez MD, PhD 60 [facility] [place] [address] [email or web address] Health Maintenance Due Date Last Done Comments [...] Medical Devices Not on file Insurance [place] [address] [address] [address] [place] [address] [place] [place] [address] [address] [facility] [place] [place] [address] ACO [facility] ACO [facility] ACO Care Teams Concrete Inspector Relationship Specialty Start Date End Date Juan Barron MD [address] [place] [address] PCP - General Family Medicine 12/09/22 Additional Source Comments The information contained in this document represents components of the legal health record. It is not the complete legal health record.[facility]
[2025-07-16 18:12] VITALS: BP 128/63; PULSE 77; RESP 16; TEMP 36.7; O2SAT 98
== END 2025-07-16 18:15 | disposition home or self-care (01) ==
PROVIDERS: Emergency Provider Emergency Medicine; PCP Family Medicine
DX: R07.89 Other chest pain (principal); F84.0 Autistic disorder; F95.2 Tourette's disorder
CPT/HCPCS: 71046; 93005; 99283; 99284

== ENCOUNTER → 2025-07-16 13:24 | Outpatient (BNV) | payer OTHER, SELFPAY | PROVIDERS: Emergency Provider Emergency Medicine; PCP Family Medicine; Visit Provider Internal Medicine | DX: I45.10 Unspecified right bundle-branch block (principal) | CPT/HCPCS: 93010 ==

== ENCOUNTER → 2025-07-16 14:15 | Outpatient (BNV) | payer OTHER, SELFPAY | PROVIDERS: Visit Provider Radiology Diagnostic Radiology | DX: R07.89 Other chest pain (principal) | CPT/HCPCS: 71046 ==

== ENCOUNTER 2025-08-06 12:23 | Outpatient (AMB) | payer OTHER, SELFPAY ==
--- NOTE | 2025-08-06 12:26 | AM.OFFWIN_ITS ---
Intake Vital Signs 08/06/25 12:27 Height 5 ft 11 in Weight 267 lb BMI 37.2 BP 130/75 Blood Pressure Location Lt brachial Position Sitting Pulse 73 Pulse Source Pulse Oximeter Temp 98.3 F Temp Source Oral Pulse Oximetry (%) 96 Oxygen Delivery Method Room Air Intake Visit Reasons: EP Sinus infection [phone] here with mom Intake Note: THe EP developed the nasal congestion and post nasal drip for sever weeks. The EP has a story of sinusitis. Patient Tobacco Use Status: Never used Tobacco Allergies amoxicillin (From AUGMENTIN) Adverse Reaction (Mild, Verified 08/06/25 12:35) YEAST INFECTION clavulanic acid (From AUGMENTIN) Adverse Reaction (Mild, Verified 08/06/25 12:35) YEAST INFECTION Do you need a note to return to daycare/school/sports/work: Yes HPI HPI Comments History of Present Illness Details History of Present Illness - The patient is a 25-year-old male pres enting with his mother for symptoms suggestive of sinusitis. - Symptoms began approximately three wee ks ago, including facial pain, congestion, and headache. - He states that he has a foul odor to h is breath. - He has post nasal drip. - He has been taking cetirizine. - No fever reported, and no current use of decongestants or allergy medications. - His mother is sick with the same sympt oms. - He denies fever, chills, CP, SOB, abd pain, n/v/d, or recent travel. - He does not smoke. Physical Exam General: Cooperative, healthy appearing, comfortable, no acute distress and well developed Head: Normal to inspection Ears: Hearing grossly normal bilaterally. No tragus or mastoid tenderness noted. Auditory canals clear bilaterally. TM's normal, not bulging. No fluid noted. Nose: Normal external nose present. Moist mucosa. Turbinates normal bilaterally, not boggy. Face and sinus: Tenderness to palpation of the frontal and maxillary sinuses bilaterally. Neck: Normal visual inspection and Yes full ROM. No lymphadenopathy noted. Respiratory: Normal respiratory effort and able to speak in complete sentences. Clear to auscultation bilaterally Cardiovascular: Regular rate and rhythm. Normal S1 and S2 GI: Normal to inspection. Soft to palpation and nontender, nondistended. No guarding noted. Skin: No rashes or lesions noted [facility] 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 persistent allergic asthma GERD (gastroesophageal reflux disease) Abnormal EKG Chest pain Palpitations Autism Tourette's Surgical History [place] teeth extracted History of fundoplication Family History Sister Brain cancer Social History Household Members: Family Household Members Other:: mother Housing: House Do you presently have visiting nurse or other home services: No Alcohol intake: never Patient Tobacco Use Status: Never used Tobacco e-Cigarette/Vaping Use: Never Used service: No Current occupational status: unemployed Cognitive needs: No Hearing needs: No Vision needs: No Review of Systems Const All systems reviewed & are unremarkable except as noted in HPI and below Physical Exam Vital Signs: Last Vital Signs Temp 98.3 F 08/06/25 12:27 Pulse 73 08/06/25 12:27 BP 130/75 08/06/25 12:27 Pulse Ox 96 08/06/25 12:27 Oxygen Delivery Method Room Air 08/06/25 12:27 BMI result Body Mass Index 37.2 Assessment & Plan Assessment & Plan (1) Sinus congestion: Code(s): R09.81 - Nasal congestion Plan Most likely sinusitis vs URI vs viral illness plan - will order a viral panel - tylenol or motrin as needed for pain or fever - z-tara as directed - continue with cetirizine daily - steam showers - follow up with PCP Orders: Orders Resp Pathogen Panel - [facility] Today J06.9 - Acute upper respiratory infection, unspecified Medications: New azithromycin For 250 mg dose pack: take 500 mg today (day 1), then 250 mg for 4 days (days 2-5) PO 6 tabs 0RF Refilled cetirizine (All Day Allergy (cetirizine)) 10 mg PO DAILY PRN 90 tabs 3RF allergy symptoms 90 days Coding Level of Care Code Est Pt Level 3 (17917) Diagnoses Sinus congestion R09.81
[2025-08-06 12:27] VITALS: BP 130/75; PULSE 73; TEMP 36.8; O2SAT 96; BMI 37.2
== END 2025-08-06 13:29 | disposition home or self-care (01) ==
PROVIDERS: PCP Family Medicine; Visit Provider Physician Assistant Medical
DX: R09.81 Nasal congestion (principal)

== ENCOUNTER 2025-08-06 12:23 | Outpatient (REF) | payer OTHER, SELFPAY ==
--- OUTSIDE RECORDS SUMMARY | 2025-08-06 22:31 | XMS_ITS | Encounter Summary ---
Author Organization [facility] Address [address] [place] [address] Phone Care Team Providers Care Attendant Child Activity Name Role Phone Juan Barron MD Primary Care Provider Encounter Details Date Type Department Care Team (Late st Contact Info) Description 12/11/2022 Procedure Pass [facility], Ct Scan - [address] [address] Social History Tobacco Use Types Packs/Day Years [...] 8:09 PM EST Leda Jacinto RN * [place] Suicide Severity Rating Scale (Screener/Recent Self-Report) Question Answer Date of Assessment Author 1. Wish to be (Past 1 Month) No 12/11/2022 8:09 PM Leda Mckay RN 2. Non-Specific Active Suici carito Thoughts (Past 1 Month) No 12/11/2022 8:09 PM Rosina Mckay RN 6. Suicidal Behavior (Lifetime) No 8:09 PM EST Leda Du RN documented as of this encounter Plan of Treatment Not on file documented as of this encounter Visit Diagnoses Not on filedocumented in this encounter Additional Health Concerns Infection Onset Date Last Indicated Resolved Time CoV-Risk 10/18/2023 10/18/2023 10/29/2023 1:24 AM EST documented as of this encounter Care Teams Attendant Child Activity Relationship Specialty Start Date End Date Juan Barron MD [address] [place] [address] PCP - General Family Medicine 12/09/22 documented as of this encounter Additional Source Comments The information contained in this document represents components of the legal health record. It is not the complete legal health record.[facility]
--- OUTSIDE RECORDS SUMMARY | 2025-08-06 22:31 | XMS_ITS | Clinical Summary ---
Author Organization [facility] Address [address] [place] [address] Care Team Providers Care Asphalt Roller Person Name Role Phone Unknown Primary Care Provider [...] this topic Insurance MEDICAID OUT OF STATE [facility] [address] [place] [address] Care Teams Asphalt Roller Person Relationship Specialty Start Date End Date Unknown Unknow Provider Address PCP - General 01/04/19
--- OUTSIDE RECORDS SUMMARY | 2025-08-06 22:31 | XMS_ITS | Data Portability ---
Author Organization [place] [facility] Address [address] [address] Care Team Providers Care Bath Mixer Name Role Phone HUMBERTO NAJERA Primary Care [...] date rolly g. Thank you. 2023 024 [facility], [address] [place] [address] , [facility], [place], [address], 4 11:42:46 Procedures None record ed. Surgeries None record ed. Imaging barium swallo w study - dyspha dianelys, histor y of cortney proced ure [address] (Imaging), [address] [place] [address], [place], [address], 4 16:07:38 Medication Orders amoxic illin 500 mg capsul e 2023 024 [id number], [address] [facility] , [place], [address], 4 15:18:07 Patient TargetsNo targets recorded. Patient InstructionsNo instructions recorded. 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 Respiratory finding Referral for reflux, [...] Time Hypertrop hy of nasal turbinate s 20868108 Active 2016 Hypertrop hy of nasal turbinate s; Note: Date Diagnosed : 06/09/2017 12:30 PM (J34.3) Not Available [facility] 4 02:37:33 Attention deficit hyperacti vity disorder 434264150 Active 2016 Attention -deficit hyperacti vity disorder NOS; Note: Date Diagnosed : 06/09/2017 12:50 PM (F90.9) Not Available [facility] 4 02:37:34 Posterior rhinorrhe a 81597275 Active 2016 Postnasal drip; Note: Date Diagnosed : 07/05/2017 11:11 AM (R09.82) Not Available [facility] 4 02:37:32 Bilateral earache 792070508 Active 2018 Otalgia, bilateral ; Note: Date Diagnosed : 11/15/2018 4:19 PM (H92.03) Not Available [facility] 4 02:37:21 Abnormal auditory perceptio n 20405459 Active 2018 Other abnormal auditory perceptio ns, bilateral ; Note: Date Diagnosed : 12/19/2018 3:39 PM (H93.293) Not Available [facility] 4 02:37:35 Headache 31742277 Active 2018 Facial pain NOS; Note: Date Diagnosed : 01/21/2019 4:58 PM (R51) Headach e; Note: Date Diagnosed : 06/09/2017 12:50 PM (R51) ; Start Date : 7 Not Available [facility] 4 02:37:31 Impacted cerumen of bilateral ears 40560426809 69205 Active 2018 Impacted cerumen, bilateral ; Note: Date Diagnosed : 02/19/2019 6:04 PM (H61.23) Not Available [facility] 4 02:37:22 Respirato ry finding 363904250 Active 2022 Feeling of foreign body in throat; Note: Date Diagnosed : 12/01/2022 2:53 PM (R09.89) Not Available [facility] 4 02:37:23 Cardiovas cular finding 479439490 Active 2022 Feeling of foreign body in throat; Note: Date Diagnosed : 12/01/2022 2:53 PM (R09.89) Not Available [facility] 4 02:37:23 Acute sinusitis 02901644 Active 2023 Other acute sinusitis ; Note: Date Diagnosed : 11/15/2023 3:27 PM (J01.80) Not Available [facility] 4 02:37:24 Autism spectrum disorder 11234653 Active 2023 Mag ellington [place] - [facility] 4 15:42:42 Problem Notes None recorded. Procedures Surgical History Date Name Laterality Status Provider Name and Address Organization Details Recorded Time 05/23/20 24 Fiberoptic Laryngoscopy (Comprehensive) completed Mag Brandt [place] - [facility] 05/23/2024 16:01:53 Imaging Results None recorded. Procedure Notes None recorded. Medical Equipment None Reported. Allergies Allergen ID Allergen Name Allergen Category Reaction Reaction Severity Criticality Documentation Date Start Date Code Code System Note Provider Name and Address Organization Details Recorded Time 47298 Substance with sulfonami de structure and antibacte rial mechanism of action (substanc e) medicatio n other Not available Not available 02/27/2024 62294 8003 SNOMED React ion: unkno wn, unspe cifie d;; Not Available [facility] 4 00:56:23 Medications Name Sig Start Date Stop Date Status Note LastModified by Organization Details LastModified Time amoxicill in 500 mg capsule Take 1 capsule by mouth three times a day active Not Available Not Available No t Available metformin 500 mg tablet 11/12 completed Medicati on ID: [id number] D uration Value: 30 Brand Name: metformi [...] by mouth 2017 active Medicati on ID: [id number] D uration Value: 30 Prescri bed By [...] topical cream 01/12 completed Medicati on ID: [id number] B rand Name: Lotrison e Send Method: E-Prescr ibed Sub s Allowed: subs OK Speci al Instruct ion: apply to external ear tid X 2 weeks Me dication GenericN rohan: Lotrison e Medica tion ID: [id number] B rand Name: Lotrison e Send Method: E-Prescr ibed Sub s Allowed: subs OK Speci al Instruct ion: apply to external ear tid X 2 weeks Me dication GenericN rohan: Lotrison e Not Available Not Available Not Available clotrimaz ole-betam ethasone 1 %-0.05 % lotion 01/12 completed Medicati on ID: [id number] P rescribe d By Name: PINKY Isabel [...] mg tablet 11/12 completed Medicati on ID: [id number] D uration Value: 30 Brand Name: cody n Send Method: E-Prescr ibed Sub s Allowed: subs OK Speci al Instruct ion: TAKE 1 TABLET BY MOUTH DAILY AT BEDTIME Medicati onGeneri cName: melatoni n Not Available Not Available Not Available omeprazol e 40 mg capsule,d elayed release 07/13 completed Medicati on ID: [id number] B rand Name: omeprazo le Send Method: [...] topical cream 11/12 completed Medicati on ID: [id number] D uration Value: 2 Brand Name: lidocain [...] eye drops 01/12 completed Medicati on ID: [id number] B rand Name: ciproflo xacin HCl Send [...] by mouth 2016 active Medicati on ID: [id number] D uration Value: 30 Prescri bed By [...] mg tablet 11/12 completed Medicati on ID: [id number] D uration Value: 30 Brand Name: aripipra zole Sen d Method: E-Prescr ibed Sub s Allowed: subs OK Speci al Instruct ion: TAKE 1 TABLET BY MOUTH EVERY DAY Medi cationGe nericNam e: aripipra zole Not Available Not Available Not Available Strattera 60 mg capsule active Not Available Not Available Not Available aripipraz ole 5 mg tablet 11/12 completed Medicati on ID: [id number] D uration Value: 30 Brand Name: aripipra zole Sen d Method: E-Prescr ibed Sub s Allowed: subs OK Speci al Instruct ion: TAKE 1 TABLET BY MOUTH EVERY DAY Medi cationGe nericNam e: aripipra zole Not Available Not Available Not Available chlorhexi dine gluconate 0.12 % mouthwash 11/12 completed Medicati on ID: [id number] D uration Value: 16 Brand Name: chlorhex idine gluconat e Send Method: E-Prescr ibed Sub s Allowed: subs OK Speci al Instruct ion: IRRIGATE MOUTH AND SPIT OUT 15ML TWICE A DAY Medi cationGe nericNam e: chlorhex idine gluconat e Not Available Not Available Not Available omega-3 fatty acids-fis h oil 300 mg-1,000 mg capsule 11/12 completed Medicati on ID: [id number] D uration Value: 30 Brand Name: omega-3 [...] spray aerosol 11/12 completed Medicati on ID: [id number] P chadwick d By Name: PINKY Luevano [...] mg tablet 02/16 completed Medicati on ID: [id number] D uration Value: 30 Brand Name: Rexulti Send Method: E-Prescr ibed Sub s Allowed: subs OK Speci al Instruct ion: TAKE 1 TABLET BY MOUTH EVERY MORNING MOOD STABILIZ ER Medic ationGen ericName : Rexulti Not Available Not Available Not Available Rexulti 2 mg tablet 07/13 completed Medicati on ID: [id number] B rand Name: Rexulti Send Method: E-Prescr ibed Sub s Allowed: subs OK Speci al Instruct ion: TAKE 1 TABLET BY MOUTH EVERY DAY IN THE MORNING Medicati onGeneri cName: Rexulti Not Available Not Available Not Available Vraylar 1.5 mg capsule 04/12 completed Medicati on ID: [id number] B rand Name: Vraylar Send Method: E-Prescr [...] Updated DateTime 01/13/2025 180.34 cm 39.6 kg/m2 606661.23 g Trey Gallego [place] [facility] 01/13/2025 14:28:21 Date Recorded Body height Body mass index (BMI) Body weight Provider Name and Address Organization Details Last Updated DateTime 04/10/2024 180.34 cm 39.6 kg/m2 786459.23 g Keely Girard [place] [facility] 04/10/2024 15:32:02 Date Recorded Body height Body mass index (BMI) Body weight Provider Name and Address Organization Details Last Updated DateTime 05/23/2024 180.34 cm 39.6 kg/m2 074910.23 g Luisa Kartik [place] [facility] 05/23/2024 15:36:05 Date Recorded Body height Body mass index (BMI) Body weight Provider Name and Address Organization Details Last Updated DateTime 09/23/2024 180.34 cm 39.6 kg/m2 202644.23 g Luisa Vredugo [place] [facility] 09/23/2024 15:06:06 Social History None recorded. Functional Status None recorded. Mental Status None recorded. Family History Nothing Reported. Medical History No medical history recorded. Past Encounters Encounter ID Performer Location Encounter Start Date Encounter Closed Date Diagnosis/Indication Diagnosis SNOMED-CT Code Diagnosis ICD10 Code Diagnosis IMO Codes Diagnosis Note [id number] MAG BRANDT PA-C [facility] on [address] [place] [phone] 04/10/2024 15:19:12 04/10/2024 16:22:57 Impacted cerumen of bilateral ears 5623561677 460058 H61.23 Autism spe ctrum disorder 64932612 F84.0 [id number] MAG BRANDT PA-C [facility] on [address] [place] [phone] 05/23/2024 15:34:40 05/23/2024 16:07:38 Autism spectrum disorder 77582504 F84.0 Respiratory finding 1060 34477 R09.89 Impacted c erumen of bilateral ears 9847713323 314084 H61.23 [id number] DAVE GARCIA PA-C [facility] on [address] [place] [address], [place] [address] 09/23/2024 15:04:44 09/23/2024 15:24:42 Acute sinusitis 17228081 J01.80 [id number] DAVE GARCIA PA-C [facility] on [address] [place] [address] 01/13/2025 14:19:40 01/13/2025 14:52:43 Abnormal auditory perception 36041076 H93.293 Autism spe ctrum disorder 02268261 F84.0 Health Concerns Section Related Observation LastModified by Organization Detai ls LastModified Time None Recorded Concern Status LastModified by Organization Details LastModified Time None Recorded Advance Directives Directive None Recorded Payers Insurance Date Sequence Insurance Name Policy Number Policy Alva Covered Member ID Alva Member ID Guarantor Name 05/09/2025 1 [facility] NET PLAN (MEDICAID HMO) FRANCESCA Warren [id number] Caleb Warren Notes Date Note Type Note Provider Name and Address Organization Details Recorded Time 04/10/2024 text/html ROS as noted in the [facility] 23 year old male with a history of autism, presents today for follow up for an ear cleaning. Ears have been feeling plugged. Not using headphones anymore regularly. Mag ellington [place] [facility] 04/10/2024 15:43:01 05/23/2024 text/html ROS as noted in the [facility] 23 year old male with a history [...] GI in some years. IZA MOON MD [address] [place] [address], [phone], [facility] - [facility] 05/24/2024 08:06:04 09/23/2024 text/html ROS as noted in the [facility] 24 year old male presents accompanied by his mother reporting left sided frontal sinus pain, increased phlegm and postnasal drip. Mother reports that he has a history of sinus infection and usually does well with Amoxicillin. They also request ear cleaning. GERMANIA HUERTA MD [address], [address], [facility] - [facility] 09/25/2024 13:22:59 01/13/2025 text/html ROS as noted [...] from eating undercooked meat. GERMANIA HUERTA MD [address] [place] [address],[place] [address], [place], [address], [facility] 01/13/2025 16:42:15
--- OUTSIDE RECORDS SUMMARY | 2025-08-06 22:31 | XMS_ITS | Clinical Summary ---
Author Organization [facility] Address [address] [place] [address] Phone Care Team Providers Care Flow Worker Name Role Phone Juan Barron MD Primary [...] 11/11/2023 3:07 PM EST Plan of Treatment Health Maintenance Due Date Last Done Comments DEPRESSION SCREENING 2011 HEPATITIS C SCREENING 2017 HIV ONE-TIME SCREENING (18-65 YEARS) 2017 INFLUENZA VACCINE (#1) 2025 , 07/12/2020, 10/21/2019, Additional history exists COVID-19 VACCINE ( season) 2025 09/24/2021, 01/12/2021, 12/15/2020 SMOKING STATUS SCREENING (Once After 26 Yrs) 2025 Adult Td,Tdap Booster 09/30/2029 09/30/2019 , 07/09/2018, [...] topic Medical Devices Not on file Insurance [place] [address] [address] [place] [place] [address] [place] [place] [address] [address] [address] [place] [place] [address] ACO [facility] ACO [facility] ACO Care Teams Flow Worker Relationship Specialty Start Date End Date Juan Barron MD [address] [place] [address] PCP - General Family Medicine 12/09/22 Additional Source Comments The information contained in this document represents components of the legal health record. It is not the complete legal health record.[facility]
--- OUTSIDE RECORDS SUMMARY | 2025-08-06 22:31 | XMS_ITS | Encounter Summary ---
Author Organization [facility] Address [address] [place] [phone] Phone Care Team Providers Care Tape Editor Name Role Phone Juan Barron MD Primary Care Provider Encounter Details Date Type Department Care Team (Late st Contact Info) Description 12/09/2022 Transcribe Orders Virtual Department [address] [place] [phone] Mag Cowan PA-C [address] [place] [phone] [email or web address] Impacted cerumen, bilateral (Primary Dx); Feeling [...] 8:09 PM EST Leda Jacinto RN * [place] Suicide Severity Rating Scale (Screener/Recent Self-Report) Question [...] documented as of this encounter Care Teams Tape Editor Relationship Specialty Start Date End Date Juan Barron MD [address] [place] [address] PCP - General Family Medicine 12/09/22 documented as of this encounter Additional Source Comments The information contained in this document represents components of the legal health record. It is not the complete legal health record.[facility]
[2025-08-07 10:07] LABS: Chlamydia pneumoniae PCR Not Detected (Not Detect.); Coronavirus 229E PCR Not Detected (Not Detect.); Coronavirus HKU1 PCR Not Detected (Not Detect.); Coronavirus NL63 PCR Not Detected (Not Detect.); Coronavirus OC43 PCR Not Detected (Not Detect.); RSV PCR Not Detected (Not Detect.); Rhino/Enterovirus PCR Not Detected (Not Detect.)
[2025-08-07 10:23] LABS: Influenza A H1 PCR Not Detected (Not Detect.); Influenza A H1-2009 PCR Not Detected (Not Detect.); Influenza A H3 PCR Not Detected (Not Detect.); SARS-CoV-2 PCR Not Detected (Not Detect.)
== END 2025-08-06 12:24 | disposition home or self-care (01) ==
LOC: HO.LNP 12:23
PROVIDERS: PCP Family Medicine; Visit Provider Physician Assistant Medical
DX: R09.81 Nasal congestion (principal)
CPT/HCPCS: 87633; 99212

== ENCOUNTER 2025-09-28 17:14 | Emergency (ER) | payer MEDICARE, MEDICAID, SELFPAY ==
[2025-09-28 17:24] VITALS: BP 156/65; PULSE 95; RESP 20; TEMP 37; O2SAT 99; BMI 37.9
--- NOTE | 2025-09-28 17:26 | ECG_ITS ---
Test Reason : chest pain Blood Pressure : */* mmHG Vent. Rate : 100 BPM Atrial Rate : 100 BPM P-R Int : 136 ms QRS Dur : 92 ms QT Int : 346 ms P-R-T Axes : 36 48 32 degrees QTcB Int : 446 ms Normal sinus rhythm Normal ECG When compared with ECG of 16-Jul-2025 13:24, No significant change was found Referred By: Belen Fox Electronically Signed By: Andi Acuna
--- NOTE | 2025-09-28 17:27 | ED_ITS ---
HPI - General Adult General Chief complaint: General Medical Stated complaint: sick, sore throat Time Seen by Provider: 09/28/25 18:51 History of Present Illness HPI narrative: Positive coughing congestion upper respiratory symptoms generalized total body ache. Sore throat. Patient from home. Symptoms started earlier today. Related Data Home Medications ?Medication ?Instructions ?Recorded ?Confirmed atomoxetine 60 mg capsule 60 mg PO DAILY 02/25/2312/15 (Strattera) cariprazine 3 mg capsule (Vraylar) 3 mg PO DAILY 01/0701/07/25 sertraline 50 mg tablet 50 mg PO DAILY 01/07/2512/15 Previous Rx's ?Medication ?Instructions ?Recorded fluticasone furoate 50 1 inh inhalation DAILY #30 e a 09/20/24 mcg/actuation blister powder for inhalation (Arnuity Ellipta) pantoprazole 40 mg tablet,delayed 40 mg PO BID@0630,16 30 #180 tabs 01/08/25 release sucralfate 1 gram tablet 1 g PO QIDWMHS #360 tabs tetrabenazine 12.5 mg tablet 12.5 mg PO BEDTIME 30 day s #30 tabs 02/18/25 (Xenazine) hydrocortisone 2.5 % topical cream 1 appl topical QID PRN skin 06/03/25 irritation #28 grams ibuprofen 600 mg tablet 600 mg PO Q6H PRN pain #20 t abs 07/16/25 azithromycin 250 mg tablet See Rx Instructions PO .COM PLEX #6 08/06/25 tabs cetirizine 10 mg tablet (All Day 10 mg PO DAILY PRN al lergy 08/06/25 Allergy (cetirizine)) symptoms 90 days #90 tabs ibuprofen 400 mg tablet 400 mg PO Q6H PRN pain #20 t abs 09/28/25 ondansetron 4 mg disintegrating 4 mg PO TID PRN nausea and 09/28/25 tablet vomiting 5 days #10 tabs oseltamivir 75 mg capsule (Tamiflu) 75 mg PO BID 5 day s #10 caps 09/28/25 Allergies Allergy/AdvReac Type Severity Reaction Status Date / Time amoxicillin (From AUGMENTIN) AdvReac Mild YEAST Verified 09/28/25 17:27 INFECTION clavulanic acid (From AdvReac Mild YEAST Verified 09/28/25 17:27 AUGMENTIN) INFECTION Review of Systems 2 Review of Systems: Positive coughing congestion upper respiratory symptoms Yes all other systems are reviewed and are negative [facility] Past Medical History Attestation statement: The following information was validated with the patient. 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 persistent allergic asthma GERD (gastroesophageal reflux disease) Abnormal EKG Chest pain Palpitations Autism Tourette's Surgical History [place] teeth extracted History of fundoplication Family History Family History Sister Brain cancer Social History Social History Household Members: Family Household Members Other:: mother Housing: House Do you presently have visiting nurse or other home services: No Alcohol intake: never Patient Tobacco Use Status: Never used Tobacco e-Cigarette/Vaping Use: Never Used Advance Directives: No Advance Directives Information Provided: No service: No Current occupational status: unemployed Cognitive needs: No Hearing needs: No Vision needs: No Physical Exam ED Exam Exam: Appearance: Alert. Oriented X3. No acute distress. Eyes: Pupils equal, round and reactive to light. ENT: Pharynx normal. Neck: Normal inspection. Neck supple. No lymph nodes noted. No crepitus CVS: Normal heart rate and rhythm. Pulses normal. Normal S1 and S2 Respiratory: No respiratory distress. Breath sounds normal. No Wheezing. No rales Abdomen: Soft and nontender. No rigidity. No distention. good BS x4 Skin: Skin warm and dry. Normal skin color. Normal skin turgor. Extremities: No lower extremity edema. Neurovascular intact to all extremities. No Lacerations. No Rash Neuro: Oriented X 3. No motor deficit. No sensory deficit. Moving all extermities. No slurred speech Vital Signs: Vital Signs - 24 hr 09/28/25 17:24 Temperature 98.6 F Pulse Rate 95 Respiratory Rate 20 Blood Pressure 156/65 H Pulse Oximetry 99 Oxygen Delivery Method Room Air BMI result Body Mass Index 37.9 Course Course Course Narrative: This is a Rapid Medical Examination (RME) performed by Sunshine Fox PA-C in triage. Full HPI, ROS, assessment and treatment plan per primary provider in the Main ED. Hx: 25 yo M here for eval of chest pain, b/l shoulder pain, sore throat, and burning with urination x today. Plan: labs, ekg, UA, viral/strep swabs Medications Administered Discontinued Medications Generic Name Dose Route Start Last Admin Trade Name Freq PRN Reason Stop Dose Admin Oseltamivir Phosphate 75 mg 09/28/25 19:05 09/28/25 19:34 Oseltamivir Phosphate 75 Mg Capsule PO 09/28/25 19:06 75 mg ONCE ONE Administration Oseltamivir Phosphate 75 mg 09/28/25 19:11 09/28/25 19:15 Oseltamivir Phosphate 75 Mg Capsule PO 09/28/25 19:12 Not Given ONCE ONE Medical Decision Making Medical Decision Making [facility] Narrative: 25 years old presents today with having coughing congestion upper respiratory symptoms generalized aches. Patient oxygen saturation is 99%. COVID flu RSV came back positive for influenza likely causing patient's symptoms of generalized malaise aching coughing nausea. Will sent home with Tamiflu as patient is less than 72 hours into his illness. Patient is encouraged to take fluids. Close follow-up on an outpatient basis. He is 25 he is in stable condition history of ADHD. Patient's UA is grossly negative no signs of infection. Differential Diagnosis Differential Diagnoses: The differential diagnosis associated with the presentation includes asthma, pneumonia, strep throat, flu, COVID, RSV Admission/Observation Consideration of admission/observation: Escalation of care including admission/observation considered Lab Data [facility] Lab Attestation statement: I reviewed the patient's lab results. 09/28/25 17:54 09/28/25 17:54 Labs: Lab Results 09/28/25 09/28/25 Range/Units 17:54 19:25 WBC 8.8 (4.8-10.8) X10*3/uL RBC 5.42 (4.60-5.80) X10*6/uL Hgb 14.5 (14.0-18.0) g/dl Hct 42.7 (42.0-52.0) % MCV 78.8 L (80.0-98.0) fL MCH 26.8 L (27.0-33.0) pg MCHC 34.0 (31.0-36.0) g/dl RDW 12.7 (11.0-16.0) % Plt Count 193 (160-400) X10*3/uL MPV 10.4 (9.4-12.4) fL Immature Gran % (Auto) 0.5 H (0.0-0.4) % Neut % (Auto) 77.5 H (45-73) % Lymph % (Auto) 14.3 L (20-40) % [place] % (Auto) 5.9 (2-11) % Eos % (Auto) 1.6 (0-4) % Baso % (Auto) 0.2 (0-2) % Lymph # (Auto) 1.3 (1.2-4.9) X10*3/uL [place] # (Auto) 0.5 (0.1-1.2) X10*3/uL Eos # (Auto) 0.1 (0.0-0.4) X10*3/uL Baso # (Auto) 0.0 (0.0-0.2) X10*3/uL Abs Immat Gran (auto) 0.04 H (0.00-0.03) X10*3/uL Absolute Neuts (auto) 6.8 (2.0-8.3) x10*3/uL Absolute Nucleated RBC 0.000 (0.0-0.012) X10*3/uL Nucleated RBC % (auto) 0.0 (0.0-0.2) /100WBC Sodium 137 (135-145) mmol/L Potassium 4.4 (3.3-5.1) mmol/L Chloride 107 (96-108) mmol/L Carbon Dioxide 19 L (22-29) mmol/L Anion Gap 15 (12-20) BUN 21 H (9-16) mg/dL Creatinine 0.76 (0.5-1.4) mg/dL Estim Creat Clear Calc 196.9 Estimated GFR > 60 Random Glucose 119 H (60-115) mg/dL Calcium 9.0 (8.4-10.2) mg/dL Magnesium 1.8 (1.6-2.6) mg/dL Total Bilirubin 0.5 (0.0-1.0) mg/dL AST 34 (5-37) U/L ALT 38 (0-40) U/L Alkaline Phosphatase 81 (39-117) U/L Troponin I High Sens < 2.7 (<3.5-35.0) ng/L Total Protein 6.5 (6.5-8.0) g/dL Albumin 4.3 (3.5-5.0) g/dL Urine Color Yellow Urine Appearance Clear Urine pH 6.0 (5.0-9.0) Ur Specific [place] 1.025 (1.005-1.025) Urine Protein Negative (Neg-Trace) mg/dL Urine Glucose (UA) Negative (Negative) mg/dL Urine Ketones Negative (Negative) mg/dL Urine Blood Negative (Negative) Urine Nitrite Negative (Negative) Ur Leukocyte Esterase Negative (Negative) Influenza Type A (PCR) POSITIVE A (Negative) Influenza Type B (PCR) NEGATIVE (Negative) RSV RNA Qual (PCR) NEGATIVE (Negative) SARS-CoV-2 RNA (RT-PCR) NEGATIVE (Negative) S. pyogenes GrpA NYDIA Negative (Negative) Discharge Plan Discharge Clinical Impression: Influenza Patient Disposition: Home, Self-Care Instructions: Influenza (DC) Prescriptions: New oseltamivir [Tamiflu] 75 mg capsule 75 mg PO BID 5 Days Qty: 10 0RF ibuprofen 400 mg tablet 400 mg PO Q6H PRN (Reason: pain) Qty: 20 0RF ondansetron 4 mg tablet,disintegrating 4 mg PO TID PRN (Reason: nausea and vomiting) 5 Days Qty: 10 0RF No Action tetrabenazine [Xenazine] 12.5 mg tablet 12.5 mg PO BEDTIME 30 Days Qty: 30 3RF hydrocortisone 2.5 % cream 1 appl topical QID PRN (Reason: skin irritation) Qty: 28 0RF ibuprofen 600 mg tablet 600 mg PO Q6H PRN (Reason: pain) Qty: 20 0RF sertraline 50 mg tablet 50 mg PO DAILY Vraylar 3 mg capsule 3 mg PO DAILY sucralfate 1 gram tablet 1 g PO QIDWMHS Qty: 360 0RF Rx Instructions: TAKE BEFORE BREAKFAST, LUNCH, DINNER, AND BEDTIME pantoprazole 40 mg tablet,delayed release (DR/EC) 40 mg PO BID@0630,1630 Qty: 180 0RF atomoxetine [Strattera] 60 mg capsule 60 mg PO DAILY Arnuity Ellipta 50 mcg/actuation blister with device 1 inh inhalation DAILY Qty: 30 11RF cetirizine [All Day Allergy (cetirizine)] 10 mg tablet 10 mg PO DAILY PRN (Reason: allergy symptoms) 90 Days Qty: 90 3RF azithromycin 250 mg tablet See Rx Instructions PO .COMPLEX Qty: 6 0RF Rx Instructions: For 250 mg dose pack: take 500 mg today (day 1), then 250 mg for 4 days (days 2-5) PO Referrals: Juan Barron MD [Primary Care Provider, Internal Medicine] - 10/01/25 Stand Alone Forms: Work/School Release Print Language: Yi
[2025-09-28 18:03] LABS: MANUAL DIFF FLAG NO
[2025-09-28 18:06] LABS: Hematocrit 42.7 % (42.0-52.0); Hemoglobin 14.5 g/dl (14.0-18.0); Imm Gran Abs Auto 0.04 X10*3/uL (0.00-0.03); Imm Gran Pct Auto 0.5 % (0.0-0.4); Lymphocytes Absolute Auto 1.3 X10*3/uL (1.2-4.9); Mean Corpuscular HGB Conc 34.0 g/dl (31.0-36.0); Mean Corpuscular Hemoglobin 26.8 pg (27.0-33.0); Mean Corpuscular Volume 78.8 fL (80.0-98.0); NRBC Abs Auto 0.000 X10*3/uL (0.0-0.012); NRBC Pct Auto 0.0 /100WBC (0.0-0.2); Platelet Count 193 X10*3/uL (160-400); Red Blood Count 5.42 X10*6/uL (4.60-5.80); White Blood Count 8.8 X10*3/uL (4.8-10.8)
[2025-09-28 18:20] LABS: IDNOW Serial# 58CA691E; Strep A Nucleic Acid Negative (Negative)
[2025-09-28 18:32] LABS: Troponin-I High Sensitivity < 2.7 ng/L (<3.5-35.0)
[2025-09-28 18:37] LABS: Alanine Aminotransferase 38 U/L (0-40); Albumin Level 4.3 g/dL (3.5-5.0); Alkaline Phosphatase 81 U/L (39-117); Anion Gap 15 (12-20); Aspartate Amino Transferase 34 U/L (5-37); Blood Urea Nitrogen 21 mg/dL (9-16); Calcium 9.0 mg/dL (8.4-10.2); Carbon Dioxide 19 mmol/L (22-29); Chloride 107 mmol/L (96-108); Creatinine Clr Calc Pharmacy 196.9; Estimated Glomerular Filt Rate > 60; Magnesium 1.8 mg/dL (1.6-2.6); Potassium 4.4 mmol/L (3.3-5.1); Sodium 137 mmol/L (135-145); Total Protein 6.5 g/dL (6.5-8.0)
[2025-09-28 18:41] LABS: Resp Syncy Virus RNA Qual PCR NEGATIVE (Negative); SARS COV2 PCR INHOUSE NEGATIVE (Negative)
--- OUTSIDE RECORDS SUMMARY | 2025-09-28 19:05 | XMS_ITS | Clinical Summary ---
Author Organization [facility] Address [address] [place] [phone] Phone Care Team Providers Care Call Taker Name Role Phone Juan Barron MD Primary [...] topic Medical Devices Not on file [place] [address] [address] [place] [address] [place] [address] [place] [address] [place] [address] [place] [address] [place] [address] [place] [address] [place] [address] [place] [address] [address] [facility]CO [facility] ACO Care Teams Call Taker Relationship Specialty Start Date End Date Juan Barron MD PCP - General Family Medicine 12/09/22 Additional Source Comments The information contained in this document represents components of the legal health record. It is not the complete legal health record.[facility]
--- OUTSIDE RECORDS SUMMARY | 2025-09-28 19:05 | XMS_ITS | Encounter Summary ---
Author Organization [facility] Address [address] [place] [phone] Phone Care Team Providers Care Head Teller Name Role Phone Juan Barron MD Primary Care Provider Encounter Details Date Type Department Care Team (Late st Contact Info) Description 12/09/2022 Transcribe Orders Virtual Department [address] [place] [id number] Mag Cowan PA-C [address] [place] [phone] [email or web address] Impacted cerumen, bilateral (Primary Dx); Feeling of [...] Author No Risk Indicated 12/11/2022 8:09 PM Leda Beatty RN * [place] Suicide Severity Rating Scale (Screener/Recent Self-Report) Question [...] documented as of this encounter Care Teams Head Teller Relationship Specialty Start Date End Date Juan Barron MD PCP - General Family Medicine 12/09/22 documented as of this encounter Additional Source Comments The information contained in this document represents components of the legal health record. It is not the complete legal health record.[facility]
--- OUTSIDE RECORDS SUMMARY | 2025-09-28 19:05 | XMS_ITS | Clinical Summary ---
Author Organization [facility] Address [address] [place] [address] Care Team Providers Care Graphic Design Teacher Name Role Phone Unknown Primary Care Provider [...] series) 2018 Influenza Vaccine 05/16/2025 COVID-19 Vaccine (1 - 2024-2 6 season) 2025 Pneumococcal Vaccine: Pediat tigist (0-5 Years) and At-Risk Patients (6 to 49 Years) Aged Out No longer eligible b ased on patient's age to complete this topic Insurance MEDICAID OUT OF STATE [id number] [address] [place] [address] Care Teams Graphic Design Teacher Relationship Specialty Start Date End Date Unknown Unknow Provider Address PCP - General 01/04/19
--- OUTSIDE RECORDS SUMMARY | 2025-09-28 19:05 | XMS_ITS | Encounter Summary ---
Author Organization [facility] Address [address] [place] [phone] Phone Care Team Providers Care Geospatial Intelligence Analyst Name Role Phone Juan Barron MD Primary Care Provider Encounter Details Date Type Department Care Team (Late st Contact Info) Description 12/11/2022 Procedure Pass [facility], Ct Scan - [address] [address] Social History Tobacco Use Types Packs/Day Years [...] 8:09 PM EST Leda Jacinto RN * [place] Suicide Severity Rating Scale (Screener/Recent Self-Report) Question [...] documented as of this encounter Care Teams Geospatial Intelligence Analyst Relationship Specialty Start Date End Date Juan Barron MD PCP - General Family Medicine 12/09/22 documented as of this encounter Additional Source Comments The information contained in this document represents components of the legal health record. It is not the complete legal health record.[facility]
[2025-09-28 19:31] LABS: Appearance Urine Clear; Glucose Urine UA Negative (Negative); PH 6.0 (5.0-9.0); Specific Gravity - Urine 1.025 (1.005-1.025)
[2025-09-28 19:50] VITALS: BP 143/69; PULSE 83; RESP 20; TEMP 36.4; O2SAT 100
[2025-09-28 20:16] VITALS: BP 143/69; PULSE 83; RESP 20; TEMP 36.4; O2SAT 100
== END 2025-09-28 20:00 | disposition home or self-care (01) ==
PROVIDERS: Physician Assistant Medical; Emergency Provider Emergency Medicine Emergency Medical Services; PCP Family Medicine
DX: J10.1 Influenza due to other identified influenza virus with other respiratory manifestations (principal); R05.9 Cough, unspecified; Z03.818 Encounter for observation for suspected exposure to other biological agents ruled out
CPT/HCPCS: 80053; 81003; 83735; 84484; 85025; 87637; 87651; 93005; 99283; 99284

== ENCOUNTER → 2025-09-28 17:26 | Outpatient (BNV) | payer MEDICARE, MEDICAID, SELFPAY | PROVIDERS: Emergency Provider Emergency Medicine Emergency Medical Services; PCP Family Medicine; Visit Provider Internal Medicine Cardiovascular Disease | DX: R07.9 Chest pain, unspecified (principal) | CPT/HCPCS: 93010 ==